=== PATIENT | male | born 1930 | race Caucasian/White ===

== ENCOUNTER 2016-07-03 12:04 | Emergency (ER) | payer MEDICARE, OTHER ==
[2016-07-03 12:15] VITALS: TEMP 97; BMI 24.1
[2016-07-03] MEDS ORDERED: SODIUM CHLORIDE 500 ML IV STA (12:56)
[2016-07-03 13:20] LABS: BASOPHIL 0.9 % (0-2.0); EOSINOPHIL 1.9 % (0-4.5); MCH 23.5 pg (25.7-33.7); MCHC 29.5 g/dl (32.0-35.9); MEAN CELL VOLUME 79.6 fl (80-96); MEAN PLT VOLUME 7.1 fl (7.5-11.1); NEUTROPHILS 76.2 % (42.8-82.8); PLATELET COUNT 505 K/MM3 (134-434); RDW 18.2 % (11.9-15.9); WHITE BLOOD COUNT 8.8 K/mm3 (4.0-10.0)
--- NOTE | 2016-07-03 13:26 | PDOC ---
History of Present Illness <Venu De La Rosa - Last Filed: 07/03/16 14:50> - General History Source: Patient Exam Limitations: No Limitations - History of Present Illness Initial Comments: 07/03/16 18:09 The patient is a 86 year old male, with a significant past medical history of GA , stomach cancer, congenital heart disease, renal failure, HTN, and small bowel obstruction who presents to the emergency department with a prescription refill. Patient reports being here for refills of his blood pressure medication. Upon ED arrival patient has no complaints of pain, but has a 120 HR in triage so was sent to the main ED for evaluation. He denies any SOB or chest pain. He denies fever, chills, palpitations, headache and dizziness. He denies nausea, vomit, diarrhea, melena, bpr and constipation. Allergies: NKA Social History:Nonsmoker. Denies EtOH use and drug use. PCP: <Tommy Lopez - Last Filed: 07/03/16 18:10> - General Chief Complaint: RX Refill Stated Complaint: RX REFILL Time Seen by Provider: 07/03/16 12:44 Past History - Past Medical History Anemia: No Asthma: No 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) CVA: No COPD: No CHF: No Dementia: No Diabetes: No GI Disorders: Yes (small bowel obstruction) Disorders: No HTN: Yes Hypercholesterolemia: Yes Kidney Stones: No (renal failure) Liver Disease: No Seizures: No Thyroid Disease: No - Surgical History Abdominal Surgery: Yes (sbo) Appendectomy: No Cardiac Surgery: No Cholecystectomy: No Lung Surgery: No Neurologic Surgery: No Orthopedic Surgery: No - Immunization History Immunization Up to Date: Yes - Psycho/Social/Smoking Cessation Hx Anxiety: No Suicidal Ideation: No Smoking History: Never smoked Have you smoked in the past 12 months: No Information on smoking cessation initiated: No 'Breaking Loose' booklet given: 07/01/15 Hx Alcohol Use: No Drug/Substance Use Hx: No Substance Use Type: None Hx Substance Use Treatment: No <Venu De La Rosa - Last Filed: 07/03/16 14:50> <Tommy Lopez - Last Filed: 07/03/16 18:10> - Past Medical History Allergies/Adverse Reactions: Allergies Allergy/AdvReac Type Severity Reaction Status Date / Time No Known Allergies Allergy Verified 07/03/16 12:10 Home Medications: Ambulatory Orders Aspirin [ASA -] 81 mg PO DAILY 07/03/16 Atorvastatin Ca [Lipitor] 40 mg PO HS #30 tablet 07/03/16 Metoprolol Succinate [Toprol XL -] 100 mg PO DAILY #30 tab.sr.24h 07/03/16 Review of Systems - Review of Systems Able to Perform ROS?: Yes Comments:: 07/03/16 18:10 CONSTITUTIONAL: No reported: Fever, Chills, Diaphoresis, Generalized Weakness, Malaise, Loss of Appetite HEENT: No reported: Rhinorrhea, Nasal Congestion, Throat Pain, Throat Swelling, Difficulty Swallowing, Mouth Swelling, Ear Pain, Eye Pain, Visual Changes CARDIOVASCULAR: No reported: Chest Pain, Syncope, Palpitations, Irregular Heart Rate, Lightheadedness, Peripheral Edema RESPIRATORY: No reported: Cough, Shortness of Breath, SOB with Exertion, Orthopnea, Wheezing , Stridor, Hemoptysis GASTROINTESTINAL: No reported: Abdominal pain, Abdominal Distension, Nausea, Vomiting, Diarrhea, Constipation, Melena, Hematochezia GENITOURINARY: No reported: Dysuria, Frequency, Urgency, Hesitancy, Flank Pain, Genital Pain MUSCULOSKELETAL: No reported: Myalgia, Arthralgia, Joint Swelling, Back pain, Neck Pain SKIN: No reported: Rash, Itching, Pallor HEMEATOLOGIC/IMMUNOLOGIC: No reported: Easy Bleeding, Easy Bruising, Lymphadenopathy, Frequent infections ENDOCRINE: No reported: Unexplained Weight Gain, Unexplained Weight Loss, Heat Intolerance , Cold Intolerance NEUROLOGIC: No reported: Headache, Focal Weakness, Paresthesias, Vertigo, Lightheadedness, Unsteady Gait, Seizure, Mental Status Changes, Incontinence PSYCHIATRIC: No reported: Anxiety, Depression <Tommy Lopez - Last Filed: 07/03/16 18:10> *Physical Exam - Vital Signs Last Vital Signs Temp Pulse Resp BP Pulse Ox 97.0 F L 120 H 20 195/105 100 07/03/16 12:10 07/03/16 12:10 07/03/16 12:10 07/03/16 12:10 07/03/16 12:10 <Venu De La Rosa - Last Filed: 07/03/16 14:50> - Vital Signs Last Vital Signs Temp Pulse Resp BP Pulse Ox 97.0 F L 87 18 144/61 98 07/03/16 12:10 07/03/16 14:35 07/03/16 14:35 07/03/16 14:35 07/03/16 14:35 - Physical Exam Comments: 07/03/16 18:10 GENERAL: The patient is awake, alert, and fully oriented, Nontoxic - in no acute distress. HEAD: Normocephalic, atraumatic. EYES: extraocular movements intact, sclera anicteric, conjunctiva clear. ENT: Normal voice, Moist mucous membranes. NECK: Normal range of motion, supple LUNGS: Breath sounds equal, clear to auscultation bilaterally. No wheezes, no rhonchi, no rales. HEART: Tachycardic. Regular rate and rhythm, without murmur, rub or gallop. ABDOMEN: Soft, nontender, normoactive bowel sounds. No guarding, no rebound.No CVA tenderness EXTREMITIES: Normal range of motion, no edema. No clubbing or cyanosis. No cords , erythema, or tenderness. NEUROLOGICAL: No facial asymmetry, Normal speech. PSYCH: Normal mood, normal affect. SKIN: Warm, Dry, normal turgor. <Tommy Lopez - Last Filed: 07/03/16 18:10> Heart Score/ECG Review - ECG Impressions Comment:: 07/03/16 13:24 Twelve-lead EKG was performed and reviewed by me. There is normal sinus rhythm Rate of 103 RBBB LAFB <Venu De La Rosa - Last Filed: 07/03/16 14:50> ED Treatment Course - LABORATORY CBC & Chemistry Diagram: 07/03/16 13:01 07/03/16 13:01 <Venu De La Rosa - Last Filed: 07/03/16 14:50> - LABORATORY CBC & Chemistry Diagram: 07/03/16 13:01 07/03/16 13:01 - ADDITIONAL ORDERS Additional order review: Laboratory Results 07/03/16 13:01 Sodium 141 Potassium 4.6 Chloride 103 Carbon Dioxide 27 Anion Gap 11 BUN 18 D Creatinine 1.2 Creat Clearance w eGFR 57.68 Random Glucose 161 H D Calcium 8.7 Total Bilirubin 0.7 D AST 15 D ALT 12 Alkaline Phosphatase 87 D Total Protein 7.1 D Albumin 3.3 L D TSH 1.23 D 07/03/16 13:01 RBC 3.91 L MCV 79.6 L MCHC 29.5 L RDW 18.2 H D MPV 7.1 L Neutrophils % 76.2 Lymphocytes % 17.3 Monocytes % 3.7 L Eosinophils % 1.9 Basophils % 0.9 - Medications Given in the ED: ED Medications Discontinued Medications Generic Name Dose Route Start Last Admin Trade Name Freq PRN Reason Stop Dose Admin Sodium Chloride 500 mls @ 500 mls/hr 07/03/16 12:56 07/03/16 13:09 Normal Saline - IV 07/03/16 13:55 500 mls/hr ASDIR STA Administration Metoprolol Succinate 100 mg 07/03/16 13:53 07/03/16 14:07 Toprol Xl - PO 07/03/16 13:54 100 mg ONCE ONE Administration <Tommy Lopez - Last Filed: 07/03/16 18:10> Medical Decision Making - Medical Decision Making 07/03/16 13:27 86y M hx of CAD, htn, hl presents for med refill without any other complaints, noted to be tachycardic to 120 at triage and hypertertensive exam unremarkable, HR when I was evaluating him was approx 103. will give gentle fluids will ck labs to r/o anemia, metabolic dernamgene ekg to screen for arrhtmia. 07/03/16 14:18 The patient's blood work is reviewed the patient's hemoglobin is 9.2, which is an improvement followed to do his previous hospital stay. The patient's heart rate on the cardiac cath tech is also significantly improved 94, and his blood pressure is also improved to 169 systolic. will give the pt an rx for his meds. 07/03/16 14:50 pts vitals improved substantially will d/c the patient to fu with pmd return precautions were discussed I discussed the physical exam findings, ancillary test results and final diagnoses with the patient. I answered all of the patient's questions. The patient was satisfied with the care received and felt comfortable with the discharge plan and treatment plan. The patient will call their primary care physician within 24 hours to arrange follow-up and will return to the Emergency Department with any new, persistent or worsening symptoms. <Venu De La Rosa - Last Filed: 07/03/16 14:50> *DC/Admit/Observation/Transfer - Discharge Dispostion Admit: No <Venu De La Rosa - Last Filed: 07/03/16 14:50> - Attestations Scribe Attestion: 07/03/16 18:10 Documentation prepared by Tommy Lopez, acting as certified medical biller for Venu De La Rosa MD. <Tommy Lopez - Last Filed: 07/03/16 18:10> Diagnosis at time of Disposition: Medication refill HTN (hypertension) Qualifiers: Hypertension type: essential hypertension Qualified Code(s): I10 - Essential ( primary) hypertension - Discharge Dispostion Disposition: HOME Condition at time of disposition: Improved - Prescriptions Prescriptions: Atorvastatin Ca [Lipitor] 40 mg PO HS #30 tablet Metoprolol Succinate [Toprol XL -] 100 mg PO DAILY #30 tab.sr.24h - Referrals Referrals: Stanislav Johnson MD [Primary Care Provider] - [facility] [Provider Group] - Patient Instructions Printed Discharge Instructions: DI for High Blood Pressure Additional Instructions: Return to the emergency department immediately with ANY new, persistent or worsening symptoms. Make sure that he stay well-hydrated You MUST call and follow up with your doctor tomorrow for further evaluation of your symptoms. Results were discussed with you. Please make sure your doctor reviews the results of your emergency evaluation. If you had any xrays during your visit, it was read preliminarily by myself, a Radiologist will review it and if there are any additional findings we will call you. Print Language: VIETNAMESE
[2016-07-03 13:34] LABS: ALBUMIN 3.3 g/dl (3.4-5.0); BILIRUBIN,TOTAL 0.7 mg/dL (0.2-1.0); CALCIUM 8.7 mg/dL (8.5-10.1); CREATININE 1.2 mg/dL (0.7-1.3); TOT PROT 7.1 g/dl (6.4-8.2)
[2016-07-03] MEDS ORDERED: METOPROLOL SUCCINATE 100 MG TAB.SR.24H (FP) PO ONE (13:53)
[2016-07-03] MEDS ORDERED: METOPROLOL SUCCINATE 50 MG TAB.SR.24H (FP) ONE (14:04)
[2016-07-03 14:35] VITALS: BP 144/61; PULSE 87
[2016-07-03 14:50] LABS: THYROID STIMULATING HORMONE 1.23 uIU/ml (0.358-3.74)
--- NOTE | 2016-07-03 15:21 | EKG ---
Test Reason : Blood Pressure : / mmHG Vent. Rate : 103 BPM Atrial Rate : 103 BPM P-R Int : 172 ms QRS Dur : 134 ms QT Int : 380 ms P-R-T Axes : 081 -62 088 degrees QTc Int : 497 ms SINUS TACHYCARDIA RIGHT BUNDLE BRANCH BLOCK LEFT ANTERIOR FASCICULAR BLOCK BIFASCICULAR BLOCK LEFT VENTRICULAR HYPERTROPHY WITH REPOLARIZATION ABNORMALITY ABNORMAL ECG WHEN COMPARED WITH ECG OF 27-FEB-2016 08:43, T WAVE AMPLITUDE HAS INCREASED IN INFERIOR LEADS VENT. RATE HAS INCREASED Confirmed by FILIPE SAMUEL, YAIMA ([id number]) on 07/03/2016 3:21:18 PM Referred By: Confirmed By:YAIMA DENT MD
== END 2016-07-03 14:56 | disposition home or self-care (01) ==
LOC: JER 12:04
DX: I10 Essential (primary) hypertension (principal); Z76.0 Encounter for issue of repeat prescription
CPT/HCPCS: 36415; 80053; 84443; 85025; 93005; 93010; 99285-25

== ENCOUNTER 2016-10-09 03:20 | Inpatient (IN) | payer MEDICARE, OTHER ==
[2016-10-09 03:41] VITALS: BMI 24.1
[2016-10-09] MEDS ORDERED: NITROGLYCERIN SUBLINGUAL 1/150 0.4 MG TAB SL ONE (03:53)
[2016-10-09 04:22] LABS: BASOPHIL 1.4 % (0-2.0); EOSINOPHIL 0.5 % (0-4.5); MCHC 27.1 g/dl (32.0-35.9); MEAN CELL VOLUME 68.5 fl (80-96); NEUTROPHILS 75.7 % (42.8-82.8); PLATELET COUNT 489 K/MM3 (134-434); WHITE BLOOD COUNT 6.6 K/mm3 (4.0-10.0)
[2016-10-09 04:25] LABS: MCH 18.6 pg (25.7-33.7)
--- NOTE | 2016-10-09 04:32 | PDOC ---
History of Present Illness - General Chief Complaint: Chest Pain Stated Complaint: CHEST PAIN Time Seen by Provider: 10/09/16 03:36 History Source: Patient Exam Limitations: No Limitations - History of Present Illness Initial Comments: 10/09/16 04:27 86yo Male patient presents to ED c/o chest pains that began 1 hour ago. Patient states he was trying to sleep it off, but pain is constant. Associated: Nausea. Presenting Symptoms: Chest Pain, Nausea Timing/Duration: reports: constant Severity/Quality: reports: moderate. denies: mild, severe, aching, burning, dull, ingestion, pressure, sharp, stabbing, tearing, tightness, other Location: reports: substernal. denies: central, epigastric, shoulder, back, abdomen, other Chest Pain Radiation: denies: no radiation, jaw, arms, neck, shoulders, back, sternal notch, epigastric, other Activities at Onset: reports: rest Past History - Travel Traveled outside of the country in the last 30 days: No Close contact w/someone who was outside of country & ill: No - Past Medical History Allergies/Adverse Reactions: Allergies Allergy/AdvReac Type Severity Reaction Status Date / Time No Known Allergies Allergy Verified 07/03/16 12:10 Home Medications: Ambulatory Orders Aspirin [ASA -] 81 mg PO DAILY 07/03/16 Atorvastatin Ca [Lipitor] 40 mg PO HS #30 tablet 07/03/16 Metoprolol Succinate [Toprol XL -] 100 mg PO DAILY #30 tab.sr.24h 07/03/16 Anemia: No Asthma: No 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) CVA: No COPD: No CHF: No Dementia: No Diabetes: No GI Disorders: Yes (small bowel obstruction) Disorders: No HTN: Yes Hypercholesterolemia: Yes Kidney Stones: No (renal failure) Liver Disease: No Seizures: No Thyroid Disease: No - Surgical History Abdominal Surgery: Yes (sbo) Appendectomy: No Cardiac Surgery: No Cholecystectomy: No Lung Surgery: No Neurologic Surgery: No Orthopedic Surgery: No - Immunization History Immunization Up to Date: Yes - Psycho/Social/Smoking Cessation Hx Anxiety: No Suicidal Ideation: No Smoking History: Former smoker Have you smoked in the past 12 months: No Information on smoking cessation initiated: No 'Breaking Loose' booklet given: 02/12/16 Hx Alcohol Use: No Drug/Substance Use Hx: No Substance Use Type: None Hx Substance Use Treatment: No Cardiac Specific PMH - Complaint Specific PMHX Pacemaker: No Review of Systems - Review of Systems Able to Perform ROS?: Yes Is the patient limited Mexican proficient: No Constitutional: No: Chills, Fever Respiratory: No: Cough, Shortness of Breath, Stridor, Wheezing Cardiac (ROS): Yes: Chest Pain, Chest Tightness. No: Edema, Irregular Heart Rate, Lightheadedness, Palpitations, Syncope ABD/GI: No: Constipated, Diarrhea, Nausea, Poor Appetite, Poor Fluid Intake, Vomiting, Abdominal cramping : No: Burning, Dysuria Musculoskeletal: No: Back Pain, Muscle Weakness Integumentary: No: Bruising, Erythema, Rash Neurological: No: Headache, Seizure, Tingling, Ataxia, Dizziness All Other Systems: Reviewed and Negative *Physical Exam - Vital Signs Last Vital Signs Temp Pulse Resp BP Pulse Ox 98.1 F 116 H 26 H 149/68 100 10/09/16 03:38 10/09/16 03:38 10/09/16 03:38 10/09/16 03:38 10/09/16 03:38 - Physical Exam General Appearance: Yes: Nourished, Appropriately Dressed. No: Apparent Distress, Mild Distress, Moderate Distress, Severe Distress HEENT: positive: EOMI, ANITA, Normal ENT Inspection, Normal Voice, Symmetrical, TMs Normal, Pharynx Normal. negative: Tonsillar Exudate, Tonsillar Erythema, Nasal Congestion, Rhinorrhea, TM Bulging, TM Dull, TM Erythema Neck: positive: Trachea midline, Supple. negative: Stridor, Lymphadenopathy (R) , Lymphadenopathy (L) Respiratory/Chest: positive: Lungs Clear, Normal Breath Sounds. negative: Chest Tender, Respiratory Distress, Accessory Muscle Use, Labored Respiration, Rapid RR Cardiovascular: positive: Tachycardia, Irregular Gastrointestinal/Abdominal: positive: Normal Bowel Sounds, Soft, Distended. negative: Guarding, Rebound, Tenderness, Spleenomegaly Musculoskeletal: positive: Normal Inspection. negative: CVA Tenderness, Vertebral Tenderness Extremity: positive: Normal Capillary Refill, Normal Inspection, Normal Range of Motion. negative: Pedal Edema, Swelling, Calf Tenderness, Erythema, Inflammation Integumentary: positive: Dry, Warm, Pale. negative: Erythema, Cold, Clammy, Diaphoresis, Moist, Hives, Swelling, Ecchymosis, Bruising Neurologic: positive: labor arbitrator II-XII NML intact, Fully Oriented, Alert, Normal Mood/ Affect, Normal Response, Motor Strength 09/21 ED Treatment Course - LABORATORY CBC & Chemistry Diagram: 10/09/16 04:00 10/09/16 04:00 - RADIOLOGY Radiology Studies Ordered: Category Date Time Status CHEST X-RAY PORTABLE* [RAD] Stat Radiology 10/09/16 03:53 Ordered - Medications Given in the ED: ED Medications Discontinued Medications Generic Name Dose Route Start Last Admin Trade Name Freq PRN Reason Stop Dose Admin Nitroglycerin 0.4 mg 10/09/16 03:53 10/09/16 04:00 Nitrostat - SL 10/09/16 03:54 0.4 mg ONCE ONE Administration
[2016-10-09] MEDS ORDERED: morphine CARPU-JECT 2 MG/1 ML DISP.SYRIN ONE ×2 (04:35→09:02)
--- NOTE | 2016-10-09 04:45 | PDOC ---
*Physical Exam - Vital Signs Last Vital Signs Temp Pulse Resp BP Pulse Ox 98.1 F 79 22 124/50 91 L 10/09/16 03:38 10/09/16 04:27 10/09/16 04:27 10/09/16 04:27 10/09/16 04:27 ED Treatment Course - LABORATORY CBC & Chemistry Diagram: 10/09/16 04:00 10/09/16 04:00 - ADDITIONAL ORDERS Additional order review: 10/09/16 04:00 RBC 3.63 L MCV 68.5 L MCHC 27.1 L RDW 20.0 H MPV 8.0 D Neutrophils % 75.7 Lymphocytes % 14.6 Monocytes % 7.8 D Eosinophils % 0.5 Basophils % 1.4 - Medications Given in the ED: ED Medications Discontinued Medications Generic Name Dose Route Start Last Admin Trade Name Freq PRN Reason Stop Dose Admin Nitroglycerin 0.4 mg 10/09/16 03:53 10/09/16 04:00 Nitrostat - SL 10/09/16 03:54 0.4 mg ONCE ONE Administration Medical Decision Making - Medical Decision Making 10/09/16 04:45 agree with care from NETO Luciano *DC/Admit/Observation/Transfer Diagnosis at time of Disposition: Anemia in chronic illness, Chest pain, Occult GI bleeding
[2016-10-09 04:46] LABS: ALBUMIN 2.9 g/dl (3.4-5.0); BILIRUBIN,TOTAL 1.1 mg/dL (0.2-1.0); CALCIUM 8.2 mg/dL (8.5-10.1); COCKROFT - GAULT 39.35; CREATININE 1.3 mg/dL (0.7-1.3); TOT PROT 6.8 g/dl (6.4-8.2)
[2016-10-09 04:49] LABS: TROPONIN I 0.12 ng/ml (0.00-0.05)
[2016-10-09] MEDS: SODIUM CHLORIDE 1,000 ML IV SCH (04:50)
[2016-10-09] MEDS: morphine CARPU-JECT 2 MG/1 ML DISP.SYRIN IVPUSH ONE ×2 (04:50→09:13)
[2016-10-09 04:51] LABS: INR 1.37 (0.82-1.09); PROTHROMBIN TIME (PATIENT) 15.2 SEC (9.98-11.88)
--- NOTE | 2016-10-09 05:50 | PDOC ---
*Physical Exam - Vital Signs Last Vital Signs Temp Pulse Resp BP Pulse Ox 98.1 F 100 H 21 144/58 100 10/09/16 03:38 10/09/16 05:24 10/09/16 05:24 10/09/16 05:24 10/09/16 05:24 ED Treatment Course - LABORATORY CBC & Chemistry Diagram: 10/09/16 04:00 10/09/16 04:00 - ADDITIONAL ORDERS Additional order review: Laboratory Results 10/09/16 10/09/16 10/09/16 04:00 04:00 04:00 INR 1.37 H PTT (Actin FS) 31.9 Sodium 138 Potassium 4.2 Chloride 101 Carbon Dioxide 20 L D Anion Gap 17 H BUN 20 H Creatinine 1.3 Creat Clearance w eGFR 52.59 Random Glucose 172 H Calcium 8.2 L Total Bilirubin 1.1 H D AST 10 L D ALT 11 L Alkaline Phosphatase 91 Creatine Kinase 32 L Troponin I 0.12 H D Total Protein 6.8 Albumin 2.9 L 10/09/16 04:00 RBC 3.63 L MCV 68.5 L MCHC 27.1 L RDW 20.0 H MPV 8.0 D Neutrophils % 75.7 Lymphocytes % 14.6 Monocytes % 7.8 D Eosinophils % 0.5 Basophils % 1.4 - Medications Given in the ED: ED Medications Discontinued Medications Generic Name Dose Route Start Last Admin Trade Name Freq PRN Reason Stop Dose Admin Morphine Sulfate 2 mg 10/09/16 04:28 10/09/16 04:50 Morphine Injection - IVPUSH 10/09/16 04:29 2 mg ONCE ONE Administration Nitroglycerin 0.4 mg 10/09/16 03:53 10/09/16 04:00 Nitrostat - SL 10/09/16 03:54 0.4 mg ONCE ONE Administration Medical Decision Making - Medical Decision Making 10/09/16 05:28 Patient received in sign out from pauline Luciano. Patient arrives complaining of chest pain since last night. Patient with history of CHF and is followed by Dr. Ko for cardiology and Dr. Vargas for primary care. Patient upon my arrival is satting at 98% with 2 L of oxygen. Patient's heart rate fluctuating from 96- 100. Patient currently asymptomatic. 10/09/16 05:48 Laboratory Tests 10/09/16 10/09/16 10/09/16 04:00 04:00 04:00 WBC 6.6 Hgb 6.8 L* D Hct 24.9 L D Plt Count 489 H Neutrophils % 75.7 INR 1.37 H Sodium 138 Potassium 4.2 Chloride 101 Carbon Dioxide 20 L D Anion Gap 17 H BUN 20 H Creatinine 1.3 Random Glucose 172 H Calcium 8.2 L Total Bilirubin 1.1 H D AST 10 L D ALT 11 L Creatine Kinase 32 L Troponin I 0.12 H D Albumin 2.9 L Patient was guaiac positive with tarry colored stool on exam. Patient will receive 1 unit of packed cells. Patient's history includes CAD, recurrent and STEMI, colon CA and GI bleed. Laboratory Tests 01/12/16 02/25/16 02/25/16 13:30 06:22 15:10 Troponin I 0.32 D 0.27 H 10.72 H* D 02/25/16 02/26/16 02/26/16 19:30 06:00 12:00 Troponin I 11.10 H* 7.85 H* D 5.58 H* Patient also with history of colon resection with recurrence at the anastomosis. Patient was seen by Dr. Kowalski and Dr. Salgado 10/09/16 07:23 Laboratory Tests 10/09/16 10/09/16 05:23 05:23 B-Natriuretic Peptide 1767.81 H Blood Type O POSITIVE Antibody Screen Negative Case discussed with Dr. Glover, who will admit to telemetry. Consultation placed with Dr. Ko and Dr. Kowalski. Patient was given 162 mg of aspirin. heparin is ontraindicated secondary to + occult blood and colon ca 10/09/16 08:[address] Ko and will consult shortly *DC/Admit/Observation/Transfer Diagnosis at time of Disposition: Anemia in chronic illness, Occult GI bleeding Chest pain Qualifiers: Chest pain type: unspecified Qualified Code(s): R07.9 - Chest pain, unspecified - Discharge Dispostion Admit: Yes
[2016-10-09 07:19] LABS: ANISOCYTOSIS 2+; HYPOCHROMIA 3+; PLATELET ESTIMATE SLT INCREASED (NORMAL); POIKILOCYTOSIS 2+; POLYCHROMASIA 1+
[2016-10-09] MEDS ORDERED: ASPIRIN 81 MG CHEWABLE TABLETS PO ONE (07:55)
[2016-10-09] MEDS ORDERED: morphine CARPU-JECT 2 MG/1 ML DISP.SYRIN IVPUSH ONE (09:30)
[2016-10-09] MEDS ORDERED: ACETAMINOPHEN 325 MG TABLET (FP) PO PRN (11:18)
--- NOTE | 2016-10-09 11:20 | EKG ---
Test Reason : Blood Pressure : / mmHG Vent. Rate : 091 BPM Atrial Rate : 091 BPM P-R Int : 000 ms QRS Dur : 134 ms QT Int : 432 ms P-R-T Axes : 000 -66 171 degrees QTc Int : 531 ms SINUS RHYTHM WITH MARKED SINUS ARRHYTHMIA RIGHT BUNDLE BRANCH BLOCK LEFT ANTERIOR FASCICULAR BLOCK BIFASCICULAR BLOCK LEFT VENTRICULAR HYPERTROPHY WITH REPOLARIZATION ABNORMALITY ST SEGMENT DEPRESSION IN LATERAL LEADS SUGGESTS INFERIOR AND ANTEROLATERAL ISCHEMIA ABNORMAL ECG WHEN COMPARED WITH ECG OF 09-OCT-2016 03:30, ST-T WAVE ABNORMALITY PERSISTS VENT. RATE HAS DECREASED Confirmed by YAIMA DENT MD ([id number]) on 10/09/2016 11:20:43 AM Referred By: Confirmed By:YAIMA DENT MD
--- NOTE | 2016-10-09 11:21 | EKG ---
Test Reason : Blood Pressure : / mmHG Vent. Rate : 112 BPM Atrial Rate : 112 BPM P-R Int : 174 ms QRS Dur : 130 ms QT Int : 346 ms P-R-T Axes : 000 -60 114 degrees QTc Int : 472 ms SINUS TACHYCARDIA RIGHT BUNDLE BRANCH BLOCK LEFT ANTERIOR FASCICULAR BLOCK BIFASCICULAR BLOCK LEFT VENTRICULAR HYPERTROPHY WITH REPOLARIZATION ABNORMALITY ST DEPRESSION SUGGESTS ANTEROLATERAL ISCHEMIA ABNORMAL ECG WHEN COMPARED WITH ECG OF 03-JUL-2016 12:57, ST MORE DEPRESSED ANTEROLATERAL LEADS CLINICAL CORRELATION IS RECOMMENDED Confirmed by YAIMA DENT MD ([id number]) on 10/09/2016 11:21:27 AM Referred By: Confirmed By:YAIMA DENT MD
--- NOTE | 2016-10-09 11:28 | HP ---
Admitting History and Physical - Primary Care Physician PCP: Omar Vargas - Admission Chief Complaint: I'm having chest pain History of Present Illness: Mr Parker is an 86 year old male who comes in with chest pain. He says it began about 2am. It was located on both sides of his chest. He describes it as a pulled muscle type of pain. It does not radiate. It was associated with nausea but not vomiting. He was not short of breath with it. He did not have lightheadedness or syncope with it. He does not know of anything that exacerbates or relieves it. He denies fevers, chills, passing out, coughing, diarrhea, constipation, dark black stool or blood in stools, difficulty or pain on urination, or swelling. He says he is still having some chest pain but it is improving. 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 type), Brother Review of Systems Findings/Remarks: full review of systems obtained, as per HPI and otherwise negative Physical Examination Vital Signs: Vital Signs Temperature 97.6 F 10/09/16 11:00 Pulse Rate 118 H 10/09/16 11:00 Respiratory Rate 21 10/09/16 11:00 Blood Pressure 133/72 10/09/16 11:00 O2 Sat by Pulse Oximetry (%) 100 10/09/16 11:00 Constitutional: Yes: Well Nourished, No Distress, Calm Eyes: Yes: Conjunctiva Clear, EOM Intact, PERRL HENT: Yes: Atraumatic, Normocephalic Cardiovascular: Yes: Tachycardia, Other. No: Gallop, Murmur, Rub Respiratory: Yes: Regular. No: Rales, Rhonchi, Wheezes Gastrointestinal: Yes: Normal Bowel Sounds, Soft. No: Distention, Tenderness Extremities: Yes: WNL Edema: No Labs: Laboratory Results - last 24 hr 10/09/16 10/09/16 10/09/16 04:00 04:00 04:00 WBC 6.6 RBC 3.63 L Hgb 6.8 L* D Hct 24.9 L D MCV 68.5 L MCHC 27.1 L RDW 20.0 H Plt Count 489 H MPV 8.0 D Neutrophils % 75.7 Lymphocytes % 14.6 Monocytes % 7.8 D Eosinophils % 0.5 Basophils % 1.4 Platelet Estimate Slt increased RBC Morphology Polychromasia 1+ Hypochromic-Microcytic 3+ Poikilocytosis 2+ Anisocytosis 2+ INR PTT (Actin FS) 31.9 Sodium 138 Potassium 4.2 Chloride 101 Carbon Dioxide 20 L D Anion Gap 17 H BUN 20 H Creatinine 1.3 Creat Clearance w eGFR 52.59 Random Glucose 172 H Calcium 8.2 L Total Bilirubin 1.1 H D AST 10 L D ALT 11 L Alkaline Phosphatase 91 Creatine Kinase 32 L Troponin I 0.12 H D B-Natriuretic Peptide Total Protein 6.8 Albumin 2.9 L Blood Type Antibody Screen Crossmatch 10/09/16 10/09/16 10/09/16 04:00 05:23 05:23 WBC RBC Hgb Hct MCV MCHC RDW Plt Count MPV Neutrophils % Lymphocytes % Monocytes % Eosinophils % Basophils % Platelet Estimate RBC Morphology Polychromasia Hypochromic-Microcytic Poikilocytosis Anisocytosis INR 1.37 H PTT (Actin FS) Sodium Potassium Chloride Carbon Dioxide Anion Gap BUN Creatinine Creat Clearance w eGFR Random Glucose Calcium Total Bilirubin AST ALT Alkaline Phosphatase Creatine Kinase Troponin I B-Natriuretic Peptide 1767.81 H Total Protein Albumin Blood Type O POSITIVE Antibody Screen Negative Crossmatch See Detail Imaging - Results Chest X-ray: Report Reviewed, Image Reviewed EKG: Image Reviewed Problem List - Problems (1) Anemia Assessment/Plan: -patient presents with anemia -admit to telemetry -transfuse 2 units pRBCs -monitor Code(s): D64.9 - ANEMIA, UNSPECIFIED Qualifiers: Other causes of anemia: acute posthemorrhagic (2) Occult GI bleeding Assessment/Plan: -cause of anemia -? secondary to colon cancer -will start protonix gtt currently -GI consult Code(s): R19.5 - OTHER FECAL ABNORMALITIES (3) Chest pain Assessment/Plan: -suspect secondary to anemia -cardiology consulted and following -improving with transfusion Code(s): R07.9 - CHEST PAIN, UNSPECIFIED Qualifiers: Chest pain type: unspecified Qualified Code(s): R07.9 - Chest pain, unspecified (4) Non-ST elevation (NSTEMI) myocardial infarction Assessment/Plan: -as above -cannot anticoagulate secondary to bleeding Code(s): I21.4 - NON-ST ELEVATION (NSTEMI) MYOCARDIAL INFARCTION (5) HTN (hypertension) Assessment/Plan: -continue toprol xl with hold parameters Code(s): I10 - ESSENTIAL (PRIMARY) HYPERTENSION (6) Hyperlipidemia Assessment/Plan: -continue statin Code(s): E78.5 - HYPERLIPIDEMIA, UNSPECIFIED Qualifiers:
--- NOTE | 2016-10-09 12:55 | CON.CARD ---
Consult Consult Specialty:: Cardiology Referred by:: Dr. Glover Reason for Consultation:: Cardiac evaluation - History of Present Illness Chief Complaint: Chest pain History of Present Illness: Patient is an 86 year old male well known to our service wih underlying history of CAD and history of NSTEMI in the context of profound anemia in the past, hypertension/HCVD, colon CA s/p subtotal colectomy with anastomotic recurrence and previous transfusions now presents with chest pain across the mid substernum and nausea. He denies shortness of breath of palpitations. He denies fever or chills. Denies paroxysmal nocturnal dyspnea or orthopnea. No headache or lightheadedness. He is being transfused with PRBC in view of H/H of 6.8/24.9. Troponin initially was 0.12 and now is 5.85 with BNP of 1767. He was given Furosemide after the blood transfusion and was also given Metoprolol ER dose today. 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 type), Brother Review of Systems - Review of Systems Constitutional: denies: Chills, Fever Cardiovascular: reports: Chest Pain. denies: Palpitations, Shortness of Breath Respiratory: denies: Cough, Hemoptysis, Orthopnea, PND, SOB, SOB on Exertion Gastrointestinal: denies: Abdominal Pain, Constipation, Diarrhea, Melena, Nausea , Rectal Bleeding, Vomiting Musculoskeletal: denies: Joint Pain Neurological: denies: Dizziness, Headache, Seizure, Syncope Vital Signs: Vital Signs Temperature 97.6 F 10/09/16 11:00 Pulse Rate 118 H 10/09/16 11:00 Respiratory Rate 21 10/09/16 11:48 Blood Pressure 133/72 10/09/16 11:00 O2 Sat by Pulse Oximetry (%) 100 10/09/16 11:48 Neck: Yes: Supple Respiratory: Yes: Diminished Gastrointestinal: Yes: Normal Bowel Sounds, Soft. No: Tenderness Cardiovascular: Yes: Regular Rate and Rhythm JVD: No Carotid Bruit: No PMI: Non-Displaced Heart Sounds: Yes: S1, S2. No: Gallop Murmur: Yes: Systolic Murmur, Grade 2 Edema: No - Other Data Labs, Other Data: INR, PTT INR 1.37 (0.82-1.09) H 10/09/16 04:00 Laboratory Results - last 24 hr 10/09/16 10/09/16 10/09/16 04:00 04:00 04:00 WBC 6.6 RBC 3.63 L Hgb 6.8 L* D Hct 24.9 L D MCV 68.5 L MCHC 27.1 L RDW 20.0 H Plt Count 489 H MPV 8.0 D Neutrophils % 75.7 Lymphocytes % 14.6 Monocytes % 7.8 D Eosinophils % 0.5 Basophils % 1.4 Platelet Estimate Slt increased RBC Morphology Polychromasia 1+ Hypochromic-Microcytic 3+ Poikilocytosis 2+ Anisocytosis 2+ INR PTT (Actin FS) 31.9 Sodium 138 Potassium 4.2 Chloride 101 Carbon Dioxide 20 L D Anion Gap 17 H BUN 20 H Creatinine 1.3 Creat Clearance w eGFR 52.59 Random Glucose 172 H Calcium 8.2 L Total Bilirubin 1.1 H D AST 10 L D ALT 11 L Alkaline Phosphatase 91 Creatine Kinase 32 L Creatine Kinase Index CK-MB (CK-2) Troponin I 0.12 H D B-Natriuretic Peptide Total Protein 6.8 Albumin 2.9 L Blood Type Antibody Screen Crossmatch 10/09/16 10/09/16 10/09/16 04:00 05:23 05:23 WBC RBC Hgb Hct MCV MCHC RDW Plt Count MPV Neutrophils % Lymphocytes % Monocytes % Eosinophils % Basophils % Platelet Estimate RBC Morphology Polychromasia Hypochromic-Microcytic Poikilocytosis Anisocytosis INR 1.37 H PTT (Actin FS) Sodium Potassium Chloride Carbon Dioxide Anion Gap BUN Creatinine Creat Clearance w eGFR Random Glucose Calcium Total Bilirubin AST ALT Alkaline Phosphatase Creatine Kinase Creatine Kinase Index CK-MB (CK-2) Troponin I B-Natriuretic Peptide 1767.81 H Total Protein Albumin Blood Type O POSITIVE Antibody Screen Negative Crossmatch See Detail 10/09/16 11:50 WBC RBC Hgb Hct MCV MCHC RDW Plt Count MPV Neutrophils % Lymphocytes % Monocytes % Eosinophils % Basophils % Platelet Estimate RBC Morphology Polychromasia Hypochromic-Microcytic Poikilocytosis Anisocytosis INR PTT (Actin FS) Sodium Potassium Chloride Carbon Dioxide Anion Gap BUN Creatinine Creat Clearance w eGFR Random Glucose Calcium Total Bilirubin AST ALT Alkaline Phosphatase Creatine Kinase 453 H D Creatine Kinase Index 15.4 H* CK-MB (CK-2) 69.955 H Troponin I 5.84 H* D B-Natriuretic Peptide Total Protein Albumin Blood Type Antibody Screen Crossmatch Sinus rhythm with RBBB and ST depression in anterior and lateral leads c/w ischemia Echo: Pending Imaging - Results Chest X-ray: Report Reviewed (Congestive changes) EKG: Report Reviewed Problem List - Problems (1) Anemia in chronic illness Code(s): D63.8 - ANEMIA IN OTHER CHRONIC DISEASES CLASSIFIED ELSEWHERE (2) Chest pain Code(s): R07.9 - CHEST PAIN, UNSPECIFIED Qualifiers: Chest pain type: unspecified Qualified Code(s): R07.9 - Chest pain, unspecified (3) Occult GI bleeding Code(s): R19.5 - OTHER FECAL ABNORMALITIES (4) Colon cancer Code(s): C18.9 - MALIGNANT NEOPLASM OF COLON, UNSPECIFIED (5) Coronary artery disease Code(s): I25.10 - ATHSCL HEART DISEASE OF [place] CORONARY ARTERY W/O ANG PCTRS Qualifiers: Coronary Disease-Associated Artery/Lesion type: [place] artery [place] vs. transplanted heart: [place] heart Associated angina: angina presence unspecified Qualified Code(s): I25.10 - Atherosclerotic heart disease of [place] coronary artery without angina pectoris (6) Non-ST elevation (NSTEMI) myocardial infarction Code(s): I21.4 - NON-ST ELEVATION (NSTEMI) MYOCARDIAL INFARCTION (7) HTN (hypertension) Code(s): I10 - ESSENTIAL (PRIMARY) HYPERTENSION Qualifiers: Hypertension type: essential hypertension Qualified Code(s): I10 - Essential (primary) hypertension (8) Hyperlipidemia Code(s): E78.5 - HYPERLIPIDEMIA, UNSPECIFIED Qualifiers: Hyperlipidemia type: pure hypercholesterolemia Assessment/Plan 1. CAD with elevated troponin - NSTEMI with ST depression in anterior and lateral leads, angina pectoris in the context of anemia 2. Anemia with underlying colon CA s/p subtotal colectomy with recurrence at the anastomotic site - post transfusion 3. HTN/HCVD 4. Hypercholesterolemia 5. History of occult GI bleeding PLAN: 1. Transfuse PRBC and follow CBC 2. Serial cardiac enzymes and monitor peak 3. If patient develops chest pain, consider IV NTG +/- Morphine as needed 4. Continue beta ying and monitor vitals 5. ASA is being held in view of severe anemia. Heparin not started in view of severe anemia in the context of colon CA 6. Transthoracic echocardiography is to be done to assess LV and valvular function 7. Further cardiac invasive studies not being planned at this time in view of underlying history. Further plans are to follow Juan Sevilla MD
[2016-10-09 13:16] LABS: TROPONIN I 5.84 ng/ml (0.00-0.05)
[2016-10-09] MEDS ORDERED: FUROSEMIDE 40 MG/4 ML INJECTABLE VIAL IVPB ONE (13:26)
[2016-10-09] MEDS ORDERED: METOPROLOL SUCCINATE 100 MG TAB.SR.24H (FP) PO ONE ×2 (14:04→14:30)
[2016-10-09] MEDS: PANTOPRAZOLE SODIUM 80 MG in SODIUM CHLORIDE 100 ML IVPB SCH ×2 (14:13→22:00)
[2016-10-09] MEDS ORDERED: MIDAZOLAM HCL 5 MG/1 ML Single Dose Vial IVPUSH ONE (15:23)
--- NOTE | 2016-10-09 15:30 | PROC ---
Intubation - Intubation Reason for Intubation: Respiratory Insufficiency, Respiratory Failure, Airway Protection, Ventilatory Failure, Other Intubation Method: orotracheal Blade used: Mac Tube Size (cm): 7.5 Tube position @ lip (cm): 24 Tube position confirmed by: Direct visualization, CO2 detector, Breath sounds Breath Sounds after Intubation: equal Remarks: Called to a code 99. Resuscitation in progress. Mac 4. Grade 1 with cricoid. 7.5 ETT. +EtCO2. BS=BL No complications
--- NOTE | 2016-10-09 15:33 | PROC ---
Central Line Insertion - Procedure Note Called to CODE 99. CPR in progress. Indication: Other (Cardiac arrest) Central Line: Triple Lumen Catheter Position: Supine Area prepped with Chlorhexidine solution then draped using sterile barrier protection. Technique used: Seldinger Site: Right Femoral Return of pulses after ACLS initiated. Dark venous non-pulsatile flow noted from hub of needle. The catheter was introduced. Guide wire removed intact. Each port aspirated then flushed with sterile normal saline and capped. Line secured to skin with silk suture. Sterile occlusive dressing applied.
--- NOTE | 2016-10-09 15:49 | EKG ---
Test Reason : Blood Pressure : / mmHG Vent. Rate : 129 BPM Atrial Rate : 129 BPM P-R Int : 000 ms QRS Dur : 120 ms QT Int : 284 ms P-R-T Axes : -26 -56 144 degrees QTc Int : 416 ms SINUS TACHYCARDIA WITH 1ST DEGREE A-V BLOCK LEFT AXIS DEVIATION LEFT VENTRICULAR HYPERTROPHY WITH QRS WIDENING AND REPOLARIZATION ABNORMALITY ABNORMAL ECG WHEN COMPARED WITH ECG OF 09-OCT-2016 04:27, VENT. RATE HAS INCREASED ST SEGMENT DEPRESSION APPEARS LESS IN LATERAL LEADS CLINICAL CORRELATION IS RECOMMENDED Confirmed by YAIMA DENT MD ([id number]) on 10/09/2016 3:48:49 PM Referred By: Confirmed By:YAIMA DENT MD
--- NOTE | 2016-10-09 15:51 | RAPID ---
Physical Examination Vital Signs: Vital Signs Temperature 97.8 F 10/09/16 14:15 Pulse Rate 123 H 10/09/16 14:15 Respiratory Rate 20 10/09/16 14:15 Blood Pressure 123/70 10/09/16 14:15 O2 Sat by Pulse Oximetry (%) 100 10/09/16 11:48 Rapid Response - Rapid Response Assessment: While in nurses station, a Rapid response called @ 3:11p immediately entered room patient noted to have agonal breathing on 2 liters and was unresponsive to voice and tactile stimuli CPR began by advertising copywriter makenzie Code 99 was then immediately called Code team arrived and CPR/PEA protocol initiated
[2016-10-09] MEDS: NOREPINEPHRINE BITARTRATE 8,000 MCG in DEXTROSE 5%-WATER - 492 ML IV SCH ×3 (16:00→23:00)
[2016-10-09] MEDS ORDERED: PROPOFOL 100 ML ONE (16:05)
[2016-10-09] MEDS ORDERED: NOREPINEPHRINE BITARTRATE 4 MG/4 ML ML IV ONE ×3 (16:08→21:10)
--- NOTE | 2016-10-09 16:09 | RAPID ---
Physical Examination Vital Signs: Vital Signs Temperature 97.8 F 10/09/16 14:15 Pulse Rate 119 H 10/09/16 15:35 Respiratory Rate 23 10/09/16 15:35 Blood Pressure 123/70 10/09/16 14:15 O2 Sat by Pulse Oximetry (%) 97 10/09/16 15:35 Rapid Response - Rapid Response Assessment: Code 99 was called. Arrived at scene, compression already started, pulse check showed PEA, CPR resumed, epi given twice, intubated, femoral line placed, ROSC with sinus tachycardia 130bpm. Patient subsequently transferred to the ICU. For details, please refer to the code sheet in ICU. Critical Care Total Critical Care Time (in minutes): 15
--- NOTE | 2016-10-09 16:12 | CONSULT ---
Consultation: REQUESTING PROVIDER: Belen CONSULT REQUEST: We have been asked to medically evaluate this patient for ROSC in setting of NSTEMI. HISTORY OF PRESENT ILLNESS: Patient is an 86 year old male with significant PMH of moderate Systolic CHF, CAD, HTN, HLD, Colon Cancer s/p subtotal colectomy (2014) with anastomotic recurrence (2016) who presented to the ED with chest pain. As per ED note, patient reported midsternal chest pain starting at 2am last night. Pain was associated with nausea & shortness of breath. Patient found to have Hg of 6.8. Initial troponin was 0.12 with follow-up troponin 5.85 & BNP 1767. Guaiac (+) rectal exam in ED. EKG: Sinus rhythm with RBBB and ST depression in anterior and lateral leads c/w ischemia. 2 units PRBC ordered & he was given Lasix after 1st unit given. Also given Metoprolol in ED. Admitted to telemetry for NSTEMI. No anticoagulation was given due to active bleeding. Code 99 called this afternoon, PEA successfully resuscitated by code team after 2 rounds of epinephrine. Intubated & transferred to ICU. REVIEW OF SYSTEMS: DEFERRED DUE TO CLINICAL CONDITION PHYSICAL EXAMINATION Vital Signs - 24 hr 10/09/16 10/09/16 10/09/16 10:00 11:00 11:48 Temperature 97.6 F Pulse Rate 118 H Respiratory 21 21 21 Rate Blood Pressure 133/72 O2 Sat by Pulse 100 100 100 Oximetry (%) 10/09/16 10/09/16 14:15 15:35 Temperature 97.8 F Pulse Rate 123 H 119 H Respiratory 20 23 Rate Blood Pressure 123/70 O2 Sat by Pulse 97 Oximetry (%) GENERAL: Intubated & sedated HEENT: Atraumatic, EOMI, PERRLA, No lymphadenopathy noted, moist membranes LUNGS: mild bibasilar crackles noted; no wheezing or accessory muscle use HEART: Tachycardic with regular rhythm; normal S1 and S2 without murmur, rub or gallop. ABDOMEN: Soft, nontender, not distended, normoactive bowel sounds MUSCULOSKELETAL: Normal range of motion at all joints. No bony deformities or tenderness. No CVA tenderness. UPPER EXTREMITIES: 2+ pulses, warm, well-perfused. No cyanosis. No clubbing. Cap refill <2 seconds. No peripheral edema. LOWER EXTREMITIES: 2+ pulses, warm, well-perfused. No calf tenderness. Trace bilateral edema bilateral LE. NEUROLOGICAL: Cranial nerves II-XII intact. Gait & speech deferred due to clinical condition. SKIN: Warm, dry, normal turgor, no rashes or lesions noted. GENITAL: Hypospadia noted RECTAL: Deferred due to low BP, but no signs of active bleeding noted Laboratory Results - last 24 hr 10/09/16 10/09/16 10/09/16 11:50 11:50 15:21 POC Glucometer 141 Creatine Kinase 453 H D Creatine Kinase Index 15.4 H* CK-MB (CK-2) 69.955 H CK-MB (CK-2) Rel Index Cancelled Troponin I 5.84 H* D Active Medications Generic Name Dose Route Start Last Admin Trade Name Freq PRN Reason Stop Dose Admin Acetaminophen 650 mg 10/09/16 11:18 Tylenol - PO Q4H PRN FEVER OR PAIN Atorvastatin Calcium 40 mg 10/09/16 22:00 Lipitor - PO HS PITA Chlorhexidine Gluconate 1 applic 10/09/16 22:00 Hibiclens For Decolonization - TP HS PITA Sodium Chloride 1,000 mls @ 100 mls/hr 10/09/16 04:30 10/09/16 04:50 Normal Saline - IV 100 mls/hr ASDIR PITA Administration Pantoprazole Sodium 80 mg/ 100 mls @ 10 mls/hr 10/09/16 11:45 10/09/16 14:13 Sodium Chloride IVPB 10 mls/hr Q10H PITA Administration 8 MG/HR Midazolam HCl 100 mg/ Sodium 100 mls @ 1 mls/hr 10/09/16 16:15 Chloride IVPB 10/10/16 16:14 TITR PITA Protocol 1 MG/HR Propofol 100 mls @ 1.973 mls/hr 10/09/16 16:15 Diprivan - IV TITR PITA Protocol 5 MCG/KG/MIN Norepinephrine Bitartrate 8, 500 mls @ 18.75 mls/hr 10/09/16 16:15 000 mcg/ Dextrose IV TITR PITA Protocol 5 MCG/MIN Metoprolol Succinate 100 mg 10/10/16 10:00 10/09/16 14:12 Toprol Xl - PO 100 mg DAILY PITA Administration Mupirocin 1 applic 10/09/16 22:00 Bactroban Ointment (For Decolonization) - NS 10/14/16 21:59 BID [facility] ASSESSMENT/PLAN: 86 year old male with significant PMH of moderate Systolic CHF, CAD, HTN, HLD, Colon Cancer s/p subtotal colectomy (2014) with anastomotic recurrence (2016) admitted for NSTEMI & GI bleed. Code 99 called later in afternoon with ROSC after 2 rounds epinephrine during PEA. #Cardiac Arrest, superimposed in setting of NSTEMI -intubated & sedated in ICU -Levophed for BP support -continuous cardiac monitoring -anticoagulation deferred d/t anemia and (+) FOBT -cooling protocol deferred due to active bleeding & patient responsive s/p ROSC -continue Toprol 100mg DAILY, Lipitor 20mg HS -cardiology consult appreciated #Anemia, likely etiology is GI bleed in setting of Colon Cancer Hx -2units PRBC ordered -IV PPI Drip -CBC ordered for later tonight to assess if further transfusions needed -transfuse to keep Hg >7 -GI Consult appreciated #Systolic CHF/CAD/HTN/HLD Hx -will hold off on diuresis for now -Strict I & O -Daily weights -f/u CXR in AM -continue Toprol, Lipitor as above Prophylaxis -No AC due to GIB -IV PPI Drip -IVF NS@100cc/hr -monitor electrolytes -NPO Dispo: We will continue to follow the patient. Thank you for this consultative opportunity. Visit type - Emergency Visit Emergency Visit: Yes ED Registration Date: 10/09/16 Care time: The patient presented to the Emergency Department on the above date and was hospitalized for further evaluation of their emergent condition. - New Patient This patient is new to me today: Yes Date on this admission: 10/09/16 - Critical Care Critical Care patient: Yes Total Critical Care Time (in minutes): 45 Critical Care Statement: The care of this patient involved high complexity decision making to prevent further life threatening deterioration of the patient 's condition and/or to evalute & treat vital organ system(s) failure or risk of failure.
[2016-10-09] MEDS ORDERED: MIDAZOLAM 100 MG in SODIUM CHLORIDE 100 ML IVPB SCH (16:15)
[2016-10-09] MEDS ORDERED: NOREPINEPHRINE BITARTRATE 8,000 MCG in SODIUM CHLORIDE 0.45% 992 ML IV SCH (16:15)
[2016-10-09] MEDS ORDERED: PROPOFOL 100 ML IV SCH (16:15)
--- NOTE | 2016-10-09 17:05 | CON.GI ---
Consult Consult Specialty:: GI Referred by:: Hospitalist Reason for Consultation:: GI bleed - History of Present Illness Chief Complaint: Chest pain History of Present Illness: 86 M known to our service, with h/o colon ca diagnosed 2014, s/p resection with recurrence at the anastomosis. He refused any further intervention at that time including surgery and chemo. He now comes to ER c/o CP and subsequently had PEA arrest. He was resuscitated and is in the ICU on vent. He has a troponin of 5.8. There has been no bleeding documented. He has a low MCV and essentially normal renal fxn suggesting he had a bleed at some point but at this time, there is no bleeding. Other relevant PMH: CAD with NSTEMI in the past, HTN, and HLD. Bleeding in the past was due to untreated recurrent colon ca. and that is likely the reason at this time. 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 type), Brother Physical Exam-GI Vital Signs: Vital Signs Temperature 97.8 F 10/09/16 14:15 Pulse Rate 119 H 10/09/16 15:35 Respiratory Rate 23 10/09/16 15:35 Blood Pressure 123/70 05/23/17 14:15 O2 Sat by Pulse Oximetry (%) 97 10/09/16 15:35 Constitutional: Yes: Obese HENT: Yes: Normocephalic Neck: Yes: Supple Cardiovascular: Yes: Regular Rate and Rhythm Respiratory: Yes: Intubated Gastrointestinal Inspection: Yes: WNL ...Auscultate: Yes: Hypoactive Bowel Sounds ...Palpate: Yes: Soft Neurological: Yes: Other ([id number]) Labs: INR, PTT INR 1.37 (0.82-1.09) H 10/09/16 04:00 CBC, BMP 10/09/16 04:00 10/09/16 04:00 Assessment/Plan Patient with anemia, post-code with elevated troponin, intubated and sedated. History of colon ca. Mention of GI bleed on chart but no actual evidence of same. Rec: Guaiac stool Protonix drip Prior bleed secondary to colon ca. In ER documentation patient noted to have tarry, guaiac (+) stool. Based on that, would wait for AC until threat of active bleed has passed. Rec: Bleeding likely diffuse, from tumor. Not treatable at this time and not candidate for procedures.
--- NOTE | 2016-10-09 17:18 | RAPID ---
Physical Examination Vital Signs: Vital Signs Temperature 97.8 F 10/09/16 14:15 Pulse Rate 119 H 10/09/16 15:35 Respiratory Rate 23 10/09/16 15:35 Blood Pressure 123/70 10/09/16 14:15 O2 Sat by Pulse Oximetry (%) 97 10/09/16 15:35 Findings/Remarks: Code 99 called. Arrived and found patient unresponsive in bed, CPR in progress. Patient was noted to become unresponsive and asystole was noted on telemetry. Code 99 was called and CPR started. Patient was pulseless and monitor continued to show asystole. Epinephrine was given with no response. CPR continued. Patient was intubated by anesthesiology. Right femoral TLC inserted by Tho MARX. Patient remained asystolic. Second dose of epinephrine was given with spontaneous ROSC. Versed 5 mg IV given. Patient transferred to ICU under the care of the ICU team. Dr. Glover was present at the time of transfer. For further details, please refer to code summary sheet. Constitutional: Yes: Ariana Critical Care Total Critical Care Time (in minutes): 15
--- NOTE | 2016-10-09 17:39 | PN ---
Teaching Attending Note Name of Resident: Brandon Hernandez ATTENDING PHYSICIAN STATEMENT I saw and evaluated the patient. I reviewed the resident's note and discussed the case with the resident. I agree with the resident's findings and plan as documented. SUBJECTIVE: In brief. 86 M, CAD, hypertension/HCVD, colon CA s/p subtotal colectomy with anastomotic recurrence of disease. Admitted via the ER due to NSTEMI and CHF. S/P CP arrest while on the medical floor. Time for ROSC between 8 to 10 minutes. Rhythm apparently PEA. Patient now seen in the ICU. He is on AC Mode of vent, 100% FiO2. He is spontaneously moving. No pressors. Intake & Output 10/06/16 10/07/16 10/08/16 10/09/16 23:59 23:59 23:59 23:59 Weight 145 lb Last Vital Signs Temp Pulse Resp BP Pulse Ox 97.8 F 119 H 23 123/70 97 10/09/16 14:15 10/09/16 15:35 10/09/16 15:35 10/09/16 14:15 10/09/16 15:35 Active Medications Acetaminophen (Tylenol -) 650 mg PO Q4H PRN PRN Reason: FEVER OR PAIN Atorvastatin Calcium (Lipitor -) 40 mg PO HS PITA Chlorhexidine Gluconate (Hibiclens For Decolonization -) 1 applic TP HS PITA Sodium Chloride (Normal Saline -) 1,000 mls @ 100 mls/hr IV ASDIR PITA Last Admin: 10/09/16 04:50 Dose: 100 mls/hr Pantoprazole Sodium 80 mg/ (Sodium Chloride) 100 mls @ 10 mls/hr IVPB Q10H PITA PRN Reason: 8 MG/HR Last Admin: 10/09/16 14:13 Dose: 10 mls/hr Midazolam HCl 100 mg/ Sodium (Chloride) 100 mls @ 1 mls/hr IVPB TITR PITA; 1 MG/ HR PRN Reason: Protocol Stop: 10/10/16 16:14 Propofol (Diprivan -) 100 mls @ 1.973 mls/hr IV TITR PITA; 5 MCG/KG/MIN PRN Reason: Protocol Norepinephrine Bitartrate 8, (000 mcg/ Dextrose) 500 mls @ 18.75 mls/hr IV TITR PITA; 5 MCG/MIN PRN Reason: Protocol Metoprolol Succinate (Toprol Xl -) 100 mg PO DAILY [facility] Last Admin: 10/09/16 14:12 Dose: 100 mg Mupirocin (Bactroban Ointment (For Decolonization) -) 1 applic NS BID [facility] Stop: 10/14/16 21:59 General: Intubated, moving all extremities Neck: Yes: Supple Respiratory: Yes: Diminished Gastrointestinal: Yes: Normal Bowel Sounds, Soft. No: Tenderness Cardiovascular: Yes: Regular Rate and Rhythm JVD: No Carotid Bruit: No PMI: Non-Displaced Heart Sounds: Yes: S1, S2. No: Gallop Murmur: Yes: Systolic Murmur, Grade 2 Edema: No - Other Data Labs, Other Data: INR, PTT INR 1.37 (0.82-1.09) H 10/09/16 04:00 Laboratory Results - last 24 hr 10/09/16 10/09/16 10/09/16 04:00 04:00 04:00 WBC 6.6 RBC 3.63 L Hgb 6.8 L* D Hct 24.9 L D MCV 68.5 L MCHC 27.1 L RDW 20.0 H Plt Count 489 H MPV 8.0 D Neutrophils % 75.7 Lymphocytes % 14.6 Monocytes % 7.8 D Eosinophils % 0.5 Basophils % 1.4 Platelet Estimate Slt increased RBC Morphology Polychromasia 1+ Hypochromic-Microcytic 3+ Poikilocytosis 2+ Anisocytosis 2+ INR PTT (Actin FS) 31.9 Sodium 138 Potassium 4.2 Chloride 101 Carbon Dioxide 20 L D Anion Gap 17 H BUN 20 H Creatinine 1.3 Creat Clearance w eGFR 52.59 Random Glucose 172 H Calcium 8.2 L Total Bilirubin 1.1 H D AST 10 L D ALT 11 L Alkaline Phosphatase 91 Creatine Kinase 32 L Creatine Kinase Index CK-MB (CK-2) Troponin I 0.12 H D B-Natriuretic Peptide Total Protein 6.8 Albumin 2.9 L Blood Type Antibody Screen Crossmatch 10/09/16 10/09/16 10/09/16 04:00 05:23 05:23 WBC RBC Hgb Hct MCV MCHC RDW Plt Count MPV Neutrophils % Lymphocytes % Monocytes % Eosinophils % Basophils % Platelet Estimate RBC Morphology Polychromasia Hypochromic-Microcytic Poikilocytosis Anisocytosis INR 1.37 H PTT (Actin FS) Sodium Potassium Chloride Carbon Dioxide Anion Gap BUN Creatinine Creat Clearance w eGFR Random Glucose Calcium Total Bilirubin AST ALT Alkaline Phosphatase Creatine Kinase Creatine Kinase Index CK-MB (CK-2) Troponin I B-Natriuretic Peptide 1767.81 H Total Protein Albumin Blood Type O POSITIVE Antibody Screen Negative Crossmatch See Detail 10/09/16 11:50 WBC RBC Hgb Hct MCV MCHC RDW Plt Count MPV Neutrophils % Lymphocytes % Monocytes % Eosinophils % Basophils % Platelet Estimate RBC Morphology Polychromasia Hypochromic-Microcytic Poikilocytosis Anisocytosis INR PTT (Actin FS) Sodium Potassium Chloride Carbon Dioxide Anion Gap BUN Creatinine Creat Clearance w eGFR Random Glucose Calcium Total Bilirubin AST ALT Alkaline Phosphatase Creatine Kinase 453 H D Creatine Kinase Index 15.4 H* CK-MB (CK-2) 69.955 H Troponin I 5.84 H* D B-Natriuretic Peptide Total Protein Albumin Blood Type Antibody Screen Crossmatch Problem List - Problems (1) Anemia in chronic illness Code(s): D63.8 - ANEMIA IN OTHER CHRONIC DISEASES CLASSIFIED ELSEWHERE (2) Chest pain Code(s): R07.9 - CHEST PAIN, UNSPECIFIED Qualifiers: Chest pain type: unspecified Qualified Code(s): R07.9 - Chest pain, unspecified (3) Occult GI bleeding Code(s): R19.5 - OTHER FECAL ABNORMALITIES (4) Colon cancer Code(s): C18.9 - MALIGNANT NEOPLASM OF COLON, UNSPECIFIED (5) Coronary artery disease Code(s): I25.10 - ATHSCL HEART DISEASE OF [place] CORONARY ARTERY W/O ANG PCTRS Qualifiers: Coronary Disease-Associated Artery/Lesion type: [place] artery [place] vs. transplanted heart: [place] heart Associated angina: angina presence unspecified Qualified Code(s): I25.10 - Atherosclerotic heart disease of [place] coronary artery without angina pectoris (6) Non-ST elevation (NSTEMI) myocardial infarction Code(s): I21.4 - NON-ST ELEVATION (NSTEMI) MYOCARDIAL INFARCTION (7) HTN (hypertension) Code(s): I10 - ESSENTIAL (PRIMARY) HYPERTENSION Qualifiers: Hypertension type: essential hypertension Qualified Code(s): I10 - Essential (primary) hypertension (8) Hyperlipidemia Code(s): E78.5 - HYPERLIPIDEMIA, UNSPECIFIED Qualifiers: Hyperlipidemia type: pure hypercholesterolemia IMP: PEA arrest -> 8 to 10 minutes for ROSC PLAN: Transfuse PRBC and follow CBC closely Sedate Not a candidate for TTM due to severe anemia/potential for bleeding and the patient is now spontaneously moving. ASA being held due to severe anemia. Cardiology follow up Dr Vargas critical care time spent in reviewing chart, evaluating patient and formulating plan 40 min
[2016-10-09 18:08] LABS: ALLENS TEST POSITIVE; ART PUNCT SITE RIGHT RADIAL; ARTERIAL BLD GAS O2 SATURATION 99.8 % (90-98.9); ARTERIAL BLOOD GAS HCO3 17.6 meq/L (22-26); LPM/O2% 100; MECH. VENT. YES; PT. ON O2? YES; TYPE OF O2 VENT; VENT RATE 12; VT/PRESS 500
[2016-10-09 18:09] LABS: ARTERIAL BLOOD GAS pH 7.34 (7.35-7.45)
[2016-10-09] MEDS ORDERED: MIDAZOLAM HCL 2 MG/2 ML SINGLE DOSE VIAL ONE (19:32)
[2016-10-09 20:54] LABS: TROPONIN I 15.5 ng/ml (0.00-0.05)
[2016-10-09] MEDS: CHLORHEXIDINE GLUCONATE 4% CLEANSER FOR DECOLONIZATION TP SCH (21:18)
[2016-10-09] MEDS: MUPIROCIN 2% TOPICAL OINTMENT FOR DECOLONIZATION NS SCH (21:18)
[2016-10-09] MEDS: ATORVASTATIN CA 40 MG TABLET (FP) PO SCH (21:18)
--- NOTE | 2016-10-09 23:37 | PROC ---
Central Line Insertion Indication: CVP Monitoring, Vasopressor Risks and Benefits Explained: Yes Consent on Chart: Yes (Family via phone) Central Line: Triple Lumen Catheter Anesthesia: 1% Lidocaine Sterile Technique: Yes Ultrasound Guided Assistance: Yes Position: Left Internal Jugular Post Insertion: Yes: Bilateral Breath Sounds, Chest X-Ray Ordered Sterile Dressing Applied: Yes
[2016-10-10] MEDS ORDERED: NOREPINEPHRINE BITARTRATE 4 MG/4 ML ML IV ONE ×4 (00:43→23:02)
[2016-10-10] MEDS ORDERED: ATROPINE SULFATE 1 MG/10 ML DISP.SYRIN ONE (03:09)
[2016-10-10] MEDS ORDERED: DOPAMINE 400 MG/D5W - 250 ML IVPB ONE (03:11)
[2016-10-10] MEDS: DOPAMINE 400 MG/D5W - 250 ML IVPB SCH ×2 (03:34→16:11)
[2016-10-10] MEDS: FENTANYL INJECTION 500 MCG in DEXTROSE 5%-WATER - 90 ML IJ SCH ×2 (03:45→09:03)
--- NOTE | 2016-10-10 03:50 | PN ---
Progress Note (short form) - Note Progress Note: Progress Note: Called to bedside for increasing vasopressor requirements and bradycardia On exam pt with weak carotid pulse, HR 30, BP 60/30. On Tele pt in 3rd degree HB. 0.5mg atropine give with minimal effect. Resp rate and Fio2 increased. Levophed increased to 30mcg and dopamine 5mcg/kg/min started. HR improved initially but pt with intermittent bradycardia and varying levels of AV blockade. 12 lead shows sinus with 1st AV, deep TWI c/w worsening ischemia. Dr Ko service paged at 3:30 to notify of worsening condition, awaiting call back Family notified and are enroute to hospital. Nephew arrived (primary surrogate)> We discussed situation and Nephew advised pt did not want heroic efforts. On chart review, in 2015 pt had made himself DNR > We agreed to continue current management, to focus on comfort, and to not escalate life sustaining measures while family gathers (pt brother enroute from [place]). Pt now DNR. CBC, BMP 10/09/16 04:00 10/09/16 04:00 Vital Signs Temp 98.4 F 10/09/16 20:00 Pulse 74 10/10/16 02:00 Resp 17 10/10/16 02:30 BP 118/51 10/10/16 02:00 Pulse Ox 95 10/09/16 21:00 Intake & Output 10/09/16 10/09/16 10/10/16 11:59 23:59 11:59 Intake Total 1544 Output Total 300 Balance 1244 Weight 65.771 kg Intake: IV 1520 Normal Saline - 1,000 ml 1000 @ 100 mls/hr IV ASDIR PITA Rx#:[id number] Diprivan - 100 ml @ 5 MCG 52 /KG/MIN 1.973 mls/hr IV TITR PITA Rx#:[id number] Levophed - 8,000 Mcg In 1 468 /2 Normal Saline 992 ml @ 5 MCG/MIN 37.5 mls/hr IV TITR PITA Rx#:[id number] IVPB 24 Output: Urine 300 [place] 300 Other: Voiding Method Diaper Indwelling Catheter Height 5 ft 5 in Body Mass Index (BMI) 24.1 Troponin, BNP 10/09/16 10/09/16 10/09/16 04:00 05:23 11:50 Troponin I 0.12 H D 5.84 H* D B-Natriuretic Peptide 1767.81 H 10/09/16 19:30 Troponin I 15.50 H* D B-Natriuretic Peptide PE: Gen: pale, sedate, intubaed Pulm: clear anterior CV: irregular, non-displaced PMI, DIANA II/ LSB ABD: soft, +BS EXT: cool, trace edema NEURO: sedated EKG: Sinus pelon, deep anterolateral TWI, varying AV blockade. A 86 y/o man post cardiac arrest with worsening cardiac dysfunction P/ -stat labs sent -DNR -fent gtt for comfort -no escalation of care Lexx Rachel ACNP 35min CCT
[2016-10-10] MEDS ORDERED: ONDANSETRON 4 MG/2 ML VIAL ONE (04:11)
[2016-10-10] MEDS ORDERED: MIDAZOLAM HCL 2 MG/2 ML SINGLE DOSE VIAL IVPUSH PRN (04:12)
[2016-10-10 04:36] LABS: MCH 20.8 pg (25.7-33.7); MCHC 29.2 g/dl (32.0-35.9); MEAN CELL VOLUME 71.4 fl (80-96); MEAN PLT VOLUME 7.5 fl (7.5-11.1); PLATELET COUNT 476 K/MM3 (134-434); RDW 20.8 % (11.9-15.9)
[2016-10-10 04:48] LABS: WHITE BLOOD COUNT 31.2 K/mm3 (4.0-10.0)
[2016-10-10 05:14] LABS: TROPONIN I 31.5 ng/ml (0.00-0.05)
[2016-10-10] MEDS: SODIUM CHLORIDE 1,000 ML IV SCH (05:36)
[2016-10-10 06:00] LABS: ALBUMIN 2.4 g/dl (3.4-5.0); BILIRUBIN,TOTAL 2.6 mg/dL (0.2-1.0); CALCIUM 7.6 mg/dL (8.5-10.1); COCKROFT - GAULT 34.1; CREATININE 1.5 mg/dL (0.7-1.3); MAGNESIUM 1.9 mg/dL (1.8-2.4); PHOSPHOROUS 3.5 mg/dL (2.5-4.9); TOT PROT 5.8 g/dl (6.4-8.2)
[2016-10-10 07:38] LABS: ANISOCYTOSIS 2+; HYPOCHROMIA 2+; MICROCYTOSIS 2+
--- NOTE | 2016-10-10 08:50 | PN ---
Physical Exam: SUBJECTIVE: Patient seen and examined at bedside in ICU this AM. Intubated with good O2 sats. Able to grimace & move his eyes during examination. Squeezes my hands when asked to. Looks agitated & in moderate pain. Mild fever overnight & periods of extreme bradycardia. Plan is to continue current management as family is traveling from [place] to come visit patient imminently. PATIENTLY EXPLICITLY STATES HE WANTS ALL POSSIBLE MEASURES IF IN CARDIOPULMONARY ARREST. PATIENT CONSENTS TO BOTH REINTUBATION & CPR RESUSCITATION IF NECESSARY. OBJECTIVE: Vital Signs Period Temp Pulse Resp BP Sys/Boo Pulse Ox Last 24 Hr 97 F-100.3 F 37-123 14-24 81-146/36-72 95-100 GENERAL: Intubated, alert & responsive to physical/verbal stimuli, comfortablt resting in bed HEENT: Atraumatic, EOMI, PERRLA, No lymphadenopathy noted, moist membranes LUNGS: mild bibasilar crackles noted; no wheezing or accessory muscle use HEART: Severe bradycardia with weak distal pulses; normal S1 and S2 without murmur, rub or gallop. ABDOMEN: Soft, nontender, not distended, normoactive bowel sounds UPPER EXTREMITIES: 1+ pulses, warm, well-perfused. No cyanosis. No clubbing. Cap refill <2 seconds. No peripheral edema. LOWER EXTREMITIES: 1+ pulses, warm, well-perfused. No calf tenderness. Trace bilateral edema bilateral LE. NEUROLOGICAL: Cranial nerves II-XII intact. Gait & speech deferred due to clinical condition. SKIN: Warm, dry, normal turgor, no rashes or lesions noted. GENITAL: Hypospadia noted RECTAL: no signs of active bleeding noted; invasive exam deferred due to BP/HR Laboratory Results - last 24 hr 10/09/16 10/09/16 10/09/16 11:50 11:50 15:21 WBC RBC Hgb Hct MCV MCHC RDW Plt Count MPV Neutrophils % Lymphocytes % Monocytes % Hypochromic-Microcytic Anisocytosis Microcytosis Puncture Site ABG pH ABG pCO2 at Pt Temp ABG pO2 at Pt Temp ABG HCO3 ABG O2 Sat (Measured) ABG O2 Content ABG Base Excess Grabiel Test O2 Delivery Device Oxygen Flow Rate Vent Mode Vent Rate Mechanical Rate PEEP Pressure Support Vent Sodium Potassium Chloride Carbon Dioxide Anion Gap BUN Creatinine Creat Clearance w eGFR POC Glucometer 141 Random Glucose Lactic Acid Calcium Phosphorus Magnesium Total Bilirubin AST ALT Alkaline Phosphatase Creatine Kinase 453 H D Creatine Kinase Index 15.4 H* CK-MB (CK-2) 69.955 H CK-MB (CK-2) Rel Index Cancelled Troponin I 5.84 H* D B-Natriuretic Peptide Total Protein Albumin 10/09/16 10/09/16 10/09/16 17:45 19:30 19:30 WBC RBC Hgb Hct MCV MCHC RDW Plt Count MPV Neutrophils % Lymphocytes % Monocytes % Hypochromic-Microcytic Anisocytosis Microcytosis Puncture Site Right radial ABG pH 7.34 L ABG pCO2 at Pt Temp 33.5 L ABG pO2 at Pt Temp 169.0 H* ABG HCO3 17.6 L ABG O2 Sat (Measured) 99.8 H* ABG O2 Content 10.9 L ABG Base Excess -7.0 L Grabiel Test Positive O2 Delivery Device Vent Oxygen Flow Rate 100 Vent Mode A/c Vent Rate 12 Mechanical Rate Yes PEEP 5.0 Pressure Support Vent 500 Sodium Potassium Chloride Carbon Dioxide Anion Gap BUN Creatinine Creat Clearance w eGFR POC Glucometer Random Glucose Lactic Acid Calcium Phosphorus Magnesium Total Bilirubin AST ALT Alkaline Phosphatase Creatine Kinase 807 H D Creatine Kinase Index CK-MB (CK-2) CK-MB (CK-2) Rel Index Cancelled Troponin I 15.50 H* D B-Natriuretic Peptide Total Protein Albumin 10/10/16 10/10/16 10/10/16 04:00 04:00 04:00 WBC RBC Hgb Hct MCV MCHC RDW Plt Count MPV Neutrophils % Lymphocytes % Monocytes % Hypochromic-Microcytic Anisocytosis Microcytosis Puncture Site ABG pH ABG pCO2 at Pt Temp ABG pO2 at Pt Temp ABG HCO3 ABG O2 Sat (Measured) ABG O2 Content ABG Base Excess Grabiel Test O2 Delivery Device Oxygen Flow Rate Vent Mode Vent Rate Mechanical Rate PEEP Pressure Support Vent Sodium 138 Potassium 4.4 Chloride 105 Carbon Dioxide 20 L Anion Gap 13 BUN 26 H D Creatinine 1.5 H Creat Clearance w eGFR 44.59 POC Glucometer Random Glucose 166 H Lactic Acid 4.218 H* Calcium 7.6 L Phosphorus 3.5 Magnesium 1.9 Total Bilirubin 2.6 H D AST 118 H D ALT 25 D Alkaline Phosphatase 80 Creatine Kinase 757 H Creatine Kinase Index CK-MB (CK-2) CK-MB (CK-2) Rel Index Troponin I 31.50 H* D B-Natriuretic Peptide 30658.67 H Total Protein 5.8 L Albumin 2.4 L 10/10/16 10/10/16 04:00 04:00 WBC 31.2 H* D RBC 4.46 D Hgb 9.3 L D Hct 31.8 L D MCV 71.4 L MCHC 29.2 L RDW 20.8 H Plt Count 476 H MPV 7.5 Neutrophils % 85.0 H Lymphocytes % 10.0 D Monocytes % 5.0 Hypochromic-Microcytic 2+ Anisocytosis 2+ Microcytosis 2+ Puncture Site ABG pH ABG pCO2 at Pt Temp ABG pO2 at Pt Temp ABG HCO3 ABG O2 Sat (Measured) ABG O2 Content ABG Base Excess Grabiel Test O2 Delivery Device Oxygen Flow Rate Vent Mode Vent Rate Mechanical Rate PEEP Pressure Support Vent Sodium Potassium Chloride Carbon Dioxide Anion Gap BUN Creatinine Creat Clearance w eGFR POC Glucometer Random Glucose Lactic Acid Calcium Phosphorus Magnesium Total Bilirubin AST ALT Alkaline Phosphatase Creatine Kinase Creatine Kinase Index CK-MB (CK-2) CK-MB (CK-2) Rel Index Cancelled Troponin I B-Natriuretic Peptide Total Protein Albumin Active Medications Generic Name Dose Route Start Last Admin Trade Name Freq PRN Reason Stop Dose Admin Acetaminophen 650 mg 10/09/16 11:18 Tylenol - PO Q4H PRN FEVER OR PAIN Atorvastatin Calcium 40 mg 10/09/16 22:00 10/09/16 21:18 Lipitor - PO Not Given HS PITA Chlorhexidine Gluconate 1 applic 10/09/16 22:00 10/09/16 21:18 Hibiclens For Decolonization - TP 1 applic HS PITA Administration Fentanyl 50 mcg 10/10/16 04:11 Sublimaze Injection - IVPUSH 10/11/16 04:14 Q1H PRN PAIN LEVEL 1-5 Sodium Chloride 1,000 mls @ 100 mls/hr 10/09/16 04:30 10/10/16 05:36 Normal Saline - IV 100 mls/hr ASDIR PITA Administration Pantoprazole Sodium 80 mg/ 100 mls @ 10 mls/hr 10/09/16 11:45 10/09/16 22:00 Sodium Chloride IVPB 10 mls/hr Q10H PITA Administration 8 MG/HR Norepinephrine Bitartrate 8, 500 mls @ 18.75 mls/hr 10/09/16 16:15 10/09/16 23: 00 000 mcg/ Dextrose IV 75 mls/hr TITR PITA Administration Protocol 5 MCG/MIN Fentanyl 500 mcg/ Dextrose 100 mls @ 10 mls/hr 10/10/16 03:45 10/10/16 03:45 IJ 10 mls/hr TITR PITA Administration 50 MCG/HR Dopamine HCl/Dextrose 250 mls @ 12.332 mls/hr 10/10/16 04:15 10/10/16 04:00 Dopamine 400 Mg/D5w - IVPB 7.5 mcg/kg/min TITR PITA Titration Protocol 5 MCG/KG/MIN Norepinephrine Bitartrate 8, 500 mls @ 18.75 mls/hr 10/10/16 05:30 10/10/16 04: 00 000 mcg/ Dextrose IV 30 mcg/min TITR PITA Titration Protocol 5 MCG/MIN Midazolam HCl 2 mg 10/10/16 04:12 10/10/16 05:30 Versed - IVPUSH 2 mg Q2H PRN Administration ANXIETY Mupirocin 1 applic 10/09/16 22:00 10/09/16 21:18 Bactroban Ointment (For Decolonization) - NS 10/14/16 21:59 1 applic BID PITA Administration ASSESSMENT/PLAN: 86 year old male with significant PMH of moderate Systolic CHF, CAD, HTN, HLD, Colon Cancer s/p subtotal colectomy (2014) with anastomotic recurrence (2016) admitted for NSTEMI & GI bleed. Code 99 called later in afternoon with ROSC after 2 rounds epinephrine during PEA. #Cardiac Arrest, superimposed in setting of NSTEMI -awaiting call back from patient's nephew for update regarding GOC; Night team informed patient wanted to be DNR, current plan is comfort care & continued cardiac support until family can come to visit from [place] -intubated in ICU on Fentanyl for pain control -Levophed & Dopamine for BP support (Max dose Levophed & moderate dose Dopamine) -Versed PRN for agitation/discomfort -anticoagulation deferred d/t anemia and (+) FOBT -cardiology consult appreciated #Anemia, likely etiology is GI bleed in setting of Colon Cancer Hx -2units PRBC given with improvement Hg 9.3 (from 6.8) -IV PPI Drip -GI Consult appreciated #Systolic CHF/CAD/HTN/HLD Hx -will hold off on diuresis for now -Strict I & O, Daily weights -CXR reviewed Prophylaxis -No AC due to GIB -IV PPI Drip -IVF NS@100cc/hr -monitor electrolytes -NPO PATIENTLY EXPLICITLY STATES HE WANTS ALL POSSIBLE MEASURES IF IN CARDIOPULMONARY ARREST. PATIENT CONSENTS TO BOTH REINTUBATION & CPR RESUSCITATION IF NECESSARY. Visit type - Emergency Visit Emergency Visit: Yes ED Registration Date: 10/09/16 Care time: The patient presented to the Emergency Department on the above date and was hospitalized for further evaluation of their emergent condition. - New Patient This patient is new to me today: No - Critical Care Critical Care patient: Yes Total Critical Care Time (in minutes): 45 Critical Care Statement: The care of this patient involved high complexity decision making to prevent further life threatening deterioration of the patient 's condition and/or to evalute & treat vital organ system(s) failure or risk of failure.
[2016-10-10] MEDS ORDERED: METOPROLOL SUCCINATE 100 MG TAB.SR.24H (FP) PO SCH (10:00)
[2016-10-10] MEDS: MUPIROCIN 2% TOPICAL OINTMENT FOR DECOLONIZATION NS SCH ×2 (10:00→22:23)
--- NOTE | 2016-10-10 10:53 | PN ---
Progress Note, Physician Chief Complaint: Patient awake but intubated. Nods head to having chest pain, is s/p resuscitation. Shakes head no to nausea. Planning for extubation today. - Current Medication List Current Medications: Active Medications Acetaminophen (Tylenol -) 650 mg PO Q4H PRN PRN Reason: FEVER OR PAIN Atorvastatin Calcium (Lipitor -) 40 mg PO HS [facility] Last Admin: 10/09/16 21:18 Dose: Not Given Chlorhexidine Gluconate (Hibiclens For Decolonization -) 1 applic TP HS PITA Last Admin: 10/09/16 21:18 Dose: 1 applic Fentanyl (Sublimaze Injection -) 50 mcg IVPUSH Q1H PRN PRN Reason: PAIN LEVEL 1-5 Stop: 10/11/16 04:14 Sodium Chloride (Normal Saline -) 1,000 mls @ 100 mls/hr IV ASDIR PITA Last Admin: 10/10/16 05:36 Dose: 100 mls/hr Pantoprazole Sodium 80 mg/ (Sodium Chloride) 100 mls @ 10 mls/hr IVPB Q10H PITA PRN Reason: 8 MG/HR Last Admin: 10/09/16 22:00 Dose: 10 mls/hr Norepinephrine Bitartrate 8, (000 mcg/ Dextrose) 500 mls @ 18.75 mls/hr IV TITR PITA; 5 MCG/MIN PRN Reason: Protocol Last Admin: 10/09/16 23:00 Dose: 75 mls/hr Fentanyl 500 mcg/ Dextrose 100 mls @ 10 mls/hr IJ TITR PITA PRN Reason: 50 MCG/HR Last Admin: 10/10/16 09:03 Dose: 10 mls/hr Dopamine HCl/Dextrose (Dopamine 400 Mg/D5w -) 250 mls @ 12.332 mls/hr IVPB TITR PITA; 5 MCG/KG/MIN PRN Reason: Protocol Last Titration: 10/10/16 04:00 Dose: 7.5 mcg/kg/min Norepinephrine Bitartrate 8, (000 mcg/ Dextrose) 500 mls @ 18.75 mls/hr IV TITR PITA; 5 MCG/MIN PRN Reason: Protocol Last Titration: 10/10/16 04:00 Dose: 30 mcg/min Midazolam HCl (Versed -) 2 mg IVPUSH Q2H PRN PRN Reason: ANXIETY Last Admin: 10/10/16 05:30 Dose: 2 mg Mupirocin (Bactroban Ointment (For Decolonization) -) 1 applic NS BID PITA Stop: 10/14/16 21:59 Last Admin: 10/09/16 21:18 Dose: 1 applic - Objective Vital Signs: Vital Signs Temperature 99.3 F 10/10/16 10:00 Pulse Rate 47 L 10/10/16 10:00 Respiratory Rate 25 H 10/10/16 10:00 Blood Pressure 117/50 10/10/16 10:00 O2 Sat by Pulse Oximetry (%) 95 10/09/16 21:00 Constitutional: Yes: Well Nourished, No Distress, Calm Cardiovascular: Yes: Regular Rate and Rhythm. No: Gallop, Murmur, Rub Respiratory: Yes: Regular, Mechanically Ventilated. No: Rales, Rhonchi, Wheezes Gastrointestinal: Yes: Normal Bowel Sounds, Soft. No: Distention, Tenderness Extremities: Yes: WNL Edema: No Labs: CBC, BMP 10/10/16 04:00 10/10/16 04:00 INR, PTT INR 1.37 (0.82-1.09) H 10/09/16 04:00 Problem List - Problems (1) Acute respiratory failure with hypoxia Code(s): J96.01 - ACUTE RESPIRATORY FAILURE WITH HYPOXIA (2) Acute on chronic systolic (congestive) heart failure Code(s): I50.23 - ACUTE ON CHRONIC SYSTOLIC (CONGESTIVE) HEART FAILURE (3) Cardiogenic shock Code(s): R57.0 - CARDIOGENIC SHOCK (4) Anemia Code(s): D64.9 - ANEMIA, UNSPECIFIED Qualifiers: Other causes of anemia: acute posthemorrhagic (5) Occult GI bleeding Code(s): R19.5 - OTHER FECAL ABNORMALITIES (6) Chest pain Code(s): R07.9 - CHEST PAIN, UNSPECIFIED Qualifiers: Chest pain type: chest pain due to myocardial ischemia Ischemic chest pain type: unstable angina pectoris Qualified Code(s): I20.0 - Unstable angina (7) Non-ST elevation (NSTEMI) myocardial infarction Code(s): I21.4 - NON-ST ELEVATION (NSTEMI) MYOCARDIAL INFARCTION (8) HTN (hypertension) Code(s): I10 - ESSENTIAL (PRIMARY) HYPERTENSION Qualifiers: Hypertension type: essential hypertension Qualified Code(s): I10 - Essential (primary) hypertension (9) Hyperlipidemia Code(s): E78.5 - HYPERLIPIDEMIA, UNSPECIFIED Qualifiers: Hyperlipidemia type: pure hypercholesterolemia Qualified Code(s): E78.00 - Pure hypercholesterolemia, unspecified; E78.0 - Pure hypercholesterolemia Assessment/Plan (1) Acute hypoxic respiratory failure -secondary to NSTEMI/CHF/cardiogenic shock -currently ventilated -case d/w pulmonary, planning for extubation (2) CHF -cardiology following -gave lasix for diuresis (3) Cardiogenic shock -secondary to NSTEMI -on dopamine and levophed -continue current care (4) Anemia Assessment/Plan: -with proper response to transfusion Code(s): D64.9 - ANEMIA, UNSPECIFIED Qualifiers: Other causes of anemia: acute posthemorrhagic (5) Occult GI bleeding Assessment/Plan: -appreciate GI assistance -continue protonix gtt currently Code(s): R19.5 - OTHER FECAL ABNORMALITIES (7) Non-ST elevation (NSTEMI) myocardial infarction Assessment/Plan: -cardiology following -unable to anticoagulate currently Code(s): I21.4 - NON-ST ELEVATION (NSTEMI) MYOCARDIAL INFARCTION (8) HTN (hypertension) Assessment/Plan: -hypotensive -continue blood pressure support Code(s): I10 - ESSENTIAL (PRIMARY) HYPERTENSION (9) Hyperlipidemia Assessment/Plan: -hold lipitor while intubated Code(s): E78.5 - HYPERLIPIDEMIA, UNSPECIFIED Qualifiers: 42 minutes spent in critical care time
--- NOTE | 2016-10-10 11:15 | PN ---
Teaching Attending Note Name of Resident: Brandon Hernandez ATTENDING PHYSICIAN STATEMENT I saw and evaluated the patient. I reviewed the resident's note and discussed the case with the resident. I agree with the resident's findings and plan as documented. SUBJECTIVE: Pt seen and examined in the ICU. Remains intubated, but mental status much improved off sedation. Tolerating CPAP/PS trials but requiring 50% FiO2. OBJECTIVE: Last Vital Signs Temp Pulse Resp BP Pulse Ox 99.3 F 47 L 25 H 117/50 95 10/10/16 10:00 10/10/16 10:00 10/10/16 10:00 10/10/16 10:00 10/09/16 21:00 Intake & Output 10/07/16 10/08/16 10/09/16 10/10/16 23:59 23:59 23:59 23:59 Intake Total 1544 721 Output Total 300 100 Balance 1244 621 Weight 145 lb 145 lb Gen: intubated, breathing nonlabored, awake Heart: RRR Lung: decreased breath sounds at the bases Abd: soft, nontender Ext: no edema CBC, BMP 10/10/16 04:00 10/10/16 04:00 CXR: pulmonary edema pattern Active Medications Acetaminophen (Tylenol -) 650 mg PO Q4H PRN PRN Reason: FEVER OR PAIN Atorvastatin Calcium (Lipitor -) 40 mg PO HS [facility] Last Admin: 10/09/16 21:18 Dose: Not Given Chlorhexidine Gluconate (Hibiclens For Decolonization -) 1 applic TP HS [facility] Last Admin: 10/09/16 21:18 Dose: 1 applic Fentanyl (Sublimaze Injection -) 50 mcg IVPUSH Q1H PRN PRN Reason: PAIN LEVEL 1-5 Stop: 10/11/16 04:14 Sodium Chloride (Normal Saline -) 1,000 mls @ 100 mls/hr IV ASDIR PITA Last Admin: 10/10/16 05:36 Dose: 100 mls/hr Pantoprazole Sodium 80 mg/ (Sodium Chloride) 100 mls @ 10 mls/hr IVPB Q10H PITA PRN Reason: 8 MG/HR Last Admin: 10/09/16 22:00 Dose: 10 mls/hr Norepinephrine Bitartrate 8, (000 mcg/ Dextrose) 500 mls @ 18.75 mls/hr IV TITR PITA; 5 MCG/MIN PRN Reason: Protocol Last Admin: 10/09/16 23:00 Dose: 75 mls/hr Fentanyl 500 mcg/ Dextrose 100 mls @ 10 mls/hr IJ TITR PITA PRN Reason: 50 MCG/HR Last Admin: 10/10/16 09:03 Dose: 10 mls/hr Dopamine HCl/Dextrose (Dopamine 400 Mg/D5w -) 250 mls @ 12.332 mls/hr IVPB TITR PITA; 5 MCG/KG/MIN PRN Reason: Protocol Last Titration: 10/10/16 04:00 Dose: 7.5 mcg/kg/min Norepinephrine Bitartrate 8, (000 mcg/ Dextrose) 500 mls @ 18.75 mls/hr IV TITR PITA; 5 MCG/MIN PRN Reason: Protocol Last Titration: 10/10/16 04:00 Dose: 30 mcg/min Midazolam HCl (Versed -) 2 mg IVPUSH Q2H PRN PRN Reason: ANXIETY Last Admin: 10/10/16 05:30 Dose: 2 mg Mupirocin (Bactroban Ointment (For Decolonization) -) 1 applic NS BID PITA Stop: 10/14/16 21:59 Last Admin: 10/09/16 21:18 Dose: 1 applic ASSESSMENT AND PLAN: Acute Hypoxic Respiratory Failure CAD/Acute NSTEMI/Asystolic Cardiac Arrest Acute on Chronic Systolic Heart Failure Cardiogenic Shock Lactic Acidosis Acute Kidney Injury HTN Hyperlipidemia h/o Colon Ca r/o GI Bleed - extubated to NRB - ASA, anticoagulation per cardiology - titrate levophed, dopamine gtt to maintain MAP >65 - discuss with cardiology addition of inotropic support and diuresis with lasix - minimize fluids - monitor H/H - transfuse as needed - continue protonix for now - culture for leukocytosis - defer empiric antibiotics - continue discussions regarding goals of care once pt extubated - continue ICU monitoring critical care time spent in reviewing chart, evaluating patient and formulating plan 38 min
--- NOTE | 2016-10-10 11:28 | PN ---
Progress Note, Physician History of Present Illness: Extubated on 100% NRB, post asystolic arrest yesterday on pressors. Mental status improved off sedation. - Current Medication List Current Medications: Active Medications Acetaminophen (Tylenol -) 650 mg PO Q4H PRN PRN Reason: FEVER OR PAIN Atorvastatin Calcium (Lipitor -) 40 mg PO HS [facility] Last Admin: 10/09/16 21:18 Dose: Not Given Chlorhexidine Gluconate (Hibiclens For Decolonization -) 1 applic TP [facility] Last Admin: 10/09/16 21:18 Dose: 1 applic Fentanyl (Sublimaze Injection -) 50 mcg IVPUSH Q1H PRN PRN Reason: PAIN LEVEL 1-5 Stop: 10/11/16 04:14 Sodium Chloride (Normal Saline -) 1,000 mls @ 100 mls/hr IV ASDIR PITA Last Admin: 10/10/16 05:36 Dose: 100 mls/hr Pantoprazole Sodium 80 mg/ (Sodium Chloride) 100 mls @ 10 mls/hr IVPB Q10H PITA PRN Reason: 8 MG/HR Last Admin: 10/09/16 22:00 Dose: 10 mls/hr Norepinephrine Bitartrate 8, (000 mcg/ Dextrose) 500 mls @ 18.75 mls/hr IV TITR PITA; 5 MCG/MIN PRN Reason: Protocol Last Admin: 10/09/16 23:00 Dose: 75 mls/hr Fentanyl 500 mcg/ Dextrose 100 mls @ 10 mls/hr IJ TITR PITA PRN Reason: 50 MCG/HR Last Admin: 10/10/16 09:03 Dose: 10 mls/hr Dopamine HCl/Dextrose (Dopamine 400 Mg/D5w -) 250 mls @ 12.332 mls/hr IVPB TITR PITA; 5 MCG/KG/MIN PRN Reason: Protocol Last Titration: 10/10/16 04:00 Dose: 7.5 mcg/kg/min Norepinephrine Bitartrate 8, (000 mcg/ Dextrose) 500 mls @ 18.75 mls/hr IV TITR PITA; 5 MCG/MIN PRN Reason: Protocol Last Titration: 10/10/16 04:00 Dose: 30 mcg/min Midazolam HCl (Versed -) 2 mg IVPUSH Q2H PRN PRN Reason: ANXIETY Last Admin: 10/10/16 05:30 Dose: 2 mg Mupirocin (Bactroban Ointment (For Decolonization) -) 1 applic NS BID PITA Stop: 10/14/16 21:59 Last Admin: 10/09/16 21:18 Dose: 1 applic - Objective Vital Signs: Vital Signs Temperature 99.3 F 10/10/16 10:00 Pulse Rate 47 L 10/10/16 10:00 Respiratory Rate 25 H 10/10/16 10:00 Blood Pressure 117/50 10/10/16 10:00 O2 Sat by Pulse Oximetry (%) 95 10/09/16 21:00 Constitutional: Yes: No Distress, Calm Cardiovascular: Yes: Bradycardia Respiratory: Yes: Diminished, On Venti-Mask, Rhonchi Gastrointestinal: Yes: Soft, Hypoactive Bowel Sounds Edema: No Labs: CBC, BMP 10/10/16 04:00 10/10/16 04:00 INR, PTT INR 1.37 (0.82-1.09) H 10/09/16 04:00 - ....Imaging Chest X-ray: Report Reviewed (Pulm edema) Problem List - Problems (1) Chest pain Code(s): R07.9 - CHEST PAIN, UNSPECIFIED Qualifiers: Chest pain type: chest pain due to myocardial ischemia Ischemic chest pain type: unstable angina pectoris Qualified Code(s): I20.0 - Unstable angina (2) Colon cancer Code(s): C18.9 - MALIGNANT NEOPLASM OF COLON, UNSPECIFIED Qualifiers: Colon location: unspecified part of colon Qualified Code(s): C18.9 - Malignant neoplasm of colon, unspecified (3) Coronary artery disease Code(s): I25.10 - ATHSCL HEART DISEASE OF [place] CORONARY ARTERY W/O ANG PCTRS Qualifiers: Coronary Disease-Associated Artery/Lesion type: [place] artery [place] vs. transplanted heart: [place] heart Associated angina: angina presence unspecified Qualified Code(s): I25.10 - Atherosclerotic heart disease of [place] coronary artery without angina pectoris (4) Non-ST elevation (NSTEMI) myocardial infarction Code(s): I21.4 - NON-ST ELEVATION (NSTEMI) MYOCARDIAL INFARCTION (5) Hyperlipidemia Code(s): E78.5 - HYPERLIPIDEMIA, UNSPECIFIED Qualifiers: Hyperlipidemia type: pure hypercholesterolemia Qualified Code(s): E78.00 - Pure hypercholesterolemia, unspecified; E78.0 - Pure hypercholesterolemia (6) Acute on chronic systolic (congestive) heart failure Code(s): I50.23 - ACUTE ON CHRONIC SYSTOLIC (CONGESTIVE) HEART FAILURE (7) Pulmonary edema Code(s): J81.1 - CHRONIC PULMONARY EDEMA Qualifiers: Chronicity: acute Qualified Code(s): J81.0 - Acute pulmonary edema (8) Acute respiratory failure with hypoxia Code(s): J96.01 - ACUTE RESPIRATORY FAILURE WITH HYPOXIA (9) Hematochezia Code(s): K92.1 - [place]LE[place] (10) Anemia Code(s): D64.9 - ANEMIA, UNSPECIFIED Qualifiers: Other causes of anemia: acute posthemorrhagic (11) Local recurrence of malignant neoplasm of colon Code(s): C18.9 - MALIGNANT NEOPLASM OF COLON, UNSPECIFIED (12) Nseim-za-neufhxx kidney injury Code(s): N17.9 - ACUTE KIDNEY FAILURE, UNSPECIFIED N18.9 - CHRONIC KIDNEY DISEASE, UNSPECIFIED Qualifiers: Acute renal failure type: with acute tubular necrosis Chronic kidney disease stage: stage 2 (mild) Qualified Code(s): N17.0 - Acute kidney failure with tubular necrosis; N18.1 - Chronic kidney disease, stage 1 (13) Leukemoid reaction Code(s): D72.823 - LEUKEMOID REACTION Assessment/Plan 10/09/2016 Normal LV size with mild-moderate decreased LV fxn, severe apical, moderate anterolateral and apicolateral, severe posterolateral, inferior wall HK , mod eccentric MR, mod TR, RVSP 50-60 mmHg 1. CAD post NSTEMI and Asystolic Cardiac Arrest in the context of anemia 2. Anemia with underlying colon CA s/p subtotal colectomy with recurrence at the anastomotic site - post transfusion 3. Acute on chronic systolic failure with cardiogenic shock and lactic acidosis 4. Acute hypoxic respiratory failure and pulm edema 5. HTN/HCVD 6. Hypercholesterolemia 7. Acute on CKD 8. Leukemoid reaction PLAN: 1. Transfuse PRBC and follow CBC 2. Serial cardiac enzymes and monitor peak, continue Lipitor 40 qhs and Protonix gtt 3. Extubated to NRB, wean FIO2 to maintain saO2, observe off abx, ball-culture 4. Wean levophed, dopamine gtt to maintain MAP >65 5. Initiate diuresis with monitor diuretic response, renal fxn and electrolytes 6. ASA is being held in view of severe anemia. Heparin not started in view of severe anemia in the context of colon CA, await hemostasis 7. Further cardiac invasive studies not being planned at this time in view of underlying history and wishes not to escalate care.
[2016-10-10] MEDS: FUROSEMIDE 40 MG/4 ML INJECTABLE VIAL IVPUSH SCH ×2 (12:10→16:12)
--- NOTE | 2016-10-10 21:38 | PN ---
GI Progress Note Subjective: Extubated. No complaints. No bleeding over past 24 hours - Objective Vital Signs: Vital Signs Temperature 98.9 F 10/10/16 14:00 Pulse Rate 51 L 10/10/16 20:00 Respiratory Rate 25 H 10/10/16 21:00 Blood Pressure 131/36 10/10/16 20:00 O2 Sat by Pulse Oximetry (%) 100 10/10/16 21:00 Constitutional: Well Nourished, Calm HENT: Yes: Normocephalic Cardiovascular: Yes: Regular Rate and Rhythm Respiratory: Yes: CTA Bilaterally Gastrointestinal Inspection: Yes: Distention ...Auscultate: Yes: Other (high pitched bowel sounds) ...Palpate: Yes: Soft ...Percussion: Yes: Tympanitic Labs: CBC, BMP 10/10/16 04:00 10/10/16 04:00 INR, PTT INR 1.37 (0.82-1.09) H 10/09/16 04:00 Hepatic Panel Total Bilirubin 2.6 mg/dL (0.2-1.0) H D 10/10/16 04:00 AST 118 U/L (15-37) H D 10/10/16 04:00 ALT 25 U/L (12-78) D 10/10/16 04:00 Alkaline Phosphatase 80 U/L (45-117) 10/10/16 04:00 Albumin 2.4 g/dl (3.4-5.0) L 10/10/16 04:00 Assessment/Plan Patient extubated-appears comfortable Still on pressors Troponin 31.5 BNP 19,614 WBC 31 LFT's coming up-likely shock liver No new bleeding Colon ca-NTD under these circumstances prognosis guarded
[2016-10-10] MEDS: PANTOPRAZOLE SODIUM 80 MG in SODIUM CHLORIDE 100 ML IVPB SCH (22:22)
[2016-10-10] MEDS: NOREPINEPHRINE BITARTRATE 8,000 MCG in DEXTROSE 5%-WATER - 492 ML IV SCH (22:22)
[2016-10-10] MEDS: ATORVASTATIN CA 40 MG TABLET (FP) PO SCH (22:23)
[2016-10-10] MEDS: CHLORHEXIDINE GLUCONATE 4% CLEANSER FOR DECOLONIZATION TP SCH (22:23)
[2016-10-11] MEDS: FENTANYL INJECTION 500 MCG in DEXTROSE 5%-WATER - 90 ML IJ SCH (05:08)
[2016-10-11] MEDS: PANTOPRAZOLE SODIUM 80 MG in SODIUM CHLORIDE 100 ML IVPB SCH ×2 (05:08→15:00)
[2016-10-11] MEDS ORDERED: NOREPINEPHRINE BITARTRATE 4 MG/4 ML ML IV ONE ×2 (05:10→19:44)
[2016-10-11 06:12] LABS: BASOPHIL 0.3 % (0-2.0); EOSINOPHIL 0.3 % (0-4.5); MCH 21.2 pg (25.7-33.7); MEAN CELL VOLUME 70.6 fl (80-96); MEAN PLT VOLUME 7.4 fl (7.5-11.1); NEUTROPHILS 85.9 % (42.8-82.8); PLATELET COUNT 344 K/MM3 (134-434); RDW 22.1 % (11.9-15.9); WHITE BLOOD COUNT 10.8 K/mm3 (4.0-10.0)
[2016-10-11 06:29] LABS: CALCIUM 7.3 mg/dL (8.5-10.1); COCKROFT - GAULT 39.35; CREATININE 1.3 mg/dL (0.7-1.3)
[2016-10-11] MEDS: FUROSEMIDE 40 MG/4 ML INJECTABLE VIAL IVPUSH SCH ×2 (06:41→13:00)
[2016-10-11] MEDS: SODIUM CHLORIDE 1,000 ML IV SCH (06:43)
[2016-10-11] MEDS: NOREPINEPHRINE BITARTRATE 8,000 MCG in DEXTROSE 5%-WATER - 492 ML IV SCH ×2 (06:43→17:54)
[2016-10-11] MEDS: DOPAMINE 400 MG/D5W - 250 ML IVPB SCH ×2 (06:43→12:15)
--- NOTE | 2016-10-11 08:24 | PN ---
Physical Exam: SUBJECTIVE: Patient seen and examined at bedside this AM in ICU. AAO and states he felt well. Reports some pleuritic chest pain with deep breaths, likely attributed to bruising s/p chest compressions during code. Vitals stable overnight, afebrile. Again explained hospital course & proposed treatment plan with patient, who agrees with care. OBJECTIVE: Vital Signs Period Temp Pulse Resp BP Sys/Boo Pulse Ox Last 24 Hr 98.9 F-99.3 F 47-118 11- 112-134/34-56 93-100 GENERAL: AAOx3 & responsive to physical/verbal stimuli, resting comfortably in bed on NRB mask HEENT: Atraumatic, EOMI, PERRLA, No lymphadenopathy noted, moist membranes LUNGS: mild bibasilar crackles noted; no wheezing or accessory muscle use HEART: Regular rate & rhythm, normal S1 and S2 without murmur, rub or gallop. ABDOMEN: Soft, nontender, not distended, normoactive bowel sounds UPPER EXTREMITIES: 1+ pulses, warm, well-perfused. No cyanosis. No clubbing. Cap refill <2 seconds. No peripheral edema. LOWER EXTREMITIES: 1+ pulses, warm, well-perfused. No calf tenderness. Trace bilateral edema bilateral LE. NEUROLOGICAL: Cranial nerves II-XII intact. Gait & speech deferred due to clinical condition. SKIN: Warm, dry, normal turgor, no rashes or lesions noted. GENITAL: Hypospadia noted RECTAL: no signs of active bleeding noted; invasive exam deferred due to BP/HR Laboratory Results - last 24 hr 10/11/16 10/11/16 05:40 05:40 WBC 10.8 H D RBC 3.81 L Hgb 8.1 L D Hct 26.9 L D MCV 70.6 L MCHC 30.0 L RDW 22.1 H Plt Count 344 D MPV 7.4 L Neutrophils % 85.9 H Lymphocytes % 5.7 L D Monocytes % 7.8 Eosinophils % 0.3 Basophils % 0.3 Sodium 134 L Potassium 4.3 Chloride 102 Carbon Dioxide 23 Anion Gap 9 BUN 29 H Creatinine 1.3 Random Glucose 129 H D Calcium 7.3 L Active Medications Generic Name Dose Route Start Last Admin Trade Name Freq PRN Reason Stop Dose Admin Acetaminophen 650 mg 10/09/16 11:18 Tylenol - PO Q4H PRN FEVER OR PAIN Atorvastatin Calcium 40 mg 10/09/16 22:00 10/10/16 22:23 Lipitor - PO 40 mg HS PITA Administration Chlorhexidine Gluconate 1 applic 10/09/16 22:00 10/10/16 22:23 Hibiclens For Decolonization - TP 1 applic HS PITA Administration Furosemide 40 mg 10/10/16 11:45 10/11/16 06:41 Lasix Injection - IVPUSH 40 mg BID@0600,1400 PITA Administration Pantoprazole Sodium 80 mg/ 100 mls @ 10 mls/hr 10/09/16 11:45 10/11/16 05:08 Sodium Chloride IVPB Not Given Q10H PITA 8 MG/HR Norepinephrine Bitartrate 8, 500 mls @ 18.75 mls/hr 10/09/16 16:15 10/10/16 22: 22 000 mcg/ Dextrose IV 93 mls/hr TITR PITA Administration Protocol 5 MCG/MIN Fentanyl 500 mcg/ Dextrose 100 mls @ 10 mls/hr 10/10/16 03:45 10/11/16 05:08 IJ Not Given TITR PITA 50 MCG/HR Dopamine HCl/Dextrose 250 mls @ 12.332 mls/hr 10/10/16 04:15 10/11/16 06:43 Dopamine 400 Mg/D5w - IVPB 24.664 mls/hr TITR PITA Administration Protocol 5 MCG/KG/MIN Norepinephrine Bitartrate 8, 500 mls @ 18.75 mls/hr 10/10/16 05:30 10/11/16 06: 43 000 mcg/ Dextrose IV 37.5 mls/hr TITR PITA Administration Protocol 5 MCG/MIN Midazolam HCl 2 mg 10/10/16 04:12 10/10/16 05:30 Versed - IVPUSH 2 mg Q2H PRN Administration ANXIETY Mupirocin 1 applic 10/09/16 22:00 10/10/16 22:23 Bactroban Ointment (For Decolonization) - NS 10/14/16 21:59 1 applic BID PITA Administration ASSESSMENT/PLAN: 86 year old male with significant PMH of moderate Systolic CHF, CAD, HTN, HLD, Colon Cancer s/p subtotal colectomy (2014) with anastomotic recurrence (2015) admitted for NSTEMI & GI bleed. Code 99 called later in afternoon with ROSC after 2 rounds epinephrine during PEA. #Cardiac Arrest, superimposed in setting of NSTEMI -extubated yesterday & saturating well on NRB mask -responsive & aware of situation, requests to be FULL CODE -Levophed & Dopamine for BP support (significantly lower doses required at present when compared to day of ICU transfer) -Versed PRN for agitation/discomfort -anticoagulation deferred d/t anemia and (+) FOBT -cardiology consult appreciated #Anemia, likely etiology is GI bleed in setting of Colon Cancer Hx -2 units PRBC given with improvement Hg 9.3 (from 6.8) -will reorder CBC later today to trend -IV PPI Drip -GI Consult appreciated #Systolic CHF/CAD/HTN/HLD Hx -Lasix 40mg IV PUSH BID for diuresis with good urine output thus far -Lipitor -Strict I & O, Daily weights -CXR reviewed Prophylaxis -No AC due to GIB -IV PPI Drip -monitor electrolytes -NPO PATIENTLY EXPLICITLY STATES HE WANTS ALL POSSIBLE MEASURES IF IN CARDIOPULMONARY ARREST. PATIENT CONSENTS TO BOTH REINTUBATION & CPR RESUSCITATION IF NECESSARY. Visit type - Emergency Visit Emergency Visit: Yes ED Registration Date: 10/09/16 Care time: The patient presented to the Emergency Department on the above date and was hospitalized for further evaluation of their emergent condition. - New Patient This patient is new to me today: No - Critical Care Critical Care patient: Yes Total Critical Care Time (in minutes): 45 Critical Care Statement: The care of this patient involved high complexity decision making to prevent further life threatening deterioration of the patient 's condition and/or to evalute & treat vital organ system(s) failure or risk of failure.
[2016-10-11 09:27] LABS: TROPONIN I 9.09 ng/ml (0.00-0.05)
[2016-10-11] MEDS: MUPIROCIN 2% TOPICAL OINTMENT FOR DECOLONIZATION NS SCH ×2 (10:00→21:44)
--- NOTE | 2016-10-11 10:37 | PN ---
Progress Note, Physician Chief Complaint: Mr Parker says he is doing better. Having chest pain when he coughs but not at rest. No shortness of breath or nausea/vomiting - Current Medication List Current Medications: Active Medications Acetaminophen (Tylenol -) 650 mg PO Q4H PRN PRN Reason: FEVER OR PAIN Atorvastatin Calcium (Lipitor -) 40 mg PO HS PITA Last Admin: 10/10/16 22:23 Dose: 40 mg Chlorhexidine Gluconate (Hibiclens For Decolonization -) 1 applic TP HS PITA Last Admin: 10/10/16 22:23 Dose: 1 applic Furosemide (Lasix Injection -) 40 mg IVPUSH BID@0600,1400 PITA Last Admin: 10/11/16 06:41 Dose: 40 mg Pantoprazole Sodium 80 mg/ (Sodium Chloride) 100 mls @ 10 mls/hr IVPB Q10H PITA PRN Reason: 8 MG/HR Last Admin: 10/11/16 05:08 Dose: Not Given Norepinephrine Bitartrate 8, (000 mcg/ Dextrose) 500 mls @ 18.75 mls/hr IV TITR PITA; 5 MCG/MIN PRN Reason: Protocol Last Admin: 10/10/16 22:22 Dose: 93 mls/hr Fentanyl 500 mcg/ Dextrose 100 mls @ 10 mls/hr IJ TITR PITA PRN Reason: 50 MCG/HR Last Admin: 10/11/16 05:08 Dose: Not Given Dopamine HCl/Dextrose (Dopamine 400 Mg/D5w -) 250 mls @ 12.332 mls/hr IVPB TITR PITA; 5 MCG/KG/MIN PRN Reason: Protocol Last Admin: 10/11/16 06:43 Dose: 24.664 mls/hr Norepinephrine Bitartrate 8, (000 mcg/ Dextrose) 500 mls @ 18.75 mls/hr IV TITR PITA; 5 MCG/MIN PRN Reason: Protocol Last Admin: 10/11/16 06:43 Dose: 37.5 mls/hr Midazolam HCl (Versed -) 2 mg IVPUSH Q2H PRN PRN Reason: ANXIETY Last Admin: 10/10/16 05:30 Dose: 2 mg Mupirocin (Bactroban Ointment (For Decolonization) -) 1 applic NS BID PITA Stop: 10/14/16 21:59 Last Admin: 10/10/16 22:23 Dose: 1 applic - Objective Vital Signs: Vital Signs Temperature 97.6 F 10/11/16 10:00 Pulse Rate 91 H 10/11/16 10:00 Respiratory Rate 18 10/11/16 10:00 Blood Pressure 104/47 10/11/16 10:00 O2 Sat by Pulse Oximetry (%) 100 10/11/16 09:45 Constitutional: Yes: Well Nourished, No Distress, Calm Cardiovascular: Yes: Regular Rate and Rhythm. No: Gallop, Murmur, Rub Respiratory: Yes: Regular, On Venti-Mask, Rhonchi. No: Rales, Wheezes Gastrointestinal: Yes: Normal Bowel Sounds, Soft. No: Distention, Tenderness Extremities: Yes: WNL Edema: Yes Edema: LUE: 1+, RUE: 1+, LLE: 1+, RLE: 1+ Labs: CBC, BMP 10/11/16 05:40 10/11/16 05:40 INR, PTT INR 1.37 (0.82-1.09) H 10/09/16 04:00 Problem List - Problems (1) Acute respiratory failure with hypoxia Code(s): J96.01 - ACUTE RESPIRATORY FAILURE WITH HYPOXIA (2) Acute on chronic systolic (congestive) heart failure Code(s): I50.23 - ACUTE ON CHRONIC SYSTOLIC (CONGESTIVE) HEART FAILURE (3) Cardiogenic shock Code(s): R57.0 - CARDIOGENIC SHOCK (4) Anemia Code(s): D64.9 - ANEMIA, UNSPECIFIED Qualifiers: Other causes of anemia: acute posthemorrhagic (5) Occult GI bleeding Code(s): R19.5 - OTHER FECAL ABNORMALITIES (6) Chest pain Code(s): R07.9 - CHEST PAIN, UNSPECIFIED Qualifiers: Chest pain type: chest pain due to myocardial ischemia Ischemic chest pain type: unstable angina pectoris Qualified Code(s): I20.0 - Unstable angina (7) Non-ST elevation (NSTEMI) myocardial infarction Code(s): I21.4 - NON-ST ELEVATION (NSTEMI) MYOCARDIAL INFARCTION (8) HTN (hypertension) Code(s): I10 - ESSENTIAL (PRIMARY) HYPERTENSION Qualifiers: Hypertension type: essential hypertension Qualified Code(s): I10 - Essential (primary) hypertension (9) Hyperlipidemia Code(s): E78.5 - HYPERLIPIDEMIA, UNSPECIFIED Qualifiers: Hyperlipidemia type: pure hypercholesterolemia Qualified Code(s): E78.00 - Pure hypercholesterolemia, unspecified; E78.0 - Pure hypercholesterolemia Assessment/Plan (1) Acute hypoxic respiratory failure -secondary to NSTEMI/CHF/cardiogenic shock -much improved -still requiring oxygen but stable -case d/w pulmonary (2) CHF -cardiology following -continue diuresis with lasix -edema present but improving (3) Cardiogenic shock -secondary to NSTEMI -on dopamine and levophed -improving, weaning off of pressors (4) Anemia Assessment/Plan: -with proper response to transfusion -decreased today -continue to monitor, may need to be transfused again Code(s): D64.9 - ANEMIA, UNSPECIFIED Qualifiers: Other causes of anemia: acute posthemorrhagic (5) Occult GI bleeding Assessment/Plan: -appreciate GI assistance -continue protonix gtt currently -unstable for intervention currently Code(s): R19.5 - OTHER FECAL ABNORMALITIES (7) Non-ST elevation (NSTEMI) myocardial infarction Assessment/Plan: -cardiology following -unable to anticoagulate secondary to ABLA Code(s): I21.4 - NON-ST ELEVATION (NSTEMI) MYOCARDIAL INFARCTION (8) HTN (hypertension) Assessment/Plan: -hypotensive -continue blood pressure support Code(s): I10 - ESSENTIAL (PRIMARY) HYPERTENSION (9) Hyperlipidemia Assessment/Plan: -hold lipitor while intubated Code(s): E78.5 - HYPERLIPIDEMIA, UNSPECIFIED Qualifiers: 38 minutes spent in critical care time
--- NOTE | 2016-10-11 12:00 | PN ---
Progress Note, Physician History of Present Illness: Remains on 40% VM, remains on pressors. Denies chest pain or dyspnea. - Current Medication List Current Medications: Active Medications Acetaminophen (Tylenol -) 650 mg PO Q4H PRN PRN Reason: FEVER OR PAIN Atorvastatin Calcium (Lipitor -) 40 mg PO HS PITA Last Admin: 10/10/16 22:23 Dose: 40 mg Chlorhexidine Gluconate (Hibiclens For Decolonization -) 1 applic TP HS PITA Last Admin: 10/10/16 22:23 Dose: 1 applic Furosemide (Lasix Injection -) 40 mg IVPUSH BID@0600,1400 PITA Last Admin: 10/11/16 06:41 Dose: 40 mg Pantoprazole Sodium 80 mg/ (Sodium Chloride) 100 mls @ 10 mls/hr IVPB Q10H PITA PRN Reason: 8 MG/HR Last Admin: 10/11/16 05:08 Dose: Not Given Norepinephrine Bitartrate 8, (000 mcg/ Dextrose) 500 mls @ 18.75 mls/hr IV TITR PITA; 5 MCG/MIN PRN Reason: Protocol Last Admin: 10/10/16 22:22 Dose: 93 mls/hr Fentanyl 500 mcg/ Dextrose 100 mls @ 10 mls/hr IJ TITR PITA PRN Reason: 50 MCG/HR Last Admin: 10/11/16 05:08 Dose: Not Given Dopamine HCl/Dextrose (Dopamine 400 Mg/D5w -) 250 mls @ 12.332 mls/hr IVPB TITR PITA; 5 MCG/KG/MIN PRN Reason: Protocol Last Admin: 10/11/16 06:43 Dose: 24.664 mls/hr Norepinephrine Bitartrate 8, (000 mcg/ Dextrose) 500 mls @ 18.75 mls/hr IV TITR PITA; 5 MCG/MIN PRN Reason: Protocol Last Admin: 10/11/16 06:43 Dose: 37.5 mls/hr Midazolam HCl (Versed -) 2 mg IVPUSH Q2H PRN PRN Reason: ANXIETY Last Admin: 10/10/16 05:30 Dose: 2 mg Mupirocin (Bactroban Ointment (For Decolonization) -) 1 applic NS BID PITA Stop: 10/14/16 21:59 Last Admin: 10/10/16 22:23 Dose: 1 applic - Objective Vital Signs: Vital Signs Temperature 97.6 F 10/11/16 10:00 Pulse Rate 91 H 10/11/16 10:00 Respiratory Rate 18 10/11/16 10:00 Blood Pressure 104/47 10/11/16 10:00 O2 Sat by Pulse Oximetry (%) 100 10/11/16 09:45 Constitutional: Yes: No Distress, Calm Neck: Yes: Supple Cardiovascular: Yes: Regular Rate and Rhythm, Murmur (2/6 SM) Respiratory: Yes: Regular, Diminished Gastrointestinal: Yes: Normal Bowel Sounds, Soft Edema: Yes Edema: LLE: Trace, RLE: Trace Labs: CBC, BMP 10/11/16 05:40 10/11/16 05:40 INR, PTT INR 1.37 (0.82-1.09) H 10/09/16 04:00 Problem List - Problems (1) Chest pain Code(s): R07.9 - CHEST PAIN, UNSPECIFIED Qualifiers: Chest pain type: chest pain due to myocardial ischemia Ischemic chest pain type: unstable angina pectoris Qualified Code(s): I20.0 - Unstable angina (2) Colon cancer Code(s): C18.9 - MALIGNANT NEOPLASM OF COLON, UNSPECIFIED Qualifiers: Colon location: unspecified part of colon Qualified Code(s): C18.9 - Malignant neoplasm of colon, unspecified (3) Coronary artery disease Code(s): I25.10 - ATHSCL HEART DISEASE OF [place] CORONARY ARTERY W/O ANG PCTRS Qualifiers: Coronary Disease-Associated Artery/Lesion type: [place] artery [place] vs. transplanted heart: [place] heart Associated angina: angina presence unspecified Qualified Code(s): I25.10 - Atherosclerotic heart disease of [place] coronary artery without angina pectoris (4) Non-ST elevation (NSTEMI) myocardial infarction Code(s): I21.4 - NON-ST ELEVATION (NSTEMI) MYOCARDIAL INFARCTION (5) Hyperlipidemia Code(s): E78.5 - HYPERLIPIDEMIA, UNSPECIFIED Qualifiers: Hyperlipidemia type: pure hypercholesterolemia Qualified Code(s): E78.00 - Pure hypercholesterolemia, unspecified; E78.0 - Pure hypercholesterolemia (6) Acute on chronic systolic (congestive) heart failure Code(s): I50.23 - ACUTE ON CHRONIC SYSTOLIC (CONGESTIVE) HEART FAILURE (7) Pulmonary edema Code(s): J81.1 - CHRONIC PULMONARY EDEMA Qualifiers: Chronicity: acute Qualified Code(s): J81.0 - Acute pulmonary edema (8) Acute respiratory failure with hypoxia Code(s): J96.01 - ACUTE RESPIRATORY FAILURE WITH HYPOXIA (9) Hematochezia Code(s): K92.1 - MELENA (10) Anemia Code(s): D64.9 - ANEMIA, UNSPECIFIED Qualifiers: Other causes of anemia: acute posthemorrhagic (11) Local recurrence of malignant neoplasm of colon Code(s): C18.9 - MALIGNANT NEOPLASM OF COLON, UNSPECIFIED (12) [id number] kidney injury Code(s): N17.9 - ACUTE KIDNEY FAILURE, UNSPECIFIED N18.9 - CHRONIC KIDNEY DISEASE, UNSPECIFIED Qualifiers: Acute renal failure type: with acute tubular necrosis Chronic kidney disease stage: stage 2 (mild) Qualified Code(s): N17.0 - Acute kidney failure with tubular necrosis; N18.1 - Chronic kidney disease, stage 1 (13) Leukemoid reaction Code(s): D72.823 - LEUKEMOID REACTION Assessment/Plan 10/09/2016 Normal LV size with mild-moderate decreased LV fxn, severe apical, moderate anterolateral and apicolateral, severe posterolateral, inferior wall HK , mod eccentric MR, mod TR, RVSP 50-60 mmHg 1. CAD post NSTEMI and Asystolic Cardiac Arrest in the context of significant anemia 2. Anemia with underlying colon CA s/p subtotal colectomy with recurrence at the anastomotic site - post transfusion 3. Acute on chronic systolic failure with cardiogenic shock and lactic acidosis improving 4. Acute hypoxic respiratory failure and pulm edema improving 5. HTN/HCVD 6. Hypercholesterolemia 7. Acute on CKD improving 8. Leukemoid reaction PLAN: 1. Transfuse PRBC and follow CBC 2. Troponins have peaked, continue Lipitor 40 qhs and Protonix gtt 3. Wean FIO2 to maintain saO2, observe off abx, ball-culture 4. Wean levophed, dopamine gtt to maintain MAP >65 5. Lasix 40 IV bid with monitor diuretic response, renal fxn and electrolytes 6. ASA is being held in view of severe anemia. Heparin not started in view of severe anemia in the context of colon CA, await hemostasis 7. Further cardiac invasive studies not being planned at this time in view of underlying history and wishes not to escalate care.
--- NOTE | 2016-10-11 13:08 | EKG ---
Test Reason : Blood Pressure : / mmHG Vent. Rate : 081 BPM Atrial Rate : 094 BPM P-R Int : 170 ms QRS Dur : 116 ms QT Int : 368 ms P-R-T Axes : -21 -50 183 degrees QTc Int : 427 ms POOR DATA QUALITY, INTERPRETATION MAY BE ADVERSELY AFFECTED SINUS RHYTHM WITH PREMATURE ATRIAL COMPLEXES RSR' OR QR PATTERN IN V1 SUGGESTS RIGHT VENTRICULAR CONDUCTION DELAY LEFT ANTERIOR FASCICULAR BLOCK LEFT VENTRICULAR HYPERTROPHY WITH QRS WIDENING AND REPOLARIZATION ABNORMALITY ABNORMAL ECG WHEN COMPARED WITH ECG OF 10-OCT-2016 03:36, SIGNIFICANT CHANGES HAVE OCCURRED Confirmed by SRUTHI ABEBE MD ([id number]) on 10/11/2016 1:08:37 PM Referred By: Confirmed By:SRUTHI ABEBE MD
--- NOTE | 2016-10-11 13:09 | EKG ---
Test Reason : Blood Pressure : / mmHG Vent. Rate : 087 BPM Atrial Rate : 087 BPM P-R Int : 240 ms QRS Dur : 096 ms QT Int : 478 ms P-R-T Axes : -08 -50 231 degrees QTc Int : 575 ms POOR DATA QUALITY, INTERPRETATION MAY BE ADVERSELY AFFECTED SINUS RHYTHM WITH 1ST DEGREE A-V BLOCK LEFT AXIS DEVIATION RSR' OR QR PATTERN IN V1 SUGGESTS RIGHT VENTRICULAR CONDUCTION DELAY LEFT VENTRICULAR HYPERTROPHY WITH REPOLARIZATION ABNORMALITY PROLONGED QT ABNORMAL ECG WHEN COMPARED WITH ECG OF 09-OCT-2016 15:32, QRS DURATION HAS DECREASED ST NO LONGER DEPRESSED IN INFERIOR LEADS T WAVE INVERSION NOW EVIDENT IN INFERIOR LEADS Confirmed by SRUTHI ABEBE MD ([id number]) on 10/11/2016 1:08:57 PM Referred By: Confirmed By:SRUTHI ABEBE MD
--- NOTE | 2016-10-11 13:10 | EKG ---
Test Reason : Blood Pressure : / mmHG Vent. Rate : 044 BPM Atrial Rate : 084 BPM P-R Int : 230 ms QRS Dur : 126 ms QT Int : 524 ms P-R-T Axes : 041 -41 -89 degrees QTc Int : 448 ms SINUS RHYTHM WITH HIGH DEGREE AV BLOCK LEFT AXIS DEVIATION NON-SPECIFIC INTRA-VENTRICULAR CONDUCTION BLOCK MARKED T WAVE ABNORMALITY, CONSIDER ANTEROLATERAL ISCHEMIA ABNORMAL ECG WHEN COMPARED WITH ECG OF 10-OCT-2016 03:36, SIGNIFICANT CHANGES HAVE OCCURRED Confirmed by SRUTHI ABEBE MD ([id number]) on 10/11/2016 1:10:03 PM Referred By: Confirmed By:SRUTHI ABEBE MD
[2016-10-11] MEDS ORDERED: MULTIVIT INJECTION ADULT 10 ML in AMINO ACIDS 4.25%/D5W 1,000 ML IV SCH (13:15)
[2016-10-11 13:32] LABS: MCH 21.4 pg (25.7-33.7); MCHC 30.1 g/dl (32.0-35.9); MEAN PLT VOLUME 7.4 fl (7.5-11.1); PLATELET COUNT 321 K/MM3 (134-434); RDW 22.7 % (11.9-15.9); WHITE BLOOD COUNT 9.8 K/mm3 (4.0-10.0)
--- NOTE | 2016-10-11 14:20 | PN ---
Teaching Attending Note Name of Resident: Brandon Hernandez ATTENDING PHYSICIAN STATEMENT I saw and evaluated the patient. I reviewed the resident's note and discussed the case with the resident. I agree with the resident's findings and plan as documented. SUBJECTIVE: Patient seen and examined in the ICU. Remains extubated on partial non- rebreather mask. Awake and interactive. OBJECTIVE: Intake & Output 10/08/16 10/09/16 10/10/16 10/11/16 23:59 23:59 23:59 23:59 Intake Total 1544 2298.2 608 Output Total 130 939 3956 Balance 1244 2198.2 -2292 Weight 145 lb 145 lb 145 lb 8 oz Last Vital Signs Temp Pulse Resp BP Pulse Ox 97.6 F 92 H 18 87/47 100 10/11/16 10:00 10/11/16 12:00 10/11/16 12:00 10/11/16 12:00 10/11/16 09:45 Active Medications Acetaminophen (Tylenol -) 650 mg PO Q4H PRN PRN Reason: FEVER OR PAIN Atorvastatin Calcium (Lipitor -) 40 mg PO HS PITA Last Admin: 10/10/16 22:23 Dose: 40 mg Chlorhexidine Gluconate (Hibiclens For Decolonization -) 1 applic TP HS PITA Last Admin: 10/10/16 22:23 Dose: 1 applic Furosemide (Lasix Injection -) 40 mg IVPUSH BID@0600,1400 PITA Last Admin: 10/11/16 06:41 Dose: 40 mg Pantoprazole Sodium 80 mg/ (Sodium Chloride) 100 mls @ 10 mls/hr IVPB Q10H PITA PRN Reason: 8 MG/HR Last Admin: 10/11/16 05:08 Dose: Not Given Norepinephrine Bitartrate 8, (000 mcg/ Dextrose) 500 mls @ 18.75 mls/hr IV TITR PITA; 5 MCG/MIN PRN Reason: Protocol Last Admin: 10/10/16 22:22 Dose: 93 mls/hr Fentanyl 500 mcg/ Dextrose 100 mls @ 10 mls/hr IJ TITR PITA PRN Reason: 50 MCG/HR Last Admin: 10/11/16 05:08 Dose: Not Given Dopamine HCl/Dextrose (Dopamine 400 Mg/D5w -) 250 mls @ 12.332 mls/hr IVPB TITR PITA; 5 MCG/KG/MIN PRN Reason: Protocol Last Admin: 10/11/16 06:43 Dose: 24.664 mls/hr Norepinephrine Bitartrate 8, (000 mcg/ Dextrose) 500 mls @ 18.75 mls/hr IV TITR PITA; 5 MCG/MIN PRN Reason: Protocol Last Admin: 10/11/16 06:43 Dose: 37.5 mls/hr Multivitamins/Minerals 10 ml/ (Amino Acids) 1,010 mls @ 42 mls/hr IV Q24H PITA Stop: 10/12/16 13:14 Midazolam HCl (Versed -) 2 mg IVPUSH Q2H PRN PRN Reason: ANXIETY Last Admin: 10/10/16 05:30 Dose: 2 mg Mupirocin (Bactroban Ointment (For Decolonization) -) 1 applic NS BID [facility] Stop: 10/14/16 21:59 Last Admin: 10/10/16 22:23 Dose: 1 applic Gen: Extubated, breathing nonlabored, awake Heart: RRR Lung: Bilateral scattered rhonhci Abd: soft, nontender Ext: no edema Laboratory Results - last 24 hr 10/11/16 10/11/16 10/11/16 05:40 05:40 13:00 WBC 10.8 H D 9.8 RBC 3.81 L 3.87 L Hgb 8.1 L D 8.3 L Hct 26.9 L D 27.5 L MCV 70.6 L 71.0 L MCHC 30.0 L 30.1 L RDW 22.1 H 22.7 H Plt Count 344 D 321 MPV 7.4 L 7.4 L Neutrophils % 85.9 H Lymphocytes % 5.7 L D Monocytes % 7.8 Eosinophils % 0.3 Basophils % 0.3 Sodium 134 L Potassium 4.3 Chloride 102 Carbon Dioxide 23 Anion Gap 9 BUN 29 H Creatinine 1.3 Random Glucose 129 H D Calcium 7.3 L Troponin I 9.09 H* D ASSESSMENT AND PLAN: Acute Hypoxic Respiratory Failure CAD/Acute NSTEMI/Asystolic Cardiac Arrest Acute on Chronic Systolic Heart Failure Cardiogenic Shock Lactic Acidosis Acute Kidney Injury HTN Hyperlipidemia h/o Colon Ca Suspected GI Bleed - O2 to maintain saturation - ASA, AC - Taper pressors, maintain MAP >65 - Start inotrope - Diuresis as tolerated - monitor H/H - transfuse as needed - continue protonix for now - defer empiric antibiotics - continue ICU monitoring Critical care time spent in reviewing chart, evaluating patient and formulating plan [address] Vargas
[2016-10-11] MEDS: ATORVASTATIN CA 40 MG TABLET (FP) PO SCH (21:43)
[2016-10-11] MEDS: CHLORHEXIDINE GLUCONATE 4% CLEANSER FOR DECOLONIZATION TP SCH (21:43)
[2016-10-12] MEDS: FUROSEMIDE 40 MG/4 ML INJECTABLE VIAL IVPUSH SCH ×2 (06:19→13:17)
[2016-10-12] MEDS: FENTANYL INJECTION 500 MCG in DEXTROSE 5%-WATER - 90 ML IJ SCH (06:19)
[2016-10-12] MEDS: DOPAMINE 400 MG/D5W - 250 ML IVPB SCH (06:20)
[2016-10-12] MEDS: NOREPINEPHRINE BITARTRATE 8,000 MCG in DEXTROSE 5%-WATER - 492 ML IV SCH (06:20)
[2016-10-12] MEDS: PANTOPRAZOLE SODIUM 80 MG in SODIUM CHLORIDE 100 ML IVPB SCH ×3 (06:37→19:45)
[2016-10-12 06:44] LABS: MCH 21.8 pg (25.7-33.7); MCHC 30.6 g/dl (32.0-35.9); MEAN CELL VOLUME 71.1 fl (80-96); MEAN PLT VOLUME 7.5 fl (7.5-11.1); PLATELET COUNT 270 K/MM3 (134-434); RDW 22.1 % (11.9-15.9); WHITE BLOOD COUNT 4.8 K/mm3 (4.0-10.0)
[2016-10-12 07:05] LABS: ALBUMIN 1.9 g/dl (3.4-5.0); ANION GAP 9 (8-16); BILIRUBIN,TOTAL 2.8 mg/dL (0.2-1.0); CALCIUM 7.5 mg/dL (8.5-10.1); CO2 26 mmol/L (21-32); COCKROFT - GAULT 63.58; CREATININE 0.8 mg/dL (0.7-1.3); GLUCOSE,RANDOM 146 mg/dL (74-106); MAGNESIUM 2.3 mg/dL (1.8-2.4); PHOSPHOROUS 1.9 mg/dL (2.5-4.9); SGOT/AST 25 U/L (15-37); SGPT/ALT 18 U/L (12-78); TOT PROT 5.1 g/dl (6.4-8.2)
[2016-10-12 07:20] LABS: ALK PHOS 69 U/L (45-117)
[2016-10-12 07:28] LABS: TROPONIN I 3.41 ng/ml (0.00-0.05)
[2016-10-12] MEDS: MUPIROCIN 2% TOPICAL OINTMENT FOR DECOLONIZATION NS SCH ×2 (09:33→22:00)
--- NOTE | 2016-10-12 10:01 | PN ---
Physical Exam: SUBJECTIVE: Patient seen and examined at bedside this AM in ICU. AAO and at baseline mental status. Jovial this morning and requests to eat. Afebrile overnight with improved BP. Weaned off levophed overnight. Only on minimal dose of dopamine at present. OBJECTIVE: Vital Signs Period Temp Pulse Resp BP Sys/Boo Pulse Ox Last 24 Hr 97.5 F-98 F 61-92 12-26 87-138/41-54 100-100 GENERAL: AAOx3 & responsive to physical/verbal stimuli, resting comfortably in bed. Breathing room air. HEENT: Atraumatic, EOMI, PERRLA, No lymphadenopathy noted, moist membranes LUNGS: mild bibasilar crackles noted; no wheezing or accessory muscle use HEART: Regular rate & rhythm, normal S1 and S2 without murmur, rub or gallop. ABDOMEN: Soft, nontender, not distended, normoactive bowel sounds UPPER EXTREMITIES: 1+ pulses, warm, well-perfused. No cyanosis. No clubbing. Cap refill <2 seconds. No peripheral edema. LOWER EXTREMITIES: 1+ pulses, warm, well-perfused. No calf tenderness. Trace bilateral edema bilateral LE. NEUROLOGICAL: Cranial nerves II-XII intact. Gait & speech deferred due to clinical condition. SKIN: Warm, dry, normal turgor, no rashes or lesions noted. GENITAL: Hypospadia noted RECTAL: no signs of active bleeding noted; invasive exam deferred due to BP/HR Laboratory Results - last 24 hr 10/11/16 10/12/16 10/12/16 13:00 05:30 05:30 WBC 9.8 4.8 D RBC 3.87 L 3.52 L Hgb 8.3 L 7.7 L Hct 27.5 L 25.0 L MCV 71.0 L 71.1 L MCHC 30.1 L 30.6 L RDW 22.7 H 22.1 H Plt Count 321 270 MPV 7.4 L 7.5 Sodium 139 Potassium 4.2 Chloride 104 Carbon Dioxide 26 Anion Gap 9 BUN 29 H Creatinine 0.8 D Creat Clearance w eGFR > 60 Random Glucose 146 H Calcium 7.5 L Phosphorus 1.9 L D Magnesium 2.3 D Total Bilirubin 2.8 H AST 25 D ALT 18 D Alkaline Phosphatase 69 Creatine Kinase 47 Troponin I 3.41 H* D Total Protein 5.1 L Albumin 1.9 L D Active Medications Generic Name Dose Route Start Last Admin Trade Name Freq PRN Reason Stop Dose Admin Acetaminophen 650 mg 10/12/16 07:10 Tylenol - PO Q4H PRN FEVER OR PAIN Atorvastatin Calcium 40 mg 10/12/16 22:00 Lipitor - PO HS PITA Chlorhexidine Gluconate 1 applic 10/09/16 22:00 10/11/16 21:43 Hibiclens For Decolonization - TP 1 applic HS PITA Administration Furosemide 40 mg 10/10/16 11:45 10/12/16 06:19 Lasix Injection - IVPUSH 40 mg BID@0600,1400 PITA Administration Fentanyl 500 mcg/ Dextrose 100 mls @ 10 mls/hr 10/10/16 03:45 10/12/16 06:19 IJ Not Given TITR PITA 50 MCG/HR Dopamine HCl/Dextrose 250 mls @ 12.332 mls/hr 10/10/16 04:15 10/12/16 06:20 Dopamine 400 Mg/D5w - IVPB 4.933 mls/hr TITR PITA Administration Protocol 5 MCG/KG/MIN Norepinephrine Bitartrate 8, 500 mls @ 18.75 mls/hr 10/10/16 05:30 10/12/16 06: 20 000 mcg/ Dextrose IV 0 mcg/min TITR PITA Titration Protocol 5 MCG/MIN Pantoprazole Sodium 80 mg/ 100 mls @ 10 mls/hr 10/12/16 09:45 Sodium Chloride IVPB Q10H PITA 8 MG/HR Potassium Phosphate 16 mm/ 255.3333 mls @ 62.5 mls/hr 10/12/16 11:00 10/12/16 11:53 Dextrose IVPB 10/12/16 15:05 62.5 mls/hr ONCE ONE Administration Midazolam HCl 2 mg 10/10/16 04:12 10/10/16 05:30 Versed - IVPUSH 2 mg Q2H PRN Administration ANXIETY Mupirocin 1 applic 10/09/16 22:00 10/12/16 09:33 Bactroban Ointment (For Decolonization) - NS 10/14/16 21:59 1 applic BID PITA Administration ASSESSMENT/PLAN: 86 year old male with significant PMH of moderate Systolic CHF, CAD, HTN, HLD, Colon Cancer s/p subtotal colectomy (2015) with anastomotic recurrence (2016) admitted for NSTEMI & GI bleed. Code 99 called later in afternoon with ROSC after 2 rounds epinephrine during PEA. #Cardiac Arrest, superimposed in setting of NSTEMI -saturating well on room air -responsive & aware of situation, requests to be FULL CODE -weaned off Levophed, on minimal Dopamine at present for BP support -anticoagulation deferred d/t anemia and (+) FOBT -cardiology consult appreciated #Anemia, likely etiology is GI bleed in setting of Colon Cancer Hx -2 units PRBC given on day of admission with improvement -ordered 1 more unit PRBC for today (Hg 7.8 this morning, but do not suspect active bleeding) -IV PPI Drip -GI Consult appreciated -needs workup when stable -clear liquid diet started, advance as tolerated #Systolic CHF/CAD/HTN/HLD Hx -Lasix 40mg IV PUSH BID for diuresis -Lipitor -Strict I & O, Daily weights -CXR reviewed Prophylaxis -No AC due to GIB -IV PPI Drip -monitor electrolytes -upgraded to Clear liquid diet PATIENTLY EXPLICITLY STATES HE WANTS ALL POSSIBLE MEASURES IF IN CARDIOPULMONARY ARREST. PATIENT CONSENTS TO BOTH REINTUBATION & CPR RESUSCITATION IF NECESSARY. Visit type - Emergency Visit Emergency Visit: Yes ED Registration Date: 10/09/16 Care time: The patient presented to the Emergency Department on the above date and was hospitalized for further evaluation of their emergent condition. - New Patient This patient is new to me today: No - Critical Care Critical Care patient: Yes Total Critical Care Time (in minutes): 45 Critical Care Statement: The care of this patient involved high complexity decision making to prevent further life threatening deterioration of the patient 's condition and/or to evalute & treat vital organ system(s) failure or risk of failure.
--- NOTE | 2016-10-12 10:29 | PN ---
Progress Note, Physician Chief Complaint: Mr Parker says he is doing better. States his chest pain is improving. No sob or n/v. - Current Medication List Current Medications: Active Medications Acetaminophen (Tylenol -) 650 mg PO Q4H PRN PRN Reason: FEVER OR PAIN Atorvastatin Calcium (Lipitor -) 40 mg PO HS PITA Chlorhexidine Gluconate (Hibiclens For Decolonization -) 1 applic TP HS PITA Last Admin: 10/11/16 21:43 Dose: 1 applic Furosemide (Lasix Injection -) 40 mg IVPUSH BID@0600,1400 PITA Last Admin: 10/12/16 06:19 Dose: 40 mg Fentanyl 500 mcg/ Dextrose 100 mls @ 10 mls/hr IJ TITR PITA PRN Reason: 50 MCG/HR Last Admin: 10/12/16 06:19 Dose: Not Given Dopamine HCl/Dextrose (Dopamine 400 Mg/D5w -) 250 mls @ 12.332 mls/hr IVPB TITR PITA; 5 MCG/KG/MIN PRN Reason: Protocol Last Admin: 10/12/16 06:20 Dose: 4.933 mls/hr Norepinephrine Bitartrate 8, (000 mcg/ Dextrose) 500 mls @ 18.75 mls/hr IV TITR PITA; 5 MCG/MIN PRN Reason: Protocol Last Titration: 10/12/16 06:20 Dose: 0 mcg/min Multivitamins/Minerals 10 ml/ (Amino Acids) 1,010 mls @ 42 mls/hr IV Q24H PITA Stop: 10/12/16 13:14 Last Admin: 10/11/16 14:00 Dose: 42 mls/hr Pantoprazole Sodium 80 mg/ (Sodium Chloride) 100 mls @ 10 mls/hr IVPB Q10H PITA PRN Reason: 8 MG/HR Potassium Phosphate 16 mm/ (Dextrose) 255.3333 mls @ 62.5 mls/hr IVPB ONCE ONE Stop: 10/12/16 14:29 Midazolam HCl (Versed -) 2 mg IVPUSH Q2H PRN PRN Reason: ANXIETY Last Admin: 10/10/16 05:30 Dose: 2 mg Mupirocin (Bactroban Ointment (For Decolonization) -) 1 applic NS BID [facility] Stop: 10/14/16 21:59 Last Admin: 10/12/16 09:33 Dose: 1 applic - Objective Vital Signs: Vital Signs Temperature 97.5 F L 10/12/16 02:00 Pulse Rate 68 10/12/16 10:00 Respiratory Rate 19 10/12/16 10:00 Blood Pressure 89/37 10/12/16 10:00 O2 Sat by Pulse Oximetry (%) 100 10/12/16 09:00 Constitutional: Yes: Well Nourished, No Distress, Calm Cardiovascular: Yes: Regular Rate and Rhythm. No: Gallop, Murmur, Rub Respiratory: Yes: Regular, CTA Bilaterally. No: Rales, Rhonchi, Wheezes Gastrointestinal: Yes: Normal Bowel Sounds, Soft. No: Distention, Tenderness Extremities: Yes: WNL Edema: Yes Edema: LUE: Trace, RUE: Trace, LLE: 1+, RLE: 1+ Labs: CBC, BMP 10/12/16 05:30 10/12/16 05:30 INR, PTT INR 1.37 (0.82-1.09) H 10/09/16 04:00 Problem List - Problems (1) Acute respiratory failure with hypoxia Code(s): J96.01 - ACUTE RESPIRATORY FAILURE WITH HYPOXIA (2) Acute on chronic systolic (congestive) heart failure Code(s): I50.23 - ACUTE ON CHRONIC SYSTOLIC (CONGESTIVE) HEART FAILURE (3) Cardiogenic shock Code(s): R57.0 - CARDIOGENIC SHOCK (4) Anemia Code(s): D64.9 - ANEMIA, UNSPECIFIED Qualifiers: Other causes of anemia: acute posthemorrhagic (5) Occult GI bleeding Code(s): R19.5 - OTHER FECAL ABNORMALITIES (6) Chest pain Code(s): R07.9 - CHEST PAIN, UNSPECIFIED Qualifiers: Chest pain type: chest pain due to myocardial ischemia Ischemic chest pain type: unstable angina pectoris Qualified Code(s): I20.0 - Unstable angina (7) Non-ST elevation (NSTEMI) myocardial infarction Code(s): I21.4 - NON-ST ELEVATION (NSTEMI) MYOCARDIAL INFARCTION (8) HTN (hypertension) Code(s): I10 - ESSENTIAL (PRIMARY) HYPERTENSION Qualifiers: Hypertension type: essential hypertension Qualified Code(s): I10 - Essential (primary) hypertension (9) Hyperlipidemia Code(s): E78.5 - HYPERLIPIDEMIA, UNSPECIFIED Qualifiers: Hyperlipidemia type: pure hypercholesterolemia Qualified Code(s): E78.00 - Pure hypercholesterolemia, unspecified; E78.0 - Pure hypercholesterolemia Assessment/Plan (1) Acute hypoxic respiratory failure -secondary to NSTEMI/CHF/cardiogenic shock -resolved (2) CHF -cardiology following -continue IV lasix (3) Cardiogenic shock -secondary to NSTEMI -weaned off of levophed -weaning dopamine as tolerated (4) Anemia Assessment/Plan: -continues to decrease -cardiology to evaluate for transfusion since active ACS Code(s): D64.9 - ANEMIA, UNSPECIFIED Qualifiers: Other causes of anemia: acute posthemorrhagic (5) Occult GI bleeding Assessment/Plan: -appreciate GI assistance -continue protonix gtt currently -unstable for intervention currently Code(s): R19.5 - OTHER FECAL ABNORMALITIES (7) Non-ST elevation (NSTEMI) myocardial infarction Assessment/Plan: -cardiology following -unable to anticoagulate secondary to ABLA Code(s): I21.4 - NON-ST ELEVATION (NSTEMI) MYOCARDIAL INFARCTION (8) HTN (hypertension) Assessment/Plan: -hypotensive but improving -continue blood pressure support Code(s): I10 - ESSENTIAL (PRIMARY) HYPERTENSION (9) Hyperlipidemia Assessment/Plan: -can hold lipitor currently Code(s): E78.5 - HYPERLIPIDEMIA, UNSPECIFIED Qualifiers: 32 minutes spent in critical care time
[2016-10-12] MEDS ORDERED: POTASSIUM PHOSPHATE 16 MM in DEXTROSE 5%-WATER - 250 ML IVPB ONE (11:00)
--- NOTE | 2016-10-12 11:30 | PN ---
Progress Note (short form) - Note Progress Note: S: 86 year old male, with history of colon carcinoma, admitted with painless GI bleeding, severe anemia, acute coronary syndrome, hospital coarse complicated with cardiac arrest and cardiogenic shock. Patient also was found to have advanced AV block on ECG of 10/10/2016. On the monitor appears to be in atrial tachycardia versus slow atrial flutter. He remains on vasopressors. He is alert , awake. Denies chest pain or discomfort. No dyspnea was reported. Active Medications Generic Name Dose Route Start Last Admin Trade Name Freq PRN Reason Stop Dose Admin Acetaminophen 650 mg 10/12/16 07:10 Tylenol - PO Q4H PRN FEVER OR PAIN Atorvastatin Calcium 40 mg 10/12/16 22:00 Lipitor - PO HS PITA Chlorhexidine Gluconate 1 applic 10/09/16 22:00 10/11/16 21:43 Hibiclens For Decolonization - TP 1 applic HS PITA Administration Furosemide 40 mg 10/10/16 11:45 10/12/16 06:19 Lasix Injection - IVPUSH 40 mg BID@0600,1400 PITA Administration Fentanyl 500 mcg/ Dextrose 100 mls @ 10 mls/hr 10/10/16 03:45 10/12/16 06:19 IJ Not Given TITR PITA 50 MCG/HR Dopamine HCl/Dextrose 250 mls @ 12.332 mls/hr 10/10/16 04:15 10/12/16 06:20 Dopamine 400 Mg/D5w - IVPB 4.933 mls/hr TITR PITA Administration Protocol 5 MCG/KG/MIN Norepinephrine Bitartrate 8, 500 mls @ 18.75 mls/hr 10/10/16 05:30 10/12/16 06: 20 000 mcg/ Dextrose IV 0 mcg/min TITR PITA Titration Protocol 5 MCG/MIN Multivitamins/Minerals 10 ml/ 1,010 mls @ 42 mls/hr 10/11/16 13:15 10/11/16 14: 00 Amino Acids IV 10/12/16 13:14 42 mls/hr Q24H PITA Administration Pantoprazole Sodium 80 mg/ 100 mls @ 10 mls/hr 10/12/16 09:45 Sodium Chloride IVPB Q10H PITA 8 MG/HR Potassium Phosphate 16 mm/ 255.3333 mls @ 62.5 mls/hr 10/12/16 11:00 Dextrose IVPB 10/12/16 15:05 ONCE ONE Midazolam HCl 2 mg 10/10/16 04:12 10/10/16 05:30 Versed - IVPUSH 2 mg Q2H PRN Administration ANXIETY Mupirocin 1 applic 10/09/16 22:00 10/12/16 09:33 Bactroban Ointment (For Decolonization) - NS 10/14/16 21:59 1 applic BID PITA Administration O: 86 year old male was in no acute distress, no pallor, cyanosis, clubbing, or jaundice. Last Vital Signs Temp Pulse Resp BP Pulse Ox 97.5 F L 68 19 89/37 100 10/12/16 02:00 10/12/16 10:00 10/12/16 10:00 10/12/16 10:00 10/12/16 09:00 Neck: Supple, no JVD, negative HJR, carotids were equal and upstrokes were normal, no thyromegaly appreciated. Heart: PMI was in the 5th intercostal space, no heaves or thrills, S1 and S2 were normal. No murmurs or gallops were appreciated. Lungs: Clear on auscultation bilaterally. Abdomen: Soft, nontender, no hepatosplenomegaly appreciated, and no palpable masses were felt. Well healed midline surgical scar with incisional hernia. Extremities: No calf tenderness or dependent edema. Pulses are normal. CBC, BMP 10/12/16 05:30 10/12/16 05:30 Laboratory Results - last 24 hr 10/09/16 10/11/16 10/12/16 05:23 13:00 05:30 WBC 9.8 4.8 D RBC 3.87 L 3.52 L Hgb 8.3 L 7.7 L Hct 27.5 L 25.0 L MCV 71.0 L 71.1 L MCHC 30.1 L 30.6 L RDW 22.7 H 22.1 H Plt Count 321 270 MPV 7.4 L 7.5 Sodium Potassium Chloride Carbon Dioxide Anion Gap BUN Creatinine Creat Clearance w eGFR Random Glucose Calcium Phosphorus Magnesium Total Bilirubin AST ALT Alkaline Phosphatase Creatine Kinase Troponin I Total Protein Albumin Blood Type O POSITIVE Antibody Screen Negative Crossmatch See Detail 10/12/16 05:30 WBC RBC Hgb Hct MCV MCHC RDW Plt Count MPV Sodium 139 Potassium 4.2 Chloride 104 Carbon Dioxide 26 Anion Gap 9 BUN 29 H Creatinine 0.8 D Creat Clearance w eGFR > 60 Random Glucose 146 H Calcium 7.5 L Phosphorus 1.9 L D Magnesium 2.3 D Total Bilirubin 2.8 H AST 25 D ALT 18 D Alkaline Phosphatase 69 Creatine Kinase 47 Troponin I 3.41 H* D Total Protein 5.1 L Albumin 1.9 L D Blood Type Antibody Screen Crossmatch ECG 10/12/2016 11:58am Impression: Rhythm is atrial flutter with 4:1 AV conduction, left anterior hemiblock, right bundle branch block, LVH by voltage criteria, diffused ST and T wave abnormalities involving the lateral precardial leads. Impression: (1) Non-ST elevation (NSTEMI) myocardial infarction Code(s): I21.4 - NON-ST ELEVATION (NSTEMI) MYOCARDIAL INFARCTION (2) Cardiogenic shock secondary to #1 (3) Transient advanced AV block Code(s): I44.30 - UNSPECIFIED ATRIOVENTRICULAR BLOCK (4) Atrial Flutter with 4:1 AV Conduction Code(s): I48.92 - UNSPECIFIED ATRIAL FLUTTER (5) Carcinoma of the colon, with recurrence Code(s): C18.9 - MALIGNANT NEOPLASM OF COLON, UNSPECIFIED Qualifiers: Colon location: unspecified part of colon Qualified Code(s): C18.9 - Malignant neoplasm of colon, unspecified (6) Coronary artery disease Code(s): I25.10 - ATHSCL HEART DISEASE OF [place] CORONARY ARTERY W/O ANG PCTRS Qualifiers: Coronary Disease-Associated Artery/Lesion type: [place] artery [place] vs. transplanted heart: [place] heart Associated angina: angina presence unspecified Qualified Code(s): I25.10 - Atherosclerotic heart disease of [place] coronary artery without angina pectoris (7) Hyperlipidemia Code(s): E78.5 - HYPERLIPIDEMIA, UNSPECIFIED Qualifiers: Hyperlipidemia type: pure hypercholesterolemia Qualified Code(s): E78.00 - Pure hypercholesterolemia, unspecified; E78.0 - Pure hypercholesterolemia (8) Acute on chronic systolic (congestive) heart failure Code(s): I50.23 - ACUTE ON CHRONIC SYSTOLIC (CONGESTIVE) HEART FAILURE (9) Hematochezia Code(s): K92.1 - MELENA (10) Anemia Code(s): D64.9 - ANEMIA, UNSPECIFIED Qualifiers: Other causes of anemia: acute posthemorrhagic (11) [id number] kidney injury Code(s): N17.9 - ACUTE KIDNEY FAILURE, UNSPECIFIED N18.9 - CHRONIC KIDNEY DISEASE, UNSPECIFIED Qualifiers: Acute renal failure type: with acute tubular necrosis Chronic kidney disease stage: stage 2 (mild) Qualified Code(s): N17.0 - Acute kidney failure with tubular necrosis; N18.1 - Chronic kidney disease, stage 1 Recommendations: 1. Consider transfusion to maintain hematocrit around 30%. 2. Vasopressors to be tapered. 3. Patient is not a candidate for anticoagulation in the presence of active GI bleeding. Prognosis: Critical Attestation: Documentation prepared by Juan Fajardo, acting as medical social worker for David Baker MD.
--- NOTE | 2016-10-12 12:05 | PN ---
Teaching Attending Note Name of Resident: Brandon Hernandez ATTENDING PHYSICIAN STATEMENT I saw and evaluated the patient. I reviewed the resident's note and discussed the case with the resident. I agree with the resident's findings and plan as documented. SUBJECTIVE: Patient seen and examined in the ICU. Remains extubated. On NC O2. Some dry cough. CP is better. Remains on Dopamine for hemodynamic support. Remains NPO. CXR: Bilateral pleural effusions / congestion Intake & Output 10/09/16 10/10/16 10/11/16 10/12/16 23:59 23:59 23:59 23:59 Intake Total 1544 2298.2 1318 190 Output Total 511 654 8970 300 Balance 1244 2198.2 -2882 -110 Weight 145 lb 145 lb 145 lb 8 oz 144 lb 3 oz Last Vital Signs Temp Pulse Resp BP Pulse Ox 97.5 F L 71 25 H 92/44 100 10/12/16 02:00 10/12/16 11:40 10/12/16 11:40 10/12/16 11:40 10/12/16 09:00 Active Medications Acetaminophen (Tylenol -) 650 mg PO Q4H PRN PRN Reason: FEVER OR PAIN Atorvastatin Calcium (Lipitor -) 40 mg PO HS PITA Chlorhexidine Gluconate (Hibiclens For Decolonization -) 1 applic TP HS PITA Last Admin: 10/11/16 21:43 Dose: 1 applic Furosemide (Lasix Injection -) 40 mg IVPUSH BID@0600,1400 PITA Last Admin: 10/12/16 06:19 Dose: 40 mg Fentanyl 500 mcg/ Dextrose 100 mls @ 10 mls/hr IJ TITR PITA PRN Reason: 50 MCG/HR Last Admin: 10/12/16 06:19 Dose: Not Given Dopamine HCl/Dextrose (Dopamine 400 Mg/D5w -) 250 mls @ 12.332 mls/hr IVPB TITR PITA; 5 MCG/KG/MIN PRN Reason: Protocol Last Admin: 10/12/16 06:20 Dose: 4.933 mls/hr Norepinephrine Bitartrate 8, (000 mcg/ Dextrose) 500 mls @ 18.75 mls/hr IV TITR PITA; 5 MCG/MIN PRN Reason: Protocol Last Titration: 10/12/16 06:20 Dose: 0 mcg/min Multivitamins/Minerals 10 ml/ (Amino Acids) 1,010 mls @ 42 mls/hr IV Q24H PITA Stop: 10/12/16 13:14 Last Admin: 10/11/16 14:00 Dose: 42 mls/hr Pantoprazole Sodium 80 mg/ (Sodium Chloride) 100 mls @ 10 mls/hr IVPB Q10H PITA PRN Reason: 8 MG/HR Potassium Phosphate 16 mm/ (Dextrose) 255.3333 mls @ 62.5 mls/hr IVPB ONCE ONE Stop: 10/12/16 15:05 Last Admin: 10/12/16 11:53 Dose: 62.5 mls/hr Midazolam HCl (Versed -) 2 mg IVPUSH Q2H PRN PRN Reason: ANXIETY Last Admin: 10/10/16 05:30 Dose: 2 mg Mupirocin (Bactroban Ointment (For Decolonization) -) 1 applic NS BID PITA Stop: 10/14/16 21:59 Last Admin: 10/12/16 09:33 Dose: 1 applic Gen: Extubated, breathing nonlabored, awake Heart: RRR Lung: Bilateral scattered rhonhci Abd: soft, nontender Ext: no edema Laboratory Results - last 24 hr 10/09/16 10/11/16 10/12/16 05:23 13:00 05:30 WBC 9.8 4.8 D RBC 3.87 L 3.52 L Hgb 8.3 L 7.7 L Hct 27.5 L 25.0 L MCV 71.0 L 71.1 L MCHC 30.1 L 30.6 L RDW 22.7 H 22.1 H Plt Count 321 270 MPV 7.4 L 7.5 Sodium Potassium Chloride Carbon Dioxide Anion Gap BUN Creatinine Creat Clearance w eGFR Random Glucose Calcium Phosphorus Magnesium Total Bilirubin AST ALT Alkaline Phosphatase Creatine Kinase Troponin I Total Protein Albumin Blood Type O POSITIVE Antibody Screen Negative Crossmatch See Detail 10/12/16 05:30 WBC RBC Hgb Hct MCV MCHC RDW Plt Count MPV Sodium 139 Potassium 4.2 Chloride 104 Carbon Dioxide 26 Anion Gap 9 BUN 29 H Creatinine 0.8 D Creat Clearance w eGFR > 60 Random Glucose 146 H Calcium 7.5 L Phosphorus 1.9 L D Magnesium 2.3 D Total Bilirubin 2.8 H AST 25 D ALT 18 D Alkaline Phosphatase 69 Creatine Kinase 47 Troponin I 3.41 H* D Total Protein 5.1 L Albumin 1.9 L D Blood Type Antibody Screen Crossmatch ASSESSMENT AND PLAN: Acute Hypoxic Respiratory Failure CAD/Acute NSTEMI/Asystolic Cardiac Arrest Acute on Chronic Systolic Heart Failure Cardiogenic Shock Lactic Acidosis Acute Kidney Injury HTN Hyperlipidemia h/o Colon Ca Suspected GI Bleed - O2 to maintain saturation - pRBCs - Taper pressors, maintain MAP >65 - May need inotrope - Diuresis as tolerated - monitor H/H - continue protonix for now - defer empiric antibiotics - PO if OK with GI - continue ICU monitoring Critical care time spent in reviewing chart, evaluating patient and formulating plan [address] Vargas
[2016-10-12] MEDS: ATORVASTATIN CA 40 MG TABLET (FP) PO SCH (22:00)
[2016-10-12] MEDS: CHLORHEXIDINE GLUCONATE 4% CLEANSER FOR DECOLONIZATION TP SCH (22:00)
[2016-10-13] MEDS: FUROSEMIDE 40 MG/4 ML INJECTABLE VIAL IVPUSH SCH ×3 (06:18→14:55)
[2016-10-13] MEDS: PANTOPRAZOLE SODIUM 80 MG in SODIUM CHLORIDE 100 ML IVPB SCH (06:19)
[2016-10-13 06:36] LABS: BASOPHIL 0.1 % (0-2.0); EOSINOPHIL 2.2 % (0-4.5); MCH 22.3 pg (25.7-33.7); MEAN PLT VOLUME 7.4 fl (7.5-11.1); NEUTROPHILS 74.9 % (42.8-82.8); PLATELET COUNT 306 K/MM3 (134-434); RDW 22.8 % (11.9-15.9); WHITE BLOOD COUNT 5.8 K/mm3 (4.0-10.0)
[2016-10-13 07:02] LABS: CALCIUM 7.7 mg/dL (8.5-10.1); MAGNESIUM 2.3 mg/dL (1.8-2.4)
[2016-10-13 07:03] LABS: COCKROFT - GAULT 56.52; CREATININE 0.9 mg/dL (0.7-1.3); PHOSPHOROUS 2.2 mg/dL (2.5-4.9)
--- NOTE | 2016-10-13 09:17 | PN ---
Progress Note (short form) - Note Progress Note: Patient seen and examined in the ICU. Remains extubated. On NC O2. Some dry cough. CP is better. Currently off Dopamine. Tolerating clear liquids. Intake & Output 10/10/16 10/11/16 10/12/16 10/13/16 23:59 23:59 23:59 23:59 Intake Total 2298.2 1318 1000 120 Output Total 100 4200 1900 1700 Balance 2198.2 -1635 -900 -1580 Weight 145 lb 145 lb 8 oz 144 lb 3 oz 146 lb 6.4 oz Last Vital Signs Temp Pulse Resp BP Pulse Ox 98.6 F 75 18 107/42 100 10/13/16 06:00 10/13/16 08:00 10/13/16 08:00 10/13/16 08:00 10/12/16 21:00 Active Medications Acetaminophen (Tylenol -) 650 mg PO Q4H PRN PRN Reason: FEVER OR PAIN Atorvastatin Calcium (Lipitor -) 40 mg PO HS [facility] Last Admin: 10/12/16 22:00 Dose: 40 mg Chlorhexidine Gluconate (Hibiclens For Decolonization -) 1 applic TP HS [facility] Last Admin: 10/12/16 22:00 Dose: 1 applic Furosemide (Lasix Injection -) 40 mg IVPUSH BID@0600,1400 PITA Last Admin: 10/13/16 06:18 Dose: 40 mg Pantoprazole Sodium 80 mg/ (Sodium Chloride) 100 mls @ 10 mls/hr IVPB Q10H PITA PRN Reason: 8 MG/HR Last Admin: 10/13/16 06:19 Dose: Not Given Midazolam HCl (Versed -) 2 mg IVPUSH Q2H PRN PRN Reason: ANXIETY Last Admin: 10/10/16 05:30 Dose: 2 mg Mupirocin (Bactroban Ointment (For Decolonization) -) 1 applic NS BID [facility] Stop: 10/14/16 21:59 Last Admin: 10/12/16 22:00 Dose: 1 applic Gen: breathing nonlabored, awake Heart: RRR Lung: Bilateral scattered rhonhci Abd: soft, nontender Ext: no edema Laboratory Results - last 24 hr 10/09/16 10/12/16 10/12/16 05:23 12:50 19:00 WBC RBC Hgb Hct MCV MCHC RDW Plt Count MPV Neutrophils % Lymphocytes % Monocytes % Eosinophils % Basophils % Sodium Potassium Chloride Carbon Dioxide Anion Gap BUN Creatinine Random Glucose Calcium Phosphorus Magnesium Stool Occult Blood Positive Blood Type O POSITIVE O POSITIVE Antibody Screen Negative Negative Crossmatch See Detail See Detail 10/13/16 10/13/16 05:40 05:40 WBC 5.8 RBC 3.95 L Hgb 8.8 L D Hct 28.4 L MCV 72.0 L MCHC 31.0 L RDW 22.8 H Plt Count 306 MPV 7.4 L Neutrophils % 74.9 Lymphocytes % 10.7 D Monocytes % 12.1 H Eosinophils % 2.2 D Basophils % 0.1 Sodium 142 Potassium 3.6 Chloride 102 Carbon Dioxide 30 Anion Gap 10 BUN 33 H Creatinine 0.9 Random Glucose 105 D Calcium 7.7 L Phosphorus 2.2 L Magnesium 2.3 Stool Occult Blood Blood Type Antibody Screen Crossmatch ASSESSMENT AND PLAN: Acute Hypoxic Respiratory Failure CAD/Acute NSTEMI/Asystolic Cardiac Arrest Acute on Chronic Systolic Heart Failure Cardiogenic Shock Lactic Acidosis Acute Kidney Injury HTN Hyperlipidemia h/o Colon Ca Suspected GI Bleed - O2 to maintain saturation - pRBCs - Monitor off pressors - Diuresis as tolerated - monitor H/H - continue protonix for now - defer empiric antibiotics - PO per GI - Cardiac Telemetry monitoring Critical care time spent in reviewing chart, evaluating patient and formulating plan [address] Vargas
[2016-10-13] MEDS: RANITIDINE HCL 150 MG TABLET (FP) PO SCH ×2 (09:27→21:13)
[2016-10-13] MEDS: MUPIROCIN 2% TOPICAL OINTMENT FOR DECOLONIZATION NS SCH ×2 (09:28→21:14)
[2016-10-13 10:31] LABS: ANISOCYTOSIS 2+; HYPOCHROMIA 1+; MICROCYTOSIS 1+; PLATELET COMMENT2 NO CLOTTING DETECTED; PLATELET ESTIMATE ADEQUATE (NORMAL); POIKILOCYTOSIS 1+; POLYCHROMASIA 2+
--- NOTE | 2016-10-13 11:16 | PN ---
GI Progress Note Subjective: Awake, alert. When asked, stated he is not hungry. - Objective Vital Signs: Vital Signs Temperature 98.6 F 10/13/16 06:00 Pulse Rate 75 10/13/16 08:00 Respiratory Rate 18 10/13/16 08:00 Blood Pressure 107/42 10/13/16 08:00 O2 Sat by Pulse Oximetry (%) 100 10/13/16 09:00 Constitutional: Well Nourished, No Distress, Calm HENT: Yes: Normocephalic Cardiovascular: Yes: Regular Rate and Rhythm Respiratory: Yes: CTA Bilaterally Gastrointestinal Inspection: Yes: WNL ...Auscultate: Yes: Normoactive Bowel Sounds ...Palpate: Yes: Soft. No: Tenderness Labs: CBC, BMP 10/13/16 05:40 10/13/16 05:40 INR, PTT INR 1.37 (0.82-1.09) H 10/09/16 04:00 Hepatic Panel Total Bilirubin 2.8 mg/dL (0.2-1.0) H 10/12/16 05:30 AST 25 U/L (15-37) D 10/12/16 05:30 ALT 18 U/L (12-78) D 10/12/16 05:30 Alkaline Phosphatase 69 U/L (45-117) 10/12/16 05:30 Albumin 1.9 g/dl (3.4-5.0) L D 10/12/16 05:30 Assessment/Plan 84 with colon CA recurrence at the anastomosis, refused further management. No further bleeding. S/P code 99 arrest with recovery to baseline. On clears and tolerating. Off of pressors Still on PPI which can be d/c'd Advance diet slowly as tolerated, to full liquid low Na
--- NOTE | 2016-10-13 13:22 | PN ---
Progress Note, Physician History of Present Illness: Remains on 2 L NC saO2 100%, now off pressors. Reports post-tussive chest pain, denies dyspnea or recurrent hematochezia. - Current Medication List Current Medications: Active Medications Acetaminophen (Tylenol -) 650 mg PO Q4H PRN PRN Reason: FEVER OR PAIN Atorvastatin Calcium (Lipitor -) 40 mg PO [facility] Last Admin: 10/12/16 22:00 Dose: 40 mg Chlorhexidine Gluconate (Hibiclens For Decolonization -) 1 applic TP [facility] Last Admin: 10/12/16 22:00 Dose: 1 applic Furosemide (Lasix Injection -) 40 mg IVPUSH BID@0600,1400 [facility] Last Admin: 10/13/16 06:18 Dose: 40 mg Midazolam HCl (Versed -) 2 mg IVPUSH Q2H PRN PRN Reason: ANXIETY Last Admin: 10/10/16 05:30 Dose: 2 mg Mupirocin (Bactroban Ointment (For Decolonization) -) 1 applic NS BID [facility] Stop: 10/14/16 21:59 Last Admin: 10/13/16 09:28 Dose: 1 applic Ranitidine HCl (Zantac -) 150 mg PO BID [facility] Last Admin: 10/13/16 09:27 Dose: 150 mg - Objective Vital Signs: Vital Signs Temperature 98.7 F 10/13/16 10:00 Pulse Rate 88 10/13/16 12:00 Respiratory Rate 20 10/13/16 12:00 Blood Pressure 122/45 10/13/16 12:00 O2 Sat by Pulse Oximetry (%) 100 10/13/16 12:00 Constitutional: Yes: No Distress, Calm Neck: Yes: Supple Cardiovascular: Yes: Regular Rate and Rhythm Respiratory: Yes: Regular, Diminished, On Nasal O2 Gastrointestinal: Yes: Normal Bowel Sounds, Soft ...Rectal Exam: Yes: Sphincter Tone Poor Edema: No Labs: CBC, BMP 10/13/16 05:40 10/13/16 05:40 INR, PTT INR 1.37 (0.82-1.09) H 10/09/16 04:00 Problem List - Problems (1) Chest pain Code(s): R07.9 - CHEST PAIN, UNSPECIFIED Qualifiers: Chest pain type: chest pain due to myocardial ischemia Ischemic chest pain type: unstable angina pectoris Qualified Code(s): I20.0 - Unstable angina (2) Colon cancer Code(s): C18.9 - MALIGNANT NEOPLASM OF COLON, UNSPECIFIED Qualifiers: Colon location: unspecified part of colon Qualified Code(s): C18.9 - Malignant neoplasm of colon, unspecified (3) Coronary artery disease Code(s): I25.10 - ATHSCL HEART DISEASE OF [place] CORONARY ARTERY W/O ANG PCTRS Qualifiers: Coronary Disease-Associated Artery/Lesion type: [place] artery [place] vs. transplanted heart: [place] heart Associated angina: angina presence unspecified Qualified Code(s): I25.10 - Atherosclerotic heart disease of [place] coronary artery without angina pectoris (4) Non-ST elevation (NSTEMI) myocardial infarction Code(s): I21.4 - NON-ST ELEVATION (NSTEMI) MYOCARDIAL INFARCTION (5) Hyperlipidemia Code(s): E78.5 - HYPERLIPIDEMIA, UNSPECIFIED Qualifiers: Hyperlipidemia type: pure hypercholesterolemia Qualified Code(s): E78.00 - Pure hypercholesterolemia, unspecified; E78.0 - Pure hypercholesterolemia (6) Acute on chronic systolic (congestive) heart failure Code(s): I50.23 - ACUTE ON CHRONIC SYSTOLIC (CONGESTIVE) HEART FAILURE (7) Pulmonary edema Code(s): J81.1 - CHRONIC PULMONARY EDEMA Qualifiers: Chronicity: acute Qualified Code(s): J81.0 - Acute pulmonary edema (8) Acute respiratory failure with hypoxia Code(s): J96.01 - ACUTE RESPIRATORY FAILURE WITH HYPOXIA (9) Hematochezia Code(s): K92.1 - MELENA (10) Anemia Code(s): D64.9 - ANEMIA, UNSPECIFIED Qualifiers: Other causes of anemia: acute posthemorrhagic (11) Local recurrence of malignant neoplasm of colon Code(s): C18.9 - MALIGNANT NEOPLASM OF COLON, UNSPECIFIED (12) [id number] kidney injury Code(s): N17.9 - ACUTE KIDNEY FAILURE, UNSPECIFIED N18.9 - CHRONIC KIDNEY DISEASE, UNSPECIFIED Qualifiers: Acute renal failure type: with acute tubular necrosis Chronic kidney disease stage: stage 2 (mild) Qualified Code(s): N17.0 - Acute kidney failure with tubular necrosis; N18.1 - Chronic kidney disease, stage 1 (13) Leukemoid reaction Code(s): D72.823 - LEUKEMOID REACTION Assessment/Plan 10/09/2016 Normal LV size with mild-moderate decreased LV fxn, severe apical, moderate anterolateral and apicolateral, severe posterolateral, inferior wall HK , mod eccentric MR, mod TR, RVSP 50-60 mmHg 1. CAD post NSTEMI and Asystolic Cardiac Arrest in the context of significant anemia 2. Anemia with underlying colon CA s/p subtotal colectomy with recurrence at the anastomotic site - post transfusion 3. Acute on chronic systolic failure with cardiogenic shock and lactic acidosis improving 4. Acute hypoxic respiratory failure and pulm edema improving 5. HTN/HCVD 6. Hypercholesterolemia 7. Acute on CKD improving 8. Leukemoid reaction PLAN: 1. Transfused PRBC and follow CBC 2. Troponins have peaked, continue Lipitor 40 qhs and resume Toprol XL 25 qd with uptitration as hemodynamics tolerate 3. Wean FIO2 to maintain saO2, observe off abx, ball-culture 4. Weaned off dopamine gtt 5. Decrease Lasix 40 IV qd with monitor diuretic response, renal fxn and electrolytes 6. Start Plavix 75 qd and sq Heparin given achievement of hemostasis 7. Further cardiac invasive studies not being planned at this time in view of underlying history and wishes not to escalate care. 8. OOB to chair
[2016-10-13] MEDS ORDERED: PT OWN MED DRAWER 7, Y5N ONE (13:33)
[2016-10-13] MEDS: METOPROLOL SUCCINATE 25 MG TAB.SR.24H (FP) PO SCH (13:35)
--- NOTE | 2016-10-13 14:31 | PN ---
Progress Note (short form) - Note Progress Note: Has chest pain when breathing No fever O/E Vital Signs Period Temp Pulse Resp BP Sys/Boo Pulse Ox Last 24 Hr 98 F-98.9 F 72-98 16-24 91-125/40-76 100-100 Heart irregular Lungs VB b/l scattered rales+ Abd soft Ext no edema Laboratory Results - last 24 hr 10/09/16 10/12/16 10/12/16 05:23 12:50 19:00 WBC RBC Hgb Hct MCV MCHC RDW Plt Count MPV Neutrophils % Lymphocytes % Monocytes % Eosinophils % Basophils % Differential Comment Platelet Estimate Platelet Comment Polychromasia Hypochromic-Microcytic Poikilocytosis Anisocytosis Microcytosis Macrocytosis Morphology Comment Sodium Potassium Chloride Carbon Dioxide Anion Gap BUN Creatinine Random Glucose Calcium Phosphorus Magnesium Stool Occult Blood Positive Blood Type O POSITIVE O POSITIVE Antibody Screen Negative Negative Crossmatch See Detail See Detail 10/13/16 10/13/16 05:40 05:40 WBC 5.8 RBC 3.95 L Hgb 8.8 L D Hct 28.4 L MCV 72.0 L MCHC 31.0 L RDW 22.8 H Plt Count 306 MPV 7.4 L Neutrophils % 74.9 Lymphocytes % 10.7 D Monocytes % 12.1 H Eosinophils % 2.2 D Basophils % 0.1 Differential Comment Slide scanned Platelet Estimate Adequate Platelet Comment No clotting detected Polychromasia 2+ Hypochromic-Microcytic 1+ Poikilocytosis 1+ Anisocytosis 2+ Microcytosis 1+ Macrocytosis 2+ Morphology Comment Sodium 142 Potassium 3.6 Chloride 102 Carbon Dioxide 30 Anion Gap 10 BUN 33 H Creatinine 0.9 Random Glucose 105 D Calcium 7.7 L Phosphorus 2.2 L Magnesium 2.3 Stool Occult Blood Blood Type Antibody Screen Crossmatch Current Medications Acetaminophen (Tylenol -) 650 mg PO Q4H PRN PRN Reason: FEVER OR PAIN Atorvastatin Calcium (Lipitor -) 40 mg PO HS [facility] Last Admin: 10/12/16 22:00 Dose: 40 mg Chlorhexidine Gluconate (Hibiclens For Decolonization -) 1 applic TP HS [facility] Last Admin: 10/12/16 22:00 Dose: 1 applic Clopidogrel Bisulfate (Plavix -) 75 mg PO DAILY [facility] Furosemide (Lasix Injection -) 40 mg IVPUSH BID@0600,1400 [facility] Stop: 10/14/16 04:00 Last Admin: 10/13/16 06:18 Dose: 40 mg Furosemide (Lasix Injection -) 40 mg IVPUSH DAILY [facility] Heparin Sodium (Porcine) (Heparin -) 5,000 unit SQ BID [facility] Metoprolol Succinate (Toprol Xl -) 25 mg PO DAILY [facility] Last Admin: 10/13/16 13:35 Dose: 25 mg Midazolam HCl (Versed -) 2 mg IVPUSH Q2H PRN PRN Reason: ANXIETY Last Admin: 10/10/16 05:30 Dose: 2 mg Mupirocin (Bactroban Ointment (For Decolonization) -) 1 applic NS BID [facility] Stop: 10/14/16 21:59 Last Admin: 10/13/16 09:28 Dose: 1 applic Ranitidine HCl (Zantac -) 150 mg PO BID [facility] Last Admin: 10/13/16 09:27 Dose: 150 mg A&P Assessment/Plan (1) Acute hypoxic respiratory failure -secondary to NSTEMI/CHF/cardiogenic shock -resolved (2) CHF -resolving -continue IV lasix (3) Cardiogenic shock -secondary to NSTEMI doing well (4) Anemia Assessment/Plan: -f/u CBC stable at present Code(s): D64.9 - ANEMIA, UNSPECIFIED Qualifiers: Other causes of anemia: acute posthemorrhagic (5) Occult GI bleeding Assessment/Plan: -Cont present meds Code(s): R19.5 - OTHER FECAL ABNORMALITIES (7) Non-ST elevation (NSTEMI) myocardial infarction Assessment/Plan: -unable to anticoagulate secondary to ABLA Code(s): I21.4 - NON-ST ELEVATION (NSTEMI) MYOCARDIAL INFARCTION
[2016-10-13] MEDS: CLOPIDOGREL BISULFATE 75 MG TABLET (FP) PO SCH (14:55)
[2016-10-13] MEDS: ACETAMINOPHEN 325 MG TABLET (FP) PO PRN ×2 (18:51→21:16)
[2016-10-13] MEDS: ATORVASTATIN CA 40 MG TABLET (FP) PO SCH (21:13)
[2016-10-13] MEDS: HEPARIN NA (PORCINE) 5,000 UNITS/ML 1ML VIAL SQ SCH (21:13)
[2016-10-13] MEDS: CHLORHEXIDINE GLUCONATE 4% CLEANSER FOR DECOLONIZATION TP SCH (21:14)
[2016-10-14 06:17] LABS: MCH 22.3 pg (25.7-33.7); MCHC 30.8 g/dl (32.0-35.9); MEAN CELL VOLUME 72.2 fl (80-96); MEAN PLT VOLUME 7.5 fl (7.5-11.1); PLATELET COUNT 319 K/MM3 (134-434); RDW 23.5 % (11.9-15.9); WHITE BLOOD COUNT 8.7 K/mm3 (4.0-10.0)
[2016-10-14 06:54] LABS: ALBUMIN 2.1 g/dl (3.4-5.0); ALK PHOS 127 U/L (45-117); ANION GAP 12 (8-16); BILIRUBIN,TOTAL 2.2 mg/dL (0.2-1.0); CALCIUM 7.6 mg/dL (8.5-10.1); CO2 28 mmol/L (21-32); COCKROFT - GAULT 56; CREATININE 0.9 mg/dL (0.7-1.3); GLUCOSE,RANDOM 96 mg/dL (74-106); SGOT/AST 24 U/L (15-37); SGPT/ALT 30 U/L (12-78); TOT PROT 5.3 g/dl (6.4-8.2)
--- NOTE | 2016-10-14 09:16 | PN ---
Progress Note (short form) - Note Progress Note: Patient seen and examined in the ICU. Remains extubated on NC O2. Some dry cough persists. CP is better. Remains off Dopamine. Tolerating clear liquids. Intake & Output 10/11/16 10/12/16 10/13/16 10/14/16 23:59 23:59 23:59 23:59 Intake Total 1318 1000 300 Output Total 4200 1900 3500 100 Balance -2882 -900 -3200 -100 Weight 145 lb 8 oz 144 lb 3 oz 146 lb 6.4 oz 143 lb 1.28 oz Last Vital Signs Temp Pulse Resp BP Pulse Ox 98.1 F 71 22 116/71 97 10/14/16 06:00 10/14/16 06:00 10/14/16 09:00 10/14/16 06:00 10/13/16 21:00 Active Medications Acetaminophen (Tylenol -) 650 mg PO Q4H PRN PRN Reason: FEVER OR PAIN Last Admin: 10/13/16 21:16 Dose: 650 mg Atorvastatin Calcium (Lipitor -) 40 mg PO HS [facility] Last Admin: 10/13/16 21:13 Dose: 40 mg Chlorhexidine Gluconate (Hibiclens For Decolonization -) 1 applic TP HS [facility] Last Admin: 10/13/16 21:14 Dose: 1 applic Clopidogrel Bisulfate (Plavix -) 75 mg PO DAILY [facility] Last Admin: 10/13/16 14:55 Dose: 75 mg Furosemide (Lasix Injection -) 40 mg IVPUSH DAILY [facility] Heparin Sodium (Porcine) (Heparin -) 5,000 unit SQ BID [facility] Last Admin: 10/13/16 21:13 Dose: 5,000 unit Metoprolol Succinate (Toprol Xl -) 25 mg PO DAILY [facility] Last Admin: 10/13/16 13:35 Dose: 25 mg Mupirocin (Bactroban Ointment (For Decolonization) -) 1 applic NS BID [facility] Stop: 10/14/16 21:59 Last Admin: 10/13/16 21:14 Dose: 1 applic Ranitidine HCl (Zantac -) 150 mg PO BID [facility] Last Admin: 10/13/16 21:13 Dose: 150 mg Gen: breathing nonlabored, awake and alert Heart: RRR Lung: Bilateral scattered rhonhci Abd: soft, nontender Ext: no edema Laboratory Results - last 24 hr 10/13/16 10/14/16 10/14/16 05:40 05:40 05:40 WBC 8.7 D RBC 4.09 Hgb 9.1 L Hct 29.5 L MCV 72.2 L MCHC 30.8 L RDW 23.5 H Plt Count 319 MPV 7.5 Differential Comment Slide scanned Platelet Estimate Adequate Platelet Comment No clotting detected Polychromasia 2+ Hypochromic-Microcytic 1+ Poikilocytosis 1+ Anisocytosis 2+ Microcytosis 1+ Macrocytosis 2+ Morphology Comment Sodium 140 Potassium 3.7 Chloride 100 Carbon Dioxide 28 Anion Gap 12 BUN 28 H Creatinine 0.9 Creat Clearance w eGFR > 60 Random Glucose 96 Calcium 7.6 L Total Bilirubin 2.2 H D AST 24 ALT 30 D Alkaline Phosphatase 127 H D Total Protein 5.3 L Albumin 2.1 L ASSESSMENT AND PLAN: Acute Hypoxic Respiratory Failure CAD/Acute NSTEMI/Asystolic Cardiac Arrest Acute on Chronic Systolic Heart Failure Cardiogenic Shock Lactic Acidosis Acute Kidney Injury HTN Hyperlipidemia h/o Colon Ca Suspected GI Bleed - O2 to maintain saturation - Normal transfusion threshold - Lasix - Monitor off protonix - Monitor off antibiotics - PO as tolerated - Cardiac Telemetry monitoring Critical care time spent in reviewing chart, evaluating patient and formulating plan [address] Vargas
[2016-10-14] MEDS: HEPARIN NA (PORCINE) 5,000 UNITS/ML 1ML VIAL SQ SCH ×2 (10:10→22:57)
[2016-10-14] MEDS: CLOPIDOGREL BISULFATE 75 MG TABLET (FP) PO SCH (10:11)
[2016-10-14] MEDS: METOPROLOL SUCCINATE 25 MG TAB.SR.24H (FP) PO SCH (10:11)
[2016-10-14] MEDS: FUROSEMIDE 40 MG/4 ML INJECTABLE VIAL IVPUSH SCH (10:11)
[2016-10-14] MEDS: RANITIDINE HCL 150 MG TABLET (FP) PO SCH ×2 (10:11→22:58)
[2016-10-14] MEDS: MUPIROCIN 2% TOPICAL OINTMENT FOR DECOLONIZATION NS SCH (10:12)
--- NOTE | 2016-10-14 13:20 | PN ---
Progress Note (short form) - Note Progress Note: No complaints O/E Vital Signs Period Temp Pulse Resp BP Sys/Boo Pulse Ox Last 24 Hr 98.1 F-98.4 F 64-98 17-22 105-123/42-71 97 Heart regular Lungs few scattered rales Abd soft' Ext no edema Current Medications Acetaminophen (Tylenol -) 650 mg PO Q4H PRN PRN Reason: FEVER OR PAIN Last Admin: 10/13/16 21:16 Dose: 650 mg Atorvastatin Calcium (Lipitor -) 40 mg PO HS [facility] Last Admin: 10/13/16 21:13 Dose: 40 mg Chlorhexidine Gluconate (Hibiclens For Decolonization -) 1 applic TP HS [facility] Last Admin: 10/13/16 21:14 Dose: 1 applic Clopidogrel Bisulfate (Plavix -) 75 mg PO DAILY [facility] Last Admin: 10/14/16 10:11 Dose: 75 mg Furosemide (Lasix Injection -) 40 mg IVPUSH DAILY [facility] Last Admin: 10/14/16 10:11 Dose: 40 mg Heparin Sodium (Porcine) (Heparin -) 5,000 unit SQ BID [facility] Last Admin: 10/14/16 10:10 Dose: 5,000 unit Metoprolol Succinate (Toprol Xl -) 25 mg PO DAILY [facility] Last Admin: 10/14/16 10:11 Dose: 25 mg Mupirocin (Bactroban Ointment (For Decolonization) -) 1 applic NS BID [facility] Stop: 10/14/16 21:59 Last Admin: 10/14/16 10:12 Dose: 1 applic Ranitidine HCl (Zantac -) 150 mg PO BID [facility] Last Admin: 10/14/16 10:11 Dose: 150 mg Laboratory Results - last 24 hr 10/14/16 10/14/16 05:40 05:40 WBC 8.7 D RBC 4.09 Hgb 9.1 L Hct 29.5 L MCV 72.2 L MCHC 30.8 L RDW 23.5 H Plt Count 319 MPV 7.5 Sodium 140 Potassium 3.7 Chloride 100 Carbon Dioxide 28 Anion Gap 12 BUN 28 H Creatinine 0.9 Creat Clearance w eGFR > 60 Random Glucose 96 Calcium 7.6 L Total Bilirubin 2.2 H D AST 24 ALT 30 D Alkaline Phosphatase 127 H D Total Protein 5.3 L Albumin 2.1 L A&P Assessment/Plan (1) Acute hypoxic respiratory failure -secondary to NSTEMI/CHF/cardiogenic shock -resolved, OK for transfer (2) CHF -resolving -continue IV lasix (3) Cardiogenic shock -secondary to NSTEMI doing well (4) Anemia Assessment/Plan: -f/u CBC stable at present Code(s): D64.9 - ANEMIA, UNSPECIFIED Qualifiers: Other causes of anemia: acute posthemorrhagic (5) Occult GI bleeding Assessment/Plan: -Cont present meds Code(s): R19.5 - OTHER FECAL ABNORMALITIES (7) Non-ST elevation (NSTEMI) myocardial infarction Assessment/Plan:
--- NOTE | 2016-10-14 14:10 | PN ---
Progress Note, Physician History of Present Illness: Remains on 2 L NC saO2 100%, off pressors. Denies chest pain, dyspnea or recurrent hematochezia. - Current Medication List Current Medications: Active Medications Acetaminophen (Tylenol -) 650 mg PO Q4H PRN PRN Reason: FEVER OR PAIN Last Admin: 10/13/16 21:16 Dose: 650 mg Atorvastatin Calcium (Lipitor -) 40 mg PO HS [facility] Last Admin: 10/13/16 21:13 Dose: 40 mg Chlorhexidine Gluconate (Hibiclens For Decolonization -) 1 applic TP HS [facility] Last Admin: 10/13/16 21:14 Dose: 1 applic Clopidogrel Bisulfate (Plavix -) 75 mg PO DAILY [facility] Last Admin: 10/14/16 10:11 Dose: 75 mg Furosemide (Lasix Injection -) 40 mg IVPUSH DAILY [facility] Last Admin: 10/14/16 10:11 Dose: 40 mg Heparin Sodium (Porcine) (Heparin -) 5,000 unit SQ BID [facility] Last Admin: 10/14/16 10:10 Dose: 5,000 unit Metoprolol Succinate (Toprol Xl -) 25 mg PO DAILY [facility] Last Admin: 10/14/16 10:11 Dose: 25 mg Mupirocin (Bactroban Ointment (For Decolonization) -) 1 applic NS BID [facility] Stop: 10/14/16 21:59 Last Admin: 10/14/16 10:12 Dose: 1 applic Ranitidine HCl (Zantac -) 150 mg PO BID [facility] Last Admin: 10/14/16 10:11 Dose: 150 mg - Objective Vital Signs: Vital Signs Temperature 98.1 F 10/14/16 06:00 Pulse Rate 71 10/14/16 06:00 Respiratory Rate 22 10/14/16 09:00 Blood Pressure 116/71 10/14/16 06:00 O2 Sat by Pulse Oximetry (%) 97 10/13/16 21:00 Constitutional: Yes: No Distress, Calm Neck: Yes: Supple Cardiovascular: Yes: Regular Rate and Rhythm Respiratory: Yes: Regular, Diminished, On Nasal O2 Gastrointestinal: Yes: Normal Bowel Sounds, Soft Edema: No Labs: CBC, BMP 10/14/16 05:40 10/14/16 05:40 INR, PTT INR 1.37 (0.82-1.09) H 10/09/16 04:00 Problem List - Problems (1) Chest pain Code(s): R07.9 - CHEST PAIN, UNSPECIFIED Qualifiers: Chest pain type: chest pain due to myocardial ischemia Ischemic chest pain type: unstable angina pectoris Qualified Code(s): I20.0 - Unstable angina (2) Colon cancer Code(s): C18.9 - MALIGNANT NEOPLASM OF COLON, UNSPECIFIED Qualifiers: Colon location: unspecified part of colon Qualified Code(s): C18.9 - Malignant neoplasm of colon, unspecified (3) Coronary artery disease Code(s): I25.10 - ATHSCL HEART DISEASE OF [place] CORONARY ARTERY W/O ANG PCTRS Qualifiers: Coronary Disease-Associated Artery/Lesion type: [place] artery [place] vs. transplanted heart: [place] heart Associated angina: angina presence unspecified Qualified Code(s): I25.10 - Atherosclerotic heart disease of [place] coronary artery without angina pectoris (4) Non-ST elevation (NSTEMI) myocardial infarction Code(s): I21.4 - NON-ST ELEVATION (NSTEMI) MYOCARDIAL INFARCTION (5) Hyperlipidemia Code(s): E78.5 - HYPERLIPIDEMIA, UNSPECIFIED Qualifiers: Hyperlipidemia type: pure hypercholesterolemia Qualified Code(s): E78.00 - Pure hypercholesterolemia, unspecified; E78.0 - Pure hypercholesterolemia (6) Acute on chronic systolic (congestive) heart failure Code(s): I50.23 - ACUTE ON CHRONIC SYSTOLIC (CONGESTIVE) HEART FAILURE (7) Pulmonary edema Code(s): J81.1 - CHRONIC PULMONARY EDEMA Qualifiers: Chronicity: acute Qualified Code(s): J81.0 - Acute pulmonary edema (8) Acute respiratory failure with hypoxia Code(s): J96.01 - ACUTE RESPIRATORY FAILURE WITH HYPOXIA (9) Hematochezia Code(s): K92.1 - MELENA (10) Anemia Code(s): D64.9 - ANEMIA, UNSPECIFIED Qualifiers: Other causes of anemia: acute posthemorrhagic (11) Local recurrence of malignant neoplasm of colon Code(s): C18.9 - MALIGNANT NEOPLASM OF COLON, UNSPECIFIED Assessment/Plan 10/09/2016 Normal LV size with mild-moderate decreased LV fxn, severe apical, moderate anterolateral and apicolateral, severe posterolateral, inferior wall HK , mod eccentric MR, mod TR, RVSP 50-60 mmHg 1. CAD post NSTEMI and Asystolic Cardiac Arrest in the context of significant anemia 2. Anemia with underlying colon CA s/p subtotal colectomy with recurrence at the anastomotic site - post transfusion 3. Acute on chronic systolic failure with cardiogenic shock and lactic acidosis improving 4. Acute hypoxic respiratory failure and pulm edema improving 5. HTN/HCVD 6. Hypercholesterolemia 7. Acute on CKD resolved 8. Leukemoid reaction PLAN: 1. Monitor CBC post-transfusion 2. Continue Lipitor 40 qhs and Toprol XL 25 qd, add losartan 25 qd with uptitration as hemodynamics tolerate 3. Wean FIO2 to maintain saO2, observe off abx, ball-culture 4. Continue Lasix 40 IV qd with monitor diuretic response, renal fxn and electrolytes 5. Continue Plavix 75 qd and sq Heparin given achievement of hemostasis 6. Further cardiac invasive studies not being planned at this time in view of underlying history and wishes not to escalate care. 7. OOB to chair, transfer to telemetry
[2016-10-14] MEDS: LOSARTAN POTASSIUM 25 MG TABLET PO SCH (16:57)
--- NOTE | 2016-10-14 22:06 | EKG ---
Test Reason : Blood Pressure : / mmHG Vent. Rate : 071 BPM Atrial Rate : 284 BPM P-R Int : 000 ms QRS Dur : 138 ms QT Int : 396 ms P-R-T Axes : -02 -61 227 degrees QTc Int : 430 ms ATRIAL FLUTTER WITH 4:1 A-V CONDUCTION LEFT AXIS DEVIATION RIGHT BUNDLE BRANCH BLOCK MODERATE VOLTAGE CRITERIA FOR LVH, MAY BE NORMAL VARIANT T WAVE ABNORMALITY, CONSIDER LATERAL ISCHEMIA ABNORMAL ECG WHEN COMPARED WITH ECG OF 10-OCT-2016 03:55, ATRIAL FLUTTER HAS REPLACED SINUS RHYTHM Confirmed by PEDRO SAMUEL, CLEO ([id number]) on 10/14/2016 10:05:46 PM Referred By: KEN MENA Confirmed By:CLEO VASQUEZ MD
[2016-10-14] MEDS: CHLORHEXIDINE GLUCONATE 4% CLEANSER FOR DECOLONIZATION TP SCH (22:57)
[2016-10-14] MEDS: ATORVASTATIN CA 40 MG TABLET (FP) PO SCH (22:58)
[2016-10-15 06:15] LABS: MCH 22.1 pg (25.7-33.7); MCHC 30.1 g/dl (32.0-35.9); MEAN CELL VOLUME 73.3 fl (80-96); MEAN PLT VOLUME 7.8 fl (7.5-11.1); PLATELET COUNT 290 K/MM3 (134-434); RDW 23.9 % (11.9-15.9); WHITE BLOOD COUNT 7.3 K/mm3 (4.0-10.0)
[2016-10-15] MEDS: RANITIDINE HCL 150 MG TABLET (FP) PO SCH ×2 (09:01→21:42)
[2016-10-15] MEDS: METOPROLOL SUCCINATE 25 MG TAB.SR.24H (FP) PO SCH (09:01)
[2016-10-15] MEDS: LOSARTAN POTASSIUM 25 MG TABLET PO SCH (09:01)
[2016-10-15] MEDS: CLOPIDOGREL BISULFATE 75 MG TABLET (FP) PO SCH (09:01)
[2016-10-15] MEDS: FUROSEMIDE 40 MG/4 ML INJECTABLE VIAL IVPUSH SCH (09:02)
[2016-10-15] MEDS: HEPARIN NA (PORCINE) 5,000 UNITS/ML 1ML VIAL SQ SCH ×2 (09:02→21:41)
--- NOTE | 2016-10-15 10:37 | PN ---
Progress Note (short form) - Note Progress Note: Patient seen and examined in the ICU. Remains extubated on NC O2. Some dry cough persists. CP is better. Remains off Dopamine. Tolerating PO intake. Intake & Output 10/12/16 10/13/16 10/14/16 10/15/16 23:59 23:59 23:59 23:59 Intake Total 1000 300 700 50 Output Total 1900 3500 400 100 Balance -900 -3200 300 -50 Weight 144 lb 3 oz 146 lb 6.4 oz 143 lb 1.28 oz 142 lb 5 oz Last Vital Signs Temp Pulse Resp BP Pulse Ox 98.2 F 64 21 114/49 100 10/15/16 06:00 10/15/16 10:00 10/15/16 10:00 10/15/16 10:00 10/15/16 08:02 Active Medications Acetaminophen (Tylenol -) 650 mg PO Q4H PRN PRN Reason: FEVER OR PAIN Last Admin: 10/13/16 21:16 Dose: 650 mg Atorvastatin Calcium (Lipitor -) 40 mg PO HS [facility] Last Admin: 10/14/16 22:58 Dose: 40 mg Chlorhexidine Gluconate (Hibiclens For Decolonization -) 1 applic TP HS [facility] Last Admin: 10/14/16 22:57 Dose: 1 applic Clopidogrel Bisulfate (Plavix -) 75 mg PO DAILY [facility] Last Admin: 10/15/16 09:01 Dose: 75 mg Furosemide (Lasix Injection -) 40 mg IVPUSH DAILY [facility] Last Admin: 10/15/16 09:02 Dose: 40 mg Heparin Sodium (Porcine) (Heparin -) 5,000 unit SQ BID [facility] Last Admin: 10/15/16 09:02 Dose: 5,000 unit Losartan Potassium (Cozaar -) 25 mg PO DAILY [facility] Last Admin: 10/15/16 09:01 Dose: 25 mg Metoprolol Succinate (Toprol Xl -) 25 mg PO DAILY [facility] Last Admin: 10/15/16 09:01 Dose: 25 mg Ranitidine HCl (Zantac -) 150 mg PO BID [facility] Last Admin: 10/15/16 09:01 Dose: 150 mg Gen: breathing nonlabored, awake and alert Heart: RRR Lung: Bilateral scattered rhonhci Abd: soft, nontender Ext: no edema Laboratory Results - last 24 hr 10/15/16 05:30 WBC 7.3 RBC 4.04 Hgb 8.9 L Hct 29.6 L MCV 73.3 L MCHC 30.1 L RDW 23.9 H Plt Count 290 MPV 7.8 ASSESSMENT AND PLAN: Acute Hypoxic Respiratory Failure CAD/Acute NSTEMI/Asystolic Cardiac Arrest Acute on Chronic Systolic Heart Failure Cardiogenic Shock Lactic Acidosis Acute Kidney Injury HTN Hyperlipidemia h/o Colon Ca Suspected GI Bleed - O2 to maintain saturation - Normal transfusion thresholds - Lasix - Monitor off protonix - Monitor off antibiotics - PO as tolerated - Cardiac Telemetry monitoring Dr Vargas
--- NOTE | 2016-10-15 13:51 | PN ---
Progress Note (short form) - Note Progress Note: No new complaints No CARLOS No fever O/E Vital Signs Period Temp Pulse Resp BP Sys/Boo Pulse Ox Last 24 Hr 98.2 F-98.4 F 46-100 14-24 109-126/35-70 100-100 Hert iregular Lungs few scattered rales+ Abd soft Ext no edema Current Medications Acetaminophen (Tylenol -) 650 mg PO Q4H PRN PRN Reason: FEVER OR PAIN Last Admin: 10/13/16 21:16 Dose: 650 mg Atorvastatin Calcium (Lipitor -) 40 mg PO HS [facility] Last Admin: 10/14/16 22:58 Dose: 40 mg Chlorhexidine Gluconate (Hibiclens For Decolonization -) 1 applic TP HS [facility] Last Admin: 10/14/16 22:57 Dose: 1 applic Clopidogrel Bisulfate (Plavix -) 75 mg PO DAILY [facility] Last Admin: 10/15/16 09:01 Dose: 75 mg Furosemide (Lasix Injection -) 40 mg IVPUSH DAILY [facility] Last Admin: 10/15/16 09:02 Dose: 40 mg Heparin Sodium (Porcine) (Heparin -) 5,000 unit SQ BID [facility] Last Admin: 10/15/16 09:02 Dose: 5,000 unit Losartan Potassium (Cozaar -) 25 mg PO DAILY [facility] Last Admin: 10/15/16 09:01 Dose: 25 mg Metoprolol Succinate (Toprol Xl -) 25 mg PO DAILY [facility] Last Admin: 10/15/16 09:01 Dose: 25 mg Ranitidine HCl (Zantac -) 150 mg PO BID [facility] Last Admin: 10/15/16 09:01 Dose: 150 mg Laboratory Results - last 24 hr 10/15/16 05:30 WBC 7.3 RBC 4.04 Hgb 8.9 L Hct 29.6 L MCV 73.3 L MCHC 30.1 L RDW 23.9 H Plt Count 290 MPV 7.8 Assessment/Plan (1) Acute hypoxic respiratory failure -secondary to NSTEMI/CHF/cardiogenic shock -resolved, OK for transfer (2) CHF -resolving -continue IV lasix (3) Cardiogenic shock -secondary to NSTEMI doing well (4) Anemia Assessment/Plan: -f/u CBC and transfuse prn. For now given iron defy a dose of Venofur and also oral iron. Code(s): D64.9 - ANEMIA, UNSPECIFIED Qualifiers: Other causes of anemia: acute posthemorrhagic (5) Occult GI bleeding Assessment/Plan: -Cont present meds Code(s): R19.5 - OTHER FECAL ABNORMALITIES (7) Non-ST elevation (NSTEMI) myocardial infarction Assessment/Plan:
[2016-10-15] MEDS ORDERED: IRON SUCROSE INJECTION 100 MG in SODIUM CHLORIDE 95 ML IVPB ONE (14:00)
[2016-10-15] MEDS ORDERED: ASCORBIC ACID 500 MG TABLET (FP) PO SCH (14:00)
[2016-10-15] MEDS: FERROUS SO4 325 MG TABLET (FP) PO SCH ×2 (15:00→15:19)
--- NOTE | 2016-10-15 15:00 | PN ---
Progress Note, Physician History of Present Illness: Remains on 2 L NC saO2 100%. Reports post-tussive chest discomfort, but denies dyspnea or recurrent hematochezia. - Current Medication List Current Medications: Active Medications Acetaminophen (Tylenol -) 650 mg PO Q4H PRN PRN Reason: FEVER OR PAIN Last Admin: 10/13/16 21:16 Dose: 650 mg Ascorbic Acid (Vitamin C -) 500 mg PO DAILY [facility] Atorvastatin Calcium (Lipitor -) 40 mg PO HS [facility] Last Admin: 10/14/16 22:58 Dose: 40 mg Chlorhexidine Gluconate (Hibiclens For Decolonization -) 1 applic TP HS [facility] Last Admin: 10/14/16 22:57 Dose: 1 applic Clopidogrel Bisulfate (Plavix -) 75 mg PO DAILY [facility] Last Admin: 10/15/16 09:01 Dose: 75 mg Ferrous Sulfate (Feosol -) 325 mg PO DAILY [facility] Furosemide (Lasix Injection -) 40 mg IVPUSH DAILY [facility] Last Admin: 10/15/16 09:02 Dose: 40 mg Heparin Sodium (Porcine) (Heparin -) 5,000 unit SQ BID [facility] Last Admin: 10/15/16 09:02 Dose: 5,000 unit Losartan Potassium (Cozaar -) 25 mg PO DAILY [facility] Last Admin: 10/15/16 09:01 Dose: 25 mg Metoprolol Succinate (Toprol Xl -) 25 mg PO DAILY [facility] Last Admin: 10/15/16 09:01 Dose: 25 mg Ranitidine HCl (Zantac -) 150 mg PO BID [facility] Last Admin: 10/15/16 09:01 Dose: 150 mg - Objective Vital Signs: Vital Signs Temperature 98.2 F 10/15/16 06:00 Pulse Rate 46 L 10/15/16 11:36 Respiratory Rate 21 10/15/16 10:00 Blood Pressure 114/49 10/15/16 10:00 O2 Sat by Pulse Oximetry (%) 100 10/15/16 11:36 Constitutional: Yes: No Distress, Calm, Thin Neck: Yes: Supple Cardiovascular: Yes: Regular Rate and Rhythm, Murmur (2/6 SM) Respiratory: Yes: Regular, Diminished, On Nasal O2, Rales Gastrointestinal: Yes: Normal Bowel Sounds, Soft Edema: No Labs: CBC, BMP 10/15/16 05:30 10/14/16 05:40 INR, PTT INR 1.37 (0.82-1.09) H 10/09/16 04:00 Problem List - Problems (1) Chest pain Code(s): R07.9 - CHEST PAIN, UNSPECIFIED Qualifiers: Chest pain type: chest pain due to myocardial ischemia Ischemic chest pain type: unstable angina pectoris Qualified Code(s): I20.0 - Unstable angina (2) Colon cancer Code(s): C18.9 - MALIGNANT NEOPLASM OF COLON, UNSPECIFIED Qualifiers: Colon location: unspecified part of colon Qualified Code(s): C18.9 - Malignant neoplasm of colon, unspecified (3) Coronary artery disease Code(s): I25.10 - ATHSCL HEART DISEASE OF [place] CORONARY ARTERY W/O ANG PCTRS Qualifiers: Coronary Disease-Associated Artery/Lesion type: [place] artery [place] vs. transplanted heart: [place] heart Associated angina: angina presence unspecified Qualified Code(s): I25.10 - Atherosclerotic heart disease of [place] coronary artery without angina pectoris (4) Non-ST elevation (NSTEMI) myocardial infarction Code(s): I21.4 - NON-ST ELEVATION (NSTEMI) MYOCARDIAL INFARCTION (5) Hyperlipidemia Code(s): E78.5 - HYPERLIPIDEMIA, UNSPECIFIED Qualifiers: Hyperlipidemia type: pure hypercholesterolemia Qualified Code(s): E78.00 - Pure hypercholesterolemia, unspecified; E78.0 - Pure hypercholesterolemia (6) Acute on chronic systolic (congestive) heart failure Code(s): I50.23 - ACUTE ON CHRONIC SYSTOLIC (CONGESTIVE) HEART FAILURE (7) Acute respiratory failure with hypoxia Code(s): J96.01 - ACUTE RESPIRATORY FAILURE WITH HYPOXIA (8) Hematochezia Code(s): K92.1 - MELENA (9) Anemia Code(s): D64.9 - ANEMIA, UNSPECIFIED Qualifiers: Other causes of anemia: acute posthemorrhagic (10) Local recurrence of malignant neoplasm of colon Code(s): C18.9 - MALIGNANT NEOPLASM OF COLON, UNSPECIFIED Assessment/Plan 10/09/2016 Normal LV size with mild-moderate decreased LV fxn, severe apical, moderate anterolateral and apicolateral, severe posterolateral, inferior wall HK , mod eccentric MR, mod TR, RVSP 50-60 mmHg 1. CAD post NSTEMI and Asystolic Cardiac Arrest in the context of significant anemia 2. Anemia with underlying colon CA s/p subtotal colectomy with recurrence at the anastomotic site - post transfusion 3. Acute on chronic systolic failure with cardiogenic shock and lactic acidosis resolved 4. Acute hypoxic respiratory failure and pulm edema improving 5. HTN/HCVD 6. Hypercholesterolemia 7. Acute on CKD resolved 8. Leukemoid reaction PLAN: 1. Monitor CBC post-transfusion 2. Continue Lipitor 40 qhs, Toprol XL 25 qd, and losartan 25 qd with uptitration as hemodynamics tolerate 3. Wean FIO2 to maintain saO2, observe off abx, surveillance cx NGTD 4. Change Lasix to Aldactone 25 qd with monitor diuretic response, renal fxn and electrolytes 5. Continue Plavix 75 qd and sq Heparin given achievement of hemostasis, GI prophylaxis 6. OOB to chair, transfer to telemetry
[2016-10-15] MEDS ORDERED: SPIRONOLACTONE 25 MG TABLET (FP) PO SCH (15:15)
[2016-10-15] MEDS ORDERED: ACETAMINOPHEN 325 MG TABLET (FP) PO PRN (21:14)
[2016-10-15] MEDS: ATORVASTATIN CA 40 MG TABLET (FP) PO SCH (21:42)
[2016-10-16] MEDS: LOSARTAN POTASSIUM 25 MG TABLET PO SCH (09:37)
[2016-10-16] MEDS: RANITIDINE HCL 150 MG TABLET (FP) PO SCH ×2 (09:37→21:08)
[2016-10-16] MEDS: HEPARIN NA (PORCINE) 5,000 UNITS/ML 1ML VIAL SQ SCH ×2 (09:38→21:08)
[2016-10-16] MEDS: FERROUS SO4 325 MG TABLET (FP) PO SCH (09:38)
[2016-10-16] MEDS: CLOPIDOGREL BISULFATE 75 MG TABLET (FP) PO SCH (09:38)
[2016-10-16] MEDS: METOPROLOL SUCCINATE 25 MG TAB.SR.24H (FP) PO SCH (09:38)
[2016-10-16] MEDS: SPIRONOLACTONE 25 MG TABLET (FP) PO SCH (09:38)
[2016-10-16] MEDS: ASCORBIC ACID 500 MG TABLET (FP) PO SCH (09:38)
[2016-10-16] MEDS ORDERED: guaiFENesin/D-METHORPHAN HB 10 ML UNIT-DOSE CUPS PO PRN (10:49)
--- NOTE | 2016-10-16 10:49 | PN ---
Progress Note, Physician History of Present Illness: PULMONARY ALERT,FEELING BETTER,+ R SIDED CHEST DISCOMFORT,+ COUGH NON-PRODUCTIVE,- RESP DISTRESS - Current Medication List Current Medications: Active Medications Acetaminophen (Tylenol -) 650 mg PO Q4H PRN PRN Reason: FEVER OR PAIN Ascorbic Acid (Vitamin C -) 500 mg PO DAILY [facility] Last Admin: 10/16/16 09:38 Dose: 500 mg Atorvastatin Calcium (Lipitor -) 40 mg PO HS [facility] Last Admin: 10/15/16 21:42 Dose: 40 mg Clopidogrel Bisulfate (Plavix -) 75 mg PO DAILY [facility] Last Admin: 10/16/16 09:38 Dose: 75 mg Ferrous Sulfate (Feosol -) 325 mg PO DAILY [facility] Last Admin: 10/16/16 09:38 Dose: 325 mg Heparin Sodium (Porcine) (Heparin -) 5,000 unit SQ BID [facility] Last Admin: 10/16/16 09:38 Dose: 5,000 unit Losartan Potassium (Cozaar -) 25 mg PO DAILY [facility] Last Admin: 10/16/16 09:37 Dose: 25 mg Metoprolol Succinate (Toprol Xl -) 25 mg PO DAILY [facility] Last Admin: 10/16/16 09:38 Dose: 25 mg Ranitidine HCl (Zantac -) 150 mg PO BID [facility] Last Admin: 10/16/16 09:37 Dose: 150 mg Spironolactone (Aldactone -) 25 mg PO DAILY [facility] Last Admin: 10/16/16 09:38 Dose: 25 mg - Objective Vital Signs: Vital Signs Temperature 97.6 F 10/16/16 05:41 Pulse Rate 71 10/16/16 05:41 Respiratory Rate 20 10/16/16 05:41 Blood Pressure 112/50 10/16/16 05:41 O2 Sat by Pulse Oximetry (%) 100 10/15/16 20:00 Constitutional: Yes: Well Nourished, Calm Eyes: Yes: WNL HENT: Yes: WNL Neck: Yes: WNL Cardiovascular: Yes: Regular Rate and Rhythm, S1, S2 Respiratory: Yes: Rales (BILATERAL CRACKLES R>L) Gastrointestinal: Yes: Normal Bowel Sounds, Soft Extremities: Yes: WNL Edema: No Labs: CBC, BMP INR, PTT INR 1.37 (0.82-1.09) H 10/09/16 04:00 Problem List - Problems (1) Acute on chronic systolic (congestive) heart failure Code(s): I50.23 - ACUTE ON CHRONIC SYSTOLIC (CONGESTIVE) HEART FAILURE (2) Acute respiratory failure with hypoxia Code(s): J96.01 - ACUTE RESPIRATORY FAILURE WITH HYPOXIA (3) [id number] kidney injury Code(s): N17.9 - ACUTE KIDNEY FAILURE, UNSPECIFIED N18.9 - CHRONIC KIDNEY DISEASE, UNSPECIFIED Qualifiers: Acute renal failure type: with acute tubular necrosis Chronic kidney disease stage: stage 2 (mild) Qualified Code(s): N17.0 - Acute kidney failure with tubular necrosis; N18.1 - Chronic kidney disease, stage 1 (4) Anemia in chronic illness Code(s): D63.8 - ANEMIA IN OTHER CHRONIC DISEASES CLASSIFIED ELSEWHERE (5) Cardiogenic shock Code(s): R57.0 - CARDIOGENIC SHOCK (6) Chest pain Code(s): R07.9 - CHEST PAIN, UNSPECIFIED Qualifiers: Chest pain type: chest pain due to myocardial ischemia Ischemic chest pain type: unstable angina pectoris Qualified Code(s): I20.0 - Unstable angina (7) Pulmonary edema Code(s): J81.1 - CHRONIC PULMONARY EDEMA Qualifiers: Chronicity: acute Qualified Code(s): J81.0 - Acute pulmonary edema (8) Anemia Code(s): D64.9 - ANEMIA, UNSPECIFIED Qualifiers: Other causes of anemia: acute posthemorrhagic (9) Colon cancer Code(s): C18.9 - MALIGNANT NEOPLASM OF COLON, UNSPECIFIED Qualifiers: Colon location: unspecified part of colon Qualified Code(s): C18.9 - Malignant neoplasm of colon, unspecified (10) Coronary artery disease Code(s): I25.10 - ATHSCL HEART DISEASE OF [place] CORONARY ARTERY W/O ANG PCTRS Qualifiers: Coronary Disease-Associated Artery/Lesion type: [place] artery [place] vs. transplanted heart: [place] heart Associated angina: angina presence unspecified Qualified Code(s): I25.10 - Atherosclerotic heart disease of [place] coronary artery without angina pectoris (11) Non-ST elevation (NSTEMI) myocardial infarction Code(s): I21.4 - NON-ST ELEVATION (NSTEMI) MYOCARDIAL INFARCTION (12) HTN (hypertension) Code(s): I10 - ESSENTIAL (PRIMARY) HYPERTENSION Qualifiers: Hypertension type: essential hypertension Qualified Code(s): I10 - Essential (primary) hypertension (13) Hyperlipidemia Code(s): E78.5 - HYPERLIPIDEMIA, UNSPECIFIED Qualifiers: Hyperlipidemia type: pure hypercholesterolemia Qualified Code(s): E78.00 - Pure hypercholesterolemia, unspecified; E78.0 - Pure hypercholesterolemia Assessment/Plan ASSESSMENT AND PLAN: Acute Hypoxic Respiratory Failure improved CAD/Acute NSTEMI/Asystolic Cardiac Arrest Acute on Chronic Systolic Heart Failure Cardiogenic Shock resolved Lactic Acidosis resolved Acute Kidney Injury HTN Hyperlipidemia h/o Colon Ca Suspected GI Bleed - O2 to maintain saturation - Normal transfusion thresholds - Lasix - PO as tolerated - chest x-ray - anti-tussives DR HARP
--- NOTE | 2016-10-16 11:36 | PN ---
Progress Note (short form) - Note Progress Note: Chief Complaint: Events noted notes reviewed, resting in bed, denies any chest discomfort History of Present Illness: Seen and examined on telemetry. Events noted notes reviewed, resting in bed, denies any chest discomfort Echocardiography 10/09/2016 revealed normal LV size with mild-moderate decrease in LV function, severe apical, moderate davin-lateral and apico-lateral, severe postero-lateral and inferior wall hypokinesia, moderate eccentric MR, moderate TR with RVSP 50-60 mmHg Medications: Current Medications Acetaminophen (Tylenol -) 650 mg PO Q4H PRN PRN Reason: FEVER OR PAIN Ascorbic Acid (Vitamin C -) 500 mg PO DAILY [facility] Last Admin: 10/16/16 09:38 Dose: 500 mg Atorvastatin Calcium (Lipitor -) 40 mg PO HS [facility] Last Admin: 10/15/16 21:42 Dose: 40 mg Clopidogrel Bisulfate (Plavix -) 75 mg PO DAILY [facility] Last Admin: 10/16/16 09:38 Dose: 75 mg Ferrous Sulfate (Feosol -) 325 mg PO DAILY [facility] Last Admin: 10/16/16 09:38 Dose: 325 mg Guaifenesin (Robitussin Dm -) 10 ml PO Q6H PRN PRN Reason: COUGH Heparin Sodium (Porcine) (Heparin -) 5,000 unit SQ BID [facility] Last Admin: 10/16/16 09:38 Dose: 5,000 unit Losartan Potassium (Cozaar -) 25 mg PO DAILY [facility] Last Admin: 10/16/16 09:37 Dose: 25 mg Metoprolol Succinate (Toprol Xl -) 25 mg PO DAILY [facility] Last Admin: 10/16/16 09:38 Dose: 25 mg Ranitidine HCl (Zantac -) 150 mg PO BID [facility] Last Admin: 10/16/16 09:37 Dose: 150 mg Spironolactone (Aldactone -) 25 mg PO DAILY [facility] Last Admin: 10/16/16 09:38 Dose: 25 mg Review of Systems - Review of Systems Constitutional: no symptoms reported Respiratory: denies: Cough or Sputum Production Cardiovascular: as noted above Gastrointestinal: denies Nausea, Vomiting, Diarrhea, Constipation or Abdominal Pain Genitourinary: No symptoms reported Musculoskeletal: No symptoms reported Endocrine: No symptoms reported Vital Signs: Last Vital Signs Temp Pulse Resp BP Pulse Ox 97.6 F 71 20 112/50 100 10/16/16 05:41 10/16/16 05:41 10/16/16 05:41 10/16/16 05:41 10/15/16 20:00 Constitutional: No Distress Neck: Supple Negative JVD Respiratory: Clear to A&P Bilaterally Cardiovascular: S1 S2 Regular Rate and Rhythm [place] 1-2/6 DIANA Gastrointestinal: Soft Benign Normal Bowel Sounds Ext: Negative Edema Labs: CBC, BMP 10/15/16 05:30 10/14/16 05:40 Hepatic Panel Total Bilirubin 2.2 mg/dL (0.2-1.0) H D 10/14/16 05:40 AST 24 U/L (15-37) 10/14/16 05:40 ALT 30 U/L (12-78) D 10/14/16 05:40 Alkaline Phosphatase 127 U/L (45-117) H D 10/14/16 05:40 Albumin 2.1 g/dl (3.4-5.0) L 10/14/16 05:40 Assessment/Plan ASSESSMENT: 1. CAD post recent NSTEMI and Asystolic Cardiac Arrest in the context of significant anemia 2. Anemia with underlying colon carcinoma post subtotal colectomy with recurrence at the anastomotic site, post transfusion 3. Acute on chronic systolic failure with cardiogenic shock and lactic acidosis , resolved 4. Acute hypoxic respiratory failure and pulmonary edema, resolving 5. HTN 6. Hypercholesterolemia 7. Acute on CKD, resolved PLAN: 1. Continue Toprol XL with caution, hemodynamics permitting 2. Continue Cozaar with caution, with close monitoring of renal function 3. Continue Aldactone with caution, with close monitoring of renal function 4. Continue Lipitor 5. Continue Plavix with caution and close monitoring of CBC 6. Further evaluation as per oncology for the above noted recurrent anastomotic site colon carcinoma Rosa Sutherland M.D.
--- NOTE | 2016-10-16 12:31 | PN ---
Progress Note, Physician Chief Complaint: Mr Parker says he is doing well. Says he has minimal chest pain with coughing. No sob or n/v. - Current Medication List Current Medications: Active Medications Acetaminophen (Tylenol -) 650 mg PO Q4H PRN PRN Reason: FEVER OR PAIN Ascorbic Acid (Vitamin C -) 500 mg PO DAILY [facility] Last Admin: 10/16/16 09:38 Dose: 500 mg Atorvastatin Calcium (Lipitor -) 40 mg PO HS [facility] Last Admin: 10/15/16 21:42 Dose: 40 mg Clopidogrel Bisulfate (Plavix -) 75 mg PO DAILY [facility] Last Admin: 10/16/16 09:38 Dose: 75 mg Ferrous Sulfate (Feosol -) 325 mg PO DAILY [facility] Last Admin: 10/16/16 09:38 Dose: 325 mg Guaifenesin (Robitussin Dm -) 10 ml PO Q6H PRN PRN Reason: COUGH Heparin Sodium (Porcine) (Heparin -) 5,000 unit SQ BID [facility] Last Admin: 10/16/16 09:38 Dose: 5,000 unit Losartan Potassium (Cozaar -) 25 mg PO DAILY [facility] Last Admin: 10/16/16 09:37 Dose: 25 mg Metoprolol Succinate (Toprol Xl -) 25 mg PO DAILY [facility] Last Admin: 10/16/16 09:38 Dose: 25 mg Ranitidine HCl (Zantac -) 150 mg PO BID [facility] Last Admin: 10/16/16 09:37 Dose: 150 mg Spironolactone (Aldactone -) 25 mg PO DAILY [facility] Last Admin: 10/16/16 09:38 Dose: 25 mg - Objective Vital Signs: Vital Signs Temperature 97.6 F 10/16/16 05:41 Pulse Rate 71 10/16/16 05:41 Respiratory Rate 20 10/16/16 05:41 Blood Pressure 112/50 10/16/16 05:41 O2 Sat by Pulse Oximetry (%) 100 10/15/16 20:00 Constitutional: Yes: Well Nourished, No Distress, Calm Cardiovascular: Yes: Regular Rate and Rhythm. No: Gallop, Murmur, Rub Respiratory: Yes: Regular, CTA Bilaterally. No: Rales, Rhonchi, Wheezes Gastrointestinal: Yes: Normal Bowel Sounds, Soft. No: Distention, Tenderness Extremities: Yes: WNL Edema: No Labs: CBC, BMP 05/29/17 05:30 10/14/16 05:40 INR, PTT INR 1.37 (0.82-1.09) H 10/09/16 04:00 Problem List - Problems (1) Acute respiratory failure with hypoxia Code(s): J96.01 - ACUTE RESPIRATORY FAILURE WITH HYPOXIA (2) Acute on chronic systolic (congestive) heart failure Code(s): I50.23 - ACUTE ON CHRONIC SYSTOLIC (CONGESTIVE) HEART FAILURE (3) Cardiogenic shock Code(s): R57.0 - CARDIOGENIC SHOCK (4) Anemia Code(s): D64.9 - ANEMIA, UNSPECIFIED Qualifiers: Other causes of anemia: acute posthemorrhagic (5) Occult GI bleeding Code(s): R19.5 - OTHER FECAL ABNORMALITIES (6) Chest pain Code(s): R07.9 - CHEST PAIN, UNSPECIFIED Qualifiers: Chest pain type: chest pain due to myocardial ischemia Ischemic chest pain type: unstable angina pectoris Qualified Code(s): I20.0 - Unstable angina (7) Non-ST elevation (NSTEMI) myocardial infarction Code(s): I21.4 - NON-ST ELEVATION (NSTEMI) MYOCARDIAL INFARCTION (8) HTN (hypertension) Code(s): I10 - ESSENTIAL (PRIMARY) HYPERTENSION Qualifiers: Hypertension type: essential hypertension Qualified Code(s): I10 - Essential (primary) hypertension (9) Hyperlipidemia Code(s): E78.5 - HYPERLIPIDEMIA, UNSPECIFIED Qualifiers: Hyperlipidemia type: pure hypercholesterolemia Qualified Code(s): E78.00 - Pure hypercholesterolemia, unspecified; E78.0 - Pure hypercholesterolemia Assessment/Plan (1) Acute hypoxic respiratory failure -secondary to NSTEMI/CHF/cardiogenic shock -resolved (2) CHF -cardiology following -continue aldactone (3) Cardiogenic shock -secondary to NSTEMI -resolved (4) Anemia Assessment/Plan: -s/p transfusion -monitor Code(s): D64.9 - ANEMIA, UNSPECIFIED Qualifiers: Other causes of anemia: acute posthemorrhagic (5) Occult GI bleeding Assessment/Plan: -appreciate GI assistance -off PPI -consult oncology about recurrent colon cancer Code(s): R19.5 - OTHER FECAL ABNORMALITIES (7) Non-ST elevation (NSTEMI) myocardial infarction Assessment/Plan: -cardiology following -medical management Code(s): I21.4 - NON-ST ELEVATION (NSTEMI) MYOCARDIAL INFARCTION (8) HTN (hypertension) Assessment/Plan: -well controlled -continue current medications Code(s): I10 - ESSENTIAL (PRIMARY) HYPERTENSION (9) Hyperlipidemia Assessment/Plan: -continue lipitor Code(s): E78.5 - HYPERLIPIDEMIA, UNSPECIFIED Qualifiers:
[2016-10-16] MEDS: ATORVASTATIN CA 40 MG TABLET (FP) PO SCH (21:08)
[2016-10-17 07:26] LABS: BASOPHIL 0.8 % (0-2.0); EOSINOPHIL 2.9 % (0-4.5); MCH 22.3 pg (25.7-33.7); MCHC 30.3 g/dl (32.0-35.9); MEAN CELL VOLUME 73.5 fl (80-96); MEAN PLT VOLUME 8.1 fl (7.5-11.1); NEUTROPHILS 68.2 % (42.8-82.8); PLATELET COUNT 298 K/MM3 (134-434); RDW 24.3 % (11.9-15.9); WHITE BLOOD COUNT 7.8 K/mm3 (4.0-10.0)
[2016-10-17 07:54] LABS: CALCIUM 8.1 mg/dL (8.5-10.1); COCKROFT - GAULT 40.73; CREATININE 1.1 mg/dL (0.7-1.3); MAGNESIUM 2.3 mg/dL (1.8-2.4); PHOSPHOROUS 3.4 mg/dL (2.5-4.9)
[2016-10-17] MEDS: SPIRONOLACTONE 25 MG TABLET (FP) PO SCH (09:30)
[2016-10-17] MEDS: LOSARTAN POTASSIUM 25 MG TABLET PO SCH (09:30)
[2016-10-17] MEDS: HEPARIN NA (PORCINE) 5,000 UNITS/ML 1ML VIAL SQ SCH ×2 (10:01→21:57)
[2016-10-17] MEDS: ASCORBIC ACID 500 MG TABLET (FP) PO SCH (10:01)
[2016-10-17] MEDS: CLOPIDOGREL BISULFATE 75 MG TABLET (FP) PO SCH (10:01)
[2016-10-17] MEDS: FERROUS SO4 325 MG TABLET (FP) PO SCH (10:01)
[2016-10-17] MEDS: RANITIDINE HCL 150 MG TABLET (FP) PO SCH ×2 (10:02→21:56)
--- NOTE | 2016-10-17 11:45 | PN ---
Progress Note, Physician History of Present Illness: pulmonary alert,no complaints,-cp,-sob - Current Medication List Current Medications: Active Medications Acetaminophen (Tylenol -) 650 mg PO Q4H PRN PRN Reason: FEVER OR PAIN Ascorbic Acid (Vitamin C -) 500 mg PO DAILY [facility] Last Admin: 10/17/16 10:01 Dose: 500 mg Atorvastatin Calcium (Lipitor -) 40 mg PO HS [facility] Last Admin: 10/16/16 21:08 Dose: 40 mg Clopidogrel Bisulfate (Plavix -) 75 mg PO DAILY [facility] Last Admin: 10/17/16 10:01 Dose: 75 mg Ferrous Sulfate (Feosol -) 325 mg PO DAILY [facility] Last Admin: 10/17/16 10:01 Dose: 325 mg Guaifenesin (Robitussin Dm -) 10 ml PO Q6H PRN PRN Reason: COUGH Last Admin: 10/16/16 21:10 Dose: 10 ml Heparin Sodium (Porcine) (Heparin -) 5,000 unit SQ BID [facility] Last Admin: 10/17/16 10:01 Dose: 5,000 unit Losartan Potassium (Cozaar -) 25 mg PO DAILY [facility] Last Admin: 10/16/16 09:37 Dose: 25 mg Metoprolol Succinate (Toprol Xl -) 25 mg PO DAILY [facility] Last Admin: 10/16/16 09:38 Dose: 25 mg Ranitidine HCl (Zantac -) 150 mg PO BID [facility] Last Admin: 10/17/16 10:02 Dose: 150 mg Spironolactone (Aldactone -) 25 mg PO DAILY [facility] Last Admin: 10/16/16 09:38 Dose: 25 mg - Objective Vital Signs: Vital Signs Temperature 97.8 F 10/17/16 09:00 Pulse Rate 48 L 10/17/16 09:00 Respiratory Rate 22 10/17/16 09:00 Blood Pressure 100/39 10/17/16 09:00 O2 Sat by Pulse Oximetry (%) 98 10/16/16 22:00 Constitutional: Yes: Well Nourished, Calm Eyes: Yes: Occular Prosthesis HENT: Yes: WNL Cardiovascular: Yes: Regular Rate and Rhythm Respiratory: Yes: Rales (robin rales l>r) Gastrointestinal: Yes: Normal Bowel Sounds, Soft Extremities: Yes: WNL Edema: No Labs: CBC, BMP 10/17/16 05:35 10/17/16 05:35 INR, PTT INR 1.37 (0.82-1.09) H 10/09/16 04:00 Problem List - Problems (1) Acute on chronic systolic (congestive) heart failure Code(s): I50.23 - ACUTE ON CHRONIC SYSTOLIC (CONGESTIVE) HEART FAILURE (2) Acute respiratory failure with hypoxia Code(s): J96.01 - ACUTE RESPIRATORY FAILURE WITH HYPOXIA (3) [id number] kidney injury Code(s): N17.9 - ACUTE KIDNEY FAILURE, UNSPECIFIED N18.9 - CHRONIC KIDNEY DISEASE, UNSPECIFIED Qualifiers: Acute renal failure type: with acute tubular necrosis Chronic kidney disease stage: stage 2 (mild) Qualified Code(s): N17.0 - Acute kidney failure with tubular necrosis; N18.1 - Chronic kidney disease, stage 1 (4) Anemia in chronic illness Code(s): D63.8 - ANEMIA IN OTHER CHRONIC DISEASES CLASSIFIED ELSEWHERE (5) Cardiogenic shock Code(s): R57.0 - CARDIOGENIC SHOCK (6) Chest pain Code(s): R07.9 - CHEST PAIN, UNSPECIFIED Qualifiers: Chest pain type: chest pain due to myocardial ischemia Ischemic chest pain type: unstable angina pectoris Qualified Code(s): I20.0 - Unstable angina (7) Pulmonary edema Code(s): J81.1 - CHRONIC PULMONARY EDEMA Qualifiers: Chronicity: acute Qualified Code(s): J81.0 - Acute pulmonary edema (8) Anemia Code(s): D64.9 - ANEMIA, UNSPECIFIED Qualifiers: Other causes of anemia: acute posthemorrhagic (9) Colon cancer Code(s): C18.9 - MALIGNANT NEOPLASM OF COLON, UNSPECIFIED Qualifiers: Colon location: unspecified part of colon Qualified Code(s): C18.9 - Malignant neoplasm of colon, unspecified (10) Coronary artery disease Code(s): I25.10 - ATHSCL HEART DISEASE OF [place] CORONARY ARTERY W/O ANG PCTRS Qualifiers: Coronary Disease-Associated Artery/Lesion type: [place] artery [place] vs. transplanted heart: [place] heart Associated angina: angina presence unspecified Qualified Code(s): I25.10 - Atherosclerotic heart disease of [place] coronary artery without angina pectoris (11) Non-ST elevation (NSTEMI) myocardial infarction Code(s): I21.4 - NON-ST ELEVATION (NSTEMI) MYOCARDIAL INFARCTION (12) HTN (hypertension) Code(s): I10 - ESSENTIAL (PRIMARY) HYPERTENSION Qualifiers: Hypertension type: essential hypertension Qualified Code(s): I10 - Essential (primary) hypertension (13) Hyperlipidemia Code(s): E78.5 - HYPERLIPIDEMIA, UNSPECIFIED Qualifiers: Hyperlipidemia type: pure hypercholesterolemia Qualified Code(s): E78.00 - Pure hypercholesterolemia, unspecified; E78.0 - Pure hypercholesterolemia Assessment/Plan ASSESSMENT AND PLAN: Acute Hypoxic Respiratory Failure improved CAD/Acute NSTEMI/Asystolic Cardiac Arrest Acute on Chronic Systolic Heart Failure Cardiogenic Shock resolved Lactic Acidosis resolved Acute Kidney Injury HTN Hyperlipidemia h/o Colon Ca Suspected GI Bleed - O2 to maintain saturation - Normal transfusion thresholds - PO as tolerated - anti-tussives DR HARP
--- NOTE | 2016-10-17 12:24 | PN ---
Progress Note, Physician Chief Complaint: Mr Parker says he is doing well. Denies cp, sob, n/v. - Current Medication List Current Medications: Active Medications Acetaminophen (Tylenol -) 650 mg PO Q4H PRN PRN Reason: FEVER OR PAIN Ascorbic Acid (Vitamin C -) 500 mg PO DAILY [facility] Last Admin: 10/17/16 10:01 Dose: 500 mg Atorvastatin Calcium (Lipitor -) 40 mg PO HS [facility] Last Admin: 10/16/16 21:08 Dose: 40 mg Clopidogrel Bisulfate (Plavix -) 75 mg PO DAILY [facility] Last Admin: 10/17/16 10:01 Dose: 75 mg Ferrous Sulfate (Feosol -) 325 mg PO DAILY [facility] Last Admin: 10/17/16 10:01 Dose: 325 mg Guaifenesin (Robitussin Dm -) 10 ml PO Q6H PRN PRN Reason: COUGH Last Admin: 10/16/16 21:10 Dose: 10 ml Heparin Sodium (Porcine) (Heparin -) 5,000 unit SQ BID [facility] Last Admin: 10/17/16 10:01 Dose: 5,000 unit Losartan Potassium (Cozaar -) 25 mg PO DAILY [facility] Last Admin: 10/16/16 09:37 Dose: 25 mg Metoprolol Succinate (Toprol Xl -) 25 mg PO DAILY [facility] Last Admin: 10/16/16 09:38 Dose: 25 mg Ranitidine HCl (Zantac -) 150 mg PO BID [facility] Last Admin: 10/17/16 10:02 Dose: 150 mg Spironolactone (Aldactone -) 25 mg PO DAILY [facility] Last Admin: 10/16/16 09:38 Dose: 25 mg - Objective Vital Signs: Vital Signs Temperature 97.8 F 10/17/16 09:00 Pulse Rate 48 L 10/17/16 09:00 Respiratory Rate 22 10/17/16 09:00 Blood Pressure 100/39 10/17/16 09:00 O2 Sat by Pulse Oximetry (%) 98 10/16/16 22:00 Constitutional: Yes: Well Nourished, No Distress, Calm Cardiovascular: Yes: Regular Rate and Rhythm. No: Gallop, Murmur, Rub Respiratory: Yes: Regular, On Nasal O2, Rhonchi. No: Rales, Wheezes Gastrointestinal: Yes: Normal Bowel Sounds, Soft. No: Distention, Tenderness Extremities: Yes: WNL Edema: No Labs: CBC, BMP 10/17/16 05:35 10/17/16 05:35 INR, PTT INR 1.37 (0.82-1.09) H 10/09/16 04:00 Problem List - Problems (1) Acute respiratory failure with hypoxia Code(s): J96.01 - ACUTE RESPIRATORY FAILURE WITH HYPOXIA (2) Acute on chronic systolic (congestive) heart failure Code(s): I50.23 - ACUTE ON CHRONIC SYSTOLIC (CONGESTIVE) HEART FAILURE (3) Cardiogenic shock Code(s): R57.0 - CARDIOGENIC SHOCK (4) Anemia Code(s): D64.9 - ANEMIA, UNSPECIFIED Qualifiers: Other causes of anemia: acute posthemorrhagic (5) Occult GI bleeding Code(s): R19.5 - OTHER FECAL ABNORMALITIES (6) Chest pain Code(s): R07.9 - CHEST PAIN, UNSPECIFIED Qualifiers: Chest pain type: chest pain due to myocardial ischemia Ischemic chest pain type: unstable angina pectoris Qualified Code(s): I20.0 - Unstable angina (7) Non-ST elevation (NSTEMI) myocardial infarction Code(s): I21.4 - NON-ST ELEVATION (NSTEMI) MYOCARDIAL INFARCTION (8) HTN (hypertension) Code(s): I10 - ESSENTIAL (PRIMARY) HYPERTENSION Qualifiers: Hypertension type: essential hypertension Qualified Code(s): I10 - Essential (primary) hypertension (9) Hyperlipidemia Code(s): E78.5 - HYPERLIPIDEMIA, UNSPECIFIED Qualifiers: Hyperlipidemia type: pure hypercholesterolemia Qualified Code(s): E78.00 - Pure hypercholesterolemia, unspecified; E78.0 - Pure hypercholesterolemia Assessment/Plan (1) Acute hypoxic respiratory failure -secondary to NSTEMI/CHF/cardiogenic shock -resolved (2) CHF -cardiology following -continue aldactone -still with some ronchi on lung exam -wean oxygen (3) Cardiogenic shock -secondary to NSTEMI -resolved (4) Anemia Assessment/Plan: -s/p transfusion -monitor Code(s): D64.9 - ANEMIA, UNSPECIFIED Qualifiers: Other causes of anemia: acute posthemorrhagic (5) Occult GI bleeding Assessment/Plan: -appreciate GI assistance -off PPI -oncology consulted about recurrent colon cancer Code(s): R19.5 - OTHER FECAL ABNORMALITIES (7) Non-ST elevation (NSTEMI) myocardial infarction Assessment/Plan: -cardiology following -medical management Code(s): I21.4 - NON-ST ELEVATION (NSTEMI) MYOCARDIAL INFARCTION (8) HTN (hypertension) Assessment/Plan: -well controlled -continue current medications Code(s): I10 - ESSENTIAL (PRIMARY) HYPERTENSION (9) Hyperlipidemia Assessment/Plan: -continue lipitor Code(s): E78.5 - HYPERLIPIDEMIA, UNSPECIFIED Qualifiers:
--- NOTE | 2016-10-17 13:43 | PN ---
Progress Note, Physician History of Present Illness: Remains on 2 L NC saO2 100%. Denies chest tightness, dyspnea or recurrent hematochezia. - Current Medication List Current Medications: Active Medications Acetaminophen (Tylenol -) 650 mg PO Q4H PRN PRN Reason: FEVER OR PAIN Ascorbic Acid (Vitamin C -) 500 mg PO DAILY [facility] Last Admin: 10/17/16 10:01 Dose: 500 mg Atorvastatin Calcium (Lipitor -) 40 mg PO HS [facility] Last Admin: 10/16/16 21:08 Dose: 40 mg Clopidogrel Bisulfate (Plavix -) 75 mg PO DAILY [facility] Last Admin: 10/17/16 10:01 Dose: 75 mg Ferrous Sulfate (Feosol -) 325 mg PO DAILY [facility] Last Admin: 10/17/16 10:01 Dose: 325 mg Guaifenesin (Robitussin Dm -) 10 ml PO Q6H PRN PRN Reason: COUGH Last Admin: 10/16/16 21:10 Dose: 10 ml Heparin Sodium (Porcine) (Heparin -) 5,000 unit SQ BID [facility] Last Admin: 10/17/16 10:01 Dose: 5,000 unit Losartan Potassium (Cozaar -) 25 mg PO DAILY [facility] Last Admin: 10/16/16 09:37 Dose: 25 mg Metoprolol Succinate (Toprol Xl -) 25 mg PO DAILY [facility] Last Admin: 10/16/16 09:38 Dose: 25 mg Ranitidine HCl (Zantac -) 150 mg PO BID [facility] Last Admin: 10/17/16 10:02 Dose: 150 mg Spironolactone (Aldactone -) 25 mg PO DAILY [facility] Last Admin: 10/16/16 09:38 Dose: 25 mg - Objective Vital Signs: Vital Signs Temperature 97.8 F 10/17/16 09:00 Pulse Rate 48 L 10/17/16 09:00 Respiratory Rate 22 10/17/16 09:00 Blood Pressure 100/39 10/17/16 09:00 O2 Sat by Pulse Oximetry (%) 98 10/17/16 09:00 Constitutional: Yes: No Distress, Calm Neck: Yes: Supple Cardiovascular: Yes: Regular Rate and Rhythm, Murmur (2/6 SM) Respiratory: Yes: Regular, Diminished, On Nasal O2 Gastrointestinal: Yes: Normal Bowel Sounds, Soft Edema: No Labs: CBC, BMP 10/17/16 05:35 10/17/16 05:35 INR, PTT INR 1.37 (0.82-1.09) H 10/09/16 04:00 Problem List - Problems (1) Chest pain Code(s): R07.9 - CHEST PAIN, UNSPECIFIED Qualifiers: Chest pain type: chest pain due to myocardial ischemia Ischemic chest pain type: unstable angina pectoris Qualified Code(s): I20.0 - Unstable angina (2) Colon cancer Code(s): C18.9 - MALIGNANT NEOPLASM OF COLON, UNSPECIFIED Qualifiers: Colon location: unspecified part of colon Qualified Code(s): C18.9 - Malignant neoplasm of colon, unspecified (3) Coronary artery disease Code(s): I25.10 - ATHSCL HEART DISEASE OF [place] CORONARY ARTERY W/O ANG PCTRS Qualifiers: Coronary Disease-Associated Artery/Lesion type: [place] artery [place] vs. transplanted heart: [place] heart Associated angina: angina presence unspecified Qualified Code(s): I25.10 - Atherosclerotic heart disease of [place] coronary artery without angina pectoris (4) Non-ST elevation (NSTEMI) myocardial infarction Code(s): I21.4 - NON-ST ELEVATION (NSTEMI) MYOCARDIAL INFARCTION (5) Hyperlipidemia Code(s): E78.5 - HYPERLIPIDEMIA, UNSPECIFIED Qualifiers: Hyperlipidemia type: pure hypercholesterolemia Qualified Code(s): E78.00 - Pure hypercholesterolemia, unspecified; E78.0 - Pure hypercholesterolemia (6) Acute on chronic systolic (congestive) heart failure Code(s): I50.23 - ACUTE ON CHRONIC SYSTOLIC (CONGESTIVE) HEART FAILURE (7) Acute respiratory failure with hypoxia Code(s): J96.01 - ACUTE RESPIRATORY FAILURE WITH HYPOXIA (8) Hematochezia Code(s): K92.1 - MELENA (9) Anemia Code(s): D64.9 - ANEMIA, UNSPECIFIED Qualifiers: Other causes of anemia: acute posthemorrhagic (10) Local recurrence of malignant neoplasm of colon Code(s): C18.9 - MALIGNANT NEOPLASM OF COLON, UNSPECIFIED Assessment/Plan 10/09/2016 Normal LV size with mild-moderate decreased LV fxn, severe apical, moderate anterolateral and apicolateral, severe posterolateral, inferior wall HK , mod eccentric MR, mod TR, RVSP 50-60 mmHg 1. CAD post NSTEMI and Asystolic Cardiac Arrest in the context of significant anemia 2. Anemia with underlying colon CA s/p subtotal colectomy with recurrence at the anastomotic site - post transfusion 3. Acute on chronic systolic failure with cardiogenic shock and lactic acidosis resolved 4. Acute hypoxic respiratory failure and pulm edema resolved 5. HTN/HCVD 6. Hypercholesterolemia 7. Acute on CKD resolved PLAN: 1. Monitor CBC post-transfusion 2. Continue Lipitor 40 qhs, Toprol XL 25 qd, and losartan 25 qd with uptitration as hemodynamics tolerate 3. Wean FIO2 to maintain saO2, observe off abx, surveillance cx NGTD 4. Continue Aldactone 25 qd with monitor diuretic response, renal fxn and electrolytes 5. Continue Plavix 75 qd and sq Heparin given achievement of hemostasis, GI prophylaxis 6. OOB to chair, PT as tolerated
[2016-10-17] MEDS: METOPROLOL SUCCINATE 25 MG TAB.SR.24H (FP) PO SCH (16:32)
--- NOTE | 2016-10-17 21:24 | CONSULT ---
Consult - text type - Consultation Consultation Note: PAtient seen and examined 85 y/o man with hx of Colon CA s/p resection in last 18mon, CHF on BB/asa/dig who presents with exertional angina that did not resolve with rest. Found to be anemic with Hbg 6.8, received 2 prbc overnight. Denies current chest pain, sob, melena, falls, hematuria, hematochezia, edema, loss of appetite. - History Source History Provided By: Patient, Medical Record Limitations to Obtaining History: Poor Historian - Past Medical History Cardio/Vascular: Yes: CHF, HTN Gastrointestinal: Yes: Cancer Heme/Onc: Yes: Cancer - Past Surgical History Past Surgical History: Yes: Colectomy - Smoking History Smoking history: Former smoker - Social History Usual Living Arrangement: Other (with sister) ADL: Independent Home Medications - Allergies Allergies/Adverse Reactions: Allergies Allergy/AdvReac Type Severity Reaction Status Date / Time No Known Allergies Allergy Verified 07/01/15 13:45 - Home Medications Home Medications: Ambulatory Orders NK [No Known Home Medication] 07/01/15 Home Medications (free text): Metoprolol unk dose. digoxin unk dose. asa 81mg daily Physical Exam Vital Signs: Last Vital Signs Temp Pulse Resp BP Pulse Ox 98.5 F 65 18 108/60 100 10/19/16 14:38 10/19/16 14:38 10/19/16 14:38 10/19/16 14:38 10/19/16 09:00 Constitutional: Yes: Well Nourished, No Distress Neck: Yes: Supple. No: Lymphadenopathy Cardiovascular: Yes: Tachycardia, Pulse Irregular, JVD, S1, S2 Respiratory: Yes: CTA Bilaterally, On Nasal O2. No: Accessory Muscle Use Gastrointestinal: Yes: Normal Bowel Sounds, Soft, Other Renal/: Yes: WNL Musculoskeletal: Yes: WNL Extremities: Yes: WNL Assessment/Plan 85 y/o man with hx of CHF and colon CA s/p resection p/w exertional angina that did not improves as usual with rest, found to be anemic, syncopal episode with bradycardia + trop---NSTEMI in setting of anemia Recurrent colon cancer with anastomotic recurrence. PAtient very reluctant to undergo any further w/u / imaging or treatment. Willl request palliative care consult . he is very adamant that he does not want to pursue any further w/u or treatment for colon cancer. He tells me that he wants to be conservative and to be left alone ,
[2016-10-17] MEDS: ATORVASTATIN CA 40 MG TABLET (FP) PO SCH (21:56)
[2016-10-18 08:17] LABS: BASOPHIL 0.8 % (0-2.0); EOSINOPHIL 3.2 % (0-4.5); MCH 22.5 pg (25.7-33.7); MCHC 30.5 g/dl (32.0-35.9); MEAN CELL VOLUME 73.9 fl (80-96); MEAN PLT VOLUME 8.1 fl (7.5-11.1); NEUTROPHILS 66.5 % (42.8-82.8); PLATELET COUNT 295 K/MM3 (134-434); RDW 24.5 % (11.9-15.9); WHITE BLOOD COUNT 6.4 K/mm3 (4.0-10.0)
[2016-10-18 09:11] LABS: CALCIUM 8.1 mg/dL (8.5-10.1); COCKROFT - GAULT 49.39; CREATININE 0.9 mg/dL (0.7-1.3); MAGNESIUM 2.4 mg/dL (1.8-2.4); PHOSPHOROUS 3.5 mg/dL (2.5-4.9)
[2016-10-18] MEDS: HEPARIN NA (PORCINE) 5,000 UNITS/ML 1ML VIAL SQ SCH ×2 (10:02→22:31)
[2016-10-18] MEDS: ASCORBIC ACID 500 MG TABLET (FP) PO SCH (10:02)
[2016-10-18] MEDS: FERROUS SO4 325 MG TABLET (FP) PO SCH (10:02)
[2016-10-18] MEDS: CLOPIDOGREL BISULFATE 75 MG TABLET (FP) PO SCH (10:02)
[2016-10-18] MEDS: SPIRONOLACTONE 25 MG TABLET (FP) PO SCH (10:02)
[2016-10-18] MEDS: RANITIDINE HCL 150 MG TABLET (FP) PO SCH ×2 (10:02→22:31)
[2016-10-18] MEDS: METOPROLOL SUCCINATE 25 MG TAB.SR.24H (FP) PO SCH (10:02)
[2016-10-18] MEDS: LOSARTAN POTASSIUM 25 MG TABLET PO SCH (10:02)
--- NOTE | 2016-10-18 11:05 | PN ---
Progress Note, Physician History of Present Illness: Denies chest tightness, dyspnea or recurrent hematochezia. EKG shows slow aflutter. - Current Medication List Current Medications: Active Medications Acetaminophen (Tylenol -) 650 mg PO Q4H PRN PRN Reason: FEVER OR PAIN Ascorbic Acid (Vitamin C -) 500 mg PO DAILY [facility] Last Admin: 10/18/16 10:02 Dose: 500 mg Atorvastatin Calcium (Lipitor -) 40 mg PO HS [facility] Last Admin: 10/17/16 21:56 Dose: 40 mg Clopidogrel Bisulfate (Plavix -) 75 mg PO DAILY [facility] Last Admin: 10/18/16 10:02 Dose: 75 mg Ferrous Sulfate (Feosol -) 325 mg PO DAILY [facility] Last Admin: 10/18/16 10:02 Dose: 325 mg Guaifenesin (Robitussin Dm -) 10 ml PO Q6H PRN PRN Reason: COUGH Last Admin: 10/16/16 21:10 Dose: 10 ml Heparin Sodium (Porcine) (Heparin -) 5,000 unit SQ BID [facility] Last Admin: 10/18/16 10:02 Dose: 5,000 unit Losartan Potassium (Cozaar -) 25 mg PO DAILY [facility] Last Admin: 10/18/16 10:02 Dose: 25 mg Metoprolol Succinate (Toprol Xl -) 25 mg PO DAILY [facility] Last Admin: 10/18/16 10:02 Dose: 25 mg Ranitidine HCl (Zantac -) 150 mg PO BID [facility] Last Admin: 10/18/16 10:02 Dose: 150 mg Spironolactone (Aldactone -) 25 mg PO DAILY [facility] Last Admin: 10/18/16 10:02 Dose: 25 mg - Objective Vital Signs: Vital Signs Temperature 97.2 F L 10/18/16 05:00 Pulse Rate 45 L 10/18/16 05:00 Respiratory Rate 20 10/18/16 05:00 Blood Pressure 123/40 10/18/16 05:00 O2 Sat by Pulse Oximetry (%) 98 10/17/16 21:00 Constitutional: Yes: No Distress, Calm Neck: Yes: Supple Cardiovascular: Yes: Bradycardia Respiratory: Yes: Regular, Diminished Gastrointestinal: Yes: Normal Bowel Sounds, Soft Edema: No Labs: CBC, BMP 10/18/16 06:00 10/18/16 06:00 INR, PTT INR 1.37 (0.82-1.09) H 10/09/16 04:00 - ....Imaging EKG: Report Reviewed (Jodee @ 53 RBBB) Problem List - Problems (1) Chest pain Code(s): R07.9 - CHEST PAIN, UNSPECIFIED Qualifiers: Chest pain type: chest pain due to myocardial ischemia Ischemic chest pain type: unstable angina pectoris Qualified Code(s): I20.0 - Unstable angina (2) Colon cancer Code(s): C18.9 - MALIGNANT NEOPLASM OF COLON, UNSPECIFIED Qualifiers: Colon location: unspecified part of colon Qualified Code(s): C18.9 - Malignant neoplasm of colon, unspecified (3) Coronary artery disease Code(s): I25.10 - ATHSCL HEART DISEASE OF [place] CORONARY ARTERY W/O ANG PCTRS Qualifiers: Coronary Disease-Associated Artery/Lesion type: [place] artery [place] vs. transplanted heart: [place] heart Associated angina: angina presence unspecified Qualified Code(s): I25.10 - Atherosclerotic heart disease of [place] coronary artery without angina pectoris (4) Non-ST elevation (NSTEMI) myocardial infarction Code(s): I21.4 - NON-ST ELEVATION (NSTEMI) MYOCARDIAL INFARCTION (5) Hyperlipidemia Code(s): E78.5 - HYPERLIPIDEMIA, UNSPECIFIED Qualifiers: Hyperlipidemia type: pure hypercholesterolemia Qualified Code(s): E78.00 - Pure hypercholesterolemia, unspecified; E78.0 - Pure hypercholesterolemia (6) Acute on chronic systolic (congestive) heart failure Code(s): I50.23 - ACUTE ON CHRONIC SYSTOLIC (CONGESTIVE) HEART FAILURE (7) Acute respiratory failure with hypoxia Code(s): J96.01 - ACUTE RESPIRATORY FAILURE WITH HYPOXIA (8) Hematochezia Code(s): K92.1 - MELENA (9) Anemia Code(s): D64.9 - ANEMIA, UNSPECIFIED Qualifiers: Other causes of anemia: acute posthemorrhagic (10) Local recurrence of malignant neoplasm of colon Code(s): C18.9 - MALIGNANT NEOPLASM OF COLON, UNSPECIFIED (11) Atrial flutter Code(s): I48.92 - UNSPECIFIED ATRIAL FLUTTER Qualifiers: Atrial flutter type: atypical Qualified Code(s): I48.4 - Atypical atrial flutter Assessment/Plan 10/09/2016 Normal LV size with mild-moderate decreased LV fxn, severe apical, moderate anterolateral and apicolateral, severe posterolateral, inferior wall HK , mod eccentric MR, mod TR, RVSP 50-60 mmHg 1. CAD post NSTEMI and Asystolic Cardiac Arrest in the context of significant anemia 2. Anemia with underlying colon CA s/p subtotal colectomy with recurrence at the anastomotic site - post transfusion, hesitant for further treatment 3. Acute on chronic systolic failure with cardiogenic shock and lactic acidosis resolved 4. Acute hypoxic respiratory failure and pulm edema resolved 5. HTN/HCVD 6. Hypercholesterolemia 7. Acute on CKD resolved 8. Aflutter with slow ventricular response PLAN: 1. Monitor CBC post-transfusion 2. Continue Lipitor 40 qhs, decrease Toprol XL 12.5 qd, and losartan 25 qd with uptitration as hemodynamics tolerate 3. Wean FIO2 to maintain saO2, observe off abx, surveillance cx NGTD 4. Continue Aldactone 25 qd with monitor diuretic response, renal fxn and electrolytes 5. Continue Plavix 75 qd and sq Heparin given achievement of hemostasis, GI prophylaxis, not ideal a/c candidate given above history 6. OOB to chair, PT as tolerated
[2016-10-18 12:45] LABS: ANISOCYTOSIS 2+; HYPOCHROMIA 1+; MICROCYTOSIS 2+
--- NOTE | 2016-10-18 15:10 | PN ---
Progress Note, Physician Chief Complaint: Mr Parker says he is doing well. Denies cp, sob, n/v. - Current Medication List Current Medications: Active Medications Acetaminophen (Tylenol -) 650 mg PO Q4H PRN PRN Reason: FEVER OR PAIN Ascorbic Acid (Vitamin C -) 500 mg PO DAILY [facility] Last Admin: 10/18/16 10:02 Dose: 500 mg Atorvastatin Calcium (Lipitor -) 40 mg PO HS [facility] Last Admin: 10/17/16 21:56 Dose: 40 mg Clopidogrel Bisulfate (Plavix -) 75 mg PO DAILY [facility] Last Admin: 10/18/16 10:02 Dose: 75 mg Ferrous Sulfate (Feosol -) 325 mg PO DAILY [facility] Last Admin: 10/18/16 10:02 Dose: 325 mg Guaifenesin (Robitussin Dm -) 10 ml PO Q6H PRN PRN Reason: COUGH Last Admin: 10/16/16 21:10 Dose: 10 ml Heparin Sodium (Porcine) (Heparin -) 5,000 unit SQ BID [facility] Last Admin: 10/18/16 10:02 Dose: 5,000 unit Losartan Potassium (Cozaar -) 25 mg PO DAILY [facility] Last Admin: 10/18/16 10:02 Dose: 25 mg Metoprolol Succinate (Toprol Xl -) 12.5 mg PO DAILY [facility] Ranitidine HCl (Zantac -) 150 mg PO BID [facility] Last Admin: 10/18/16 10:02 Dose: 150 mg Spironolactone (Aldactone -) 25 mg PO DAILY [facility] Last Admin: 10/18/16 10:02 Dose: 25 mg - Objective Vital Signs: Vital Signs Temperature 97.2 F L 10/18/16 05:00 Pulse Rate 45 L 10/18/16 05:00 Respiratory Rate 20 10/18/16 05:00 Blood Pressure 123/40 10/18/16 05:00 O2 Sat by Pulse Oximetry (%) 98 10/17/16 21:00 Constitutional: Yes: Well Nourished, No Distress, Calm Cardiovascular: Yes: Regular Rate and Rhythm. No: Gallop, Murmur, Rub Respiratory: Yes: Regular, CTA Bilaterally, On Nasal O2. No: Rales, Rhonchi, Wheezes Gastrointestinal: Yes: Normal Bowel Sounds, Soft. No: Distention, Tenderness Extremities: Yes: WNL Edema: No Labs: CBC, BMP 06/01/17 06:00 10/18/16 06:00 INR, PTT INR 1.37 (0.82-1.09) H 10/09/16 04:00 Problem List - Problems (1) Acute respiratory failure with hypoxia Code(s): J96.01 - ACUTE RESPIRATORY FAILURE WITH HYPOXIA (2) Acute on chronic systolic (congestive) heart failure Code(s): I50.23 - ACUTE ON CHRONIC SYSTOLIC (CONGESTIVE) HEART FAILURE (3) Cardiogenic shock Code(s): R57.0 - CARDIOGENIC SHOCK (4) Anemia Code(s): D64.9 - ANEMIA, UNSPECIFIED Qualifiers: Other causes of anemia: acute posthemorrhagic (5) Occult GI bleeding Code(s): R19.5 - OTHER FECAL ABNORMALITIES (6) Chest pain Code(s): R07.9 - CHEST PAIN, UNSPECIFIED Qualifiers: Chest pain type: chest pain due to myocardial ischemia Ischemic chest pain type: unstable angina pectoris Qualified Code(s): I20.0 - Unstable angina (7) Non-ST elevation (NSTEMI) myocardial infarction Code(s): I21.4 - NON-ST ELEVATION (NSTEMI) MYOCARDIAL INFARCTION (8) HTN (hypertension) Code(s): I10 - ESSENTIAL (PRIMARY) HYPERTENSION Qualifiers: Hypertension type: essential hypertension Qualified Code(s): I10 - Essential (primary) hypertension (9) Hyperlipidemia Code(s): E78.5 - HYPERLIPIDEMIA, UNSPECIFIED Qualifiers: Hyperlipidemia type: pure hypercholesterolemia Qualified Code(s): E78.00 - Pure hypercholesterolemia, unspecified; E78.0 - Pure hypercholesterolemia Assessment/Plan (1) Acute hypoxic respiratory failure -secondary to NSTEMI/CHF/cardiogenic shock -resolved (2) CHF -cardiology following -continue aldactone -wean oxygen (3) Cardiogenic shock -secondary to NSTEMI -resolved (4) Anemia Assessment/Plan: -s/p transfusion -monitor Code(s): D64.9 - ANEMIA, UNSPECIFIED Qualifiers: Other causes of anemia: acute posthemorrhagic (5) Occult GI bleeding Assessment/Plan: -appreciate GI assistance -off PPI -appreciate oncology consult -also discussed with patient, does not want any intervention Code(s): R19.5 - OTHER FECAL ABNORMALITIES (7) Non-ST elevation (NSTEMI) myocardial infarction Assessment/Plan: -cardiology following -medical management Code(s): I21.4 - NON-ST ELEVATION (NSTEMI) MYOCARDIAL INFARCTION (8) HTN (hypertension) Assessment/Plan: -toprol decreased Code(s): I10 - ESSENTIAL (PRIMARY) HYPERTENSION (9) Hyperlipidemia Assessment/Plan: -continue lipitor Code(s): E78.5 - HYPERLIPIDEMIA, UNSPECIFIED Qualifiers:
--- NOTE | 2016-10-18 15:36 | EKG ---
Test Reason : Blood Pressure : / mmHG Vent. Rate : 053 BPM Atrial Rate : 286 BPM P-R Int : 000 ms QRS Dur : 144 ms QT Int : 458 ms P-R-T Axes : 001 -57 -67 degrees QTc Int : 429 ms ATRIAL FLUTTER WITH VARIABLE A-V BLOCK LEFT AXIS DEVIATION RIGHT BUNDLE BRANCH BLOCK VOLTAGE CRITERIA FOR LEFT VENTRICULAR HYPERTROPHY T WAVE ABNORMALITY, CONSIDER INFEROLATERAL ISCHEMIA ABNORMAL ECG WHEN COMPARED WITH ECG OF 12-OCT-2016 11:58, INVERTED T WAVES HAVE REPLACED NONSPECIFIC T WAVE ABNORMALITY IN INFERIOR LEADS Confirmed by MIS SAMUEL, SRUTHI ([id number]) on 10/18/2016 3:36:15 PM Referred By: LUIS EDGE Confirmed By:SRUTHI ABEBE MD
--- NOTE | 2016-10-18 17:52 | PN ---
Progress Note (short form) - Note Progress Note: PULMONARY AWAKE/ALERT NO CP/SOB CHART REVIEWED APPEARS COMFORTABLE NO OVERALL CHANGE IN CLINICAL EXAM LABS/MEDS/NOTES/IMAGING/MEDS REVIEWED Acute Hypoxic Respiratory resolved CAD/Acute NSTEMI/Asystolic Cardiac Arrest Acute on Chronic Systolic Heart Failure Cardiogenic Shock resolved Lactic Acidosis resolved Acute Kidney Injury HTN Hyperlipidemia h/o Colon Ca Suspected GI Bleed - O2 to maintain saturation - Beta-ying/statin/plavix - PO as tolerated Bee BORREGO MD
[2016-10-18] MEDS: ATORVASTATIN CA 40 MG TABLET (FP) PO SCH (22:31)
[2016-10-19 07:25] LABS: EOSINOPHIL 2.5 % (0-4.5); MCH 22.5 pg (25.7-33.7); MCHC 30.7 g/dl (32.0-35.9); MEAN CELL VOLUME 73.3 fl (80-96); MEAN PLT VOLUME 8.5 fl (7.5-11.1); NEUTROPHILS 68.5 % (42.8-82.8); PLATELET COUNT 282 K/MM3 (134-434); RDW 24.7 % (11.9-15.9); WHITE BLOOD COUNT 7.3 K/mm3 (4.0-10.0)
[2016-10-19 07:47] LABS: COCKROFT - GAULT 56.18; CREATININE 0.8 mg/dL (0.7-1.3); MAGNESIUM 2.3 mg/dL (1.8-2.4); PHOSPHOROUS 3.5 mg/dL (2.5-4.9)
[2016-10-19] MEDS: RANITIDINE HCL 150 MG TABLET (FP) PO SCH (09:14)
[2016-10-19] MEDS: HEPARIN NA (PORCINE) 5,000 UNITS/ML 1ML VIAL SQ SCH (09:14)
[2016-10-19] MEDS: SPIRONOLACTONE 25 MG TABLET (FP) PO SCH (09:15)
[2016-10-19] MEDS: LOSARTAN POTASSIUM 25 MG TABLET PO SCH (09:15)
[2016-10-19] MEDS: FERROUS SO4 325 MG TABLET (FP) PO SCH (09:15)
[2016-10-19] MEDS: CLOPIDOGREL BISULFATE 75 MG TABLET (FP) PO SCH (09:15)
[2016-10-19] MEDS: ASCORBIC ACID 500 MG TABLET (FP) PO SCH (09:15)
[2016-10-19] MEDS ORDERED: METOPROLOL SUCCINATE 25 MG TAB.SR.24H (FP) PO SCH (10:00)
--- NOTE | 2016-10-19 11:26 | PN ---
Progress Note, Physician History of Present Illness: pulmonary alert,oob-chair,nad,-cp,-sob - Current Medication List Current Medications: Active Medications Acetaminophen (Tylenol -) 650 mg PO Q4H PRN PRN Reason: FEVER OR PAIN Last Admin: 10/18/16 22:32 Dose: 650 mg Ascorbic Acid (Vitamin C -) 500 mg PO DAILY [facility] Last Admin: 10/19/16 09:15 Dose: 500 mg Atorvastatin Calcium (Lipitor -) 40 mg PO HS [facility] Last Admin: 10/18/16 22:31 Dose: 40 mg Clopidogrel Bisulfate (Plavix -) 75 mg PO DAILY [facility] Last Admin: 10/19/16 09:15 Dose: 75 mg Ferrous Sulfate (Feosol -) 325 mg PO DAILY [facility] Last Admin: 10/19/16 09:15 Dose: 325 mg Guaifenesin (Robitussin Dm -) 10 ml PO Q6H PRN PRN Reason: COUGH Last Admin: 10/16/16 21:10 Dose: 10 ml Heparin Sodium (Porcine) (Heparin -) 5,000 unit SQ BID [facility] Last Admin: 10/19/16 09:14 Dose: 5,000 unit Losartan Potassium (Cozaar -) 25 mg PO DAILY [facility] Last Admin: 10/19/16 09:15 Dose: 25 mg Metoprolol Succinate (Toprol Xl -) 12.5 mg PO DAILY [facility] Last Admin: 10/19/16 09:14 Dose: 12.5 mg Ranitidine HCl (Zantac -) 150 mg PO BID [facility] Last Admin: 10/19/16 09:14 Dose: 150 mg Spironolactone (Aldactone -) 25 mg PO DAILY [facility] Last Admin: 10/19/16 09:15 Dose: 25 mg - Objective Vital Signs: Vital Signs Temperature 98 F 10/19/16 10:00 Pulse Rate 50 L 10/19/16 10:00 Respiratory Rate 18 10/19/16 10:00 Blood Pressure 114/60 10/19/16 10:00 O2 Sat by Pulse Oximetry (%) 100 10/18/16 21:00 Constitutional: Yes: Well Nourished, Calm Eyes: Yes: WNL HENT: Yes: WNL Neck: Yes: WNL Cardiovascular: Yes: Regular Rate and Rhythm, S1, S2 Respiratory: Yes: Rales (robin crackles l>r) Gastrointestinal: Yes: Normal Bowel Sounds, Soft Edema: No Labs: CBC, BMP 10/19/16 05:35 10/19/16 05:35 INR, PTT INR 1.37 (0.82-1.09) H 10/09/16 04:00 Problem List - Problems (1) Acute on chronic systolic (congestive) heart failure Code(s): I50.23 - ACUTE ON CHRONIC SYSTOLIC (CONGESTIVE) HEART FAILURE (2) Acute respiratory failure with hypoxia Code(s): J96.01 - ACUTE RESPIRATORY FAILURE WITH HYPOXIA (3) Evmbc-lr-herygjw kidney injury Code(s): N17.9 - ACUTE KIDNEY FAILURE, UNSPECIFIED N18.9 - CHRONIC KIDNEY DISEASE, UNSPECIFIED Qualifiers: Acute renal failure type: with acute tubular necrosis Chronic kidney disease stage: stage 2 (mild) Qualified Code(s): N17.0 - Acute kidney failure with tubular necrosis; N18.1 - Chronic kidney disease, stage 1 (4) Anemia in chronic illness Code(s): D63.8 - ANEMIA IN OTHER CHRONIC DISEASES CLASSIFIED ELSEWHERE (5) Cardiogenic shock Code(s): R57.0 - CARDIOGENIC SHOCK (6) Chest pain Code(s): R07.9 - CHEST PAIN, UNSPECIFIED Qualifiers: Chest pain type: chest pain due to myocardial ischemia Ischemic chest pain type: unstable angina pectoris Qualified Code(s): I20.0 - Unstable angina (7) Pulmonary edema Code(s): J81.1 - CHRONIC PULMONARY EDEMA Qualifiers: Chronicity: acute Qualified Code(s): J81.0 - Acute pulmonary edema (8) Anemia Code(s): D64.9 - ANEMIA, UNSPECIFIED Qualifiers: Other causes of anemia: acute posthemorrhagic (9) Colon cancer Code(s): C18.9 - MALIGNANT NEOPLASM OF COLON, UNSPECIFIED Qualifiers: Colon location: unspecified part of colon Qualified Code(s): C18.9 - Malignant neoplasm of colon, unspecified (10) Coronary artery disease Code(s): I25.10 - ATHSCL HEART DISEASE OF [place] CORONARY ARTERY W/O ANG PCTRS Qualifiers: Coronary Disease-Associated Artery/Lesion type: [place] artery [place] vs. transplanted heart: [place] heart Associated angina: angina presence unspecified Qualified Code(s): I25.10 - Atherosclerotic heart disease of [place] coronary artery without angina pectoris (11) Non-ST elevation (NSTEMI) myocardial infarction Code(s): I21.4 - NON-ST ELEVATION (NSTEMI) MYOCARDIAL INFARCTION (12) HTN (hypertension) Code(s): I10 - ESSENTIAL (PRIMARY) HYPERTENSION Qualifiers: Hypertension type: essential hypertension Qualified Code(s): I10 - Essential (primary) hypertension (13) Hyperlipidemia Code(s): E78.5 - HYPERLIPIDEMIA, UNSPECIFIED Qualifiers: Hyperlipidemia type: pure hypercholesterolemia Qualified Code(s): E78.00 - Pure hypercholesterolemia, unspecified; E78.0 - Pure hypercholesterolemia Assessment/Plan ASSESSMENT AND PLAN: Acute Hypoxic Respiratory Failure improved CAD/Acute NSTEMI/Asystolic Cardiac Arrest Acute on Chronic Systolic Heart Failure Cardiogenic Shock resolved Lactic Acidosis resolved Acute Kidney Injury HTN Hyperlipidemia h/o Colon Ca Suspected GI Bleed - O2 to maintain saturation - PO as tolerated - diuretics - plavix - anti-tussives DR HARP
--- NOTE | 2016-10-19 12:17 | PN ---
Progress Note, Physician History of Present Illness: Remains in rate-controlled aflutter. - Current Medication List Current Medications: Active Medications Acetaminophen (Tylenol -) 650 mg PO Q4H PRN PRN Reason: FEVER OR PAIN Last Admin: 10/18/16 22:32 Dose: 650 mg Ascorbic Acid (Vitamin C -) 500 mg PO DAILY [facility] Last Admin: 10/19/16 09:15 Dose: 500 mg Atorvastatin Calcium (Lipitor -) 40 mg PO HS [facility] Last Admin: 10/18/16 22:31 Dose: 40 mg Clopidogrel Bisulfate (Plavix -) 75 mg PO DAILY [facility] Last Admin: 10/19/16 09:15 Dose: 75 mg Ferrous Sulfate (Feosol -) 325 mg PO DAILY [facility] Last Admin: 10/19/16 09:15 Dose: 325 mg Guaifenesin (Robitussin Dm -) 10 ml PO Q6H PRN PRN Reason: COUGH Last Admin: 10/16/16 21:10 Dose: 10 ml Heparin Sodium (Porcine) (Heparin -) 5,000 unit SQ BID [facility] Last Admin: 10/19/16 09:14 Dose: 5,000 unit Losartan Potassium (Cozaar -) 25 mg PO DAILY [facility] Last Admin: 10/19/16 09:15 Dose: 25 mg Metoprolol Succinate (Toprol Xl -) 12.5 mg PO DAILY [facility] Last Admin: 10/19/16 09:14 Dose: 12.5 mg Ranitidine HCl (Zantac -) 150 mg PO BID [facility] Last Admin: 10/19/16 09:14 Dose: 150 mg Spironolactone (Aldactone -) 25 mg PO DAILY [facility] Last Admin: 10/19/16 09:15 Dose: 25 mg - Objective Vital Signs: Vital Signs Temperature 98 F 10/19/16 10:00 Pulse Rate 50 L 10/19/16 10:00 Respiratory Rate 18 10/19/16 10:00 Blood Pressure 114/60 10/19/16 10:00 O2 Sat by Pulse Oximetry (%) 100 10/18/16 21:00 Constitutional: Yes: No Distress, Calm Neck: Yes: Supple Cardiovascular: Yes: Regular Rate and Rhythm Respiratory: Yes: Regular, Diminished Gastrointestinal: Yes: Normal Bowel Sounds, Soft Edema: No Labs: CBC, BMP 10/19/16 05:35 10/19/16 05:35 INR, PTT INR 1.37 (0.82-1.09) H 10/09/16 04:00 Problem List - Problems (1) Chest pain Code(s): R07.9 - CHEST PAIN, UNSPECIFIED Qualifiers: Chest pain type: chest pain due to myocardial ischemia Ischemic chest pain type: unstable angina pectoris Qualified Code(s): I20.0 - Unstable angina (2) Colon cancer Code(s): C18.9 - MALIGNANT NEOPLASM OF COLON, UNSPECIFIED Qualifiers: Colon location: unspecified part of colon Qualified Code(s): C18.9 - Malignant neoplasm of colon, unspecified (3) Coronary artery disease Code(s): I25.10 - ATHSCL HEART DISEASE OF [place] CORONARY ARTERY W/O ANG PCTRS Qualifiers: Coronary Disease-Associated Artery/Lesion type: [place] artery [place] vs. transplanted heart: [place] heart Associated angina: angina presence unspecified Qualified Code(s): I25.10 - Atherosclerotic heart disease of [place] coronary artery without angina pectoris (4) Non-ST elevation (NSTEMI) myocardial infarction Code(s): I21.4 - NON-ST ELEVATION (NSTEMI) MYOCARDIAL INFARCTION (5) Hyperlipidemia Code(s): E78.5 - HYPERLIPIDEMIA, UNSPECIFIED Qualifiers: Hyperlipidemia type: pure hypercholesterolemia Qualified Code(s): E78.00 - Pure hypercholesterolemia, unspecified; E78.0 - Pure hypercholesterolemia (6) Acute on chronic systolic (congestive) heart failure Code(s): I50.23 - ACUTE ON CHRONIC SYSTOLIC (CONGESTIVE) HEART FAILURE (7) Acute respiratory failure with hypoxia Code(s): J96.01 - ACUTE RESPIRATORY FAILURE WITH HYPOXIA (8) Hematochezia Code(s): K92.1 - [place] (9) Anemia Code(s): D64.9 - ANEMIA, UNSPECIFIED Qualifiers: Other causes of anemia: acute posthemorrhagic (10) Local recurrence of malignant neoplasm of colon Code(s): C18.9 - MALIGNANT NEOPLASM OF COLON, UNSPECIFIED (11) Atrial flutter Code(s): I48.92 - UNSPECIFIED ATRIAL FLUTTER Qualifiers: Atrial flutter type: atypical Qualified Code(s): I48.4 - Atypical atrial flutter Assessment/Plan 10/09/2016 Normal LV size with mild-moderate decreased LV fxn, severe apical, moderate anterolateral and apicolateral, severe posterolateral, inferior wall HK , mod eccentric MR, mod TR, RVSP 50-60 mmHg 1. CAD post NSTEMI and Asystolic Cardiac Arrest in the context of significant anemia 2. Anemia with underlying colon CA s/p subtotal colectomy with recurrence at the anastomotic site - post transfusion, hesitant for further treatment 3. Acute on chronic systolic failure with cardiogenic shock and lactic acidosis resolved 4. Acute hypoxic respiratory failure and pulm edema resolved 5. HTN/HCVD 6. Hypercholesterolemia 7. Acute on CKD resolved 8. Aflutter with slow ventricular response PLAN: 1. Monitor CBC post-transfusion 2. Continue Lipitor 40 qhs, Toprol XL 12.5 qd, and losartan 25 qd with uptitration as hemodynamics tolerate 3. Wean FIO2 to maintain saO2, observe off abx, surveillance cx NGTD 4. Continue Aldactone 25 qd with monitor diuretic response, renal fxn and electrolytes 5. Continue Plavix 75 qd and sq Heparin given achievement of hemostasis, GI prophylaxis, not ideal a/c candidate given above history 6. OOB to chair, PT as tolerated
--- NOTE | 2016-10-19 14:11 | DS ---
Physical Examination Vital Signs: Vital Signs Temperature 98 F 10/19/16 10:00 Pulse Rate 50 L 10/19/16 10:00 Respiratory Rate 18 10/19/16 10:00 Blood Pressure 114/60 10/19/16 10:00 O2 Sat by Pulse Oximetry (%) 100 10/18/16 21:00 Constitutional: Yes: Well Nourished, No Distress, Calm Cardiovascular: Yes: Regular Rate and Rhythm. No: Gallop, Murmur, Rub Respiratory: Yes: Regular, CTA Bilaterally. No: Rales, Rhonchi, Wheezes Gastrointestinal: Yes: Normal Bowel Sounds, Soft. No: Distention, Tenderness Extremities: Yes: WNL Edema: No Labs: CBC, BMP 10/19/16 05:35 10/19/16 05:35 Discharge Summary Reason For Visit: ANEMIA IN CHRONIC ILLNESS, CHEST PAIN Current Active Problems AV block (Acute) Acute on chronic systolic (congestive) heart failure (Acute) Acute respiratory failure with hypoxia (Acute) Xmoia-ng-jjhledv kidney injury (Acute) Anemia in chronic illness (Acute) Atrial flutter (Acute) Cardiogenic shock (Acute) Chest pain (Acute) Hematochezia (Acute) Leukemoid reaction (Acute) Pulmonary edema (Acute) Occult GI bleeding (Chronic) Hospital Course: (1) Acute respiratory failure with hypoxia Code(s): J96.01 - ACUTE RESPIRATORY FAILURE WITH HYPOXIA (2) Acute on chronic systolic (congestive) heart failure Code(s): I50.23 - ACUTE ON CHRONIC SYSTOLIC (CONGESTIVE) HEART FAILURE (3) Cardiogenic shock Code(s): R57.0 - CARDIOGENIC SHOCK (4) Anemia Code(s): D64.9 - ANEMIA, UNSPECIFIED Qualifiers: Other causes of anemia: acute posthemorrhagic (5) Occult GI bleeding Code(s): R19.5 - OTHER FECAL ABNORMALITIES (6) Chest pain Code(s): R07.9 - CHEST PAIN, UNSPECIFIED Qualifiers: Chest pain type: chest pain due to myocardial ischemia Ischemic chest pain type: unstable angina pectoris Qualified Code(s): I20.0 - Unstable angina (7) Non-ST elevation (NSTEMI) myocardial infarction Code(s): I21.4 - NON-ST ELEVATION (NSTEMI) MYOCARDIAL INFARCTION (8) HTN (hypertension) Code(s): I10 - ESSENTIAL (PRIMARY) HYPERTENSION Qualifiers: Hypertension type: essential hypertension Qualified Code(s): I10 - Essential (primary) hypertension (9) Hyperlipidemia Code(s): E78.5 - HYPERLIPIDEMIA, UNSPECIFIED Qualifiers: Hyperlipidemia type: pure hypercholesterolemia Qualified Code(s): E78.00 - Pure hypercholesterolemia, unspecified; E78.0 - Pure hypercholesterolemia Mr Parker is an 86 year old male who came in with GI bleed secondary to malignancy at [facility] site and had AMI with cardiogenic shock and acute respiratory failure requiring intubation. He was admitted to the hospital and transfused, however later that day had an AMI which caused cardiogenic shock and respiratory failure. He was successfully resuscitated and transferred to the ICU. He was supported on pressors and was able to be weaned off. He was also able to be extubated. He was seen by GI, bleeding was from anastamosis site. Oncology was consulted, patient does not want anything done. He cannot be anticoagulated secondary to bleeding but he was medically managed. Today he says he is feeling well. He is safe for discharge home. 42 minutes spent in preparation of discharge Condition: Good - Instructions Diet, Activity, Other Instructions: resume previous diet and activity Referrals: Evans Kowalski MD [Staff Physician] - Baldemar Messina MD [Staff Physician] - Omar Vargas MD [Primary Care Provider] - Disposition: HOME - Home Medications Comprehensive Discharge Medication List: Ambulatory Orders Aspirin [ASA -] 81 mg PO DAILY 07/03/16 Atorvastatin Ca [Lipitor] 40 mg PO HS #30 tablet 07/03/16 Ascorbic Acid [Vitamin C -] 500 mg PO DAILY tablet 10/19/16 Clopidogrel Bisulfate [Plavix -] 75 mg PO DAILY #30 tablet 10/19/16 Ferrous Sulfate [Feosol] 325 mg PO DAILY #30 tab 10/19/16 Losartan Potassium [Cozaar -] 25 mg PO DAILY #30 tablet 10/19/16 Metoprolol Succinate [Toprol XL -] 12.5 mg PO DAILY #30 tab.sr 10/19/16 Spironolactone [Aldactone -] 25 mg PO DAILY #30 tablet 10/19/16
[2016-10-19 15:40] VITALS: BP 108/60; PULSE 65; TEMP 98.5
== END 2016-10-19 16:25 | disposition home or self-care (01) | DRG 280 ==
LOC: JER 03:20 → JERBED 07:24 → J4S 08:18 → JICU 15:38 → J4W 10-16 00:42
PROVIDERS: ADMIT Internal Medicine; ATTEND Internal Medicine
PROC: 5A12012 Performance of Cardiac Output, Single, Manual (ICD-10-PCS; principal; 2016-10-09)
PROC: 0BH17EZ Insertion of Endotracheal Airway into Trachea, Via Natural or Artificial Opening (ICD-10-PCS; 2016-10-09)
PROC: 5A1935Z Respiratory Ventilation, Less than 24 Consecutive Hours (ICD-10-PCS; 2016-10-09)
PROC: 06HM33Z Insertion of Infusion Device into Right Femoral Vein, Percutaneous Approach (ICD-10-PCS; 2016-10-09)
PROC: 05HN33Z Insertion of Infusion Device into Left Internal Jugular Vein, Percutaneous Approach (ICD-10-PCS; 2016-10-09)
PROC: B544ZZA Ultrasonography of Left Jugular Veins, Guidance (ICD-10-PCS; 2016-10-09)
PROC: 30233N1 Transfusion of Nonautologous Red Blood Cells into Peripheral Vein, Percutaneous Approach (ICD-10-PCS; 2016-10-09)
DX: I21.4 Non-ST elevation (NSTEMI) myocardial infarction (principal); J96.01 Acute respiratory failure with hypoxia; R57.0 Cardiogenic shock; I50.23 Acute on chronic systolic (congestive) heart failure; J81.0 Acute pulmonary edema; N17.0 Acute kidney failure with tubular necrosis; C18.9 Malignant neoplasm of colon, unspecified; K92.2 Gastrointestinal hemorrhage, unspecified; I13.0 Hypertensive heart and chronic kidney disease with heart failure and stage 1 through stage 4 chronic kidney disease, or unspecified chronic kidney disease; I48.92 Unspecified atrial flutter; D62 Acute posthemorrhagic anemia; I25.110 Atherosclerotic heart disease of native coronary artery with unstable angina pectoris; E78.00 Pure hypercholesterolemia, unspecified; D63.8 Anemia in other chronic diseases classified elsewhere; Z66 Do not resuscitate; D72.823 Leukemoid reaction; N18.2 Chronic kidney disease, stage 2 (mild)
CPT/HCPCS: 36415; 36430; 36600; 71010-TC; 80048; 80053; 82272; 82550; 82553; 82803; 83605; 83735; 83880; 84100; 84484; 85025; 85027; 85610; 85730; 86850; 86900; 86901; 86922; 93005; 93010; 93306-TC; 94002; 97116-GP; 97161; 99285-25; J1644; J1756; P9038; P9058

== ENCOUNTER 2017-01-13 11:29 | Inpatient (IN) | payer MEDICARE, OTHER ==
[2017-01-13 12:28] LABS: BASOPHIL 0.7 % (0-2.0); EOSINOPHIL 2.1 % (0-4.5); MCH 26.4 pg (25.7-33.7); MCHC 30.4 g/dl (32.0-35.9); MEAN CELL VOLUME 86.7 fl (80-96); MEAN PLT VOLUME 7.8 fl (7.5-11.1); NEUTROPHILS 82.5 % (42.8-82.8); PLATELET COUNT 444 K/MM3 (134-434); RDW 14.4 % (11.9-15.9); WHITE BLOOD COUNT 11.3 K/mm3 (4.0-10.0)
--- NOTE | 2017-01-13 12:47 | PDOC ---
History of Present Illness - General Chief Complaint: Injury Stated Complaint: FALL/ LACERATION TO HEAD Time Seen by Provider: 01/13/17 11:42 History Source: Patient, Other (nephew) Exam Limitations: No Limitations - History of Present Illness Initial Comments: 01/13/17 13:06 86-year-old male presents to the ED status post questionable mechanical fall. Patient states was getting ready to meet a friend that was downstairs in his home when he believes he slipped on the slippery causing him to fall forward striking the dresser with his right forehead. Patient states unsure if he lost consciousness before the fall but does remember hitting the ground and immediately getting up. Patient states did not strike his head on the ground and states had no chest pain shortness of breath or dizziness following the incident. Patient states went to the bathroom when his nephew found him cleansing his face before activating EMS. Patient is currently on baby aspirin and has no complaints presently. Patient sure of his last tetanus. Occurred: reports: just prior to arrival Severity: reports: moderate Pain Location: reports: face Method of Injury: Yes: fall Modifying Factors: improves with: None Loss of Consciousness: unsure Associated Symptoms (Fall): denies symptoms Past History - Travel Traveled outside of the country in the last 30 days: No Close contact w/someone who was outside of country & ill: No - Past Medical History Allergies/Adverse Reactions: Allergies Allergy/AdvReac Type Severity Reaction Status Date / Time No Known Allergies Allergy Verified 01/13/17 11:34 Home Medications: Ambulatory Orders Aspirin [ASA -] 81 mg PO DAILY 07/03/16 Atorvastatin Ca [Lipitor] 40 mg PO HS #30 tablet 07/03/16 Ascorbic Acid [Vitamin C -] 500 mg PO DAILY tablet 10/19/16 Clopidogrel Bisulfate [Plavix -] 75 mg PO DAILY #30 tablet 10/19/16 Ferrous Sulfate [Feosol] 325 mg PO DAILY #30 tab 10/19/16 Losartan Potassium [Cozaar -] 25 mg PO DAILY #30 tablet 10/19/16 Metoprolol Succinate [Toprol XL -] 12.5 mg PO DAILY #30 tab.sr 10/19/16 Spironolactone [Aldactone -] 25 mg PO DAILY #30 tablet 10/19/16 Anemia: No Asthma: No 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) CVA: No COPD: No CHF: No Dementia: No Diabetes: No GI Disorders: Yes (small bowel obstruction) Disorders: No HTN: Yes Hypercholesterolemia: Yes Kidney Stones: No (renal failure) Liver Disease: No Seizures: No Thyroid Disease: No - Surgical History Abdominal Surgery: Yes (sbo) Appendectomy: No Cardiac Surgery: No Cholecystectomy: No Lung Surgery: No Neurologic Surgery: No Orthopedic Surgery: No - Immunization History Immunization Up to Date: Yes - Psycho/Social/Smoking Cessation Hx Anxiety: No Suicidal Ideation: No Smoking History: Never smoked Have you smoked in the past 12 months: No 'Breaking Loose' booklet given: 07/01/15 Hx Alcohol Use: No Drug/Substance Use Hx: No Substance Use Type: None Hx Substance Use Treatment: No Patient Lives Alone: No Lives with/in: nephew Review of Systems - Review of Systems Able to Perform ROS?: No Is the patient limited Macedonian proficient: No Constitutional: No: Symptoms Reported HEENTM: No: Symptoms Reported, Eye Pain, Blurred Vision Respiratory: No: Symptoms reported Cardiac (ROS): No: Symptoms Reported ABD/GI: No: Symptoms Reported : No: Symptoms Reported Musculoskeletal: No: Symptoms Reported Integumentary: Yes: Bruising, Lumps Neurological: No: Headache, Weakness, Dizziness Endocrine: No: Symptoms Reported Hematologic/Lymphatic: No: Symptoms Reported *Physical Exam - Vital Signs Last Vital Signs Temp Pulse Resp BP Pulse Ox 97.8 F 91 H 20 151/66 100 01/13/17 11:29 01/13/17 11:29 01/13/17 11:29 01/13/17 11:29 01/13/17 11:29 - Physical Exam General Appearance: Yes: Nourished, Appropriately Dressed. No: Apparent Distress HEENT: positive: EOMI, ANITA, TMs Normal, Pharynx Normal. negative: Pale Conjunctivae Neck: positive: Supple. negative: Tender, Decreased range of motion Respiratory/Chest: positive: Lungs Clear, Normal Breath Sounds. negative: Respiratory Distress, Accessory Muscle Use Cardiovascular: positive: Regular Rhythm, Regular Rate. negative: Murmur Extremity: positive: Normal Capillary Refill. negative: Pedal Edema Integumentary: positive: Warm, Ecchymosis (with hematoma over right eyebrow) Neurologic: positive: Normal Mood/Affect, Motor Strength 5/5 (ambulatory) Procedures - Laceration/Wound Repair Right Face Wound Length: to 2.5 cm Wound Explored: clean Wound's Depth, Shape: linear Irrigated w/ Saline: Yes Betadine Prep: Yes Anesthesia: 1% Lidocaine Amount of Anesthetic (ccs): 1 Wound Debrided: minimal Wound Repaired With: Sutures Suture Size/Type: 4:0 Number of Deep Layer Sutures: 5 Sterile Dressing Applied: Yes Heart Score/ECG Review - ECG Intrepretation Rhythm: Regular Rhythm (A flutter with right bundle branch block. Rate 69. Unchanged from previous 11/03) ED Treatment Course - LABORATORY CBC & Chemistry Diagram: 01/13/17 12:22 01/13/17 12:22 - RADIOLOGY Radiology Studies Ordered: Category Date Time Status CERVICAL SPINE CT W/O CONTR [CT] Stat CT Scan 01/13/17 12:[address] W/O CONTRAST [CT] Stat CT Scan 01/13/17 12:[address] WITHOUT CONTRAST [CT] Stat CT Scan 01/13/17 12:13 Ordered Medical Decision Making - Medical Decision Making 01/13/17 13:08 Patient status questionable post mechanical fall sustaining rt forehead laceration. Patient unsure if he lost consciousness prior to the fall but does state Coumadin for hitting the ground and getting up immediately. Due to patient 's history of incident patient will have cardiac workup including a head facial and neck CT. Patient also had additional labs including urinalysis, and tetanus. 01/13/17 13:19 Laboratory Tests 01/13/17 01/13/17 12:22 12:22 WBC 11.3 H D Hgb 8.3 L Hct 27.4 L Plt Count 444 H D Anion Gap 7 L Random Glucose 116 H Calcium 8.3 L AST 24 ALT 28 Creatine Kinase 40 Albumin 2.9 L D 01/13/17 14:31 Head, cervical and facial CT negative. Case discussed with hospitalist accepted to telemetry observation under Dr. Schaeffer. Sutures to the right forehead done without difficulty. *DC/Admit/Observation/Transfer Diagnosis at time of Disposition: Closed head injury Qualifiers: Encounter type: initial encounter Qualified Code(s): S09.90XA - Unspecified injury of head, initial encounter Syncope Qualifiers: Syncope type: unspecified Qualified Code(s): R55 - Syncope and collapse Forehead laceration Qualifiers: Encounter type: initial encounter Qualified Code(s): S01.81XA - Laceration without foreign body of other part of head, initial encounter - Discharge Dispostion Admit: Yes - Referrals
[2017-01-13 12:55] LABS: ALBUMIN 2.9 g/dl (3.4-5.0); ANION GAP 7 (8-16); BILIRUBIN,TOTAL 0.3 mg/dL (0.2-1.0); CALCIUM 8.3 mg/dL (8.5-10.1); CO2 24 mmol/L (21-32); CREATININE 1.2 mg/dL (0.7-1.3); GLUCOSE,RANDOM 116 mg/dL (74-106); SGOT/AST 24 U/L (15-37); SGPT/ALT 28 U/L (12-78); TOT PROT 6.6 g/dl (6.4-8.2)
[2017-01-13 12:58] LABS: ALK PHOS 111 U/L (45-117); CPK 40 IU/L (39-308); TROPONIN I 0.03 ng/ml (0.00-0.05)
--- NOTE | 2017-01-13 14:28 | PN ---
Teaching Attending Note ATTENDING PHYSICIAN STATEMENT I saw and evaluated the patient. I reviewed the resident's note and discussed the case with the resident. I agree with the resident's findings and plan as documented. SUBJECTIVE: OBJECTIVE: ASSESSMENT AND PLAN:
[2017-01-13 16:07] VITALS: BMI 24.3
[2017-01-13 16:23] LABS: INR 1.12 (0.82-1.09); PROTHROMBIN TIME (PATIENT) 12.4 SEC (9.98-11.88)
--- NOTE | 2017-01-13 16:52 | CON.CARD ---
Consult Consult Specialty:: Cardiology - History of Present Illness Chief Complaint: S/P Fall History of Present Illness: This is an 86 year old male who presents with facial trauma after a mechanical fall, hitting a dresser with his forehead on the way down. He stated to me that he did no had LOC. Currently he takes a baby aspirin. Presently he denies chest pain, palpitations and SOB. 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 Noted on EKG to be in atrial flutter, with RBBB, with variable AV conduction at a rate of 69 BPM. Last admitted and DC 10/19/16 where me had a GI bleed secondary to malignancy at a prior GI anastamosis site and was treated in the ICU for a PEA arrest and cardiogenic shock. He was noted to be in atrial flutter at that time. 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 Travel: No Home Medications - Allergies Allergies/Adverse Reactions: Allergies Allergy/AdvReac Type Severity Reaction Status Date / Time No Known Allergies Allergy Verified 01/13/17 11:34 - Home Medications Home Medications: Ambulatory Orders Aspirin [ASA -] 81 mg PO DAILY 07/03/16 Atorvastatin Ca [Lipitor] 40 mg PO HS #30 tablet 07/03/16 Ascorbic Acid [Vitamin C -] 500 mg PO DAILY tablet 10/19/16 Clopidogrel Bisulfate [Plavix -] 75 mg PO DAILY #30 tablet 10/19/16 Ferrous Sulfate [Feosol] 325 mg PO DAILY #30 tab 10/19/16 Losartan Potassium [Cozaar -] 25 mg PO DAILY #30 tablet 10/19/16 Metoprolol Succinate [Toprol XL -] 12.5 mg PO DAILY #30 tab.sr 10/19/16 Spironolactone [Aldactone -] 25 mg PO DAILY #30 tablet 10/19/16 Family Disease History - Family Disease History Family Disease History: Heart Disease: Brother (CABG,lung ca), CA: Father (lung ca), Mother (ca ? type), Brother Review of Systems Unable to obtain ROS, reason: As per HPI Vital Signs: Vital Signs Temperature 98 F 01/13/17 16:00 Pulse Rate 88 01/13/17 16:00 Respiratory Rate 20 01/13/17 16:00 Blood Pressure 152/60 01/13/17 16:00 O2 Sat by Pulse Oximetry (%) 100 01/13/17 16:35 Constitutional: Yes: No Distress HENT: Yes: Other (Large area of ecchymosis involving the right eye.) Respiratory: Yes: CTA Bilaterally Gastrointestinal: Yes: Soft Cardiovascular: Yes: Pulse Irregular Heart Sounds: Yes: S1, S2 (No MRHG) Edema: No Neurological: Yes: Alert, Oriented (Grossly non focal) Psychiatric: Yes: WNL - Other Data Labs, Other Data: INR, PTT INR 1.12 (0.82-1.09) 01/13/17 12:22 Assessment/Plan S/P Mechanical Fall No LOC Atrial Flutter - No AC at this time, continue metoprolol XL 12.5 mg daily Last Echocardiogram 10/09/16 EF 44.9% Continue CHF meds: Metoprolol Succinate [Toprol XL -] 12.5 mg PO DAILY. Spironolactone [Aldactone -] 25 mg PO DAILY Losartan Potassium [Cozaar -] 25 mg PO DAILY Will follow with you
--- NOTE | 2017-01-13 17:49 | HP ---
CHIEF COMPLAINT: Fall with facial trauma PCP: HISTORY OF PRESENT ILLNESS: Patient is a 86 year old male who presents to the ED today with facial trauma after a mechanical fall hitting his forehead. He denies any loss of consciousness, dizziness, chest pain, palpitations or shortness of breath. He has a past medical history of colon cancer diagnosed in 2014 s/p resection, GI bleed secondary to malignancy, systolic CHF, CAD, HTN, HLD and colon cancer s/p subtotal colectomy (2014) with anastomotic recurrence (2015). On September 2016 he was in the ICU for PEA arrest and cardiogenic shock. ER course was notable for: (1) EKG with atrial flutter, RBBB (2) WBC 11.3 (3) Hmg/Hct: 8.3/27.4 (4) Trop 0.03 (5) CPK 40 (6) Cervical spine CT w/o contrast: no fracture or dislocation seen. Facial bone CT: no evidence of fracture. Head CT: No acute pathology Recent Travel: na PAST MEDICAL/SURGICAL HISTORY: colon cancer diagnosed in 2014 s/p resection, GI bleed secondary to malignancy, systolic CHF, CAD, HTN, HLD and colon cancer s/p subtotal colectomy (2014) with anastomotic recurrence (2015). Social History: Smoking: n/a Alcohol: n/a Drugs: n/a Family History: Allergies No Known Allergies Allergy (Verified 01/13/17 11:34) HOME MEDICATIONS: Home Medications Medication Instructions Recorded Aspirin [ASA -] 81 mg PO DAILY 07/03/16 Atorvastatin Ca [Lipitor] 40 mg PO HS #30 tablet 07/03/16 Ascorbic Acid [Vitamin C -] 500 mg PO DAILY tablet 10/19/16 Clopidogrel Bisulfate [Plavix -] 75 mg PO DAILY #30 tablet 10/19/16 Ferrous Sulfate [Feosol] 325 mg PO DAILY #30 tab 10/19/16 Losartan Potassium [Cozaar -] 25 mg PO DAILY #30 tablet 10/19/16 Metoprolol Succinate [Toprol XL -] 12.5 mg PO DAILY #30 tab.sr 10/19/16 Spironolactone [Aldactone -] 25 mg PO DAILY #30 tablet 10/19/16 REVIEW OF SYSTEMS CONSTITUTIONAL: Absent: fever, chills, diaphoresis, generalized weakness, malaise, loss of appetite, weight change HEENT: Absent: rhinorrhea, nasal congestion, throat pain, throat swelling, difficulty swallowing, mouth swelling, ear pain, eye pain, visual changes CARDIOVASCULAR: Absent: chest pain, syncope, palpitations, irregular heart rate, lightheadedness , peripheral edema RESPIRATORY: Absent: cough, shortness of breath, dyspnea with exertion, orthopnea, wheezing, stridor, hemoptysis GASTROINTESTINAL: Absent: abdominal pain, abdominal distension, nausea, vomiting, diarrhea, constipation, melena, hematochezia GENITOURINARY: Absent: dysuria, frequency, urgency, hesitancy, hematuria, flank pain, genital pain MUSCULOSKELETAL: Absent: myalgia, arthralgia, joint swelling, back pain, neck pain HEMATOLOGIC/IMMUNOLOGIC: Absent: easy bleeding, easy bruising, lymphadenopathy, frequent infections ENDOCRINE: Absent: unexplained weight gain, unexplained weight loss, heat intolerance, cold intolerance PSYCHIATRIC: Absent: anxiety, depression, suicidal or homicidal ideation, hallucinations. PHYSICAL EXAMINATION Vital Signs - 24 hr 01/13/17 01/13/17 01/13/17 14:39 15:25 15:30 Temperature 98.1 F Pulse Rate 86 Pulse Rate [ 72 Apical] Pulse Rate [ 92 H Right side Standing] Pulse Rate [ 88 Right side Supine] Respiratory 18 18 Rate Blood Pressure 129/61 Blood Pressure 140/68 [Right Arm] Blood Pressure 146/66 [Right side Standing] Blood Pressure 150/71 [Right side Supine] O2 Sat by Pulse 100 Oximetry (%) 01/13/17 01/13/17 16:00 16:35 Temperature 98 F Pulse Rate 88 Pulse Rate [ Apical] Pulse Rate [ Right side Standing] Pulse Rate [ Right side Supine] Respiratory 20 Rate Blood Pressure 152/60 Blood Pressure [Right Arm] Blood Pressure [Right side Standing] Blood Pressure [Right side Supine] O2 Sat by Pulse 100 Oximetry (%) GENERAL: Awake, alert, and fully oriented, in no acute distress. HEAD: right forehead laceration above right eye, superficial soft tissue edema along the right forehead extending along superior orbital region. Patient denies any right eye visual defect EYES: No trauma noted to the right eye, denies eye pain, sclera clear: no drainage EARS, NOSE, THROAT: Ears normal, nares patent, oropharynx clear without exudates. Moist mucous membranes. NECK: Normal range of motion, supple without lymphadenopathy, JVD, or masses. LUNGS: +crackles on left lung base, right lung clear HEART: irregular heart rate, atrial flutter ABDOMEN: large surgical scar MUSCULOSKELETAL: Normal range of motion at all joints. No bony deformities or tenderness. No CVA tenderness. UPPER EXTREMITIES: 2+ pulses, warm, well-perfused. No cyanosis. No clubbing. No peripheral edema. LOWER EXTREMITIES: 2+ pulses, warm, well-perfused. No calf tenderness. No peripheral edema. NEUROLOGICAL: Normal speech PSYCHIATRIC: Cooperative. Appropriate mood and affect. ASSESSMENT/PLAN: Patient is a 86 year old male who presents to the ED today with facial trauma after a mechanical fall hitting his forehead. He denies any loss of consciousness, dizziness, chest pain, palpitations or shortness of breath. He has a past medical history of colon cancer diagnosed in 2014 s/p resection, GI bleed secondary to malignancy, systolic CHF, CAD, HTN, HLD and colon cancer s/p subtotal colectomy (2014) with anastomotic recurrence (2015). On September 2016 he was in the ICU for PEA arrest and cardiogenic shock. Muscular/Skeletal: Facial trauma with right forehead laceration above right eye - acute Superficial soft tissue edema along the right forehead>superior orbital region A/P: Cervical spine CT w/o contrast: no fracture or dislocation seen. Facial bone CT: no evidence of fracture. Head CT: No acute pathology Cool compresses to right facial trauma Does not appear to have any trauma to the eye, denies any vision problems, denies eye pain, sclera clear no redness or drainage Consider ophthalmology consult if eye symptoms occur Hematology: Leukocytosis - acute A/P: No signs of infection, remains afebrile Blood and urine cultures ordered, UA pending Monitor vitals/labs Anemia - chronic A/P: monitor hmg/hct with daily CBC transfuse if <7 Cardiology: Systolic CHF/Hypertension A/P On Metoprolol Succinate 12.5 mg, Spironolactone 25 mg daily, Losartan Potassium 25 mg PO daily Also on ASA and Plavix Monitor orthostatics Trend troponins 0.03>0.61> await 3rd trop Continue tele Atrial Flutter A/P: On no anticoags at this time secondary to recent GI bleed Cardiology following CAD - chronic A/P: On Plavix and ASA Last echo 10/09/2016 F.E.N. Fluids: tolerating PO Electrolytes: Monitor Nutrition: low sodium diet Prophylaxis: SCDs: no anticoag 2/2 to anemia and recent GI bleed GI: Protonix Disposition: Requires telemonitoring. Full code. Visit type - Emergency Visit Emergency Visit: Yes ED Registration Date: 01/13/17 Care time: The patient presented to the Emergency Department on the above date and was hospitalized for further evaluation of their emergent condition. - New Patient This patient is new to me today: Yes Date on this admission: 01/13/17 - Critical Care Critical Care patient: No
[2017-01-13 18:14] LABS: URINE APPEARANCE CLEAR; URINE BILIRUBIN NEGATIVE (NEGATIVE); URINE BLOOD NEGATIVE (NEGATIVE); URINE COLOR LTYELLOW; URINE GLUCOSE (UA) NEGATIVE (NEGATIVE); URINE KETONE NEGATIVE (NEGATIVE); URINE LEUK ESTERASE NEGATIVE (NEGATIVE); URINE NITRITE NEGATIVE (NEGATIVE); URINE PROTEIN NEGATIVE (NEGATIVE); URINE UROBILINOGEN NEGATIVE mg/dL (0.2-1.0)
[2017-01-13] MEDS: ATORVASTATIN CA 40 MG TABLET (FP) PO SCH (21:14)
[2017-01-14] MEDS: METOPROLOL SUCCINATE 25 MG TAB.SR.24H (FP) PO SCH (09:58)
[2017-01-14] MEDS: ASPIRIN 81 MG CHEWABLE TABLETS PO SCH (09:58)
[2017-01-14] MEDS: CLOPIDOGREL BISULFATE 75 MG TABLET (FP) PO SCH (09:58)
[2017-01-14] MEDS: FERROUS SO4 325 MG TABLET (FP) PO SCH (09:58)
[2017-01-14] MEDS: ASCORBIC ACID 500 MG TABLET (FP) PO SCH (09:58)
[2017-01-14] MEDS: SPIRONOLACTONE 25 MG TABLET (FP) PO SCH (11:58)
[2017-01-14] MEDS: LOSARTAN POTASSIUM 25 MG TABLET PO SCH (11:58)
--- NOTE | 2017-01-14 12:32 | PN ---
Progress Note, Physician Chief Complaint: Mr Parker is without complain. No cp, sob, n/v. Says pain around his eye is controlled. - Current Medication List Current Medications: Active Medications Ascorbic Acid (Vitamin C -) 500 mg PO DAILY [facility] Last Admin: 01/14/17 09:58 Dose: 500 mg Aspirin (Asa -) 81 mg PO DAILY [facility] Last Admin: 01/14/17 09:58 Dose: 81 mg Atorvastatin Calcium (Lipitor -) 40 mg PO HS [facility] Last Admin: 01/13/17 21:14 Dose: 40 mg Clopidogrel Bisulfate (Plavix -) 75 mg PO DAILY [facility] Last Admin: 01/14/17 09:58 Dose: 75 mg Ferrous Sulfate (Feosol -) 325 mg PO DAILY [facility] Last Admin: 01/14/17 09:58 Dose: 325 mg Losartan Potassium (Cozaar -) 25 mg PO DAILY [facility] Last Admin: 01/14/17 11:58 Dose: 25 mg Metoprolol Succinate (Toprol Xl -) 12.5 mg PO DAILY [facility] Last Admin: 01/14/17 09:58 Dose: 12.5 mg Spironolactone (Aldactone -) 25 mg PO DAILY [facility] Last Admin: 01/14/17 11:58 Dose: 25 mg - Objective Vital Signs: Vital Signs Temperature 36.6 C 01/14/17 09:00 Pulse Rate 84 01/14/17 11:56 Respiratory Rate 20 01/14/17 11:56 Blood Pressure 108/56 01/14/17 11:56 O2 Sat by Pulse Oximetry (%) 99 01/14/17 07:00 Constitutional: Yes: Well Nourished, No Distress, Calm Eyes: Yes: Other (R periorbital bruising without eye involvement) Cardiovascular: Yes: Regular Rate and Rhythm. No: Gallop, Murmur, Rub Respiratory: Yes: Regular, CTA Bilaterally. No: Rales, Rhonchi, Wheezes Gastrointestinal: Yes: Normal Bowel Sounds, Soft. No: Distention, Tenderness Extremities: Yes: WNL Edema: No Labs: INR, PTT INR 1.12 (0.82-1.09) 01/13/17 12:22 Problem List - Problems (1) Elevated troponin Assessment/Plan: -found to have elevated troponin on labs -asymptomatic -continue medical management -cardiology following Code(s): R74.8 - ABNORMAL LEVELS OF OTHER SERUM ENZYMES (2) Closed head injury Assessment/Plan: -secondary to fall -stable -PT consulted Code(s): S09.90XA - UNSPECIFIED INJURY OF HEAD, INITIAL ENCOUNTER Qualifiers: Encounter type: subsequent encounter Qualified Code(s): S09.90XD - Unspecified injury of head, subsequent encounter (3) Forehead laceration Assessment/Plan: -s/p repair Code(s): S01.81XA - LACERATION W/O FOREIGN BODY OF OTH PART OF HEAD, INIT ENCNTR Qualifiers: Encounter type: initial encounter Qualified Code(s): S01.81XA - Laceration without foreign body of other part of head, initial encounter (4) Anemia in chronic illness Assessment/Plan: -stable -at baseline Code(s): D63.8 - ANEMIA IN OTHER CHRONIC DISEASES CLASSIFIED ELSEWHERE (5) Atrial flutter Assessment/Plan: -continue current management -not able to anticoagulate secondary to GI bleed and now a fall Code(s): I48.92 - UNSPECIFIED ATRIAL FLUTTER Qualifiers: Atrial flutter type: atypical Qualified Code(s): I48.4 - Atypical atrial flutter (6) Coronary artery disease Assessment/Plan: -with elevated troponin -cardiology evaluating Code(s): I25.10 - ATHSCL HEART DISEASE OF [place] CORONARY ARTERY W/O ANG PCTRS Qualifiers: Coronary Disease-Associated Artery/Lesion type: [place] artery [place] vs. transplanted heart: [place] heart Associated angina: angina presence unspecified Qualified Code(s): I25.10 - Atherosclerotic heart disease of [place] coronary artery without angina pectoris (7) HTN (hypertension) Assessment/Plan: -well controlled -monitor -continue current management Code(s): I10 - ESSENTIAL (PRIMARY) HYPERTENSION Qualifiers: Hypertension type: essential hypertension Qualified Code(s): I10 - Essential (primary) hypertension (8) Hyperlipidemia Assessment/Plan: -continue statin Code(s): E78.5 - HYPERLIPIDEMIA, UNSPECIFIED Qualifiers: Hyperlipidemia type: pure hypercholesterolemia Qualified Code(s): E78.00 - Pure hypercholesterolemia, unspecified; E78.0 - Pure hypercholesterolemia
[2017-01-14 13:03] LABS: MCH 26.5 pg (25.7-33.7); MCHC 30.9 g/dl (32.0-35.9); MEAN CELL VOLUME 85.5 fl (80-96); MEAN PLT VOLUME 7.6 fl (7.5-11.1); PLATELET COUNT 367 K/MM3 (134-434); RDW 14.1 % (11.9-15.9); WHITE BLOOD COUNT 8.4 K/mm3 (4.0-10.0)
--- NOTE | 2017-01-14 15:01 | PN ---
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 He stated to me that he did no had LOC. Currently he takes a baby aspirin. Presently he denies chest pain, palpitations and SOB. 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 Noted on EKG to be in atrial flutter, with RBBB, with variable AV conduction at a rate of 69 BPM. Last admitted and DC 10/19/16 where me had a GI bleed secondary to malignancy at a prior GI anastamosis site and was treated in the ICU for a PEA arrest and cardiogenic shock. He was noted to be in atrial flutter at that time. - Current Medication List Current Medications: Active Medications Ascorbic Acid (Vitamin C -) 500 mg PO DAILY [facility] Last Admin: 01/14/17 09:58 Dose: 500 mg Aspirin (Asa -) 81 mg PO DAILY [facility] Last Admin: 01/14/17 09:58 Dose: 81 mg Atorvastatin Calcium (Lipitor -) 40 mg PO HS [facility] Last Admin: 01/13/17 21:14 Dose: 40 mg Clopidogrel Bisulfate (Plavix -) 75 mg PO DAILY [facility] Last Admin: 01/14/17 09:58 Dose: 75 mg Ferrous Sulfate (Feosol -) 325 mg PO DAILY [facility] Last Admin: 01/14/17 09:58 Dose: 325 mg Losartan Potassium (Cozaar -) 25 mg PO DAILY [facility] Last Admin: 01/14/17 11:58 Dose: 25 mg Metoprolol Succinate (Toprol Xl -) 12.5 mg PO DAILY [facility] Last Admin: 01/14/17 09:58 Dose: 12.5 mg Spironolactone (Aldactone -) 25 mg PO DAILY [facility] Last Admin: 01/14/17 11:58 Dose: 25 mg - Objective Vital Signs: Vital Signs Temperature 98.0 F 01/14/17 13:59 Pulse Rate 58 L 01/14/17 13:59 Respiratory Rate 20 01/14/17 11:56 Blood Pressure 112/48 01/14/17 13:59 O2 Sat by Pulse Oximetry (%) 99 01/14/17 07:00 Constitutional: Yes: No Distress Cardiovascular: Yes: Pulse Irregular, S1, S2. No: Regular Rate and Rhythm, JVD , Murmur Respiratory: Yes: Rales (left base) Edema: No Labs: CBC, BMP 01/14/17 12:50 INR, PTT INR 1.12 (0.82-1.09) 01/13/17 12:22 Problem List - Problems (1) Acute on chronic systolic (congestive) heart failure Code(s): I50.23 - ACUTE ON CHRONIC SYSTOLIC (CONGESTIVE) HEART FAILURE (2) Atrial flutter Code(s): I48.92 - UNSPECIFIED ATRIAL FLUTTER Qualifiers: Atrial flutter type: atypical Qualified Code(s): I48.4 - Atypical atrial flutter (3) Coronary artery disease Code(s): I25.10 - ATHSCL HEART DISEASE OF [place] CORONARY ARTERY W/O ANG PCTRS Qualifiers: Coronary Disease-Associated Artery/Lesion type: [place] artery [place] vs. transplanted heart: [place] heart Associated angina: angina presence unspecified Qualified Code(s): I25.10 - Atherosclerotic heart disease of [place] coronary artery without angina pectoris Assessment/Plan This is an 86 year old male who presents with facial trauma after a mechanical fall, hitting a dresser with his forehead on the way down. Denies any LOC. No chest pain or palpitations. 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 Noted on EKG to be in atrial flutter, with RBBB, with variable AV conduction at a rate of 69 BPM. Last admitted and DC 10/19/16 where me had a GI bleed secondary to malignancy at a prior GI anastamosis site and was treated in the ICU for a PEA arrest and cardiogenic shock. He was noted to be in atrial flutter at that time. 1) CAD/NSTEMI -No cardiac complaints at this time. Elevated troponins today. Would check CK and trend cardiac enzymes. check bnp level. Known systolic CHF with LVEF 44% and LV wall motion abnormalities. NST in 2016 with partially reversible ischemia. -H/H trending down. Would continue aspirin. If possible continue clopidogrel. On statin and low dose beta ying. 2) Chronic systolic CHF Continue current chf regimen 3) Aflutter VR 50-70 on tele with no significant pauses On low dose beta ying Not a candidate for AC in past guven GI bleed due to GI malignancy.
[2017-01-14] MEDS ORDERED: FUROSEMIDE 40 MG/4 ML INJECTABLE VIAL IVPUSH ONE ×2 (16:27→23:45)
--- NOTE | 2017-01-14 19:02 | EKG ---
Test Reason : Blood Pressure : / mmHG Vent. Rate : 069 BPM Atrial Rate : 276 BPM P-R Int : 000 ms QRS Dur : 140 ms QT Int : 408 ms P-R-T Axes : -14 -55 087 degrees QTc Int : 437 ms ATRIAL FLUTTER WITH VARIABLE A-V BLOCK RIGHT BUNDLE BRANCH BLOCK LEFT ANTERIOR FASCICULAR BLOCK BIFASCICULAR BLOCK LEFT VENTRICULAR HYPERTROPHY WITH REPOLARIZATION ABNORMALITY ABNORMAL ECG WHEN COMPARED WITH ECG OF 18-OCT-2016 11:35, T WAVE INVERSION NO LONGER EVIDENT IN INFERIOR LEADS T WAVE VARIATION Confirmed by YAIMA DENT MD ([id number]) on 01/14/2017 7:02:41 PM Referred By: Confirmed By:YAIMA DENT MD
[2017-01-14] MEDS: ATORVASTATIN CA 40 MG TABLET (FP) PO SCH (21:30)
[2017-01-15 08:17] LABS: BASOPHIL 0.9 % (0-2.0); EOSINOPHIL 3.4 % (0-4.5); MCH 27.9 pg (25.7-33.7); MCHC 32.7 g/dl (32.0-35.9); MEAN CELL VOLUME 85.5 fl (80-96); MEAN PLT VOLUME 8.3 fl (7.5-11.1); NEUTROPHILS 66.8 % (42.8-82.8); PLATELET COUNT 322 K/MM3 (134-434); RDW 14.3 % (11.9-15.9); WHITE BLOOD COUNT 9.6 K/mm3 (4.0-10.0)
[2017-01-15 09:32] LABS: ANION GAP 10 (8-16); CALCIUM 8.1 mg/dL (8.5-10.1); CO2 25 mmol/L (21-32); CREATININE 0.9 mg/dL (0.7-1.3); GLUCOSE,RANDOM 94 mg/dL (74-106); PHOSPHOROUS 3.9 mg/dL (2.5-4.9)
[2017-01-15] MEDS: FERROUS SO4 325 MG TABLET (FP) PO SCH (09:44)
[2017-01-15] MEDS: CLOPIDOGREL BISULFATE 75 MG TABLET (FP) PO SCH (09:44)
[2017-01-15] MEDS: ASPIRIN 81 MG CHEWABLE TABLETS PO SCH (09:44)
[2017-01-15] MEDS: LOSARTAN POTASSIUM 25 MG TABLET PO SCH (09:44)
[2017-01-15] MEDS: METOPROLOL SUCCINATE 25 MG TAB.SR.24H (FP) PO SCH (09:44)
[2017-01-15] MEDS: ASCORBIC ACID 500 MG TABLET (FP) PO SCH (09:44)
[2017-01-15] MEDS: SPIRONOLACTONE 25 MG TABLET (FP) PO SCH (09:44)
--- NOTE | 2017-01-15 12:51 | PN ---
Progress Note, Physician Chief Complaint: Mr Parker is without complain. No cp, sob, n/v. - Current Medication List Current Medications: Active Medications Ascorbic Acid (Vitamin C -) 500 mg PO DAILY [facility] Last Admin: 01/15/17 09:44 Dose: 500 mg Aspirin (Asa -) 81 mg PO DAILY [facility] Last Admin: 01/15/17 09:44 Dose: 81 mg Atorvastatin Calcium (Lipitor -) 40 mg PO HS [facility] Last Admin: 01/14/17 21:30 Dose: 40 mg Clopidogrel Bisulfate (Plavix -) 75 mg PO DAILY [facility] Last Admin: 01/15/17 09:44 Dose: 75 mg Ferrous Sulfate (Feosol -) 325 mg PO DAILY [facility] Last Admin: 01/15/17 09:44 Dose: 325 mg Losartan Potassium (Cozaar -) 25 mg PO DAILY [facility] Last Admin: 01/15/17 09:44 Dose: 25 mg Metoprolol Succinate (Toprol Xl -) 12.5 mg PO DAILY [facility] Last Admin: 01/15/17 09:44 Dose: 12.5 mg Spironolactone (Aldactone -) 25 mg PO DAILY [facility] Last Admin: 01/15/17 09:44 Dose: 25 mg - Objective Vital Signs: Vital Signs Temperature 37.0 C 01/15/17 09:45 Pulse Rate 60 01/15/17 09:45 Respiratory Rate 18 01/15/17 09:45 Blood Pressure 102/52 01/15/17 09:45 O2 Sat by Pulse Oximetry (%) 98 01/15/17 07:00 Constitutional: Yes: Well Nourished, No Distress, Calm Eyes: Yes: Other (periorbital bruising) Cardiovascular: Yes: Regular Rate and Rhythm. No: Gallop, Murmur, Rub Respiratory: Yes: Regular, CTA Bilaterally. No: Rales, Rhonchi, Wheezes Gastrointestinal: Yes: Normal Bowel Sounds, Soft. No: Distention, Tenderness Extremities: Yes: WNL Edema: No Labs: CBC, BMP 01/15/17 06:05 01/15/17 06:05 INR, PTT INR 1.12 (0.82-1.09) 01/13/17 12:22 Problem List - Problems (1) Elevated troponin Code(s): R74.8 - ABNORMAL LEVELS OF OTHER SERUM ENZYMES (2) Closed head injury Code(s): S09.90XA - UNSPECIFIED INJURY OF HEAD, INITIAL ENCOUNTER Qualifiers: Encounter type: subsequent encounter Qualified Code(s): S09.90XD - Unspecified injury of head, subsequent encounter (3) Forehead laceration Code(s): S01.81XA - LACERATION W/O FOREIGN BODY OF OTH PART OF HEAD, INIT ENCNTR Qualifiers: Encounter type: initial encounter Qualified Code(s): S01.81XA - Laceration without foreign body of other part of head, initial encounter (4) Anemia in chronic illness Code(s): D63.8 - ANEMIA IN OTHER CHRONIC DISEASES CLASSIFIED ELSEWHERE (5) Atrial flutter Code(s): I48.92 - UNSPECIFIED ATRIAL FLUTTER Qualifiers: Atrial flutter type: atypical Qualified Code(s): I48.4 - Atypical atrial flutter (6) Coronary artery disease Code(s): I25.10 - ATHSCL HEART DISEASE OF [place] CORONARY ARTERY W/O ANG PCTRS Qualifiers: Coronary Disease-Associated Artery/Lesion type: [place] artery [place] vs. transplanted heart: [place] heart Associated angina: angina presence unspecified Qualified Code(s): I25.10 - Atherosclerotic heart disease of [place] coronary artery without angina pectoris (7) HTN (hypertension) Code(s): I10 - ESSENTIAL (PRIMARY) HYPERTENSION Qualifiers: Hypertension type: essential hypertension Qualified Code(s): I10 - Essential (primary) hypertension (8) Hyperlipidemia Code(s): E78.5 - HYPERLIPIDEMIA, UNSPECIFIED Qualifiers: Hyperlipidemia type: pure hypercholesterolemia Qualified Code(s): E78.00 - Pure hypercholesterolemia, unspecified; E78.0 - Pure hypercholesterolemia Assessment/Plan (1) Elevated troponin Assessment/Plan: -cardiology following and note reviewed -agree that if has GI bleeding should stop antiplatelet therapy -however with fall and ecchymosis, possible anemia is not GI but from fall -continue medical management Code(s): R74.8 - ABNORMAL LEVELS OF OTHER SERUM ENZYMES (2) Closed head injury Assessment/Plan: -secondary to fall -stable -PT consulted Code(s): S09.90XA - UNSPECIFIED INJURY OF HEAD, INITIAL ENCOUNTER Qualifiers: Encounter type: subsequent encounter Qualified Code(s): S09.90XD - Unspecified injury of head, subsequent encounter (3) Forehead laceration Assessment/Plan: -s/p repair Code(s): S01.81XA - LACERATION W/O FOREIGN BODY OF OTH PART OF HEAD, INIT ENCNTR Qualifiers: Encounter type: initial encounter Qualified Code(s): S01.81XA - Laceration without foreign body of other part of head, initial encounter (4) Anemia in chronic illness Assessment/Plan: -had drop in H/H -suspect acute blood loss -transfused with proper response -recheck in am -if stable, secondary to fall and no further evaluation needed -if decreases, will evaluate for GI bleed Code(s): D63.8 - ANEMIA IN OTHER CHRONIC DISEASES CLASSIFIED ELSEWHERE (5) Atrial flutter Assessment/Plan: -continue current management -not able to anticoagulate secondary to GI bleed and now a fall Code(s): I48.92 - UNSPECIFIED ATRIAL FLUTTER Qualifiers: Atrial flutter type: atypical Qualified Code(s): I48.4 - Atypical atrial flutter (6) Coronary artery disease Assessment/Plan: -continue medical management Code(s): I25.10 - ATHSCL HEART DISEASE OF [place] CORONARY ARTERY W/O ANG PCTRS Qualifiers: Coronary Disease-Associated Artery/Lesion type: [place] artery [place] vs. transplanted heart: [place] heart Associated angina: angina presence unspecified Qualified Code(s): I25.10 - Atherosclerotic heart disease of [place] coronary artery without angina pectoris (7) HTN (hypertension) Assessment/Plan: -well controlled -monitor -continue current management Code(s): I10 - ESSENTIAL (PRIMARY) HYPERTENSION Qualifiers: Hypertension type: essential hypertension Qualified Code(s): I10 - Essential (primary) hypertension (8) Hyperlipidemia Assessment/Plan: -continue statin Code(s): E78.5 - HYPERLIPIDEMIA, UNSPECIFIED Qualifiers: Hyperlipidemia type: pure hypercholesterolemia Qualified Code(s): E78.00 - Pure hypercholesterolemia, unspecified; E78.0 - Pure
--- NOTE | 2017-01-15 14:00 | PN ---
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 He stated to me that he did no had LOC. Currently he takes a baby aspirin. Presently he denies chest pain, palpitations and SOB. 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 Noted on EKG to be in atrial flutter, with RBBB, with variable AV conduction at a rate of 69 BPM. Last admitted and DC 10/19/16 where me had a GI bleed secondary to malignancy at a prior GI anastamosis site and was treated in the ICU for a PEA arrest and cardiogenic shock. He was noted to be in atrial flutter at that time. - Current Medication List Current Medications: Active Medications Ascorbic Acid (Vitamin C -) 500 mg PO DAILY [facility] Last Admin: 01/15/17 09:44 Dose: 500 mg Aspirin (Asa -) 81 mg PO DAILY [facility] Last Admin: 01/15/17 09:44 Dose: 81 mg Atorvastatin Calcium (Lipitor -) 40 mg PO HS [facility] Last Admin: 01/14/17 21:30 Dose: 40 mg Clopidogrel Bisulfate (Plavix -) 75 mg PO DAILY [facility] Last Admin: 01/15/17 09:44 Dose: 75 mg Ferrous Sulfate (Feosol -) 325 mg PO DAILY [facility] Last Admin: 01/15/17 09:44 Dose: 325 mg Losartan Potassium (Cozaar -) 25 mg PO DAILY [facility] Last Admin: 01/15/17 09:44 Dose: 25 mg Metoprolol Succinate (Toprol Xl -) 12.5 mg PO DAILY [facility] Last Admin: 01/15/17 09:44 Dose: 12.5 mg Spironolactone (Aldactone -) 25 mg PO DAILY [facility] Last Admin: 01/15/17 09:44 Dose: 25 mg - Objective Vital Signs: Vital Signs Temperature 98.2 F 01/15/17 13:48 Pulse Rate 66 01/15/17 13:48 Respiratory Rate 20 01/15/17 13:48 Blood Pressure 126/60 01/15/17 13:48 O2 Sat by Pulse Oximetry (%) 98 01/15/17 07:00 Constitutional: Yes: No Distress Neck: Yes: WNL Cardiovascular: Yes: Regular Rate and Rhythm, S1, S2. No: JVD Respiratory: Yes: Rales (minimal rales at left base) Gastrointestinal: Yes: WNL Edema: No Labs: CBC, BMP 01/15/17 06:05 01/15/17 06:05 INR, PTT INR 1.12 (0.82-1.09) 01/13/17 12:22 Problem List - Problems (1) Acute on chronic systolic (congestive) heart failure Code(s): I50.23 - ACUTE ON CHRONIC SYSTOLIC (CONGESTIVE) HEART FAILURE (2) Atrial flutter Code(s): I48.92 - UNSPECIFIED ATRIAL FLUTTER Qualifiers: Atrial flutter type: atypical Qualified Code(s): I48.4 - Atypical atrial flutter (3) Coronary artery disease Code(s): I25.10 - ATHSCL HEART DISEASE OF [place] CORONARY ARTERY W/O ANG PCTRS Qualifiers: Coronary Disease-Associated Artery/Lesion type: [place] artery [place] vs. transplanted heart: [place] heart Associated angina: angina presence unspecified Qualified Code(s): I25.10 - Atherosclerotic heart disease of [place] coronary artery without angina pectoris Assessment/Plan This is an 86 year old male who presents with facial trauma after a mechanical fall, hitting a dresser with his forehead on the way down. Denies any LOC. No chest pain or palpitations. 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 Noted on EKG to be in atrial flutter, with RBBB, with variable AV conduction at a rate of 69 BPM. Last admitted and DC 10/19/16 where me had a GI bleed secondary to malignancy at a prior GI anastamosis site and was treated in the ICU for a PEA arrest and cardiogenic shock. He was noted to be in atrial flutter at that time. 1) CAD/NSTEMI -No cardiac complaints at this time. Elevated troponins. Patient with known CAD and systolic CHF. Medical management Last echo with LVEF 44% and LV wall motion abnormalities. NST in 2016 with partially reversible ischemia. On statin and low dose beta ying. No events on telemetry -Patient is currently on aspirin and plavix. Has required multiple transfusions. If reason for dual antiplatelet agents is due to CAD and NSTEMI would consider stopping plavix given recurrent GI bleeding. Continue aspirin if possible but if ultimately needs to stop aspirin from GI perspective due to recurrent bleeding than would. 2) Chronic systolic CHF Continue current chf regimen Volume status stable on exam. 3) Aflutter On low dose beta ying Not a candidate for AC in past given GI bleed due to GI malignancy.
[2017-01-15] MEDS: ATORVASTATIN CA 40 MG TABLET (FP) PO SCH (21:03)
[2017-01-16 07:39] LABS: MCHC 32.4 g/dl (32.0-35.9); MEAN CELL VOLUME 86.2 fl (80-96); PLATELET COUNT 298 K/MM3 (134-434); RDW 14.2 % (11.9-15.9)
[2017-01-16 08:05] LABS: ANION GAP 8 (8-16); CALCIUM 7.9 mg/dL (8.5-10.1); CO2 26 mmol/L (21-32); CREATININE 0.9 mg/dL (0.7-1.3); GLUCOSE,RANDOM 111 mg/dL (74-106); PHOSPHOROUS 3.6 mg/dL (2.5-4.9)
--- NOTE | 2017-01-16 10:51 | PN ---
Progress Note, Physician Chief Complaint: Mr Parker is without complain. No cp, sob, n/v. - Current Medication List Current Medications: Active Medications Ascorbic Acid (Vitamin C -) 500 mg PO DAILY [facility] Last Admin: 01/15/17 09:44 Dose: 500 mg Aspirin (Asa -) 81 mg PO DAILY [facility] Last Admin: 01/15/17 09:44 Dose: 81 mg Atorvastatin Calcium (Lipitor -) 40 mg PO HS [facility] Last Admin: 01/15/17 21:03 Dose: 40 mg Ferrous Sulfate (Feosol -) 325 mg PO DAILY [facility] Last Admin: 01/15/17 09:44 Dose: 325 mg Losartan Potassium (Cozaar -) 25 mg PO DAILY [facility] Last Admin: 01/15/17 09:44 Dose: 25 mg Metoprolol Succinate (Toprol Xl -) 12.5 mg PO DAILY [facility] Last Admin: 01/15/17 09:44 Dose: 12.5 mg Spironolactone (Aldactone -) 25 mg PO DAILY [facility] Last Admin: 01/15/17 09:44 Dose: 25 mg - Objective Vital Signs: Vital Signs Temperature 37.0 C 01/16/17 05:44 Pulse Rate 65 01/16/17 05:44 Respiratory Rate 18 01/16/17 05:44 Blood Pressure 108/40 01/16/17 05:44 O2 Sat by Pulse Oximetry (%) 100 01/15/17 20:46 Constitutional: Yes: Well Nourished, No Distress, Calm Eyes: Yes: Other (R periorbital bruising, improved) Cardiovascular: Yes: Regular Rate and Rhythm. No: Gallop, Murmur, Rub Respiratory: Yes: Regular, CTA Bilaterally. No: Rales, Rhonchi, Wheezes Gastrointestinal: Yes: Normal Bowel Sounds, Soft. No: Distention, Tenderness Extremities: Yes: WNL Edema: No Labs: CBC, BMP 01/16/17 05:50 01/16/17 05:50 INR, PTT INR 1.12 (0.82-1.09) 01/13/17 12:22 Problem List - Problems (1) Elevated troponin Code(s): R74.8 - ABNORMAL LEVELS OF OTHER SERUM ENZYMES (2) Closed head injury Code(s): S09.90XA - UNSPECIFIED INJURY OF HEAD, INITIAL ENCOUNTER Qualifiers: Encounter type: subsequent encounter Qualified Code(s): S09.90XD - Unspecified injury of head, subsequent encounter (3) Forehead laceration Code(s): S01.81XA - LACERATION W/O FOREIGN BODY OF OTH PART OF HEAD, INIT ENCNTR Qualifiers: Encounter type: initial encounter Qualified Code(s): S01.81XA - Laceration without foreign body of other part of head, initial encounter (4) Anemia in chronic illness Code(s): D63.8 - ANEMIA IN OTHER CHRONIC DISEASES CLASSIFIED ELSEWHERE (5) Atrial flutter Code(s): I48.92 - UNSPECIFIED ATRIAL FLUTTER Qualifiers: Atrial flutter type: atypical Qualified Code(s): I48.4 - Atypical atrial flutter (6) Coronary artery disease Code(s): I25.10 - ATHSCL HEART DISEASE OF [place] CORONARY ARTERY W/O ANG PCTRS Qualifiers: Coronary Disease-Associated Artery/Lesion type: [place] artery [place] vs. transplanted heart: [place] heart Associated angina: angina presence unspecified Qualified Code(s): I25.10 - Atherosclerotic heart disease of [place] coronary artery without angina pectoris (7) HTN (hypertension) Code(s): I10 - ESSENTIAL (PRIMARY) HYPERTENSION Qualifiers: Hypertension type: essential hypertension Qualified Code(s): I10 - Essential (primary) hypertension (8) Hyperlipidemia Code(s): E78.5 - HYPERLIPIDEMIA, UNSPECIFIED Qualifiers: Hyperlipidemia type: pure hypercholesterolemia Qualified Code(s): E78.00 - Pure hypercholesterolemia, unspecified; E78.0 - Pure hypercholesterolemia Assessment/Plan (1) Elevated troponin Assessment/Plan: -cardiology following and note reviewed -stop plavix today -continue medical management otherwise Code(s): R74.8 - ABNORMAL LEVELS OF OTHER SERUM ENZYMES (2) Closed head injury Assessment/Plan: -secondary to fall -stable -PT consulted and note reviewed Code(s): S09.90XA - UNSPECIFIED INJURY OF HEAD, INITIAL ENCOUNTER Qualifiers: Encounter type: subsequent encounter Qualified Code(s): S09.90XD - Unspecified injury of head, subsequent encounter (3) Forehead laceration Assessment/Plan: -s/p repair Code(s): S01.81XA - LACERATION W/O FOREIGN BODY OF OTH PART OF HEAD, INIT ENCNTR Qualifiers: Encounter type: initial encounter Qualified Code(s): S01.81XA - Laceration without foreign body of other part of head, initial encounter (4) Anemia in chronic illness Assessment/Plan: -H/H continues to decrease -may be stabilizing -however may be GI bleed -will stop plavix and check stool for occult blood Code(s): D63.8 - ANEMIA IN OTHER CHRONIC DISEASES CLASSIFIED ELSEWHERE (5) Atrial flutter Assessment/Plan: -continue current management -not able to anticoagulate secondary to GI bleed and now a fall Code(s): I48.92 - UNSPECIFIED ATRIAL FLUTTER Qualifiers: Atrial flutter type: atypical Qualified Code(s): I48.4 - Atypical atrial flutter (6) Coronary artery disease Assessment/Plan: -continue medical management Code(s): I25.10 - ATHSCL HEART DISEASE OF [place] CORONARY ARTERY W/O ANG PCTRS Qualifiers: Coronary Disease-Associated Artery/Lesion type: [place] artery [place] vs. transplanted heart: [place] Associated angina: angina presence unspecified Qualified Code(s): I25.10 - Atherosclerotic heart disease of [place] coronary artery without angina pectoris (7) HTN (hypertension) Assessment/Plan: -well controlled -monitor -continue current management Code(s): I10 - ESSENTIAL (PRIMARY) HYPERTENSION Qualifiers: Hypertension type: essential hypertension Qualified Code(s): I10 - Essential (primary) hypertension (8) Hyperlipidemia Assessment/Plan: -continue statin Code(s): E78.5 - HYPERLIPIDEMIA, UNSPECIFIED Qualifiers: Hyperlipidemia type: pure hypercholesterolemia Qualified Code(s): E78.00 - Pure hypercholesterolemia, unspecified; E78.0 - Pure
[2017-01-16] MEDS: ASPIRIN 81 MG CHEWABLE TABLETS PO SCH (11:01)
[2017-01-16] MEDS: LOSARTAN POTASSIUM 25 MG TABLET PO SCH (11:01)
[2017-01-16] MEDS: SPIRONOLACTONE 25 MG TABLET (FP) PO SCH (11:01)
[2017-01-16] MEDS: FERROUS SO4 325 MG TABLET (FP) PO SCH (11:01)
[2017-01-16] MEDS: METOPROLOL SUCCINATE 25 MG TAB.SR.24H (FP) PO SCH (11:02)
[2017-01-16] MEDS: ASCORBIC ACID 500 MG TABLET (FP) PO SCH (11:02)
--- NOTE | 2017-01-16 15:31 | PN ---
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 He stated to me that he did no had LOC. Currently he takes a baby aspirin. Presently he denies chest pain, palpitations and SOB. 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 Noted on EKG to be in atrial flutter, with RBBB, with variable AV conduction at a rate of 69 BPM. Last admitted and DC 10/19/16 where me had a GI bleed secondary to malignancy at a prior GI anastamosis site and was treated in the ICU for a PEA arrest and cardiogenic shock. He was noted to be in atrial flutter at that time. - Current Medication List Current Medications: Active Medications Ascorbic Acid (Vitamin C -) 500 mg PO DAILY [facility] Last Admin: 01/16/17 11:02 Dose: 500 mg Aspirin (Asa -) 81 mg PO DAILY [facility] Last Admin: 01/16/17 11:01 Dose: 81 mg Atorvastatin Calcium (Lipitor -) 40 mg PO HS [facility] Last Admin: 01/15/17 21:03 Dose: 40 mg Ferrous Sulfate (Feosol -) 325 mg PO DAILY [facility] Last Admin: 01/16/17 11:01 Dose: 325 mg Losartan Potassium (Cozaar -) 25 mg PO DAILY [facility] Last Admin: 01/16/17 11:01 Dose: 25 mg Metoprolol Succinate (Toprol Xl -) 12.5 mg PO DAILY [facility] Last Admin: 01/16/17 11:02 Dose: 12.5 mg Spironolactone (Aldactone -) 25 mg PO DAILY [facility] Last Admin: 01/16/17 11:01 Dose: 25 mg - Objective Vital Signs: Vital Signs Temperature 98.1 F 01/16/17 13:45 Pulse Rate 68 01/16/17 13:45 Respiratory Rate 18 01/16/17 13:45 Blood Pressure 113/58 01/16/17 13:45 O2 Sat by Pulse Oximetry (%) 99 01/16/17 09:00 Constitutional: Yes: No Distress Cardiovascular: Yes: Regular Rate and Rhythm, S1, S2. No: JVD Respiratory: Yes: CTA Bilaterally Gastrointestinal: Yes: WNL Edema: No Labs: CBC, BMP 01/16/17 05:50 01/16/17 05:50 INR, PTT INR 1.12 (0.82-1.09) 01/13/17 12:22 Problem List - Problems (1) Acute on chronic systolic (congestive) heart failure Code(s): I50.23 - ACUTE ON CHRONIC SYSTOLIC (CONGESTIVE) HEART FAILURE (2) Atrial flutter Code(s): I48.92 - UNSPECIFIED ATRIAL FLUTTER Qualifiers: Atrial flutter type: atypical Qualified Code(s): I48.4 - Atypical atrial flutter (3) Coronary artery disease Code(s): I25.10 - ATHSCL HEART DISEASE OF [place] CORONARY ARTERY W/O ANG PCTRS Qualifiers: Coronary Disease-Associated Artery/Lesion type: [place] artery [place] vs. transplanted heart: [place] heart Associated angina: angina presence unspecified Qualified Code(s): I25.10 - Atherosclerotic heart disease of [place] coronary artery without angina pectoris Assessment/Plan This is an 86 year old male who presents with facial trauma after a mechanical fall, hitting a dresser with his forehead on the way down. Denies any LOC. No chest pain or palpitations. 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 Noted on EKG to be in atrial flutter, with RBBB, with variable AV conduction at a rate of 69 BPM. Last admitted and DC 10/19/16 where me had a GI bleed secondary to malignancy at a prior GI anastamosis site and was treated in the ICU for a PEA arrest and cardiogenic shock. He was noted to be in atrial flutter at that time. 1) CAD/NSTEMI -No cardiac complaints at this time. Elevated troponins. Patient with known CAD and systolic CHF. Medical management Last echo with LVEF 44% and LV wall motion abnormalities. NST in 2016 with partially reversible ischemia. On statin and low dose beta ying. No events on telemetry -Continue aspirin if possible but if ultimately needs to stop aspirin from GI perspective due to recurrent bleeding than would. 2) Chronic systolic CHF Continue current chf regimen Volume status stable on exam. 3) Aflutter On low dose beta ying Not a candidate for AC in past given GI bleed due to GI malignancy.
--- NOTE | 2017-01-16 20:13 | CON.GI ---
Consult Consult Specialty:: GI Referred by:: Dr Glover Reason for Consultation:: Positive FOBT - History of Present Illness Chief Complaint: S/P fall at home with head trauma History of Present Illness: 86 M with h/o colon ca diagnosed in 2014 with colon resection, recurrence at anastomosis and refused further treatment at that time. The issue was re- visited by Dr Ferrara in , 2016 at which time he was still reluctant to pursue definitive treatment. He also has a h/o CHF, CAD, HTN, now s/p fall at home with head trauma. Currently with elevated troponin. I am called for guaiac (+) stool and anemia. 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 Travel: No Home Medications - Allergies Allergies/Adverse Reactions: Allergies Allergy/AdvReac Type Severity Reaction Status Date / Time No Known Allergies Allergy Verified 01/13/17 11:34 - Home Medications Home Medications: Ambulatory Orders Aspirin [ASA -] 81 mg PO DAILY 07/03/16 Atorvastatin Ca [Lipitor] 40 mg PO HS #30 tablet 07/03/16 Ascorbic Acid [Vitamin C -] 500 mg PO DAILY tablet 10/19/16 Clopidogrel Bisulfate [Plavix -] 75 mg PO DAILY #30 tablet 10/19/16 Ferrous Sulfate [Feosol] 325 mg PO DAILY #30 tab 10/19/16 Losartan Potassium [Cozaar -] 25 mg PO DAILY #30 tablet 10/19/16 Metoprolol Succinate [Toprol XL -] 12.5 mg PO DAILY #30 tab.sr 10/19/16 Spironolactone [Aldactone -] 25 mg PO DAILY #30 tablet 10/19/16 Family Disease History - Family Disease History Family Disease History: Heart Disease: Brother (CABG,lung ca), CA: Father (lung ca), Mother (ca ? type), Brother Physical Exam-GI Vital Signs: Vital Signs Temperature 98.1 F 01/16/17 13:45 Pulse Rate 68 01/16/17 13:45 Respiratory Rate 18 01/16/17 13:45 Blood Pressure 113/58 01/16/17 13:45 O2 Sat by Pulse Oximetry (%) 99 01/16/17 09:00 Constitutional: Yes: Calm Eyes: Yes: Other (R periorbital ecchymosis) Respiratory: Yes: CTA Bilaterally ...Auscultate: Yes: Normoactive Bowel Sounds Labs: CBC, BMP 01/16/17 05:50 01/16/17 05:50 INR, PTT INR 1.12 (0.82-1.09) 01/13/17 12:22 Assessment/Plan Anemia and guaiac (+) stool secondary to untreated recurrent colonic malignancy. Based on his wishes, he wants no aggressive management Rec: Transfuse as needed to Hgb 9 Re-check troponin Please call if I can be of further assistance
[2017-01-16 22:36] LABS: TROPONIN I 0.07 ng/ml (0.00-0.05)
[2017-01-16] MEDS: ATORVASTATIN CA 40 MG TABLET (FP) PO SCH (23:16)
[2017-01-17 08:09] LABS: MCH 27.7 pg (25.7-33.7); MCHC 31.9 g/dl (32.0-35.9); MEAN CELL VOLUME 86.7 fl (80-96); MEAN PLT VOLUME 7.9 fl (7.5-11.1); NEUTROPHILS 66.5 % (42.8-82.8); PLATELET COUNT 313 K/MM3 (134-434); RDW 14.1 % (11.9-15.9); WHITE BLOOD COUNT 8.5 K/mm3 (4.0-10.0)
[2017-01-17 09:16] LABS: ANION GAP 4 (8-16); CALCIUM 8.6 mg/dL (8.5-10.1); CO2 29 mmol/L (21-32); CREATININE 0.9 mg/dL (0.7-1.3); GLUCOSE,RANDOM 93 mg/dL (74-106); MAGNESIUM 2.2 mg/dL (1.8-2.4); PHOSPHOROUS 3.6 mg/dL (2.5-4.9)
[2017-01-17] MEDS ORDERED: FUROSEMIDE 40 MG/4 ML INJECTABLE VIAL IVPUSH ONE (09:31)
[2017-01-17] MEDS: ASCORBIC ACID 500 MG TABLET (FP) PO SCH (10:10)
[2017-01-17] MEDS: METOPROLOL SUCCINATE 25 MG TAB.SR.24H (FP) PO SCH (10:10)
[2017-01-17] MEDS: LOSARTAN POTASSIUM 25 MG TABLET PO SCH (10:10)
[2017-01-17] MEDS: SPIRONOLACTONE 25 MG TABLET (FP) PO SCH (10:10)
[2017-01-17] MEDS: FERROUS SO4 325 MG TABLET (FP) PO SCH (10:10)
--- NOTE | 2017-01-17 13:45 | PN ---
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 He stated to me that he did no had LOC. Currently he takes a baby aspirin. Presently he denies chest pain, palpitations and SOB. 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 Noted on EKG to be in atrial flutter, with RBBB, with variable AV conduction at a rate of 69 BPM. Last admitted and DC 10/19/16 where me had a GI bleed secondary to malignancy at a prior GI anastamosis site and was treated in the ICU for a PEA arrest and cardiogenic shock. He was noted to be in atrial flutter at that time. - Current Medication List Current Medications: Active Medications Ascorbic Acid (Vitamin C -) 500 mg PO DAILY [facility] Last Admin: 01/17/17 10:10 Dose: 500 mg Atorvastatin Calcium (Lipitor -) 40 mg PO HS [facility] Last Admin: 01/16/17 23:16 Dose: 40 mg Ferrous Sulfate (Feosol -) 325 mg PO DAILY [facility] Last Admin: 01/17/17 10:10 Dose: 325 mg Losartan Potassium (Cozaar -) 25 mg PO DAILY [facility] Last Admin: 01/17/17 10:10 Dose: 25 mg Metoprolol Succinate (Toprol Xl -) 12.5 mg PO DAILY [facility] Last Admin: 01/17/17 10:10 Dose: 12.5 mg Spironolactone (Aldactone -) 25 mg PO DAILY [facility] Last Admin: 01/17/17 10:10 Dose: 25 mg - Objective Vital Signs: Vital Signs Temperature 98.1 F 01/17/17 10:00 Pulse Rate 66 01/17/17 10:00 Respiratory Rate 20 01/17/17 10:00 Blood Pressure 102/40 01/17/17 10:00 O2 Sat by Pulse Oximetry (%) 97 01/17/17 10:00 Constitutional: Yes: No Distress Cardiovascular: Yes: Regular Rate and Rhythm, S1, S2 Respiratory: Yes: CTA Bilaterally Gastrointestinal: Yes: WNL Edema: No Labs: CBC, BMP 01/17/17 06:10 01/17/17 06:00 INR, PTT INR 1.12 (0.82-1.09) 01/13/17 12:22 Problem List - Problems (1) Acute on chronic systolic (congestive) heart failure Code(s): I50.23 - ACUTE ON CHRONIC SYSTOLIC (CONGESTIVE) HEART FAILURE (2) Atrial flutter Code(s): I48.92 - UNSPECIFIED ATRIAL FLUTTER Qualifiers: Atrial flutter type: atypical Qualified Code(s): I48.4 - Atypical atrial flutter (3) Coronary artery disease Code(s): I25.10 - ATHSCL HEART DISEASE OF [place] CORONARY ARTERY W/O ANG PCTRS Qualifiers: Coronary Disease-Associated Artery/Lesion type: [place] artery [place] vs. transplanted heart: [place] heart Associated angina: angina presence unspecified Qualified Code(s): I25.10 - Atherosclerotic heart disease of [place] coronary artery without angina pectoris Assessment/Plan This is an 86 year old male who presents with facial trauma after a mechanical fall, hitting a dresser with his forehead on the way down. Denies any LOC. No chest pain or palpitations. 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 Noted on EKG to be in atrial flutter, with RBBB, with variable AV conduction at a rate of 69 BPM. Last admitted and DC 10/19/16 where me had a GI bleed secondary to malignancy at a prior GI anastamosis site and was treated in the ICU for a PEA arrest and cardiogenic shock. He was noted to be in atrial flutter at that time. 1) CAD/NSTEMI -No cardiac complaints at this time. Elevated troponins trending down now to 0.07 Patient with known CAD and systolic CHF. Medical management Last echo with LVEF 44% and LV wall motion abnormalities. NST in 2016 with partially reversible ischemia. On statin and low dose beta ying. No events on telemetry -Continue aspirin if possible but if ultimately needs to stop aspirin from GI perspective due to recurrent bleeding than would stop the aspirin since patient is not pursuing any further GI work up and likely high chance of re-bleed than. 2) Chronic systolic CHF Continue current chf regimen Volume status stable on exam. Re-evaluate after transfusions to see if needs diuretic 3) Aflutter On low dose beta ying Not a candidate for AC in past given GI bleed due to GI malignancy. No further cardiac work up at this time. Will sign off Please call back with any questions.
[2017-01-17] MEDS ORDERED: SODIUM POLYSTYRENE SULFONATE 15 GM/60 ML BOTTLE PO ONE (15:05)
--- NOTE | 2017-01-17 15:07 | PN ---
Progress Note, Physician Chief Complaint: Mr Parker is without complain. No cp, sob, n/v. - Current Medication List Current Medications: Active Medications Ascorbic Acid (Vitamin C -) 500 mg PO DAILY [facility] Last Admin: 01/17/17 10:10 Dose: 500 mg Atorvastatin Calcium (Lipitor -) 40 mg PO HS [facility] Last Admin: 01/16/17 23:16 Dose: 40 mg Ferrous Sulfate (Feosol -) 325 mg PO DAILY [facility] Last Admin: 01/17/17 10:10 Dose: 325 mg Losartan Potassium (Cozaar -) 25 mg PO DAILY [facility] Last Admin: 01/17/17 10:10 Dose: 25 mg Metoprolol Succinate (Toprol Xl -) 12.5 mg PO DAILY [facility] Last Admin: 01/17/17 10:10 Dose: 12.5 mg Spironolactone (Aldactone -) 25 mg PO DAILY [facility] Last Admin: 01/17/17 10:10 Dose: 25 mg - Objective Vital Signs: Vital Signs Temperature 36.7 C 01/17/17 14:24 Pulse Rate 70 01/17/17 14:24 Respiratory Rate 18 01/17/17 14:24 Blood Pressure 105/48 01/17/17 14:24 O2 Sat by Pulse Oximetry (%) 97 01/17/17 10:00 Constitutional: Yes: Well Nourished, No Distress, Calm Eyes: Yes: Other (periorbital bruising) Cardiovascular: Yes: Regular Rate and Rhythm. No: Gallop, Murmur, Rub Respiratory: Yes: Regular, CTA Bilaterally. No: Rales, Rhonchi, Wheezes Gastrointestinal: Yes: Normal Bowel Sounds. No: Distention, Tenderness Extremities: Yes: WNL Edema: No Labs: CBC, BMP 01/17/17 06:10 01/17/17 06:00 INR, PTT INR 1.12 (0.82-1.09) 01/13/17 12:22 Problem List - Problems (1) Elevated troponin Code(s): R74.8 - ABNORMAL LEVELS OF OTHER SERUM ENZYMES (2) Closed head injury Code(s): S09.90XA - UNSPECIFIED INJURY OF HEAD, INITIAL ENCOUNTER Qualifiers: Encounter type: subsequent encounter Qualified Code(s): S09.90XD - Unspecified injury of head, subsequent encounter (3) Forehead laceration Code(s): S01.81XA - LACERATION W/O FOREIGN BODY OF OTH PART OF HEAD, INIT ENCNTR Qualifiers: Encounter type: initial encounter Qualified Code(s): S01.81XA - Laceration without foreign body of other part of head, initial encounter (4) Anemia in chronic illness Code(s): D63.8 - ANEMIA IN OTHER CHRONIC DISEASES CLASSIFIED ELSEWHERE (5) Atrial flutter Code(s): I48.92 - UNSPECIFIED ATRIAL FLUTTER Qualifiers: Atrial flutter type: atypical Qualified Code(s): I48.4 - Atypical atrial flutter (6) Coronary artery disease Code(s): I25.10 - ATHSCL HEART DISEASE OF [place] CORONARY ARTERY W/O ANG PCTRS Qualifiers: Coronary Disease-Associated Artery/Lesion type: [place] artery [place] vs. transplanted heart: [place] heart Associated angina: angina presence unspecified Qualified Code(s): I25.10 - Atherosclerotic heart disease of [place] coronary artery without angina pectoris (7) HTN (hypertension) Code(s): I10 - ESSENTIAL (PRIMARY) HYPERTENSION Qualifiers: Hypertension type: essential hypertension Qualified Code(s): I10 - Essential (primary) hypertension (8) Hyperlipidemia Code(s): E78.5 - HYPERLIPIDEMIA, UNSPECIFIED Qualifiers: Hyperlipidemia type: pure hypercholesterolemia Qualified Code(s): E78.00 - Pure hypercholesterolemia, unspecified; E78.0 - Pure hypercholesterolemia Assessment/Plan (1) Elevated troponin Assessment/Plan: -cardiology following and note reviewed -aspirin and plavix stopped -follow up as an outpatient to see if can restart aspirin Code(s): R74.8 - ABNORMAL LEVELS OF OTHER SERUM ENZYMES (2) Closed head injury Assessment/Plan: -secondary to fall -stable -PT consulted and note reviewed Code(s): S09.90XA - UNSPECIFIED INJURY OF HEAD, INITIAL ENCOUNTER Qualifiers: Encounter type: subsequent encounter Qualified Code(s): S09.90XD - Unspecified injury of head, subsequent encounter (3) Forehead laceration Assessment/Plan: -s/p repair Code(s): S01.81XA - LACERATION W/O FOREIGN BODY OF OTH PART OF HEAD, INIT ENCNTR Qualifiers: Encounter type: initial encounter Qualified Code(s): S01.81XA - Laceration without foreign body of other part of head, initial encounter (4) Anemia in chronic illness Assessment/Plan: -stool occult blood positive -seen by GI -no interventions -transfuse again today Code(s): D63.8 - ANEMIA IN OTHER CHRONIC DISEASES CLASSIFIED ELSEWHERE (5) Atrial flutter Assessment/Plan: -continue current management -not able to anticoagulate secondary to GI bleed and now a fall Code(s): I48.92 - UNSPECIFIED ATRIAL FLUTTER Qualifiers: Atrial flutter type: atypical Qualified Code(s): I48.4 - Atypical atrial flutter (6) Coronary artery disease Assessment/Plan: -continue medical management Code(s): I25.10 - ATHSCL HEART DISEASE OF [place] CORONARY ARTERY W/O ANG PCTRS Qualifiers: Coronary Disease-Associated Artery/Lesion type: [place] artery [place] vs. transplanted heart: [place] heart Associated angina: angina presence unspecified Qualified Code(s): I25.10 - Atherosclerotic heart disease of [place] coronary artery without angina pectoris (7) HTN (hypertension) Assessment/Plan: -well controlled -monitor -continue current management Code(s): I10 - ESSENTIAL (PRIMARY) HYPERTENSION Qualifiers: Hypertension type: essential hypertension Qualified Code(s): I10 - Essential (primary) hypertension (8) Hyperlipidemia Assessment/Plan: -continue statin Code(s): E78.5 - HYPERLIPIDEMIA, UNSPECIFIED Qualifiers: Hyperlipidemia type: pure hypercholesterolemia Qualified Code(s): E78.00 - Pure hypercholesterolemia, unspecified; E78.0 - Pure
[2017-01-17] MEDS ORDERED: FUROSEMIDE 40 MG/4 ML INJECTABLE VIAL ONE (16:32)
[2017-01-17] MEDS: ATORVASTATIN CA 40 MG TABLET (FP) PO SCH (21:14)
[2017-01-18] MEDS: METOPROLOL SUCCINATE 25 MG TAB.SR.24H (FP) PO SCH (09:12)
[2017-01-18] MEDS: ASCORBIC ACID 500 MG TABLET (FP) PO SCH (09:13)
[2017-01-18] MEDS: SPIRONOLACTONE 25 MG TABLET (FP) PO SCH (09:13)
[2017-01-18] MEDS: LOSARTAN POTASSIUM 25 MG TABLET PO SCH (09:13)
[2017-01-18] MEDS: FERROUS SO4 325 MG TABLET (FP) PO SCH (09:13)
--- NOTE | 2017-01-18 11:11 | DS ---
Physical Examination Vital Signs: Vital Signs Temperature 36.7 C 01/18/17 06:00 Pulse Rate 53 L 01/18/17 06:00 Respiratory Rate 18 01/18/17 06:00 Blood Pressure 120/45 01/18/17 06:00 O2 Sat by Pulse Oximetry (%) 99 01/17/17 21:00 Constitutional: Yes: Well Nourished, No Distress, Calm Cardiovascular: Yes: Regular Rate and Rhythm. No: Gallop, Murmur, Rub Respiratory: Yes: Regular, CTA Bilaterally. No: Rales, Rhonchi, Wheezes Gastrointestinal: Yes: Normal Bowel Sounds, Soft. No: Distention, Tenderness Extremities: Yes: WNL Edema: No Labs: CBC, BMP 01/17/17 06:10 01/17/17 06:00 Discharge Summary Reason For Visit: CLOSED HEAD INJURY, SYNCOPE Current Active Problems Closed head injury (Acute) Elevated troponin (Acute) Forehead laceration (Acute) Syncope (Acute) Hospital Course: (1) Elevated troponin Code(s): R74.8 - ABNORMAL LEVELS OF OTHER SERUM ENZYMES (2) Closed head injury Code(s): S09.90XA - UNSPECIFIED INJURY OF HEAD, INITIAL ENCOUNTER Qualifiers: Encounter type: subsequent encounter Qualified Code(s): S09.90XD - Unspecified injury of head, subsequent encounter (3) Forehead laceration Code(s): S01.81XA - LACERATION W/O FOREIGN BODY OF OTH PART OF HEAD, INIT ENCNTR Qualifiers: Encounter type: initial encounter Qualified Code(s): S01.81XA - Laceration without foreign body of other part of head, initial encounter (4) Anemia in chronic illness Code(s): D63.8 - ANEMIA IN OTHER CHRONIC DISEASES CLASSIFIED ELSEWHERE (5) Atrial flutter Code(s): I48.92 - UNSPECIFIED ATRIAL FLUTTER Qualifiers: Atrial flutter type: atypical Qualified Code(s): I48.4 - Atypical atrial flutter (6) Coronary artery disease Code(s): I25.10 - ATHSCL HEART DISEASE OF [place] CORONARY ARTERY W/O ANG PCTRS Qualifiers: Coronary Disease-Associated Artery/Lesion type: [place] artery [place] vs. transplanted heart: [place] heart Associated angina: angina presence unspecified Qualified Code(s): I25.10 - Atherosclerotic heart disease of [place] coronary artery without angina pectoris (7) HTN (hypertension) Code(s): I10 - ESSENTIAL (PRIMARY) HYPERTENSION Qualifiers: Hypertension type: essential hypertension Qualified Code(s): I10 - Essential (primary) hypertension (8) Hyperlipidemia Code(s): E78.5 - HYPERLIPIDEMIA, UNSPECIFIED Qualifiers: Hyperlipidemia type: pure hypercholesterolemia Qualified Code(s): E78.00 - Pure hypercholesterolemia, unspecified; E78.0 - Pure hypercholesterolemia Mr Parker is an 86 year old male who came in with fall and had elevation in his troponin. He was admitted to the hospital and seen by cardiology. He was medically managed without difficulty. However he developed an acute blood loss anemia. He was transfused with good response. He was seen by GI since his stool was positive for occult blood. He has a history of recurrent colonic malignancy that he does not desire treatment for. Because of this his aspirin and plavix was discontinued. 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 Currently he is safe for discharge home. 33 minutes spent in preparation of this discharge Condition: Good - Instructions Diet, Activity, Other Instructions: resume previous diet and activity Referrals: Tito Sevilla MD [Staff Physician] - Omar Vargas MD [Primary Care Provider] - Disposition: HOME - Home Medications Comprehensive Discharge Medication List: Ambulatory Orders Atorvastatin Ca [Lipitor] 40 mg PO HS #30 tablet 07/03/16 Ascorbic Acid [Vitamin C -] 500 mg PO DAILY tablet 10/19/16 Ferrous Sulfate [Feosol] 325 mg PO DAILY #30 tab 10/19/16 Losartan Potassium [Cozaar -] 25 mg PO DAILY #30 tablet 10/19/16 Metoprolol Succinate [Toprol XL -] 12.5 mg PO DAILY #30 tab.sr 10/19/16 Spironolactone [Aldactone -] 25 mg PO DAILY #30 tablet 10/19/16
[2017-01-18 11:27] VITALS: BP 120/54; PULSE 64; TEMP 98
== END 2017-01-18 13:10 | disposition home or self-care (01) | DRG 812 ==
LOC: JER 11:29 → JERBED 14:36 → INTOOBSV 14:36 → J4W 15:55 → OBSVTOIN 01-15 15:42 → JERBED 01-17 00:02 → J4W 01-17 02:03
PROVIDERS: ADMIT Internal Medicine; ATTEND Internal Medicine
PROC: 0HQ1XZZ Repair Face Skin, External Approach (ICD-10-PCS; principal; 2017-01-13)
PROC: 30233H1 Transfusion of Nonautologous Whole Blood into Peripheral Vein, Percutaneous Approach (ICD-10-PCS; 2017-01-14)
DX: D62 Acute posthemorrhagic anemia (principal); I50.22 Chronic systolic (congestive) heart failure; I48.92 Unspecified atrial flutter; I11.0 Hypertensive heart disease with heart failure; S01.01XA Laceration without foreign body of scalp, initial encounter; W01.190A Fall on same level from slipping, tripping and stumbling with subsequent striking against furniture, initial encounter; Y93.89 Activity, other specified; Y92.098 Other place in other non-institutional residence as the place of occurrence of the external cause; Y99.8 Other external cause status; R19.5 Other fecal abnormalities; Z85.028 Personal history of other malignant neoplasm of stomach; E78.00 Pure hypercholesterolemia, unspecified; I25.2 Old myocardial infarction; I25.10 Atherosclerotic heart disease of native coronary artery without angina pectoris; Z98.0 Intestinal bypass and anastomosis status; Z90.49 Acquired absence of other specified parts of digestive tract; D63.8 Anemia in other chronic diseases classified elsewhere
CPT/HCPCS: 36415; 36430; 70450-TC; 70486-TC; 71010-TC; 72125-TC; 80048; 80053; 81003; 82272; 83735; 84100; 84484; 85025; 85027; 85610; 86850; 86900; 86901; 86922; 87040; 87086; 93005; 93010; 97116-GP; 97161-GP; 99283-25; G0378; P9038; P9058

== ENCOUNTER 2017-02-24 17:45 | Emergency (ER) | payer MEDICARE, OTHER ==
--- NOTE | 2017-02-24 17:57 | PDOC ---
History of Present Illness - General History Source: Patient Exam Limitations: No Limitations - History of Present Illness Initial Comments: 02/24/17 18:50 Pt is an 86 yo male w/PMHx of HTN, CAD, colon cancer and previous bowel obstruction who presents via ambulance for a headache that onset around 1400 this afternoon. Patient describes pain to the back of his head. He reports his pain is similar to headaches he has had in the past. He states he did not try anything for the headache at home. He admits to blurry vision and nausea. He denies any vomiting, dizziness, syncope, numbness, tingling, focal weakness, neck pain, fevers or chills. He does not report any chest pain, shortness of breath, abdominal pain, urinary symptoms or bowel changes. <Ld Verdugo - Last Filed: 02/24/17 18:50> <Renetta Lock - Last Filed: 02/25/17 04:31> - General Stated Complaint: HEADACHE/BLURRED Time Seen by Provider: 02/24/17 17:55 Past History - Past Medical History Anemia: No Asthma: No 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) CVA: No COPD: No CHF: No Dementia: No Diabetes: No GI Disorders: Yes (small bowel obstruction) Disorders: No HTN: Yes Hypercholesterolemia: Yes Kidney Stones: No (renal failure) Liver Disease: No Seizures: No Thyroid Disease: No - Surgical History Abdominal Surgery: Yes (sbo) Appendectomy: No Cardiac Surgery: No Cholecystectomy: No Lung Surgery: No Neurologic Surgery: No Orthopedic Surgery: No - Immunization History Immunization Up to Date: Yes - Suicide/Smoking/Psychosocial Hx Smoking History: Never smoked Have you smoked in the past 12 months: No 'Breaking Loose' booklet given: 07/01/15 Hx Alcohol Use: No Drug/Substance Use Hx: No Substance Use Type: None Hx Substance Use Treatment: No <Ld Verdugo - Last Filed: 02/24/17 18:50> <Renetta Lock - Last Filed: 02/25/17 04:31> - Past Medical History Allergies/Adverse Reactions: Allergies Allergy/AdvReac Type Severity Reaction Status Date / Time No Known Allergies Allergy Verified 02/24/17 18:08 Home Medications: Ambulatory Orders Atorvastatin Ca [Lipitor] 40 mg PO HS #30 tablet 07/03/16 Ascorbic Acid [Vitamin C -] 500 mg PO DAILY tablet 10/19/16 Ferrous Sulfate [Feosol] 325 mg PO DAILY #30 tab 10/19/16 Losartan Potassium [Cozaar -] 25 mg PO DAILY #30 tablet 10/19/16 Metoprolol Succinate [Toprol XL -] 12.5 mg PO DAILY #30 tab.sr 10/19/16 Spironolactone [Aldactone -] 25 mg PO DAILY #30 tablet 10/19/16 Review of Systems - Review of Systems Able to Perform ROS?: Yes Is the patient limited Prydeinig proficient: No Constitutional: No: Chills, Fever HEENTM: Yes: Blurred Vision. No: Double Vision, Throat Pain Respiratory: No: Cough, Shortness of Breath Cardiac (ROS): No: Chest Pain, Lightheadedness, Palpitations ABD/GI: Yes: Nausea. No: Constipated, Diarrhea, Vomiting, Abdominal cramping : No: Dysuria, Frequency Musculoskeletal: No: Back Pain, Neck Pain Integumentary: No: Symptoms Reported Neurological: Yes: Headache. No: Numbness, Tingling, Weakness, Dizziness Psychiatric: No: Anxiety, Depression Endocrine: No: Symptoms Reported Hematologic/Lymphatic: No: Symptoms Reported All Other Systems: Reviewed and Negative <Ld Verdugo - Last Filed: 02/24/17 18:50> *Physical Exam - Physical Exam Comments: 02/24/17 18:55 Patient laying in bed, appears comfortable, no apparent distress HEENT: positive: EOMI, ANITA, Other (pain with palpation to the occipital region) . negative: Pharyngeal Erythema, Tonsillar Exudate, Tonsillar Erythema, Nasal Congestion, Rhinorrhea Neck: positive: Supple. negative: Tender Respiratory/Chest: positive: Lungs Clear, Normal Breath Sounds. negative: Respiratory Distress Cardiovascular: positive: Regular Rhythm, Regular Rate. negative: Murmur Gastrointestinal/Abdominal: positive: Normal Bowel Sounds, Soft. negative: Tender Musculoskeletal: positive: Normal Inspection Extremity: positive: Normal Range of Motion. negative: Swelling, Calf Tenderness Integumentary: positive: Warm. negative: Pale, Diaphoresis Neurologic: positive: sales team member II-XII NML intact, Fully Oriented, Alert, Motor Strength 5/5. negative: Facial Droop, Sensory Deficit, Finger to Nose <Gabrin,Ld - Last Filed: 02/24/17 18:50> - Vital Signs Last Vital Signs Temp Pulse Resp BP Pulse Ox 98 F 54 L 18 119/44 100 02/24/17 18:05 02/24/17 18:05 02/24/17 18:05 02/24/17 18:05 02/24/17 18:05 <Renetta Lock - Last Filed: 02/25/17 04:31> ED Treatment Course - LABORATORY CBC & Chemistry Diagram: 02/24/17 19:50 02/24/17 19:50 - ADDITIONAL ORDERS Additional order review: Laboratory Results 02/24/17 02/24/17 19:50 19:50 PT with INR 13.60 H INR 1.23 H Sodium 137 Potassium 4.9 Chloride 106 Carbon Dioxide 24 Anion Gap 7 L BUN 21 H Creatinine 1.4 H D Creat Clearance w eGFR 48.28 Random Glucose 107 H Calcium 8.1 L Total Bilirubin 0.5 D AST 8 L D ALT 10 L D Alkaline Phosphatase 86 D Creatine Kinase 22 L Troponin I 0.02 D Total Protein 5.9 L Albumin 2.6 L 02/24/17 19:50 RBC 2.94 L MCV 86.0 MCHC 31.5 L RDW 15.2 MPV 7.3 L Neutrophils % 75.0 Lymphocytes % 16.5 D Monocytes % 6.1 Eosinophils % 1.4 Basophils % 1.0 - Medications Given in the ED: ED Medications Discontinued Medications Generic Name Dose Route Start Last Admin Trade Name Elíasq PRN Reason Stop Dose Admin Acetaminophen 1,000 mg 02/24/17 18:46 02/24/17 21:29 Ofirmev Injection - IVPB 02/24/17 18:47 1,000 mg ONCE ONE Administration Diphenhydramine HCl 25 mg 02/24/17 18:46 02/24/17 20:11 Benadryl Injection - IVPUSH 02/24/17 18:47 25 mg ONCE ONE Administration Metoclopramide HCl 10 mg 02/24/17 18:46 02/24/17 20:11 Reglan Injection - IVPUSH 02/24/17 18:47 10 mg ONCE ONE Administration Ondansetron HCl 4 mg 02/24/17 18:46 02/24/17 20:11 Zofran Injection IVPUSH 02/24/17 18:47 4 mg ONCE ONE Administration <Renetta Lock - Last Filed: 02/25/17 04:31> Medical Decision Making - Medical Decision Making 02/24/17 18:58 pt is an 86 yo male w/PMHx of HTN, CAD and colon cancer who presents with headache that started this afternoon. He complains of blurry vision and nausea On exam patient appears comfortable and in no apparent distress Labs ordered CT head ordered given patient symptoms and cardiac history Patient given Zofran, Reglan, Tylenol and Benadryl <Ld Verdugo - Last Filed: 02/24/17 18:50> - Medical Decision Making 02/24/17 23:02 Patient Name: SHAWNA VASQUEZ THIS IS A PRELIMINARY REPORT FROM IMAGING DIRECTOR OF CONTENT AND PROGRAMMING DATE OF SERVICE: 2017-02-24 20:43:15 IMAGES: 142 EXAM: CT HEAD WITHOUT INTRAVENOUS CONTRAST. HISTORY:.. Headache. COMPARISON: None. FINDINGS: 1. 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 2. No intracranial bleed, extra-axial fluid collection, mass effect, midline shift or acute territorial infarct demonstrate . 3. Visualized portions of the paranasal sinuses are clear. 4. There is asymmetric increased density in the medial aspect of the right parotid gland, axial image 1 . Further evaluation with CT scan of the neck can be obtained to assess for possible mass. THIS DOCUMENT HAS BEEN ELECTRONICALLY SIGNED 02/24/17 23:25 Pt is feeling better, but is asking to leave in the AM when his nephew will be able to pick him up. In the mean time, pt will be hydrated as his BUN and CR are slightly elevated. <Renetta Lock - Last Filed: 02/25/17 04:31> *DC/Admit/Observation/Transfer - Attestations Physician Attestion: 02/24/17 17:57 I, Dr. Ld Verdugo, attest that this document has been prepared under my direction and personally reviewed by me in its entirety. I further attest, that it accurately reflects all work, treatment, procedures and medical decision -making performed by me. <Ld Verdugo - Last Filed: 02/24/17 18:50> - Discharge Dispostion Admit: No <Renetta Lock - Last Filed: 02/25/17 04:31> Diagnosis at time of Disposition: Headache - Discharge Dispostion Disposition: HOME Condition at time of disposition: Improved - Referrals Referrals: Omar Vargas MD [Primary Care Provider] - - Patient Instructions Printed Discharge Instructions: DI for Headache
[2017-02-24 18:23] VITALS: BMI 24.9
[2017-02-24] MEDS ORDERED: METOCLOPRAMIDE HCL INJECTION 10 MG/2 ML VIAL IVPUSH ONE (18:46)
[2017-02-24] MEDS ORDERED: ACETAMINOPHEN 1000 MG/100 ML VIAL (NON FORMULARY) IVPB ONE (18:46)
[2017-02-24] MEDS ORDERED: ONDANSETRON 4 MG/2 ML VIAL IVPUSH ONE (18:46)
[2017-02-24] MEDS ORDERED: ACETAMINOPHEN INJECTION 100 ML IVPB ONE (20:00)
[2017-02-24] MEDS ORDERED: METOCLOPRAMIDE HCL INJECTION 10 MG/2 ML VIAL ONE (20:00)
[2017-02-24] MEDS ORDERED: ONDANSETRON 4 MG/2 ML VIAL ONE (20:00)
[2017-02-24 20:01] LABS: EOSINOPHIL 1.4 % (0-4.5); MCH 27.1 pg (25.7-33.7); MCHC 31.5 g/dl (32.0-35.9); MEAN PLT VOLUME 7.3 fl (7.5-11.1); PLATELET COUNT 378 K/MM3 (134-434); RDW 15.2 % (11.9-15.9); WHITE BLOOD COUNT 7.4 K/mm3 (4.0-10.0)
[2017-02-24 20:22] LABS: INR 1.23 (0.82-1.09); PROTHROMBIN TIME (PATIENT) 13.6 SEC (9.98-11.88)
[2017-02-24 20:25] LABS: ALBUMIN 2.6 g/dl (3.4-5.0); ANION GAP 7 (8-16); BILIRUBIN,TOTAL 0.5 mg/dL (0.2-1.0); CALCIUM 8.1 mg/dL (8.5-10.1); CO2 24 mmol/L (21-32); CREATININE 1.4 mg/dL (0.7-1.3); GLUCOSE,RANDOM 107 mg/dL (74-106); SGOT/AST 8 U/L (15-37); SGPT/ALT 10 U/L (12-78); TOT PROT 5.9 g/dl (6.4-8.2)
[2017-02-24 20:28] LABS: ALK PHOS 86 U/L (45-117); CPK 22 IU/L (39-308); TROPONIN I 0.02 ng/ml (0.00-0.05)
[2017-02-24] MEDS ORDERED: SODIUM CHLORIDE 0.9% 1000 ML INFUS.BAG IV ONE (23:11)
[2017-02-24 23:14] VITALS: TEMP 98.2
[2017-02-24 23:15] VITALS: BP 109/54; PULSE 62
--- NOTE | 2017-02-25 12:42 | EKG ---
Test Reason : Blood Pressure : / mmHG Vent. Rate : 057 BPM Atrial Rate : 277 BPM P-R Int : 000 ms QRS Dur : 136 ms QT Int : 458 ms P-R-T Axes : 054 -54 044 degrees QTc Int : 445 ms ATRIAL FLUTTER WITH VARIABLE A-V BLOCK WITH PREMATURE VENTRICULAR OR ABERRANTLY CONDUCTED COMPLEXES RIGHT BUNDLE BRANCH BLOCK LEFT ANTERIOR FASCICULAR BLOCK BIFASCICULAR BLOCK MODERATE VOLTAGE CRITERIA FOR LVH, MAY BE NORMAL VARIANT ABNORMAL ECG WHEN COMPARED WITH ECG OF 13-JAN-2017 12:03, T WAVE VARIATION Confirmed by YAIMA DENT MD ([id number]) on 02/25/2017 12:42:16 PM Referred By: Confirmed By:YAIMA DENT MD
== END 2017-02-25 06:30 | disposition home or self-care (01) ==
LOC: JER 17:45
PROC: 3E033GC Introduction of Other Therapeutic Substance into Peripheral Vein, Percutaneous Approach (ICD-10-PCS; principal; 2017-02-24)
DX: R51 Headache (principal); I10 Essential (primary) hypertension; I25.10 Atherosclerotic heart disease of native coronary artery without angina pectoris; Z85.038 Personal history of other malignant neoplasm of large intestine; Z85.028 Personal history of other malignant neoplasm of stomach; E78.00 Pure hypercholesterolemia, unspecified
CPT/HCPCS: 36415; 70450-TC; 71020-TC; 80053; 84484; 85025; 85610; 93005; 93010; 99283-25

== ENCOUNTER 2017-03-02 10:59 | Emergency (ER) | payer MEDICARE, OTHER ==
[2017-03-02 11:09] VITALS: BMI 22.1
--- NOTE | 2017-03-02 12:03 | PDOC ---
History of Present Illness - General History Source: Patient Exam Limitations: No Limitations - History of Present Illness Initial Comments: 03/02/17 12:06 86 year old male, with significant past medical history of hemorrhoids, previous small bowel obstruction, colon cancer s/p resection, CAD, HTN, HLD, who presents to the emergency room complaining of 1 episode of bright red blood in his stool this morning. He states that his last bowel movement was soft and brown. Denies constipation. He states that this happened once before with hemorrhoids in the past. He denies nausea, vomiting, fever, chills. Denies abdominal pain. Denies weakness, lightheadedness, dizziness. Allergies: NKDA PCP: Dr. 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) CVA: No COPD: No CHF: No Dementia: No Diabetes: No GI Disorders: Yes (small bowel obstruction) Disorders: No HTN: Yes Hypercholesterolemia: Yes Kidney Stones: No (renal failure) Liver Disease: No Seizures: No Thyroid Disease: No - Surgical History Abdominal Surgery: Yes (sbo) Appendectomy: No Cardiac Surgery: No Cholecystectomy: No Lung Surgery: No Neurologic Surgery: No Orthopedic Surgery: No - Immunization History Immunization Up to Date: Yes - Suicide/Smoking/Psychosocial Hx Smoking History: Unknown if ever smoked Have you smoked in the past 12 months: No Information on smoking cessation initiated: No 'Breaking Loose' booklet given: 07/01/15 Hx Alcohol Use: No Drug/Substance Use Hx: No Substance Use Type: None Hx Substance Use Treatment: No <Winter Garcia - Last Filed: 03/02/17 16:39> - Past Medical History Allergies/Adverse Reactions: Allergies Allergy/AdvReac Type Severity Reaction Status Date / Time No Known Allergies Allergy Verified 03/02/17 11:09 Home Medications: Ambulatory Orders Atorvastatin Ca [Lipitor] 40 mg PO HS #30 tablet 07/03/16 Ascorbic Acid [Vitamin C -] 500 mg PO DAILY tablet 10/19/16 Ferrous Sulfate [Feosol] 325 mg PO DAILY #30 tab 10/19/16 Losartan Potassium [Cozaar -] 25 mg PO DAILY #30 tablet 10/19/16 Metoprolol Succinate [Toprol XL -] 12.5 mg PO DAILY #30 tab.sr 10/19/16 Spironolactone [Aldactone -] 25 mg PO DAILY #30 tablet 10/19/16 Hydrocortisone Acetate [Anusol Hc Suppository -] 25 mg RC DAILY #14 supp.rect Review of Systems - Review of Systems Able to Perform ROS?: Yes Comments:: 03/02/17 12:06 GENERAL/CONSTITUTIONAL: No fever or chills. No weakness. HEAD, EYES, EARS, NOSE AND THROAT: No change in vision. No ear pain or discharge. No sore throat. GASTROINTESTINAL: + 1 episode of bright red blood in the stool. No nausea, vomiting, constipation. GENITOURINARY: No dysuria, frequency, or change in urination. CARDIOVASCULAR: No chest pain or shortness of breath. RESPIRATORY: No cough, wheezing, or hemoptysis. MUSCULOSKELETAL: No joint or muscle swelling or pain. No neck or back pain. SKIN: No rash NEUROLOGIC: No headache, vertigo, loss of consciousness, or change in strength/ sensation. ENDOCRINE: No increased thirst. No abnormal weight change. HEMATOLOGIC/LYMPHATIC: No anemia, easy bleeding, or history of blood clots. ALLERGIC/IMMUNOLOGIC: No hives or skin allergy. <Azul العلي - Last Filed: 03/02/17 12:06> *Physical Exam - Vital Signs Last Vital Signs Temp Pulse Resp BP Pulse Ox 97.7 F 90 18 140/69 100 03/02/17 11:06 03/02/17 11:06 03/02/17 11:06 03/02/17 11:06 03/02/17 11:06 <Azul العلي - Last Filed: 03/02/17 12:06> - Vital Signs Last Vital Signs Temp Pulse Resp BP Pulse Ox 97.7 F 90 18 140/69 100 03/02/17 11:06 03/02/17 11:06 03/02/17 11:06 03/02/17 11:06 03/02/17 11:06 - Physical Exam Comments: GENERAL: Awake, alert, and fully oriented, in no acute distress HEAD: No signs of trauma EYES: PERRLA, EOMI, sclera anicteric, conjunctiva clear ENT: Auricles normal inspection, hearing grossly normal, nares patent, oropharynx clear without exudates. Moist mucosa NECK: Normal ROM, supple, no lymphadenopathy, JVD, or masses LUNGS: Breath sounds equal, clear to auscultation bilaterally. No wheezes, and no crackles HEART: Regular rate and rhythm, normal S1 and S2, no murmurs, rubs or gallops ABDOMEN: Soft, nontender, normoactive bowel sounds. No guarding, no rebound. No masses EXTREMITIES: Normal range of motion, no edema. No clubbing or cyanosis. No cords , erythema, or tenderness NEUROLOGICAL: Cranial nerves II through XII grossly intact. Normal speech, normal gait SKIN: Warm, Dry, normal turgor, no rashes or lesions noted. RECTAL: Brown stool. +Hemorrhoids (non-thrombosed) at 2 o'clock and 6 o'clock positions. Nontender. No masses. <Winter Garcia - Last Filed: 03/02/17 16:39> ED Treatment Course - LABORATORY CBC & Chemistry Diagram: 03/02/17 12:10 03/02/17 12:10 <Winter Garcia - Last Filed: 03/02/17 16:39> Medical Decision Making - Medical Decision Making Pt with two hemorrhoids visualized. No heavy bleeding, with brown stool. Guaiac was positive. H&H stable from prior admission. Stable for DC home with outpatient f/u. <Winter Garcia - Last Filed: 03/02/17 16:39> *DC/Admit/Observation/Transfer - Attestations Scribe Attestion: 03/02/17 12:07 Documentation prepared by ROHINI Strange, acting as medical center manager for Emergency Dept,PhysicianMD. <Azul العلي - Last Filed: 03/02/17 12:06> - Discharge Dispostion Admit: No <Winter Garcia - Last Filed: 03/02/17 16:39> Diagnosis at time of Disposition: Hemorrhoid Qualifiers: Hemorrhoid type: unspecified Qualified Code(s): K64.9 - Unspecified hemorrhoids - Discharge Dispostion Disposition: HOME Condition at time of disposition: Stable - Prescriptions Prescriptions: Hydrocortisone Acetate [Anusol Hc Suppository -] 25 mg RC DAILY #14 supp.rect - Referrals Referrals: Omar Vargas MD [Primary Care Provider] - - Patient Instructions Printed Discharge Instructions: DI for Hemorrhoids
[2017-03-02 12:24] LABS: BASOPHIL 1.2 % (0-2.0); EOSINOPHIL 2.2 % (0-4.5); MCH 26.6 pg (25.7-33.7); MCHC 30.9 g/dl (32.0-35.9); MEAN CELL VOLUME 85.9 fl (80-96); MEAN PLT VOLUME 7.3 fl (7.5-11.1); NEUTROPHILS 81.5 % (42.8-82.8); PLATELET COUNT 405 K/MM3 (134-434); WHITE BLOOD COUNT 8.7 K/mm3 (4.0-10.0)
[2017-03-02 12:55] LABS: ALBUMIN 2.8 g/dl (3.4-5.0); ALK PHOS 98 U/L (45-117); ANION GAP 9 (8-16); BILIRUBIN,TOTAL 0.4 mg/dL (0.2-1.0); CALCIUM 8.7 mg/dL (8.5-10.1); CO2 25 mmol/L (21-32); CREATININE 1.1 mg/dL (0.7-1.3); GLUCOSE,RANDOM 101 mg/dL (74-106); SGOT/AST 18 U/L (15-37); SGPT/ALT 23 U/L (12-78); TOT PROT 6.3 g/dl (6.4-8.2)
[2017-03-02 14:23] VITALS: BP 138/85; PULSE 78; TEMP 98
== END 2017-03-02 14:48 | disposition home or self-care (01) ==
LOC: JER 10:59
DX: K92.1 Melena (principal); K64.9 Unspecified hemorrhoids; I25.10 Atherosclerotic heart disease of native coronary artery without angina pectoris; I10 Essential (primary) hypertension; Z85.038 Personal history of other malignant neoplasm of large intestine
CPT/HCPCS: 36415; 80053; 82272; 85025; 86850; 86900; 86901; 99283-25

== ENCOUNTER 2017-05-10 08:26 | Inpatient (IN) | payer MEDICARE, OTHER ==
--- NOTE | 2017-05-10 08:56 | PDOC ---
Attending Attestation - Resident Resident Name: WilliejohnHarjit - ED Attending Attestation I have performed the following: I have examined & evaluated the patient, The case was reviewed & discussed with the resident, I agree w/resident's findings & plan, Exceptions are as noted - HPI HPI: 05/10/17 08:50 86 year old male with past medical history of hemorrhoids, previous small bowel obstruction, colon cancer status post resection, coronary disease, hypertension , hyperlipidemia presents to the emergency department for right-sided stroke like symptoms. Onset of time is unclear. According to EMS, the patient had fell from the bed and landed on his right side sustaining small skin tears. Patient' s son had called 911 and the patient was sent to the ER. Unclear when the exact onset of symptoms are like. Patient here is alert but nonverbal, neglecting his right side and with complete right upper extremity weakness concerning for a left-sided CVA. Patient does have prior history of atrial fibrillation is unclear if is on anticoagulants. We'll need to obtain more collateral formation from the son. Code yates was initiated though given unclear onset of symptoms, patient is not a candidate for TPA. - Physicial Exam PE: 05/10/17 08:50 GENERAL: Awake, alert, but nonverbal. HEAD: No signs of trauma EYES: PERRLA, EOMI, sclera anicteric, conjunctiva clear ENT: Auricles normal inspection NECK: Normal ROM, supple, LUNGS: Breath sounds equal, clear to auscultation bilaterally. No wheezes, and no crackles HEART: Regular rate and rhythm, normal S1 and S2, no murmurs, rubs or gallops ABDOMEN: Soft, nontender. No guarding, no rebound. No masses. Surgical scar noted. EXTREMITIES: Normal range of motion, no edema. No clubbing or cyanosis. No cords, erythema, or tenderness NEUROLOGICAL: Intermittently follows commands. Cranial nerves II through XII grossly intact. Nonverbal. R sided neglect noted. 0/5 strength and positive RUE drift. Able to hold lower extremities for 5 seconds. Unable to clarify decreased sensation. SKIN: Warm, Dry, normal turgor, no rashes or lesions noted. - Critical Care Time Total Critical Care Time: 45 Critical Care Statement: The care of this patient involved high complexity decision making to prevent further life threatening deterioration of the patient 's condition and/or to evaluate & treat vital organ system(s) failure or risk of failure. - Medical Decision Making 05/10/17 08:52 Pt's findings are concerning for a left MCA stroke. However, unclear onset of time of onset. Pt not eligible for TPA. Head CT demonstrates no acute hemorrhage or infarct. However, ECG is concerning with significant lateral ST depression with ST elevation in AVR Dr. Cayden Soto from cardiology had last evaluated patient. Will consult him emergently regarding the ECG and send troponins, chest xray concerning for STEMI. Consult neurology. 05/10/17 08:56 CBC, BMP 05/10/17 11:01 05/10/17 09:00 CMP Sodium 137 mmol/L (136-145) 05/10/17 09:00 Potassium 4.5 mmol/L (3.5-5.1) 05/10/17 09:00 Chloride 104 mmol/L (98-107) 05/10/17 09:00 Carbon Dioxide 17 mmol/L (21-32) L D 05/10/17 09:00 Anion Gap 16 (8-16) 05/10/17 09:00 BUN 22 mg/dL (7-18) H D 05/10/17 09:00 Creatinine 1.4 mg/dL (0.7-1.3) H D 05/10/17 09:00 Creat Clearance w eGFR 48.28 (>60) 05/10/17 09:00 Random Glucose 200 mg/dL (74-106) H D 05/10/17 09:00 Calcium 8.3 mg/dL (8.5-10.1) L 05/10/17 09:00 Total Bilirubin 1.6 mg/dL (0.2-1.0) H D 05/10/17 09:00 AST 4 U/L (15-37) L D 05/10/17 09:00 ALT 8 U/L (12-78) L D 05/10/17 09:00 Alkaline Phosphatase 93 U/L (45-117) 05/10/17 09:00 Creatine Kinase 46 IU/L (39-308) 05/10/17 09:00 Troponin I 0.16 ng/ml (0.00-0.05) H D 05/10/17 09:00 Total Protein 6.4 g/dl (6.4-8.2) 05/10/17 09:00 Albumin 2.8 g/dl (3.4-5.0) L 05/10/17 09:00 Triglycerides 80 mg/dL (35-160) D 05/10/17 09:00 Cholesterol 130 mg/dL (50-200) 05/10/17 09:00 Total LDL Cholesterol 73 mg/dL (5-100) D 05/10/17 09:00 HDL Cholesterol 51 mg/dL (40-60) D 05/10/17 09:00 Initial CAT scan the head done shows no acute infarct. However given that the patient may potentially have been endovascular therapy candidate. CT angiogram of the head was performed. The creatinine was 1.4 but the patient's nephew consents given the importance of the procedure. CTA of the head demonstrates an evolving left frontal cortical infarct but no proximal occlusion. Case was discussed and patient was seen by neurologist Dr. Fields. Repeat ECG demonstrates no acute changes and troponin 0.16. Case was discussed with . Patient is also noted to be anemic at 5.7. We'll need to consent the patient's nephew to give PRBCs. Given the complexity of the patient's case and severity of his illness, we'll admit the patient to the ICU. Heart Score/ECG Review #1 ECG reviewed & interpreted by me at: 08:00 05/10/17 08:54 NSR 99, significant ST depression V3-V6, NANCY aVR, RBBB, LVH, QTC 497 msec NIH Stroke Scale - Last Known Well Date/Time & Onset Date Last Known Well: 05/09/17 - Initial Evaluation Level of consciousness: Alert Ask patient the month and their age: Both incorrect Ask patient to open & close eyes; make fist and let go: Both incorrect Best gaze (horizontal eye movement): Normal Visual field testing: No visual field loss Facial paresis (Show teeth/raise eyebrows/close eyes tight): Normal symmetrical movement Motor Function: Left Arm: Normal Motor Function: Right Arm: No movement Motor Function: Left Leg: Normal (extends leg 30 degrees for 5 seconds without drift) Motor Function: Right Leg: Normal (extends leg 30 degrees for 5 seconds without drift) Limb Ataxia: No ataxia Sensory(Use pinprick test arms,legs,trunk,face/side to side): Severe to total sensory loss Best language (Describe picture, name items, read sentences): Mute Dysarthria (read several words): Near unintelligible or unable to speak Extinction and Inattention: Inattention or extinction bilaterally to one of the sensory modalities - Total Score NIH Stroke Scale Score: 16
[2017-05-10] MEDS: SODIUM CHLORIDE 1,000 ML IV SCH (09:00)
--- NOTE | 2017-05-10 09:13 | PDOC ---
NIH Stroke Scale - Last Known Well Date/Time & Onset Date Last Known Well: 05/09/17 Time Last Known Well: 20:00 - Initial Evaluation Level of consciousness: Alert Ask patient the month and their age: Both incorrect Ask patient to open & close eyes; make fist and let go: Both incorrect Best gaze (horizontal eye movement): Normal Visual field testing: Partial hemianopia Facial paresis (Show teeth/raise eyebrows/close eyes tight): Minor paralysis ( flattened nasolabial fold, asymmetry on smiling) Motor Function: Left Arm: Normal Motor Function: Right Arm: No movement Motor Function: Left Leg: Normal (extends leg 30 degrees for 5 seconds without drift) Motor Function: Right Leg: Normal (extends leg 30 degrees for 5 seconds without drift) Limb Ataxia: No ataxia Sensory(Use pinprick test arms,legs,trunk,face/side to side): Normal Best language (Describe picture, name items, read sentences): Mute Dysarthria (read several words): Near unintelligible or unable to speak Extinction and Inattention: Profound jaylen-inattention or extinction to more than one modality - Total Score NIH Stroke Scale Score: 17
--- NOTE | 2017-05-10 09:21 | PDOC ---
History of Present Illness - General Chief Complaint: Altered Mental Status Stated Complaint: CVA/TIA Time Seen by Provider: 05/10/17 08:27 History Source: EMS, Old Records - History of Present Illness Initial Comments: 05/10/17 09:18 Pt is an 86 M with history of GI bleed, fall with head trauma (brought to this facility in 01/2017 during which he was found to be in A-flutter), CAD, HTN, and HLD who was BIBEMS after being found unresponsive at home. Per EMS, pt was found around 7:30am after a thump was heard. Pt was found by EMS to be supine, awake, but somewhat unresponsive. Pt would inconsistently mumble unintelligibly to questions. Pt demonstrated RUE hemiparesis. Blood glucose in the field was 185. On arriving in ED, pt found to be awake, but similarly unresponsive. He inconsistently mumbles in response to questions, but often does not respond or appear to be aware of anyone asking him questions. However, he was able to hold LUE, and both LE elevated for 10s without drift on command. Past History - Past Medical History Allergies/Adverse Reactions: Allergies Allergy/AdvReac Type Severity Reaction Status Date / Time No Known Allergies Allergy Verified 03/02/17 11:09 Home Medications: Ambulatory Orders Atorvastatin Ca [Lipitor] 40 mg PO HS #30 tablet 07/03/16 Ascorbic Acid [Vitamin C -] 500 mg PO DAILY tablet 10/19/16 Ferrous Sulfate [Feosol] 325 mg PO DAILY #30 tab 10/19/16 Losartan Potassium [Cozaar -] 25 mg PO DAILY #30 tablet 10/19/16 Metoprolol Succinate [Toprol XL -] 12.5 mg PO DAILY #30 tab.sr 10/19/16 Spironolactone [Aldactone -] 25 mg PO DAILY #30 tablet 10/19/16 Hydrocortisone Acetate [Anusol Hc Suppository -] 25 mg RC DAILY #14 supp.rect Apixaban [Eliquis -] 2.5 mg PO BID 05/10/17 Isosorbide Mononitrate [Isosorbide Mononitrate ER] 60 mg PO DAILY 05/10/17 Pantoprazole Sodium [Protonix] 40 mg PO DAILY 05/10/17 Anemia: No Asthma: No 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) CVA: No COPD: No CHF: No Dementia: No Diabetes: No GI Disorders: Yes (small bowel obstruction) Disorders: No HTN: Yes Hypercholesterolemia: Yes Kidney Stones: No (renal failure) Liver Disease: No Seizures: No Thyroid Disease: No - Surgical History Abdominal Surgery: Yes (sbo) Appendectomy: No Cardiac Surgery: No Cholecystectomy: No Lung Surgery: No Neurologic Surgery: No Orthopedic Surgery: No - Immunization History Immunization Up to Date: Yes - Suicide/Smoking/Psychosocial Hx Smoking History: Unknown if ever smoked Have you smoked in the past 12 months: No 'Breaking Loose' booklet given: 07/01/15 Hx Alcohol Use: No Drug/Substance Use Hx: No Substance Use Type: None Hx Substance Use Treatment: No *Physical Exam - Vital Signs Last Vital Signs Temp Pulse Resp BP Pulse Ox 97.1 F L 91 H 16 135/43 100 05/10/17 08:40 05/10/17 08:40 05/10/17 08:40 05/10/17 08:40 05/10/17 08:40 - Physical Exam General Appearance: No: Apparent Distress HEENT: positive: ANITA Neck: positive: Supple Respiratory/Chest: positive: Lungs Clear, Normal Breath Sounds. negative: Respiratory Distress Cardiovascular: positive: Regular Rate, S1, S2 Vascular Pulses: Dorsalis-Pedis (R): 2+, Doralis-Pedis (L): 2+ Gastrointestinal/Abdominal: positive: Normal Bowel Sounds, Soft ED Treatment Course - LABORATORY CBC & Chemistry Diagram: 05/10/17 11:01 05/10/17 09:00 - RADIOLOGY Radiology Studies Ordered: Category Date Time Status HEAD CT (STROKE) [CT] Stat CT Scan 05/10/17 08:25 Taken CXRPORT [CHEST X-RAY PORTABLE*] [RAD] Stat Radiology 05/10/17 08:48 Ordered Medical Decision Making - Medical Decision Making 05/10/17 09:27 Pt is an 86 M w/ PMH HTN, CAD, GI bleed, fall with head trauma, a-flutter who was found down and unresponsive with RUE paresis. #CVA -RUE paresis. intermittent partial verbal responses -Stroke code called -Last known well UNCLEAR -Head CT neg for acute bleed/pathology -CBC, CMP, Lipids, coags, UA -ASA 300mg AL #NSTEMI -EKG showed NEW lat ST depression and ant T wave inversions in addition to RBBB and Afib (per Cardio Dr. Adam, ST changes may be rate related. Requested repeat EKG when rate is normal) -Cardiac profile -repeat EKG Spoke with Neuro (Dr. Fields) who recommended CTA with thought of possible transfer Spoke with Cardiology (Dr. Adam) who recommended repeat EKG for now. Will f/u Pt's Nephew Alvaro Martinez [phone] 05/10/17 10:46 CTA done 05/10/17 11:37 Pt will be admitted to ICU. ICU attending made aware. Per Neurology, pt NOT a candidate for TPA or cath intervention at this time. 05/10/17 12:06 Hb came back 5.7. 2 PRBCs ordered. Got consent from pt's Nephew (Alvaro Martinez [phone]) over the phone. Nephew also stated that pt is DNR and "would not want to be kept alive on machines". Was not able to get a clear answer from nephew regarding DNI status. 05/10/17 12:37 Spoke with Pt's nephew who states that patient has been to [facility] for chest pain 2 months ago. Per nephew, pt was discharged with only 3 meds, and all others were cancelled. Pt has been taking Elequis, Protonix, and Isosorbide since going to [facility]. *DC/Admit/Observation/Transfer Diagnosis at time of Disposition: CVA (cerebral vascular accident) Qualifiers: CVA mechanism: embolism Precerebral and cerebral artery: posterior cerebral artery Laterality of affected vessel: left Qualified Code(s): I63.432 - Cerebral infarction due to embolism of left posterior cerebral artery - Discharge Dispostion Disposition: TRANSFER ACUTE CARE/OTHER HOSP Condition at time of disposition: Guarded Admit: Yes - Referrals - Patient Instructions - Post Discharge Activity
[2017-05-10 09:26] LABS: INR 1.35 (0.82-1.09); PROTHROMBIN TIME (PATIENT) 15.3 SEC (9.98-11.88)
[2017-05-10 09:28] LABS: ALBUMIN 2.8 g/dl (3.4-5.0); ANION GAP 16 (8-16); BILIRUBIN,TOTAL 1.6 mg/dL (0.2-1.0); CALCIUM 8.3 mg/dL (8.5-10.1); CHOLESTEROL 130 mg/dL (50-200); CO2 17 mmol/L (21-32); CREATININE 1.4 mg/dL (0.7-1.3); GLUCOSE,RANDOM 200 mg/dL (74-106); SGPT/ALT 8 U/L (12-78); TOT PROT 6.4 g/dl (6.4-8.2)
[2017-05-10 09:29] LABS: ALK PHOS 93 U/L (45-117); CPK 46 IU/L (39-308); SGOT/AST 4 U/L (15-37); TROPONIN I 0.16 ng/ml (0.00-0.05)
[2017-05-10] MEDS ORDERED: ASPIRIN 300 MG SUPP.RECT PR ONE (09:43)
[2017-05-10] MEDS ORDERED: ASPIRIN 300 MG SUPP.RECT RC ONE (09:50)
[2017-05-10 11:18] LABS: BASO # 0.1 # (0.1-1); BASO % 0.6 % (0-2.0); LYMPH # 0.5 (8-40); MCH 19.4 pg (25.7-33.7); MCHC 28.4 g/dl (32.0-35.9); MEAN CELL VOLUME 68.4 fl (80-96); MEAN PLT VOLUME 7.3 fl (7.5-11.1); NEUT # 7.6 # (42.8-82.8); NEUT % 83.7 % (42.8-82.8); PLATELET COUNT 491 K/MM3 (134-434); RDW 25.1 % (11.9-15.9); WHITE BLOOD COUNT 9.1 K/mm3 (4.0-10.0)
[2017-05-10 11:27] LABS: BASO # 0.1 # (0.1-1); BASO % 1.3 % (0-2.0); LYMPH # 0.7 (8-40); MCH 19.7 pg (25.7-33.7); MCHC 28.8 g/dl (32.0-35.9); MEAN CELL VOLUME 68.5 fl (80-96); MEAN PLT VOLUME 7.4 fl (7.5-11.1); MONO # 0.6 # (3.8-10.2); NEUT # 8.1 # (42.8-82.8); PLATELET COUNT 647 K/MM3 (134-434); RDW 25.1 % (11.9-15.9); WHITE BLOOD COUNT 9.5 K/mm3 (4.0-10.0)
--- NOTE | 2017-05-10 11:49 | CON.NEURO ---
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 Travel: No Home Medications - Allergies Allergies/Adverse Reactions: Allergies Allergy/AdvReac Type Severity Reaction Status Date / Time No Known Allergies Allergy Verified 03/02/17 11:09 - Home Medications Home Medications: Ambulatory Orders Atorvastatin Ca [Lipitor] 40 mg PO HS #30 tablet 07/03/16 Ascorbic Acid [Vitamin C -] 500 mg PO DAILY tablet 10/19/16 Ferrous Sulfate [Feosol] 325 mg PO DAILY #30 tab 10/19/16 Losartan Potassium [Cozaar -] 25 mg PO DAILY #30 tablet 10/19/16 Metoprolol Succinate [Toprol XL -] 12.5 mg PO DAILY #30 tab.sr 10/19/16 Spironolactone [Aldactone -] 25 mg PO DAILY #30 tablet 10/19/16 Hydrocortisone Acetate [Anusol Hc Suppository -] 25 mg RC DAILY #14 supp.rect Family Disease History - Family Disease History Family Disease History: Heart Disease: Brother (CABG,lung ca), CA: Father (lung ca), Mother (ca ? type), Brother Physical Exam-Neuro Vital Signs: Vital Signs Temperature 97.1 F L 05/10/17 08:40 Pulse Rate 64 05/10/17 11:00 Respiratory Rate 16 05/10/17 11:00 Blood Pressure 113/65 05/10/17 11:00 O2 Sat by Pulse Oximetry (%) 100 05/10/17 11:00 Labs: CBC, BMP 05/10/17 11:01 05/10/17 09:00 INR, PTT INR 1.35 (0.82-1.09) H 05/10/17 09:00 Assessment/Plan cc Acute Stroke HPI 86 Year old male history of Past Medical History of small bowel obstruciton , colon cancer, CAD, HTN , HLD came with rightsided hemiparesis. He was found to be aphasic and neglect and initial ct head was normal. His NIH score is 17. It is not known what time symptoms started. He do have history of atrial fibrillation. It is not clear what anticoagulation he was taking. Patient was not a tpa candidate due to unknown time of onset. He did have cta done and did not show any large vessel occlusion and found to have frontal lobe ischemic lesion. His Hemoglobin was found to have 5.7 Spent 30 minute doing critical care Past Medical History as above. ROS, SH, FH, Medication reviewed in chart Neurological Examination Alert and track object and no spontaneous speech , he is laying with no acute distress He is able to understand and follow simple command. Mild right sided facial asymmetry, VF unable to determine Right sided hemiparesis, no movmenet was seen Right planter is extensor ct of head reviewed initially there was no acute stroke CTA report was told verbally at bed side by ED physician, there i sno proximal occlusion and there is evolving findings suggestive of right frontal lobe infarct Asseesment- Large Left MCA stroke, risk factor atrial fibrillation, htn, cad and HLD, at this time, He has large Neurological deficit (NIH SCORE OF 17)and there is no large occlusion of proximal vessel identified and time of onset of symptoms is not exactly known Plan-- He can be given aspirin and Lipitor 80 mg once a day - Icu admission - NOt a candidate for tpa or Catheter based procedure -PT,Speech and DVT prophylaxis - He may need mri of brain to assess extent of infarct - carotid ultrasound, echo and county manager consult - Refrain from heparin in first 5-7 days as there is high risk of bleed Feel free to call me if any concern.
[2017-05-10 12:30] LABS: TROPONIN I 0.95 ng/ml (0.00-0.05)
--- NOTE | 2017-05-10 13:22 | HP ---
Admitting History and Physical - Primary Care Physician PCP: Omar Vargas - Admission Chief Complaint: unable to obtain History of Present Illness: Pt presents to the ED with right sided weakness, slurred speech. Mild right sided weakness started yesterday but pt was able to ambulate and function without difficulty. Pt's nephew found pt on the floor aprox 7am, pt was unable to get up and also unable to speak and was brought into hospital by ems. Denies any chest pain, sob, n/v/d. Nephew reports pt did not c/o of any further symptoms. History obtained by nephew, however very unclear. History Source: Family Member Limitations to Obtaining History: Clinical Condition - Past Medical History Cardiovascular: Yes: CAD, CHF, HTN, [place] (NSTEMI) Gastrointestinal: Yes: Cancer (Colon CA) Heme/Onc: Yes: Anemia - Past Surgical History Past Surgical History: Yes: Colectomy, Hernia Repair - Advance Directives Advance Directives: Yes: DNR - Smoking History Smoking history: Unknown if ever smoked Have you smoked in the past 12 months: No - Alcohol/Substance Use Hx Alcohol Use: No Number of Drinks Daily: 1 History of Substance Use: reports: None - Social History Usual Living Arrangement: Yes: Other (sister) 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 Travel: No Home Medications - Allergies Allergies/Adverse Reactions: Allergies Allergy/AdvReac Type Severity Reaction Status Date / Time No Known Allergies Allergy Verified 03/02/17 11:09 - Home Medications Home Medications: Ambulatory Orders Atorvastatin Ca [Lipitor] 40 mg PO HS #30 tablet 07/03/16 Ascorbic Acid [Vitamin C -] 500 mg PO DAILY tablet 10/19/16 Ferrous Sulfate [Feosol] 325 mg PO DAILY #30 tab 10/19/16 Losartan Potassium [Cozaar -] 25 mg PO DAILY #30 tablet 10/19/16 Metoprolol Succinate [Toprol XL -] 12.5 mg PO DAILY #30 tab.sr 10/19/16 Spironolactone [Aldactone -] 25 mg PO DAILY #30 tablet 10/19/16 Hydrocortisone Acetate [Anusol Hc Suppository -] 25 mg RC DAILY #14 supp.rect Apixaban [Eliquis -] 2.5 mg PO BID 05/10/17 Isosorbide Mononitrate [Isosorbide Mononitrate ER] 60 mg PO DAILY 05/10/17 Pantoprazole Sodium [Protonix] 40 mg PO DAILY 05/10/17 Family Disease History - Family Disease History Family Disease History: Heart Disease: Brother (CABG,lung ca), CA: Father (lung ca), Mother (ca ? type), Brother Review of Systems Unable to obtain ROS, reason: pt aphsic, r/t clin cond Physical Examination Vital Signs: Vital Signs Temperature 36.2 C L 05/10/17 08:40 Pulse Rate 87 05/10/17 11:56 Respiratory Rate 16 05/10/17 11:56 Blood Pressure 126/57 05/10/17 11:56 O2 Sat by Pulse Oximetry (%) 100 05/10/17 11:56 Constitutional: Yes: Calm, Pallor Eyes: Yes: WNL Cardiovascular: Yes: WNL, S1, S2 (systolic murmmer at apex) Respiratory: Yes: Regular, Rales (b/l lower lobes crackles) Gastrointestinal: Yes: WNL, Normal Bowel Sounds, Soft Extremities: Yes: Pallor Edema: No Neurological: Yes: Aphasia, Other (right sided neglect) ...Motor Strength: RUE (0/5), RLE (0/5) Labs: CBC, BMP 05/10/17 11:01 05/10/17 09:00 Imaging - Results Chest X-ray: Report Reviewed Cat Scan: Report Reviewed EKG: Image Reviewed Problem List - Problems (1) CVA (cerebral vascular accident) Assessment/Plan: Pt presents with right sided neglect, aphasia, and acute anemia Neurology consulted Not a candidate for tPA r/t unknown onset of symptoms Continuous telemetry Withhold anticoagulants due to suspicion of bleed US carotids, Echocardiogram ordered Speech eval pending Continue neuro checks Adequate BP control Transfer to ICU for further management Code(s): I63.9 - CEREBRAL INFARCTION, UNSPECIFIED Qualifiers: CVA mechanism: embolism Precerebral and cerebral artery: posterior cerebral artery Laterality of affected vessel: left Qualified Code(s): I63.432 - Cerebral infarction due to embolism of left posterior cerebral artery (2) [id number] kidney injury Assessment/Plan: BUN- 22, CR- 1.4 , Acute Kidney Injury, possibly due to pre-renal causes( hypovolemia/anemia) 2units prbcs given, IVF maintained, monitor cbc Will continue to monitor Code(s): N17.9 - ACUTE KIDNEY FAILURE, UNSPECIFIED; N18.9 - CHRONIC KIDNEY DISEASE, UNSPECIFIED Qualifiers: Acute renal failure type: with acute tubular necrosis Chronic kidney disease stage: stage 2 (mild) Qualified Code(s): N17.0 - Acute kidney failure with tubular necrosis; N18.2 - Chronic kidney disease, stage 2 (mild); N18.2 - Chronic kidney disease, stage 2 (mild) (3) Anemia Assessment/Plan: Low hg/hct, Anemia possibly due to GI bleed 2 units prbcs given, monitor cbc as needed Hematology consulted Heme-occult ordered Code(s): D64.9 - ANEMIA, UNSPECIFIED Qualifiers: Other causes of anemia: acute posthemorrhagic (4) Colon cancer Assessment/Plan: Colon CA in which pt not pursuing treatment Monitor cbc, heme occult, and vital signs Transfuse as needed Code(s): C18.9 - MALIGNANT NEOPLASM OF COLON, UNSPECIFIED Qualifiers: Colon location: unspecified part of colon Qualified Code(s): C18.9 - Malignant neoplasm of colon, unspecified (5) Coronary artery disease Assessment/Plan: NSTEMI Trend Troponins, cardiac echo ordered Cardiology consulted Hold lipitor until speech eval clearance Hold Aspirin secondary to GI bleed Lipid panel ordered Code(s): I25.10 - ATHSCL HEART DISEASE OF [place] CORONARY ARTERY W/O ANG PCTRS Qualifiers: Coronary Disease-Associated Artery/Lesion type: [place] artery [place] vs. transplanted heart: [place] heart Associated angina: angina presence unspecified Qualified Code(s): I25.10 - Atherosclerotic heart disease of [place] coronary artery without angina pectoris (6) Non-ST elevation (NSTEMI) myocardial infarction Assessment/Plan: NSTEMI Trend Troponins, cardiac echo ordered Cardiology consulted Hold lipitor until speech eval clearance Hold Aspirin secondary to GI bleed Lipid panel ordered Code(s): I21.4 - NON-ST ELEVATION (NSTEMI) MYOCARDIAL INFARCTION (7) Syncope Code(s): R55 - SYNCOPE AND COLLAPSE Qualifiers: Syncope type: unspecified Qualified Code(s): R55 - Syncope and collapse (8) HTN (hypertension) Assessment/Plan: stable Code(s): I10 - ESSENTIAL (PRIMARY) HYPERTENSION Qualifiers: Hypertension type: essential hypertension Qualified Code(s): I10 - Essential (primary) hypertension (9) Hyperlipidemia Assessment/Plan: Lipid panel pending Will start Lipitor after speech eval clearance Code(s): E78.5 - HYPERLIPIDEMIA, UNSPECIFIED Qualifiers: Hyperlipidemia type: pure hypercholesterolemia Qualified Code(s): E78.00 - Pure hypercholesterolemia, unspecified Assessment/Plan 63 minutes spent in critical care time with this patient and code status discussion with nephew
--- NOTE | 2017-05-10 13:38 | CONSULT ---
Admitting History and Physical - Primary Care Physician PCP: Pradeep Glover - Admission History of Present Illness: 86 year old male with past medical history of hemorrhoids, previous small bowel obstruction, colon cancer status post resection, coronary disease, hypertension , hyperlipidemia admitted with right hemiparesis and Aphasia with Left MCA stroke. 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 Travel: No History - Admission Reason For Visit: CVA - Diagnostics X-ray: Report Reviewed CT Scan: Report Reviewed MRI: Pending - General Mental Status: Awake and Alert, Able to Follow Commands (simple) Attention: Distractible, Moderate Impairment Ability to Follow Directions: Fair Head/Neck Control: Good - Hearing Hearing: Functional (impaired?) Speech Evaluation - Communication Primary Language: SYRI[place] Communication: Yes: Aphasia Oral Expression Ability: Yes: Moderate Impairment, Severe Impairment - Speech Production Intelligibility: Yes: WNL - Speech Characteristics Voice Loudness: Normal Voice Pitch: Yes: Normal Voice Phonatory-based Quality: Yes: Normal Speech Clarity: < 100% Nasal Resonance: Normal Articulation: Yes: Precise - Language/Auditory Comprehension Follows: Yes: 1 Stage Simple Commands Observation: Able to respond to yes/no queries: No (rare response or very slow to respond) - Language/Verbal Expression Aphasia: Yes: Nonfluent Able to Respond to Simple Queries: Yes: Severely Impaired Able to Communicate Wants and Needs: Yes: Severely Impaired Functional Communication Status: Yes: Severely Impaired - Swallow Evaluation/Bedside Assessment Current Nutritional Intake: NPO Oral Secretions: Yes: WFL Dentition: Yes: Adequate Facial Symmetry at Rest: Symmetrical Facial Symmetry on Retraction: Symmetrical Against Resistance Opening: Normal Against Resistance Closing: Normal Pucker Lips: Normal Smile: Normal Lingual Movement: Normal, Symmetric Lingual Speed of Movement: Normal Lingual Movement Strgth Against Opposition: Normal Lingual Movement Characteristics: Normal Velopharyngeal Movement: Normal Laryngeal Elevation: WFL Laryngeal Movement: Able to Palpate Rate of Intake: WFL Bolus Size: WFL Chewing: WFL Oral Prep Time: WFL A-P Transit: WFL Pocketing: None Timing of Swallow: WFL Coughing/Throat Clear: No Change in Voice: No Recommendations - Speech Evaluation, Impression/Plan Impression: Nonfluent Aphasia. Follows simple whole body commands. Non verbal for staff. I was able to elicit pt's name, "water","sit up" upon repetition, with no propositional speech presently. No dysarthria. Swallowing is overtly functional. Distractible with fleeting attntion span .Flat affect. - Disposition [facility] to: [facility] - Dysphagia Impressions/Plan Dysphagia Impressions: Mild Impairment, Risk of Aspiration *Silent aspiration: cannot be R/O at bedside Dysphagia Treatment Plan: Small Bites, Chin Tuck/Down, 1/2 tsp. at a time, Elevate HOB during feed Recommendations: Modified Barium Swallow (if cough, congestion, fever) - Recommendations Diet Consistency: Dysphagia Pureed Medication Administration: Crushed with applesauce Liquids: Thin Liquids, Other (single sips.Monitor tolerance.)
--- NOTE | 2017-05-10 13:43 | EKG ---
Test Reason : Blood Pressure : / mmHG Vent. Rate : 090 BPM Atrial Rate : 090 BPM P-R Int : 154 ms QRS Dur : 114 ms QT Int : 394 ms P-R-T Axes : 061 -65 119 degrees QTc Int : 481 ms NORMAL SINUS RHYTHM WITH SINUS ARRHYTHMIA LEFT AXIS DEVIATION INCOMPLETE RIGHT BUNDLE BRANCH BLOCK MODERATE VOLTAGE CRITERIA FOR LVH, MAY BE NORMAL VARIANT MARKED ST ABNORMALITY, POSSIBLE INFERIOR SUBENDOCARDIAL INJURY MARKED ST ABNORMALITY, POSSIBLE ANTEROLATERAL SUBENDOCARDIAL INJURY PROLONGED QT ABNORMAL ECG Confirmed by SURJIT AMARO MD ([id number]) on 05/10/2017 1:43:01 PM Referred By: Confirmed By:SURJIT AMARO MD
--- NOTE | 2017-05-10 13:45 | EKG ---
Test Reason : Blood Pressure : / mmHG Vent. Rate : 099 BPM Atrial Rate : 099 BPM P-R Int : 150 ms QRS Dur : 124 ms QT Int : 388 ms P-R-T Axes : 058 -64 106 degrees QTc Int : 497 ms SINUS RHYTHM WITH PREMATURE SUPRAVENTRICULAR COMPLEXES LEFT AXIS DEVIATION RIGHT BUNDLE BRANCH BLOCK LEFT VENTRICULAR HYPERTROPHY WITH REPOLARIZATION ABNORMALITY ST depression, consider subendocardial injury Confirmed by SURJIT AMARO MD ([id number]) on 05/10/2017 1:45:29 PM Referred By: Confirmed By:SURJIT AMARO MD
[2017-05-10] MEDS ORDERED: PANTOPRAZOLE SODIUM 40 MG VIAL ONE (14:02)
[2017-05-10] MEDS: PANTOPRAZOLE SODIUM 80 MG in SODIUM CHLORIDE 100 ML IVPB SCH ×2 (14:10→23:51)
[2017-05-10 14:56] LABS: ANISOCYTOSIS 2+; HYPOCHROMIA 2+; MACROCYTOSIS 0; MICROCYTOSIS 3+; POIKILOCYTOSIS 1+; POLYCHROMASIA 0; TARGET CELLS 1+
--- NOTE | 2017-05-10 15:10 | CON.CARD ---
Consult Consult Specialty:: Cardiology Referred by:: Dr. Glover Reason for Consultation:: NSTEMI with marked ECG abnormalities. - History of Present Illness Chief Complaint: Acute stroke with NSTEMI with marked ECG abnormalities. History of Present Illness: 86 year old man with a PMHx of HTN, hyperlipidemia, CAD, paroxysmal atrial fibrillation, hemorrhoids, previous small bowel obstruction, colon cancer s/p section brought to ED 05/10/2017 for right-sided stroke like symptoms with aphasia. Onset of time is unclear. Seen by neurology for large left MCA stroke, not a candidate for tPA or acute intervention. The patient was found to have abnormal ECG with evidence of inferolateral ischemia. He was given IV Metoprolol for heart rate control. He is ruled in for NSTEMI. Severe anemia noted. Transfusion is prepared. 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 Travel: No Home Medications - Allergies Allergies/Adverse Reactions: Allergies Allergy/AdvReac Type Severity Reaction Status Date / Time No Known Allergies Allergy Verified 03/02/17 11:09 - Home Medications Home Medications: Ambulatory Orders Atorvastatin Ca [Lipitor] 40 mg PO HS #30 tablet 07/03/16 Ascorbic Acid [Vitamin C -] 500 mg PO DAILY tablet 10/19/16 Ferrous Sulfate [Feosol] 325 mg PO DAILY #30 tab 10/19/16 Losartan Potassium [Cozaar -] 25 mg PO DAILY #30 tablet 10/19/16 Metoprolol Succinate [Toprol XL -] 12.5 mg PO DAILY #30 tab.sr 10/19/16 Spironolactone [Aldactone -] 25 mg PO DAILY #30 tablet 10/19/16 Hydrocortisone Acetate [Anusol Hc Suppository -] 25 mg RC DAILY #14 supp.rect Apixaban [Eliquis -] 2.5 mg PO BID 05/10/17 Isosorbide Mononitrate [Isosorbide Mononitrate ER] 60 mg PO DAILY 05/10/17 Pantoprazole Sodium [Protonix] 40 mg PO DAILY 05/10/17 Family Disease History - Family Disease History Family Disease History: Heart Disease: Brother (CABG,lung ca), [place]: Father (lung ca), Mother (ca ? type), Brother Review of Systems - Review of Systems Constitutional: reports: Other (Acute CVA) Musculoskeletal: reports: Muscle Weakness Neurological: reports: Change in Speech, Confusion, Weakness, Other (Acute CVA) Psychiatric: reports: No Symptoms (Severe anemia) - Risk Factors Known Risk Factors: Yes: Hypercholesterolemia, Hypertension Vital Signs: Vital Signs Temperature 97.1 F L 05/10/17 08:40 Pulse Rate 87 05/10/17 11:56 Respiratory Rate 16 05/10/17 11:56 Blood Pressure 126/57 05/10/17 11:56 O2 Sat by Pulse Oximetry (%) 100 05/10/17 11:56 Constitutional: Yes: Well Nourished, [place], Pallor Eyes: Yes: Conjunctiva Clear HENT: Yes: Atraumatic, Normocephalic Neck: Yes: Supple, Trachea Midline Respiratory: Yes: Regular, CTA Bilaterally Gastrointestinal: Yes: Normal Bowel Sounds, Soft Cardiovascular: Yes: Regular Rate and Rhythm, Tachycardia JVD: No Carotid Bruit: No Heart Sounds: Yes: S1, S2 Murmur: Yes: Systolic Murmur, Grade 3 Musculoskeletal: Yes: Muscle Weakness Edema: No Peripheral Pulses WNL: Yes - Other Data Labs, Other Data: CBC, BMP 05/10/17 11:01 05/10/17 09:00 INR, PTT INR 1.35 (0.82-1.09) H 05/10/17 09:00 Troponin, BNP 05/10/17 05/10/17 09:00 11:55 Troponin I 0.16 H D 0.95 H* D Troponin, BNP 05/10/17 05/10/17 09:00 11:55 Troponin I 0.16 H D 0.95 H* D Sinus rhythm, sinus tachycardia. Marked inferolateral ST-T changes, c/w ischemia Imaging - Results EKG: Image Reviewed (Sinus rhythm, sinus tachycardia. Marked inferolateral ST-T changes, c/w ischemia) Assessment/Plan 86 year old man with a PMHx of HTN, hyperlipidemia, CAD, paroxysmal atrial fibrillation, hemorrhoids, previous small bowel obstruction, colon cancer s/p section brought to ED 05/10/2017 for right-sided stroke like symptoms with aphasia. Onset of time is unclear. Seen by neurology for large left MCA stroke, not a candidate for tPA or acute intervention. The patient was found to have abnormal ECG with evidence of inferolateral ischemia. He was given IV Metoprolol for heart rate control. He is ruled in for NSTEMI. Severe anemia noted. Transfusion is prepared. 1) NSTEMI: NSTEMI in the settings of severe anemia and acute large MCA stroke. It is possible type II HI with underline CAD. Conservative cardiac care. May use IV Metoprolol 5 mg q4-6 hours for heart rate control, titrate up as BP tolerated. Transfuse PRBCs for severe anemia. Obtain echo Start aspirin and atorvastatin. Need long-term AC for paroxysmal atrial fibrillation in 2 weeks as per neurology. 2) Paroxysmal atrial fibrillation: In sinus now. May use IV Metoprolol 5 mg q4-6 hours for heart rate control. Resume PO metoprolol when PO possible. Long-term AC for paroxysmal atrial fibrillation in 2 weeks as per neurology. We will follow the patient with you.
--- NOTE | 2017-05-10 17:07 | CONSULT ---
Consult Consult Specialty:: Hematology/oncology Referred by:: Reason for Consultation:: Acute cerebral infarct. Non STEMI. H/o recurrent colon ca - History Source History Provided By: Medical Record Limitations to Obtaining History: Clinical Condition - Past Medical History Cardio/Vascular: Yes: CAD, CHF, HTN, [place] (NSTEMI) Gastrointestinal: Yes: Cancer (Colon CA) Heme/Onc: Yes: Anemia, Other (Has required transfusion in past ) - Past Surgical History Past Surgical History: Yes: Colectomy, Hernia Repair - Alcohol/Substance Use Hx Alcohol Use: No Number of Drinks Daily: 1 History of Substance Use: reports: None - Smoking History Smoking history: Unknown if ever smoked Have you smoked in the past 12 months: No - Social History Usual Living Arrangement: Other (with sister) 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 Travel: No Home Medications - Allergies Allergies/Adverse Reactions: Allergies Allergy/AdvReac Type Severity Reaction Status Date / Time No Known Allergies Allergy Verified 03/02/17 11:09 - Home Medications Home Medications: Ambulatory Orders Atorvastatin Ca [Lipitor] 40 mg PO HS #30 tablet 07/03/16 Ascorbic Acid [Vitamin C -] 500 mg PO DAILY tablet 10/19/16 Ferrous Sulfate [Feosol] 325 mg PO DAILY #30 tab 10/19/16 Losartan Potassium [Cozaar -] 25 mg PO DAILY #30 tablet 10/19/16 Metoprolol Succinate [Toprol XL -] 12.5 mg PO DAILY #30 tab.sr 10/19/16 Spironolactone [Aldactone -] 25 mg PO DAILY #30 tablet 10/19/16 Hydrocortisone Acetate [Anusol Hc Suppository -] 25 mg RC DAILY #14 supp.rect Apixaban [Eliquis -] 2.5 mg PO BID 05/10/17 Isosorbide Mononitrate [Isosorbide Mononitrate ER] 60 mg PO DAILY 05/10/17 Pantoprazole Sodium [Protonix] 40 mg PO DAILY 05/10/17 Family Disease History - Family Disease History Family Disease History: Heart Disease: Brother (CABG,lung ca), [place]: Father (lung ca), Mother (ca ? type), Brother Physical Exam Vital Signs: Vital Signs Temperature 97.5 F L 05/10/17 16:05 Pulse Rate 84 05/10/17 16:05 Respiratory Rate 18 05/10/17 16:05 Blood Pressure 118/65 05/10/17 16:05 O2 Sat by Pulse Oximetry (%) 100 05/10/17 16:05 Constitutional: Yes: Other (Non communicative with right sided plegia and LMCA stroke) Eyes: No: Diplopia, Ptosis, Sclera Icterus HENT: No: Thrush, Tonsillar Exudate Neck: Yes: Supple. No: Lymphadenopathy Cardiovascular: Yes: Other (irregular rhythm) Respiratory: Yes: Other (diminished breath sounds bilaterally) Gastrointestinal: Yes: Soft. No: Ascites, Distention, Hepatomegaly, Palpable Mass, Splenomegaly, Tenderness Musculoskeletal: No: Joint Swelling Extremities: No: Cool, Cyanosis Edema: No Neurological: Yes: Other (left MCA stroke with right hemiplegia) Labs: CBC, BMP 05/10/17 11:01 05/10/17 09:00 Imaging - Results Chest X-ray: Report Reviewed Cat Scan: Report Reviewed Problem List - Problems (1) CVA (cerebral vascular accident) Assessment/Plan: Left MCA cerebral infarct Left posterior frontal infarct left posterior temporal infarct old left basilar infarct old cerebellar infarcts Previous on eliquis . Per neurology increased risk of beeding - to begin ASA therapy Code(s): I63.9 - CEREBRAL INFARCTION, UNSPECIFIED Qualifiers: CVA mechanism: embolism Precerebral and cerebral artery: posterior cerebral artery Laterality of affected vessel: left Qualified Code(s): I63.432 - Cerebral infarction due to embolism of left posterior cerebral artery (2) Anemia Assessment/Plan: Previous required transfusion therapy Hypo/ micro/ anemia. Likely Fe++ deficiency from blood loss. History of colon ca - s/p resection with anastomotic recurrence In view of recent stroke m NonSTEMI and previous patient wohes, no GI work up. Would transfuse. Code(s): D64.9 - ANEMIA, UNSPECIFIED Qualifiers: Other causes of anemia: acute posthemorrhagic (3) Colon cancer Assessment/Plan: History of colon ca , s/p resection. Had anastomotic recurrence and declined further intervention or investigation. In light of this, likely conservative approach without GI and with transfusion therapy prn. Code(s): C18.9 - MALIGNANT NEOPLASM OF COLON, UNSPECIFIED Qualifiers: Colon location: unspecified part of colon Qualified Code(s): C18.9 - Malignant neoplasm of colon, unspecified (4) Non-ST elevation (NSTEMI) myocardial infarction Assessment/Plan: Monitored setting ASA Code(s): I21.4 - NON-ST ELEVATION (NSTEMI) MYOCARDIAL INFARCTION (5) Atrial flutter Assessment/Plan: Flutter/ fib-- to be off a/c for a minimum of 5-7 days and then to decide about safety in face of GI bleeding and anastomotic recurrence. Code(s): I48.92 - UNSPECIFIED ATRIAL FLUTTER Qualifiers: Atrial flutter type: atypical Qualified Code(s): I48.4 - Atypical atrial flutter
[2017-05-10 17:52] VITALS: BMI 17.3
--- NOTE | 2017-05-10 20:29 | CONSULT ---
Consult Consult Specialty:: Pulm/CCM Reason for Consultation:: CVA - History of Present Illness History of Present Illness: 86yom with PMHx of HTN, HLD, CAD, A-flutter, SBO, Colon Ca s/p colectomy, GI bleed who was BIBEMS after a fall and change in mental status at home. Pt was found by EMS to be awake and with slurred speech and demonstrated RUE hemiparesis. In ED VS T 97.1, HR 99, BP 135/70, O2 sat 100% on room air. Exam notable for aphasia and right side hemiparesis. Labs notable for WBC 9.1, hgb 5.7, Trop 0.95 , BUN/Creat 22/1.4, HCO3 17. CTA of the head with acute left posterior cortical infarct and acute/subacute temporal/parietal cortical infarct. He was seen by neurology. Not a candidate for tPA re unknown d/t unclear downtime. Seen by cardiology for ST segment changes on ECG. he was transferred to ICU for further management. 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 Travel: No Home Medications - Allergies Allergies/Adverse Reactions: Allergies Allergy/AdvReac Type Severity Reaction Status Date / Time No Known Allergies Allergy Verified 03/02/17 11:09 - Home Medications Home Medications: Ambulatory Orders Atorvastatin Ca [Lipitor] 40 mg PO HS #30 tablet 07/03/16 Ascorbic Acid [Vitamin C -] 500 mg PO DAILY tablet 10/19/16 Ferrous Sulfate [Feosol] 325 mg PO DAILY #30 tab 10/19/16 Losartan Potassium [Cozaar -] 25 mg PO DAILY #30 tablet 10/19/16 Metoprolol Succinate [Toprol XL -] 12.5 mg PO DAILY #30 tab.sr 10/19/16 Spironolactone [Aldactone -] 25 mg PO DAILY #30 tablet 10/19/16 Hydrocortisone Acetate [Anusol Hc Suppository -] 25 mg RC DAILY #14 supp.rect Apixaban [Eliquis -] 2.5 mg PO BID 05/10/17 Isosorbide Mononitrate [Isosorbide Mononitrate ER] 60 mg PO DAILY 05/10/17 Pantoprazole Sodium [Protonix] 40 mg PO DAILY 05/10/17 Family Disease History - Family Disease History Family Disease History: Heart Disease: Brother (CABG,lung ca), CA: Father (lung ca), Mother (ca ? type), Brother Review of Systems Unable to obtain ROS, reason: Unable Physical Exam Vital Signs: Vital Signs Temperature 97.7 F 05/10/17 20:00 Pulse Rate 61 05/10/17 20:00 Respiratory Rate 21 05/10/17 20:00 Blood Pressure 130/59 05/10/17 20:00 O2 Sat by Pulse Oximetry (%) 98 05/10/17 17:40 Constitutional: Yes: Well Nourished, No Distress, Calm Eyes: Yes: Conjunctiva Clear, PERRL HENT: Yes: Atraumatic, Normocephalic Neck: Yes: Trachea Midline Cardiovascular: Yes: Regular Rate and Rhythm Respiratory: Yes: CTA Bilaterally Gastrointestinal: Yes: Normal Bowel Sounds, Soft Renal/: Yes: WNL, Incontinence Edema: No Peripheral Pulses WNL: Yes Integumentary: Yes: Bruising Neurological: Yes: Dysarthria, Other (Awake toverbal, unable to state name time or place. Speech mumbled) ...Motor Strength: RUE, RLE (RUE no movement; RLE able to wiggle toes but no gross movement) Labs: CBC, BMP 05/10/17 11:01 05/10/17 09:00 CBC,CMP WBC 9.1 K/mm3 (4.0-10.0) 05/10/17 11:01 RBC 2.92 M/mm3 (4.00-5.60) L 05/10/17 11:01 Hgb 5.7 GM/dL (11.7-16.9) L* 05/10/17 11:01 Hct 20.0 % (35.4-49) L 05/10/17 11:01 MCV 68.4 fl (80-96) L 05/10/17 11:01 MCH 19.4 pg (25.7-33.7) L 05/10/17 11:01 MCHC 28.4 g/dl (32.0-35.9) L 05/10/17 11:01 RDW 25.1 % (11.9-15.9) H 05/10/17 11:01 Plt Count 491 K/MM3 (134-434) H D 05/10/17 11:01 MPV 7.3 fl (7.5-11.1) L 05/10/17 11:01 Absolute Neuts (auto) 7.6 # (42.8-82.8) L 05/10/17 11:01 Absolute Lymphs (auto) 0.5 (8-40) L 05/10/17 11:01 Absolute Monos (auto) 1.0 # (3.8-10.2) L 05/10/17 11:01 Absolute Eos (auto) 0.0 # (0-4.5) 05/10/17 11:01 Absolute Basos (auto) 0.1 # (0.1-1) 05/10/17 11:01 Neutrophils % 83.7 % (42.8-82.8) H 05/10/17 11:01 Lymphocytes % 5.2 % (8-40) L D 05/10/17 11:01 Monocytes % 10.5 % (3.8-10.2) H 05/10/17 11:01 Eosinophils % 0.0 % (0-4.5) 05/10/17 11:01 Basophils % 0.6 % (0-2.0) 05/10/17 11:01 Hypochromia 2+ 05/10/17 11:01 Polychromasia 0 05/10/17 11:01 Poikilocytosis 1+ 05/10/17 11:01 Anisocytosis 2+ 05/10/17 11:01 Microcytosis 3+ 05/10/17 11:01 Macrocytosis 0 05/10/17 11:01 Target Cells 1+ 05/10/17 11:01 Sodium 137 mmol/L (136-145) 05/10/17 09:00 Potassium 4.5 mmol/L (3.5-5.1) 05/10/17 09:00 Chloride 104 mmol/L (98-107) 05/10/17 09:00 Carbon Dioxide 17 mmol/L (21-32) L D 05/10/17 09:00 Anion Gap 16 (8-16) 05/10/17 09:00 BUN 22 mg/dL (7-18) H D 05/10/17 09:00 Creatinine 1.4 mg/dL (0.7-1.3) H D 05/10/17 09:00 Creat Clearance w eGFR 48.28 (>60) 05/10/17 09:00 POC Glucometer 200.85162 UNITS (80-120) 05/10/17 08:40 Random Glucose 200 mg/dL (74-106) H D 05/10/17 09:00 Calcium 8.3 mg/dL (8.5-10.1) L 05/10/17 09:00 Total Bilirubin 1.6 mg/dL (0.2-1.0) H D 05/10/17 09:00 AST 4 U/L (15-37) L D 05/10/17 09:00 ALT 8 U/L (12-78) L D 05/10/17 09:00 Alkaline Phosphatase 93 U/L (45-117) 05/10/17 09:00 Creatine Kinase 115 IU/L (39-308) 05/10/17 11:55 Troponin I 0.95 ng/ml (0.00-0.05) H* D 05/10/17 11:55 Total Protein 6.4 g/dl (6.4-8.2) 05/10/17 09:00 Albumin 2.8 g/dl (3.4-5.0) L 05/10/17 09:00 Triglycerides 80 mg/dL (35-160) D 05/10/17 09:00 Cholesterol 130 mg/dL (50-200) 05/10/17 09:00 Total LDL Cholesterol 73 mg/dL (5-100) D 05/10/17 09:00 HDL Cholesterol 51 mg/dL (40-60) D 05/10/17 09:00 Active Medications Chlorhexidine Gluconate (Hibiclens For Decolonization -) 1 applic TP HS PITA Last Admin: 05/10/17 21:14 Dose: 1 applic Sodium Chloride (Normal Saline -) 1,000 mls @ 42 mls/hr IV ASDIR PITA Last Admin: 05/10/17 09:00 Dose: 42 mls/hr Pantoprazole Sodium 80 mg/ (Sodium Chloride) 100 mls @ 10 mls/hr IVPB Q10H PITA PRN Reason: 8 MG/HR Last Admin: 05/10/17 14:10 Dose: 10 mls/hr Mupirocin (Bactroban Ointment (For Decolonization) -) 1 applic NS BID PITA Stop: 05/15/17 21:59 Last Admin: 05/10/17 21:14 Dose: 1 applic Vital Signs Period Temp Pulse Resp BP Sys/Boo Pulse Ox Last 24 Hr 97.1 F-97.8 F 61-99 16-21 113-135/43-70 98-100 Imaging - Results Chest X-ray: Report Reviewed Cat Scan: Report Reviewed EKG: Report Reviewed Problem List - Problems (1) CVA (cerebral vascular accident) Code(s): I63.9 - CEREBRAL INFARCTION, UNSPECIFIED Qualifiers: CVA mechanism: embolism Precerebral and cerebral artery: posterior cerebral artery Laterality of affected vessel: left Qualified Code(s): I63.432 - Cerebral infarction due to embolism of left posterior cerebral artery (2) Acute on chronic systolic (congestive) heart failure Code(s): I50.23 - ACUTE ON CHRONIC SYSTOLIC (CONGESTIVE) HEART FAILURE (3) Anemia Code(s): D64.9 - ANEMIA, UNSPECIFIED Qualifiers: Other causes of anemia: acute posthemorrhagic (4) Colon cancer Code(s): C18.9 - MALIGNANT NEOPLASM OF COLON, UNSPECIFIED Qualifiers: Colon location: unspecified part of colon Qualified Code(s): C18.9 - Malignant neoplasm of colon, unspecified (5) Coronary artery disease Code(s): I25.10 - ATHSCL HEART DISEASE OF [place] CORONARY ARTERY W/O ANG PCTRS Qualifiers: Coronary Disease-Associated Artery/Lesion type: [place] artery [place] vs. transplanted heart: [place] heart Associated angina: angina presence unspecified Qualified Code(s): I25.10 - Atherosclerotic heart disease of [place] coronary artery without angina pectoris (6) Elevated troponin Code(s): R74.8 - ABNORMAL LEVELS OF OTHER SERUM ENZYMES Assessment/Plan 86yom with PMHx of HTN, HLD, CAD, A-flutter, SBO, Colon Ca s/p colectomy, GI bleed who was BIBEMS after a fall and change in mental status found to have Lt MCA stroke with rt sided hemiparesis, NSTEMI, severe anemia and TURNER. he is transferred to ICU for management. Plan: Neuro: CVA -Neuro following - not a candidate for acute intervention -dysphagia assessment -Aspiration precaution -PT/OT CV:NSTEMI; A-fib previously on Eliquis -Cardiology following -monitor trop and ECG -ASA as per cards for now -NC O2 as needed for O2 sat>92% Heme: Severe anemia,colon ca, GI bleed -monitor CBC and coags -Transfuse for hgb>8, no GI intervention -Iron supplement Proph: DVT and GI prophylaxis PJ Cristina CC time 35mins
[2017-05-10] MEDS: MUPIROCIN 2% TOPICAL OINTMENT FOR DECOLONIZATION NS SCH (21:14)
[2017-05-10] MEDS: CHLORHEXIDINE GLUCONATE 4% CLEANSER FOR DECOLONIZATION TP SCH (21:14)
[2017-05-10 22:43] LABS: BASO # 0.1 # (0.1-1); BASO % 1.2 % (0-2.0); EOS % 0.2 % (0-4.5); LYMPH # 1.2 (8-40); MCH 22.4 pg (25.7-33.7); MCHC 30.1 g/dl (32.0-35.9); MEAN CELL VOLUME 74.3 fl (80-96); MEAN PLT VOLUME 7.8 fl (7.5-11.1); MONO # 0.8 # (3.8-10.2); NEUT # 4.3 # (42.8-82.8); NEUT % 66.9 % (42.8-82.8); PLATELET COUNT 314 K/MM3 (134-434); RDW 23.7 % (11.9-15.9); WHITE BLOOD COUNT 6.5 K/mm3 (4.0-10.0)
[2017-05-10 23:13] LABS: TROPONIN I 15.6 ng/ml (0.00-0.05)
[2017-05-10] MEDS ORDERED: morphine SULFATE 4 MG/ML VIAL IVPUSH PRN (23:32)
[2017-05-11 06:34] LABS: BASO # 0.1 # (0.1-1); BASO % 1.4 % (0-2.0); EOS % 0.4 % (0-4.5); LYMPH # 1.2 (8-40); MCHC 29.9 g/dl (32.0-35.9); MEAN CELL VOLUME 73.6 fl (80-96); MEAN PLT VOLUME 7.8 fl (7.5-11.1); NEUT # 4.7 # (42.8-82.8); NEUT % 66.5 % (42.8-82.8); PLATELET COUNT 352 K/MM3 (134-434); RDW 23.6 % (11.9-15.9); WHITE BLOOD COUNT 7.1 K/mm3 (4.0-10.0)
[2017-05-11 06:58] LABS: ANION GAP 10 (8-16); CALCIUM 7.7 mg/dL (8.5-10.1); CO2 22 mmol/L (21-32); GLUCOSE,RANDOM 66 mg/dL (74-106); MAGNESIUM 2.1 mg/dL (1.8-2.4); PHOSPHOROUS 3.3 mg/dL (2.5-4.9)
[2017-05-11] MEDS: MUPIROCIN 2% TOPICAL OINTMENT FOR DECOLONIZATION NS SCH ×2 (09:12→21:21)
[2017-05-11] MEDS: PANTOPRAZOLE SODIUM 80 MG in SODIUM CHLORIDE 100 ML IVPB SCH ×2 (09:12→21:21)
[2017-05-11] MEDS: SODIUM CHLORIDE 1,000 ML IV SCH (09:13)
--- NOTE | 2017-05-11 10:15 | PN ---
Progress Note (short form) - Note Progress Note: 86 Year old male history of Past Medical History of small bowel obstruciton, colon cancer, CAD, HTN , HLD came with rightsided hemiparesis. He was found to be aphasic and neglect and initial ct head was normal. His NIH score is 17. It is not known what time symptoms started. He do have history of atrial fibrillation. It is not clear what anticoagulation he was taking. Patient was not a tpa candidate due to unknown time of onset. He did have cta done and did not show any large vessel occlusion and found to have frontal lobe ischemic lesion. His Hemoglobin was found to have 5.7 Spent 30 minute doing critical care Neurological Examination bp 100/86 Alert and track object and no spontaneous speech , he is laying with no acute distress He is able to understand and follow simple command. Mild right sided facial asymmetry, Right sided hemiparesis, no movmenet was seen Right planter is extensor ct of head reviewed initially there was no acute stroke CTA report was told verbally at bed side by ED physician, there i sno proximal occlusion and there is evolving findings suggestive of right frontal lobe infarct carotid ultrasound show there is stenosis bilaterally, Asseesment- Large Left MCA stroke, risk factor atrial fibrillation, htn, cad and HLD, at this time, He has large Neurological deficit (NIH SCORE OF 17)and there is no large occlusion of proximal vessel identified and time of onset of symptoms is not exactly known( was not a candidate for tpa or catheter based intervention) Plan--Aspirin is being held due to bleed start Lipitor 80 mg once a day -PT,Speech and DVT prophylaxis - would repeat ct head - cardiology consult appreciated, carotid ultrasound - carotid stenosis- assess with mra at a later time, would not be candidate for procedure in acute setting - Refrain from anticoagulation in first 5-7 days as there is high risk of bleed , Feel free to call me if any concern. Enzo Fields md
--- NOTE | 2017-05-11 10:35 | PN ---
Progress Note (short form) - Note Progress Note: PULMONARY/CCM Pt seen and examined in the ICU. Aphasic, right arm flaccid, some movement in right foot. Last Vital Signs Temp Pulse Resp BP Pulse Ox 98.4 F 74 18 98/44 98 05/11/17 10:00 05/11/17 10:00 05/11/17 10:00 05/11/17 10:00 05/11/17 09:00 Intake & Output 05/08/17 05/09/17 05/10/17 05/11/17 23:59 23:59 23:59 23:59 Intake Total 360 540 Balance 360 540 Weight 50.2 kg 51.71 kg Gen: aphasic, breathing nonlabored Heart: RRR Lung: decreased breath sounds at the bases Abd: soft, nontender Ext: right arm flaccid, no edema CBC, BMP 05/11/17 05:15 05/11/17 05:15 Active Medications Atorvastatin Calcium (Lipitor -) 80 mg PO HS PITA Chlorhexidine Gluconate (Hibiclens For Decolonization -) 1 applic TP HS PITA Last Admin: 05/10/17 21:14 Dose: 1 applic Sodium Chloride (Normal Saline -) 1,000 mls @ 42 mls/hr IV ASDIR PITA Last Admin: 05/11/17 09:13 Dose: 42 mls/hr Pantoprazole Sodium 80 mg/ (Sodium Chloride) 100 mls @ 10 mls/hr IVPB Q10H PITA PRN Reason: 8 MG/HR Last Admin: 05/11/17 09:12 Dose: 10 mls/hr Morphine Sulfate (Morphine Sulfate) 1 mg IVPUSH Q6H PRN PRN Reason: PAIN Last Admin: 05/10/17 23:50 Dose: 1 mg Mupirocin (Bactroban Ointment (For Decolonization) -) 1 applic NS BID PITA Stop: 05/15/17 21:59 Last Admin: 05/11/17 09:12 Dose: 1 applic A/P Acute L MCA Stroke Acute NSTEMI Atrial Fibrillation LV Systolic Dysfunction Mitral Regurgitation Severe Anemia s/p PRBC transfusions r/o GI Bleed HTN Hyperlipidemia - neuro checks - trend cardiac enzymes - holding ASA, anticoagulation due to extent of stroke - rate control - aspiration precautions - swallow eval - rehab/PT - DVT prophylaxis critical care time spent in reviewing chart, evaluating patient and formulating plan 35 min
[2017-05-11 11:38] LABS: URINE APPEARANCE SLCLOUDY; URINE BILIRUBIN NEGATIVE (NEGATIVE); URINE BLOOD NEGATIVE (NEGATIVE); URINE COLOR YELLOW; URINE GLUCOSE (UA) NEGATIVE (NEGATIVE); URINE KETONE 1+ (NEGATIVE); URINE LEUK ESTERASE NEGATIVE (NEGATIVE); URINE NITRITE NEGATIVE (NEGATIVE); URINE PROTEIN NEGATIVE (NEGATIVE); URINE UROBILINOGEN NEGATIVE mg/dL (0.2-1.0)
[2017-05-11 12:29] LABS: TROPONIN I 13.2 ng/ml (0.00-0.05)
[2017-05-11 13:02] LABS: URINE LEUK ESTERASE Negative (NEGATIVE)
--- NOTE | 2017-05-11 13:05 | PN ---
Progress Note, Physician Chief Complaint: lying in bed comfortable tele aflutter with controlled VR History of Present Illness: 86 year old man with a PMHx of HTN, hyperlipidemia, CAD, paroxysmal atrial fibrillation, hemorrhoids, previous small bowel obstruction, colon cancer s/p section brought to ED 05/10/2017 for right-sided stroke like symptoms with aphasia. Onset of time is unclear. Seen by neurology for large left MCA stroke, not a candidate for tPA or acute intervention. The patient was found to have abnormal ECG with evidence of inferolateral ischemia. He was given IV Metoprolol for heart rate control. He is ruled in for NSTEMI. Severe anemia noted. Given 2 units PRBC. Echo 05/10/17 inferior and inferolateral hypokinesis with normal EF, mod mr mild to mod tr - Current Medication List Current Medications: Active Medications Atorvastatin Calcium (Lipitor -) 80 mg PO HS PITA Chlorhexidine Gluconate (Hibiclens For Decolonization -) 1 applic TP HS [facility] Last Admin: 05/10/17 21:14 Dose: 1 applic Sodium Chloride (Normal Saline -) 1,000 mls @ 42 mls/hr IV ASDIR PITA Last Admin: 05/11/17 09:13 Dose: 42 mls/hr Pantoprazole Sodium 80 mg/ (Sodium Chloride) 100 mls @ 10 mls/hr IVPB Q10H PITA PRN Reason: 8 MG/HR Last Admin: 05/11/17 09:12 Dose: 10 mls/hr Morphine Sulfate (Morphine Sulfate) 1 mg IVPUSH Q6H PRN PRN Reason: PAIN Last Admin: 05/10/17 23:50 Dose: 1 mg Mupirocin (Bactroban Ointment (For Decolonization) -) 1 applic NS BID [facility] Stop: 05/15/17 21:59 Last Admin: 05/11/17 09:12 Dose: 1 applic - Objective Vital Signs: Vital Signs Temperature 98.4 F 05/11/17 10:00 Pulse Rate 74 05/11/17 10:00 Respiratory Rate 18 05/11/17 10:00 Blood Pressure 98/44 05/11/17 10:00 O2 Sat by Pulse Oximetry (%) 98 05/11/17 09:00 Constitutional: Yes: No Distress, Calm Eyes: Yes: Conjunctiva Clear, EOM Intact HENT: Yes: Atraumatic, Normocephalic Neck: Yes: Trachea Midline Cardiovascular: Yes: Pulse Irregular Respiratory: Yes: CTA Bilaterally Gastrointestinal: Yes: Normal Bowel Sounds, Soft Extremities: Yes: WNL Edema: No Peripheral Pulses WNL: Yes Labs: CBC, BMP 05/11/17 05:15 05/11/17 05:15 INR, PTT INR 1.35 (0.82-1.09) H 05/10/17 09:00 Problem List - Problems (1) Elevated troponin Assessment/Plan: There are limited to no further cardiac therapeutic options at this point except for beta blockers as tolerated by BP and HR. No asa or AC due to extent of CVA and GI bleeding with recurrence of colon CA. Echo with wall motion abnormality but normal EF. No further testing is needed. Goals of care should be addressed. Transfuse as needed to limit demand ischemia. Prognosis is poor. Code(s): R74.8 - ABNORMAL LEVELS OF OTHER SERUM ENZYMES (2) Atrial flutter Assessment/Plan: Rates are controlled. Not a candidate for AC due to extent of stroke and GI bleeding. Transfuse as needed. Will see prn. No further suggestions. Code(s): I48.92 - UNSPECIFIED ATRIAL FLUTTER Qualifiers: Atrial flutter type: atypical Qualified Code(s): I48.4 - Atypical atrial flutter
--- NOTE | 2017-05-11 14:01 | PN ---
Progress Note (short form) - Note Progress Note: Non verbal but awake and is able to respond to commands Denies any pain or discomfort O/E Heart regular Lungs few scattered rales+ Abd soft Ext no edema Vital Signs Period Temp Pulse Resp BP Sys/Boo Pulse Ox Last 24 Hr 97.5 F-98.4 F 56-84 15-26 97-130/34-70 98-100 Current Medications Atorvastatin Calcium (Lipitor -) 80 mg PO HS PITA Chlorhexidine Gluconate (Hibiclens For Decolonization -) 1 applic TP HS PITA Last Admin: 05/10/17 21:14 Dose: 1 applic Sodium Chloride (Normal Saline -) 1,000 mls @ 42 mls/hr IV ASDIR PITA Last Admin: 05/11/17 09:13 Dose: 42 mls/hr Pantoprazole Sodium 80 mg/ (Sodium Chloride) 100 mls @ 10 mls/hr IVPB Q10H PITA PRN Reason: 8 MG/HR Last Admin: 05/11/17 09:12 Dose: 10 mls/hr Morphine Sulfate (Morphine Sulfate) 1 mg IVPUSH Q6H PRN PRN Reason: PAIN Last Admin: 05/10/17 23:50 Dose: 1 mg Mupirocin (Bactroban Ointment (For Decolonization) -) 1 applic NS BID PITA Stop: 05/15/17 21:59 Last Admin: 05/11/17 09:12 Dose: 1 applic Vital Signs Period Temp Pulse Resp BP Sys/Boo Pulse Ox Last 24 Hr 97.5 F-98.4 F 56-84 15-26 97-130/34-70 98-100 Laboratory Results - last 24 hr 05/10/17 05/10/17 05/10/17 09:00 11:01 20:15 WBC RBC Hgb Hct MCV MCH MCHC RDW Plt Count MPV Neutrophils % Lymphocytes % Monocytes % Eosinophils % Basophils % Hypochromia 2+ Polychromasia 0 Poikilocytosis 1+ Anisocytosis 2+ Microcytosis 3+ Macrocytosis 0 Target Cells 1+ Sodium Potassium Chloride Carbon Dioxide Anion Gap BUN Creatinine Random Glucose Calcium Phosphorus Magnesium Creatine Kinase Cancelled Creatine Kinase Index CK-MB (CK-2) Troponin I Cancelled Triglycerides Cholesterol Total LDL Cholesterol HDL Cholesterol Urine Color Urine Appearance Urine pH Ur Specific [place] Urine Protein Urine Glucose (UA) Urine Ketones Urine Blood Urine Nitrite Urine Bilirubin Urine Urobilinogen Ur Leukocyte Esterase Blood Type O POSITIVE Antibody Screen Negative Crossmatch See Detail Spec Expiration Date 05/10/17 05/10/17 05/11/17 22:20 22:20 05:15 WBC 6.5 7.1 RBC 3.52 L D 3.24 L Hgb 7.9 L D 7.1 L D Hct 26.1 L D 23.9 L MCV 74.3 L D 73.6 L MCH 22.4 L 22.0 L MCHC 30.1 L 29.9 L RDW 23.7 H 23.6 H Plt Count 314 D 352 MPV 7.8 7.8 Neutrophils % 66.9 D 66.5 Lymphocytes % 18.6 D 17.3 Monocytes % 13.1 H 14.4 H Eosinophils % 0.2 D 0.4 D Basophils % 1.2 1.4 Hypochromia Polychromasia Poikilocytosis Anisocytosis Microcytosis Macrocytosis Target Cells Sodium Potassium Chloride Carbon Dioxide Anion Gap BUN Creatinine Random Glucose Calcium Phosphorus Magnesium Creatine Kinase 399 H Creatine Kinase Index 14.5 H* CK-MB (CK-2) 58.192 H Troponin I 15.60 H* D Triglycerides Cholesterol Total LDL Cholesterol HDL Cholesterol Urine Color Urine Appearance Urine pH Ur Specific [place] Urine Protein Urine Glucose (UA) Urine Ketones Urine Blood Urine Nitrite Urine Bilirubin Urine Urobilinogen Ur Leukocyte Esterase Blood Type Antibody Screen Crossmatch Spec Expiration Date 05/11/17 05/11/17 05/11/17 05:15 05:15 10:54 WBC RBC Hgb Hct MCV MCH MCHC RDW Plt Count MPV Neutrophils % Lymphocytes % Monocytes % Eosinophils % Basophils % Hypochromia Polychromasia Poikilocytosis Anisocytosis Microcytosis Macrocytosis Target Cells Sodium 142 Potassium 4.3 Chloride 110 H Carbon Dioxide 22 D Anion Gap 10 BUN 25 H Creatinine 1.0 D Random Glucose 66 L D Calcium 7.7 L Phosphorus 3.3 Magnesium 2.1 Creatine Kinase 265 Cancelled Creatine Kinase Index 15.3 H* CK-MB (CK-2) 40.567 H Troponin I 13.20 H* Cancelled Triglycerides 80 Cholesterol 95 D Total LDL Cholesterol 54 D HDL Cholesterol 39 L D Urine Color Urine Appearance Urine pH Ur Specific [place] Urine Protein Urine Glucose (UA) Urine Ketones Urine Blood Urine Nitrite Urine Bilirubin Urine Urobilinogen Ur Leukocyte Esterase Blood Type Antibody Screen Crossmatch Spec Expiration Date 05/11/17 11:00 WBC RBC Hgb Hct MCV MCH MCHC RDW Plt Count MPV Neutrophils % Lymphocytes % Monocytes % Eosinophils % Basophils % Hypochromia Polychromasia Poikilocytosis Anisocytosis Microcytosis Macrocytosis Target Cells Sodium Potassium Chloride Carbon Dioxide Anion Gap BUN Creatinine Random Glucose Calcium Phosphorus Magnesium Creatine Kinase Creatine Kinase Index CK-MB (CK-2) Troponin I Triglycerides Cholesterol Total LDL Cholesterol HDL Cholesterol Urine Color Yellow Urine Appearance Slcloudy Urine pH 5.0 Ur Specific [place] 1.034 Urine Protein Negative Urine Glucose (UA) Negative Urine Ketones 1+ H Urine Blood Negative Urine Nitrite Negative Urine Bilirubin Negative Urine Urobilinogen Negative Ur Leukocyte Esterase Negative Blood Type Antibody Screen Crossmatch Spec Expiration Date (1) CVA (cerebral vascular accident) Assessment/Plan: massive left MCA stroke Overall prognosis is grim especially given age and co morbidities Code(s): I63.9 - CEREBRAL INFARCTION, UNSPECIFIED (2) [place] kidney injury Assessment/Plan: resoolved could be due to possible GI bleed (3) Anemia Assessment/Plan: Anemia possibly due to GI bleed 2 units prbcs given Further investigations and treatmnet should be based on patients and family's wishesCode(s): D64.9 - ANEMIA, UNSPECIFIED Qualifiers: Other causes of anemia: acute posthemorrhagic (4) Colon cancer Assessment/Plan: Colon CA in which pt not pursuing treatment Code(s): C18.9 - MALIGNANT NEOPLASM OF COLON, UNSPECIFIED Qualifiers: Colon location: unspecified part of colon Qualified Code(s): C18.9 - Malignant neoplasm of colon, unspecified (5) Coronary artery disease Assessment/Plan: NSTEMI Trend Troponins, cardiac echo ordered Code(s): I25.10 - ATHSCL HEART DISEASE OF [place] CORONARY ARTERY W/O ANG PCTRS Qualifiers: Coronary Disease-Associated Artery/Lesion type: [place] artery [place] vs. transplanted heart: [place] heart Associated angina: angina presence unspecified Qualified Code(s): I25.10 - Atherosclerotic heart disease of [place] coronary artery without angina pectoris (6) Non-ST elevation (NSTEMI) myocardial infarction Assessment/Plan: NSTEMI Trend Troponins, cardiac echo ordered Cardiology consulted Hold lipitor until speech eval clearance Hold Aspirin secondary to GI bleed Lipid panel ordered Code(s): I21.4 - NON-ST ELEVATION (NSTEMI) MYOCARDIAL INFARCTION
--- NOTE | 2017-05-11 15:17 | PN ---
Progress Note (short form) - Note Progress Note: Events past 24 hours noted. Reported ongoing bleeding per rectum. Meds reviewed. Current Medications Generic Name Dose Route Start Last Admin Trade Name Freq PRN Reason Stop Dose Admin Atorvastatin Calcium 80 mg 05/11/17 22:00 Lipitor - PO HS PITA Chlorhexidine Gluconate 1 applic 05/10/17 22:00 05/10/17 21:14 Hibiclens For Decolonization - TP 1 applic HS PITA Administration Sodium Chloride 1,000 mls @ 42 mls/hr 05/10/17 08:30 05/11/17 09:13 Normal Saline - IV 42 mls/hr ASDIR PITA Administration Pantoprazole Sodium 80 mg/ 100 mls @ 10 mls/hr 05/10/17 13:15 05/11/17 09:12 Sodium Chloride IVPB 10 mls/hr Q10H PITA Administration 8 MG/HR Morphine Sulfate 1 mg 05/10/17 23:32 05/10/17 23:50 Morphine Sulfate IVPUSH 1 mg Q6H PRN Administration PAIN Mupirocin 1 applic 05/10/17 22:00 05/11/17 09:12 Bactroban Ointment (For Decolonization) - NS 05/15/17 21:59 1 applic BID PITA Administration On exam: Last Vital Signs Temp Pulse Resp BP Pulse Ox 98.4 F 72 18 98/44 98 05/11/17 10:00 05/11/17 14:00 05/11/17 10:00 05/11/17 14:00 05/11/17 09:00 Sleeping, looks comfortable. CBC, BMP 05/11/17 05:15 05/11/17 05:15 Assessment. Progressive, untreated colon cancer (local recurrence) - not being treated at patient's request, now with new CVA, and severe anemia secondary to ongoing GI bleed. AF but certainly not a candidate for anticoagulation. Prognosis is guarded. Is DNR. Comfort care only appropriate. Presently receiving red cell support0, presumably in hope that bleeding will stop spontaneously and patient will stabilize. If bleeding continues then at some point appropriate to withhold transfusion and stop all supportive measure, on grounds of futility.
[2017-05-11] MEDS: CHLORHEXIDINE GLUCONATE 4% CLEANSER FOR DECOLONIZATION TP SCH (21:21)
[2017-05-11] MEDS ORDERED: ATORVASTATIN CA 80 MG TABLET (FP) PO SCH (22:00)
[2017-05-12] MEDS: PANTOPRAZOLE SODIUM 80 MG in SODIUM CHLORIDE 100 ML IVPB SCH ×2 (06:16→15:32)
[2017-05-12 06:23] LABS: BASO # 0.1 # (0.1-1); BASO % 0.7 % (0-2.0); EOS % 0.5 % (0-4.5); LYMPH # 0.8 (8-40); MCH 25.1 pg (25.7-33.7); MCHC 31.9 g/dl (32.0-35.9); MEAN CELL VOLUME 78.7 fl (80-96); MEAN PLT VOLUME 7.9 fl (7.5-11.1); MONO # 0.7 # (3.8-10.2); NEUT # 6.3 # (42.8-82.8); NEUT % 80.1 % (42.8-82.8); PLATELET COUNT 318 K/MM3 (134-434); RDW 22.6 % (11.9-15.9); WHITE BLOOD COUNT 7.8 K/mm3 (4.0-10.0)
[2017-05-12 07:17] LABS: ALBUMIN 2.2 g/dl (3.4-5.0); ALK PHOS 67 U/L (45-117); BILIRUBIN,TOTAL 4.3 mg/dL (0.2-1.0); CALCIUM 7.7 mg/dL (8.5-10.1); CO2 19 mmol/L (21-32); CPK 57 IU/L (39-308); CREATININE 0.8 mg/dL (0.7-1.3); GLUCOSE,RANDOM 58 mg/dL (74-106); PHOSPHOROUS 2.6 mg/dL (2.5-4.9); SGOT/AST 21 U/L (15-37); SGPT/ALT 12 U/L (12-78); TOT PROT 4.9 g/dl (6.4-8.2)
[2017-05-12 07:19] LABS: ANION GAP 14 (8-16); TROPONIN I 3.97 ng/ml (0.00-0.05)
[2017-05-12] MEDS: SODIUM CHLORIDE 1,000 ML IV SCH ×2 (09:57→14:15)
--- NOTE | 2017-05-12 11:06 | PN ---
Progress Note (short form) - Note Progress Note: PULMONARY/CCM Pt seen and examined in the ICU. Aphasic, right arm flaccid, some movement in right foot. More somnolent today. Last Vital Signs Temp Pulse Resp BP Pulse Ox 97.7 F 68 19 104/43 99 05/12/17 06:00 05/12/17 08:00 05/12/17 08:00 05/12/17 08:00 05/12/17 08:00 Intake & Output 05/09/17 05/10/17 05/11/17 05/12/17 23:59 23:59 23:59 23:59 Intake Total 360 2100 322 Output Total 100 Balance 360 2000 322 Weight 50.2 kg 51.71 kg 51 kg Gen: aphasic, breathing nonlabored Heart: RRR Lung: decreased breath sounds at the bases Abd: soft, nontender Ext: right arm flaccid, no edema CBC, BMP 05/12/17 05:00 05/12/17 05:00 Active Medications Atorvastatin Calcium (Lipitor -) 80 mg PO HS PITA Last Admin: 05/11/17 21:21 Dose: Not Given Chlorhexidine Gluconate (Hibiclens For Decolonization -) 1 applic TP HS PITA Last Admin: 05/11/17 21:21 Dose: 1 applic Sodium Chloride (Normal Saline -) 1,000 mls @ 42 mls/hr IV ASDIR IPTA Last Admin: 05/12/17 09:57 Dose: 42 mls/hr Pantoprazole Sodium 80 mg/ (Sodium Chloride) 100 mls @ 10 mls/hr IVPB Q10H PITA PRN Reason: 8 MG/HR Last Admin: 05/12/17 06:16 Dose: 10 mls/hr Morphine Sulfate (Morphine Sulfate) 1 mg IVPUSH Q6H PRN PRN Reason: PAIN Last Admin: 05/10/17 23:50 Dose: 1 mg Mupirocin (Bactroban Ointment (For Decolonization) -) 1 applic NS BID PITA Stop: 05/15/17 21:59 Last Admin: 05/11/17 21:21 Dose: 1 applic A/P Acute L MCA Stroke Acute NSTEMI Atrial Fibrillation LV Systolic Dysfunction Mitral Regurgitation Severe Anemia s/p PRBC transfusions r/o GI Bleed HTN Hyperlipidemia - neuro checks - holding ASA, anticoagulation due to extent of stroke - rate control - aspiration precautions - swallow eval - rehab/PT - DVT prophylaxis - can monitor on floor, recommend palliative care critical care time spent in reviewing chart, evaluating patient and formulating plan 35 min
--- NOTE | 2017-05-12 12:37 | PN ---
Progress Note (short form) - Note Progress Note: No complaints O/E Allert and able to respond appropriately Denies any hunger or pain Heart regular Lungs clear Abd soft Ext no edema Vital Signs Period Temp Pulse Resp BP Sys/Boo Pulse Ox Last 24 Hr 97.7 F-98.3 F 65-87 16-22 89-130/36-60 98-99 Current Medications Atorvastatin Calcium (Lipitor -) 80 mg PO HS PITA Last Admin: 05/11/17 21:21 Dose: Not Given Chlorhexidine Gluconate (Hibiclens For Decolonization -) 1 applic TP HS PITA Last Admin: 05/11/17 21:21 Dose: 1 applic Sodium Chloride (Normal Saline -) 1,000 mls @ 42 mls/hr IV ASDIR PITA Last Admin: 05/12/17 09:57 Dose: 42 mls/hr Pantoprazole Sodium 80 mg/ (Sodium Chloride) 100 mls @ 10 mls/hr IVPB Q10H PITA PRN Reason: 8 MG/HR Last Admin: 05/12/17 06:16 Dose: 10 mls/hr Morphine Sulfate (Morphine Sulfate) 1 mg IVPUSH Q6H PRN PRN Reason: PAIN Last Admin: 05/10/17 23:50 Dose: 1 mg Mupirocin (Bactroban Ointment (For Decolonization) -) 1 applic NS BID PITA Stop: 05/15/17 21:59 Last Admin: 05/11/17 21:21 Dose: 1 applic Vital Signs Period Temp Pulse Resp BP Sys/Boo Pulse Ox Last 24 Hr 97.7 F-98.3 F 65-87 16-22 89-130/36-60 98-99 Laboratory Results - last 24 hr 05/10/17 05/11/17 05/11/17 09:00 05:15 11:00 WBC RBC Hgb Hct MCV MCH MCHC RDW Plt Count MPV Neutrophils % Lymphocytes % Monocytes % Eosinophils % Basophils % Sodium Potassium Chloride Carbon Dioxide Anion Gap BUN Creatinine Creat Clearance w eGFR Random Glucose Calcium Phosphorus Magnesium Total Bilirubin AST ALT Alkaline Phosphatase Creatine Kinase Creatine Kinase Index 15.3 H* CK-MB (CK-2) 40.567 H Troponin I Total Protein Albumin Ur Leukocyte Esterase Negative Blood Type O POSITIVE Antibody Screen Negative Crossmatch See Detail 05/12/17 05/12/17 05:00 05:00 WBC 7.8 RBC 3.97 L D Hgb 10.0 L D Hct 31.3 L D MCV 78.7 L D MCH 25.1 L D MCHC 31.9 L RDW 22.6 H Plt Count 318 MPV 7.9 Neutrophils % 80.1 D Lymphocytes % 10.3 D Monocytes % 8.4 Eosinophils % 0.5 Basophils % 0.7 Sodium 143 Potassium 4.1 Chloride 110 H Carbon Dioxide 19 L Anion Gap 14 BUN 25 H Creatinine 0.8 Creat Clearance w eGFR > 60 Random Glucose 58 L Calcium 7.7 L Phosphorus 2.6 D Magnesium 2.0 Total Bilirubin 4.3 H D AST 21 D ALT 12 D Alkaline Phosphatase 67 D Creatine Kinase 57 Creatine Kinase Index CK-MB (CK-2) Troponin I 3.97 H* D Total Protein 4.9 L D Albumin 2.2 L D Ur Leukocyte Esterase Blood Type Antibody Screen Crossmatch (1) CVA (cerebral vascular accident) Assessment/Plan: massive left MCA stroke Overall prognosis is grim especially given age and co morbidities Still awaitng to reach family memers to discuss. Left message with the other nephew at home and with [facility] Code(s): I63.9 - CEREBRAL INFARCTION, UNSPECIFIED (2) [id number] kidney injury Assessment/Plan: resoolved could be due to possible GI bleed (3) Anemia Assessment/Plan: Anemia possibly due to GI bleed 2 units prbcs given Further investigations and treatmnet should be based on patients and family's wishesCode(s): D64.9 - ANEMIA, UNSPECIFIED Qualifiers: Other causes of anemia: acute posthemorrhagic (4) Colon cancer Assessment/Plan: Colon CA in which pt not pursuing treatment Code(s): C18.9 - MALIGNANT NEOPLASM OF COLON, UNSPECIFIED Qualifiers: Colon location: unspecified part of colon Qualified Code(s): C18.9 - Malignant neoplasm of colon, unspecified (5) Coronary artery disease Assessment/Plan: NSTEMI Trend Troponins, cardiac echo ordered Code(s): I25.10 - ATHSCL HEART DISEASE OF [place] CORONARY ARTERY W/O ANG PCTRS Qualifiers: Coronary Disease-Associated Artery/Lesion type: [place] artery [place] vs. transplanted heart: [place] heart Associated angina: angina presence unspecified Qualified Code(s): I25.10 - Atherosclerotic heart disease of [place] coronary artery without angina pectoris (6) Non-ST elevation (NSTEMI) myocardial infarction Assessment/Plan: Cont presetn care Code(s): I21.4 - NON-ST ELEVATION (NSTEMI) MYOCARDIAL INFARCTION Treating this 86 year old patient who has Colon cancer and refused treatment now with a massive MCA stroke and aphasic has to be based on the patients overall wishes and beliefs. To further transfuse or do aggressive curative measures and the purpose of these have to be discussed with the family whom I have been truying to get in touch with. For now transfer out of ICU and will each out to family
[2017-05-12] MEDS ORDERED: morphine SULFATE 4 MG/ML VIAL IVPUSH PRN (12:43)
[2017-05-12 14:00] LABS: BASO # 0.1 # (0.1-1); BASO % 0.6 % (0-2.0); EOS % 0.2 % (0-4.5); LYMPH # 0.7 (8-40); MCH 24.7 pg (25.7-33.7); MCHC 31.2 g/dl (32.0-35.9); MEAN CELL VOLUME 79.2 fl (80-96); MEAN PLT VOLUME 7.3 fl (7.5-11.1); MONO # 0.8 # (3.8-10.2); NEUT # 6.8 # (42.8-82.8); NEUT % 80.9 % (42.8-82.8); PLATELET COUNT 322 K/MM3 (134-434); RDW 23.2 % (11.9-15.9); WHITE BLOOD COUNT 8.4 K/mm3 (4.0-10.0)
--- NOTE | 2017-05-12 15:42 | PN ---
Progress Note (short form) - Note Progress Note: 86 Year old male history of Past Medical History of small bowel obstruciton, colon cancer, CAD, HTN , HLD came with rightsided hemiparesis. He was found to be aphasic and neglect and initial ct head was normal. His NIH score is 17. It is not known what time symptoms started. He do have history of atrial fibrillation. It is not clear what anticoagulation he was taking. Patient was not a tpa candidate due to unknown time of onset. He did have cta done and did not show any large vessel occlusion and found to have frontal lobe ischemic lesion. His Hemoglobin was found to have 5.7 He wsa trasnferred from icu to regular floor Neurological Examination Alert and track object and no spontaneous speech , he is laying with no acute distress He is able to understand and follow simple command. Mild right sided facial asymmetry, Right sided hemiparesis, no movmenet was seen Right planter is extensor ct of head reviewed initially there was no acute stroke CTA report was told verbally at bed side by ED physician, there i sno proximal occlusion and there is evolving findings suggestive of right frontal lobe infarct carotid ultrasound show there is stenosis bilaterally, Asseesment- Large Left MCA stroke, risk factor atrial fibrillation, htn, cad and HLD, at this time, Currently he is DNR/DNI. Plan--Aspirin is being held due to bleed Continue Statin -PT,Speech and DVT prophylaxis - hold ct head, as it would not make treatment difference. - carotid stenosis- assess with mra at a later time, would not be candidate for procedure in acute setting - Refrain from anticoagulation in first 5-7 days as there is high risk of bleed , Feel free to call me if any concern. Thanking you so much Enzo Fields md
[2017-05-12] MEDS: MUPIROCIN 2% TOPICAL OINTMENT FOR DECOLONIZATION NS SCH (17:13)
[2017-05-12] MEDS: ATORVASTATIN CA 80 MG TABLET (FP) PO SCH (21:00)
[2017-05-12] MEDS ORDERED: CHLORHEXIDINE GLUCONATE 4% CLEANSER FOR DECOLONIZATION TP SCH (22:00)
[2017-05-12] MEDS ORDERED: MUPIROCIN 2% TOPICAL OINTMENT FOR DECOLONIZATION NS SCH (22:00)
[2017-05-13] MEDS: PANTOPRAZOLE SODIUM 80 MG in SODIUM CHLORIDE 100 ML IVPB SCH ×4 (02:23→23:08)
[2017-05-13 07:36] LABS: BASO % 0.4 % (0-2.0); LYMPH # 0.6 (8-40); MCH 24.1 pg (25.7-33.7); MCHC 30.2 g/dl (32.0-35.9); MEAN PLT VOLUME 7.7 fl (7.5-11.1); MONO # 0.9 # (3.8-10.2); NEUT # 12.2 # (42.8-82.8); NEUT % 88.2 % (42.8-82.8); PLATELET COUNT 314 K/MM3 (134-434); RDW 23.5 % (11.9-15.9); WHITE BLOOD COUNT 13.8 K/mm3 (4.0-10.0)
[2017-05-13 07:57] LABS: ALBUMIN 2.2 g/dl (3.4-5.0); ANION GAP 15 (8-16); CALCIUM 7.3 mg/dL (8.5-10.1); CO2 19 mmol/L (21-32); CREATININE 0.9 mg/dL (0.7-1.3); GLUCOSE,RANDOM 69 mg/dL (74-106); PHOSPHOROUS 2.7 mg/dL (2.5-4.9); SGOT/AST 11 U/L (15-37); SGPT/ALT 11 U/L (12-78)
[2017-05-13 07:59] LABS: ALK PHOS 63 U/L (45-117); BILIRUBIN,TOTAL 3.1 mg/dL (0.2-1.0); TOT PROT 4.9 g/dl (6.4-8.2)
[2017-05-13 08:54] LABS: ANISOCYTOSIS 2+; HYPOCHROMIA 1+; MICROCYTOSIS 1+
[2017-05-13 08:57] LABS: ACANTHOCYTES 1+
--- NOTE | 2017-05-13 12:03 | PN ---
Progress Note (short form) - Note Progress Note: 86 Year old male history of Past Medical History of small bowel obstruciton, colon cancer, CAD, HTN , HLD came with rightsided hemiparesis. He was found to be aphasic and neglect and initial ct head was normal. His NIH score is 17. It is not known what time symptoms started. He do have history of atrial fibrillation. It is not clear what anticoagulation he was taking. Patient was not a tpa candidate due to unknown time of onset. no acute distress Neurological Examination Alert and track object and no spontaneous speech , he is laying with no acute distress He is able to understand and follow simple command. Mild right sided facial asymmetry, Right sided hemiparesis, no movmenet was seen Right planter is extensor ct of head reviewed initially there was no acute stroke CTA report was told verbally at bed side by ED physician, there i sno proximal occlusion and there is evolving findings suggestive of right frontal lobe infarct carotid ultrasound show there is stenosis bilaterally, Asseesment- Large Left MCA stroke, risk factor atrial fibrillation, htn, cad and HLD, at this time, Currently he is DNR/DNI. Plan--aspirin on hold Continue Statin -continue supportive and comfort care - carotid stenosis- would not be candidate for procedure ( CEA or Stenting) , - anticoagulation can be started after five days of stroke, if clinically indicated and he is stable enough Feel free to call me if any concern. Thanking you so much Enzo Fields md
--- NOTE | 2017-05-13 12:26 | PN ---
Progress Note (short form) - Note Progress Note: PULMONARY/CCM Remains aphasic but more arousable today. Follows simple commands. Last Vital Signs Temp Pulse Resp BP Pulse Ox 97.6 F 94 H 20 108/49 95 05/13/17 09:29 05/13/17 09:29 05/13/17 09:29 05/13/17 09:29 05/12/17 21:00 Gen: aphasic, mildly tachypneic at rest Heart: RRR Lung: decreased breath sounds at the bases Abd: soft, nontender Ext: right arm flaccid, no edema CBC, BMP 05/13/17 06:00 05/13/17 06:00 Active Medications Atorvastatin Calcium (Lipitor -) 80 mg PO HS PITA Last Admin: 05/12/17 21:00 Dose: Not Given Pantoprazole Sodium 80 mg/ (Sodium Chloride) 100 mls @ 10 mls/hr IVPB Q10H PITA PRN Reason: 8 MG/HR Last Admin: 05/13/17 12:07 Dose: 10 mls/hr Sodium Chloride (Normal Saline -) 1,000 mls @ 42 mls/hr IV ASDIR PITA Last Admin: 05/12/17 14:15 Dose: 42 mls/hr Morphine Sulfate (Morphine Sulfate) 1 mg IVPUSH Q6H PRN PRN Reason: PAIN A/P Acute L MCA Stroke Acute NSTEMI Atrial Fibrillation LV Systolic Dysfunction Mitral Regurgitation Severe Anemia s/p PRBC transfusions r/o GI Bleed HTN Hyperlipidemia - neuro checks - holding ASA, anticoagulation due to extent of stroke - rate control - aspiration precautions - swallow eval - rehab/PT - DVT prophylaxis - can monitor on floor, recommend palliative care critical care time spent in reviewing chart, evaluating patient and formulating plan 35 min
--- NOTE | 2017-05-13 16:29 | PN ---
Progress Note (short form) - Note Progress Note: Sleeping comfortable O/E No change from yesterday Hert regular Lungs clear Abd soft Ext no edema Neuro no chnage Vital Signs Period Temp Pulse Resp BP Sys/Boo Pulse Ox Last 24 Hr 97.3 F-98.4 F 91-107 20-20 100-111/46-73 95-96 Laboratory Results - last 24 hr 05/10/17 05/13/17 05/13/17 09:00 06:00 06:00 WBC 13.8 H D RBC 3.79 L Hgb 9.1 L D Hct 30.3 L MCV 80.0 MCH 24.1 L MCHC 30.2 L RDW 23.5 H Plt Count 314 MPV 7.7 Neutrophils % 88.2 H Lymphocytes % 4.7 L D Monocytes % 6.7 Eosinophils % 0.0 D Basophils % 0.4 Hypochromia 1+ Anisocytosis 2+ Microcytosis 1+ Acanthocytes (Spur) 1+ Sodium 146 H Potassium 3.7 Chloride 112 H Carbon Dioxide 19 L Anion Gap 15 BUN 24 H Creatinine 0.9 Creat Clearance w eGFR > 60 Random Glucose 69 L Calcium 7.3 L Phosphorus 2.7 Magnesium 2.0 Total Bilirubin 3.1 H D AST 11 L D ALT 11 L Alkaline Phosphatase 63 Total Protein 4.9 L Albumin 2.2 L Blood Type O POSITIVE Antibody Screen Negative Crossmatch See Detail Current Medications Atorvastatin Calcium (Lipitor -) 80 mg PO HS PITA Last Admin: 05/12/17 21:00 Dose: Not Given Pantoprazole Sodium 80 mg/ (Sodium Chloride) 100 mls @ 10 mls/hr IVPB Q10H PITA PRN Reason: 8 MG/HR Last Admin: 05/13/17 12:07 Dose: 10 mls/hr Sodium Chloride (Normal Saline -) 1,000 mls @ 42 mls/hr IV ASDIR PITA Last Admin: 05/12/17 14:15 Dose: 42 mls/hr Morphine Sulfate (Morphine Sulfate) 1 mg IVPUSH Q6H PRN PRN Reason: PAIN A&P (1) CVA (cerebral vascular accident) Assessment/Plan: massive left MCA stroke Overall prognosis is grim especially given age and co morbidities Still awaitng to reach family memers to discuss care a nd placement issues Code(s): I63.9 - CEREBRAL INFARCTION, UNSPECIFIED (2) Gltyd-pg-[id number] kidney injury Assessment/Plan: resoolved could be due to possible GI bleed (3) Anemia Assessment/Plan: Anemia possibly due to GI bleed H/H is declining again but given his desires are best not addressed or even checked Further investigations and treatmnet should be based on patients and family's wishesCode(s): D64.9 - ANEMIA, UNSPECIFIED Qualifiers: Other causes of anemia: acute posthemorrhagic (4) Colon cancer Assessment/Plan: Colon CA in which pt not pursuing treatment Code(s): C18.9 - MALIGNANT NEOPLASM OF COLON, UNSPECIFIED Qualifiers: Colon location: unspecified part of colon Qualified Code(s): C18.9 - Malignant neoplasm of colon, unspecified (5) Coronary artery disease Assessment/Plan: NSTEMI Trend Troponins, cardiac echo ordered Code(s): I25.10 - ATHSCL HEART DISEASE OF [place] CORONARY ARTERY W/O ANG PCTRS Qualifiers: Coronary Disease-Associated Artery/Lesion type: [place] artery [place] vs. transplanted heart: [place] heart Associated angina: angina presence unspecified Qualified Code(s): I25.10 - Atherosclerotic heart disease of [place] coronary artery without angina pectoris (6) Non-ST elevation (NSTEMI) myocardial infarction Assessment/Plan: Cont presetn care Code(s): I21.4 - NON-ST ELEVATION (NSTEMI) MYOCARDIAL INFARCTION Treating this 86 year old patient who has Colon cancer and refused treatment now with a massive MCA stroke and aphasic has to be based on the patients overall wishes and beliefs. To further transfuse or do aggressive curative measures and the purpose of these have to be discussed with the family whom I have been truying to get in touch with. For now transfer out of ICU and will each out to family
[2017-05-13] MEDS: ATORVASTATIN CA 80 MG TABLET (FP) PO SCH (21:36)
[2017-05-13] MEDS: SODIUM CHLORIDE 1,000 ML IV SCH (22:21)
[2017-05-14] MEDS: PANTOPRAZOLE SODIUM 80 MG in SODIUM CHLORIDE 100 ML IVPB SCH ×2 (07:58→17:54)
--- NOTE | 2017-05-14 12:53 | PN ---
Progress Note, [employer] - Note Progress Note: Significant change since my last evaluation in the ER. Lethargic for staff. Opens eyes for me but does not follow commands or repeat words as previously demonstrated. He is unaware when tsp with applesauce placed on tongue with no motor response and no swallow reflex elicited. Continue strict npo including medication. TF vs comfort care/hospice/Palliative care regarding end of life decisions. Pt is DNR/DNI.
--- NOTE | 2017-05-14 13:37 | PN ---
Progress Note, Physician Chief Complaint: Unable to obtain - Current Medication List Current Medications: Active Medications Atorvastatin Calcium (Lipitor -) 80 mg PO HS PITA Last Admin: 05/13/17 21:36 Dose: Not Given Pantoprazole Sodium 80 mg/ (Sodium Chloride) 100 mls @ 10 mls/hr IVPB Q10H PITA PRN Reason: 8 MG/HR Last Admin: 05/14/17 07:58 Dose: 10 mls/hr Sodium Chloride (Normal Saline -) 1,000 mls @ 42 mls/hr IV ASDIR PITA Last Admin: 05/13/17 22:21 Dose: 42 mls/hr Morphine Sulfate (Morphine Sulfate) 1 mg IVPUSH Q6H PRN PRN Reason: PAIN - Objective Vital Signs: Vital Signs Temperature 36.2 C L 05/14/17 09:00 Pulse Rate 101 H 05/14/17 09:00 Respiratory Rate 20 05/14/17 09:00 Blood Pressure 123/56 05/14/17 09:00 O2 Sat by Pulse Oximetry (%) 95 05/14/17 09:00 Constitutional: Yes: Other (obtunded) Cardiovascular: Yes: Regular Rate and Rhythm. No: Gallop, Murmur, Rub Respiratory: Yes: Regular, On Nasal O2, Rales, Rhonchi. No: CTA Bilaterally Gastrointestinal: Yes: Normal Bowel Sounds, Soft. No: Distention, Tenderness Extremities: Yes: WNL Edema: No Labs: CBC, BMP 05/13/17 06:00 05/13/17 06:00 INR, PTT INR 1.35 (0.82-1.09) H 05/10/17 09:00 Problem List - Problems (1) CVA (cerebral vascular accident) Code(s): I63.9 - CEREBRAL INFARCTION, UNSPECIFIED Qualifiers: CVA mechanism: embolism Precerebral and cerebral artery: posterior cerebral artery Laterality of affected vessel: left Qualified Code(s): I63.432 - Cerebral infarction due to embolism of left posterior cerebral artery (2) [id number]-bjlvcbn kidney injury Code(s): N17.9 - ACUTE KIDNEY FAILURE, UNSPECIFIED; N18.9 - CHRONIC KIDNEY DISEASE, UNSPECIFIED Qualifiers: Acute renal failure type: with acute tubular necrosis Chronic kidney disease stage: stage 2 (mild) Qualified Code(s): N17.0 - Acute kidney failure with tubular necrosis; N18.2 - Chronic kidney disease, stage 2 (mild); N18.2 - Chronic kidney disease, stage 2 (mild) (3) Anemia Code(s): D64.9 - ANEMIA, UNSPECIFIED Qualifiers: Other causes of anemia: acute posthemorrhagic (4) Colon cancer Code(s): C18.9 - MALIGNANT NEOPLASM OF COLON, UNSPECIFIED Qualifiers: Colon location: unspecified part of colon Qualified Code(s): C18.9 - Malignant neoplasm of colon, unspecified (5) Coronary artery disease Code(s): I25.10 - ATHSCL HEART DISEASE OF [place] CORONARY ARTERY W/O ANG PCTRS Qualifiers: Coronary Disease-Associated Artery/Lesion type: [place] artery [place] vs. transplanted heart: [place] heart Associated angina: angina presence unspecified Qualified Code(s): I25.10 - Atherosclerotic heart disease of [place] coronary artery without angina pectoris (6) Non-ST elevation (NSTEMI) myocardial infarction Code(s): I21.4 - NON-ST ELEVATION (NSTEMI) MYOCARDIAL INFARCTION (7) Syncope Code(s): R55 - SYNCOPE AND COLLAPSE Qualifiers: Syncope type: unspecified Qualified Code(s): R55 - Syncope and collapse (8) HTN (hypertension) Code(s): I10 - ESSENTIAL (PRIMARY) HYPERTENSION Qualifiers: Hypertension type: essential hypertension Qualified Code(s): I10 - Essential (primary) hypertension (9) Hyperlipidemia Code(s): E78.5 - HYPERLIPIDEMIA, UNSPECIFIED Qualifiers: Hyperlipidemia type: pure hypercholesterolemia Qualified Code(s): E78.00 - Pure hypercholesterolemia, unspecified Assessment/Plan (1) CVA (cerebral vascular accident) Code(s): I63.9 - CEREBRAL INFARCTION, UNSPECIFIED Qualifiers: CVA mechanism: embolism Precerebral and cerebral artery: posterior cerebral artery Laterality of affected vessel: left Qualified Code(s): I63.432 - Cerebral infarction due to embolism of left posterior cerebral artery (2) Jeexf-bc-erguics kidney injury Code(s): N17.9 - ACUTE KIDNEY FAILURE, UNSPECIFIED; N18.9 - CHRONIC KIDNEY DISEASE, UNSPECIFIED Qualifiers: Acute renal failure type: with acute tubular necrosis Chronic kidney disease stage: stage 2 (mild) Qualified Code(s): N17.0 - Acute kidney failure with tubular necrosis; N18.2 - Chronic kidney disease, stage 2 (mild); N18.2 - Chronic kidney disease, stage 2 (mild) (3) Anemia Code(s): D64.9 - ANEMIA, UNSPECIFIED Qualifiers: Other causes of anemia: acute posthemorrhagic (4) Colon cancer Code(s): C18.9 - MALIGNANT NEOPLASM OF COLON, UNSPECIFIED Qualifiers: Colon location: unspecified part of colon Qualified Code(s): C18.9 - Malignant neoplasm of colon, unspecified (5) Coronary artery disease Code(s): I25.10 - ATHSCL HEART DISEASE OF [place] CORONARY ARTERY W/O ANG PCTRS Qualifiers: Coronary Disease-Associated Artery/Lesion type: [place] artery [place] vs. transplanted heart: [place] heart Associated angina: angina presence unspecified Qualified Code(s): I25.10 - Atherosclerotic heart disease of [place] coronary artery without angina pectoris (6) Non-ST elevation (NSTEMI) myocardial infarction Code(s): I21.4 - NON-ST ELEVATION (NSTEMI) MYOCARDIAL INFARCTION (7) Syncope Code(s): R55 - SYNCOPE AND COLLAPSE Qualifiers: Syncope type: unspecified Qualified Code(s): R55 - Syncope and collapse (8) HTN (hypertension) Code(s): I10 - ESSENTIAL (PRIMARY) HYPERTENSION Qualifiers: Hypertension type: essential hypertension Qualified Code(s): I10 - Essential (primary) hypertension (9) Hyperlipidemia Code(s): E78.5 - HYPERLIPIDEMIA, UNSPECIFIED Qualifiers: Hyperlipidemia type: pure hypercholesterolemia Qualified Code(s): E78.00 - Pure hypercholesterolemia, unspecified Plan -reviewed notes over the weekend -attempts to contact his family, appears pulmonary managed to speak but no other physician was successful -pulmonary note says comfort measures only -will need to clarify this with family -palliative care consult -will stop lipitor -agree to no further labs -continue PPI gtt -continue prn morphine -very poor prognosis
[2017-05-14] MEDS: SODIUM CHLORIDE 1,000 ML IV SCH (17:54)
[2017-05-15] MEDS: PANTOPRAZOLE SODIUM 80 MG in SODIUM CHLORIDE 100 ML IVPB SCH (03:15)
[2017-05-15] MEDS ORDERED: HALOPERIDOL LACTATE 5 MG/ML IM PRN (11:49)
[2017-05-15] MEDS ORDERED: morphine SULFATE 4 MG/ML VIAL IVPUSH PRN (11:52)
[2017-05-15] MEDS ORDERED: SCOPOLAMINE HYDROBROMIDE 1 PATCH PATCH.TD72 TD SCH (12:00)
--- NOTE | 2017-05-15 14:41 | PN ---
Progress Note, Physician Chief Complaint: Unable to obtain - Current Medication List Current Medications: Active Medications Haloperidol (Haldol Injection (Fast Acting) -) 2 mg IM Q4H PRN PRN Reason: AGITATION Lorazepam (Ativan Injection -) 1 mg IVPUSH Q4H PRN PRN Reason: ANXIETY Morphine Sulfate (Morphine Sulfate) 1 mg IVPUSH Q4H PRN PRN Reason: PAIN Pantoprazole Sodium (Protonix Iv) 40 mg IVPUSH DAILY PITA Scopolamine HBr (Transderm-Scop -) 1 patch TD Q72H PITA - Objective Vital Signs: Vital Signs Temperature 36.8 C 05/15/17 09:52 Pulse Rate 120 H 05/15/17 09:52 Respiratory Rate 22 05/15/17 09:52 Blood Pressure 124/70 05/15/17 09:52 O2 Sat by Pulse Oximetry (%) 96 05/14/17 21:00 Constitutional: Yes: No Distress, Other (lethargic) Labs: CBC, BMP 05/13/17 06:00 05/13/17 06:00 INR, PTT INR 1.35 (0.82-1.09) H 05/10/17 09:00 Problem List - Problems (1) CVA (cerebral vascular accident) Code(s): I63.9 - CEREBRAL INFARCTION, UNSPECIFIED Qualifiers: CVA mechanism: embolism Precerebral and cerebral artery: posterior cerebral artery Laterality of affected vessel: left Qualified Code(s): I63.432 - Cerebral infarction due to embolism of left posterior cerebral artery (2) Lrfkg-qt-anngyys kidney injury Code(s): N17.9 - ACUTE KIDNEY FAILURE, UNSPECIFIED; N18.9 - CHRONIC KIDNEY DISEASE, UNSPECIFIED Qualifiers: Acute renal failure type: with acute tubular necrosis Chronic kidney disease stage: stage 2 (mild) Qualified Code(s): N17.0 - Acute kidney failure with tubular necrosis; N18.2 - Chronic kidney disease, stage 2 (mild); N18.2 - Chronic kidney disease, stage 2 (mild) (3) Anemia Code(s): D64.9 - ANEMIA, UNSPECIFIED Qualifiers: Other causes of anemia: acute posthemorrhagic (4) Colon cancer Code(s): C18.9 - MALIGNANT NEOPLASM OF COLON, UNSPECIFIED Qualifiers: Colon location: unspecified part of colon Qualified Code(s): C18.9 - Malignant neoplasm of colon, unspecified (5) Coronary artery disease Code(s): I25.10 - ATHSCL HEART DISEASE OF [place] CORONARY ARTERY W/O ANG PCTRS Qualifiers: Coronary Disease-Associated Artery/Lesion type: [place] artery [place] vs. transplanted heart: [place] heart Associated angina: angina presence unspecified Qualified Code(s): I25.10 - Atherosclerotic heart disease of [place] coronary artery without angina pectoris (6) Non-ST elevation (NSTEMI) myocardial infarction Code(s): I21.4 - NON-ST ELEVATION (NSTEMI) MYOCARDIAL INFARCTION (7) Syncope Code(s): R55 - SYNCOPE AND COLLAPSE Qualifiers: Syncope type: unspecified Qualified Code(s): R55 - Syncope and collapse (8) HTN (hypertension) Code(s): I10 - ESSENTIAL (PRIMARY) HYPERTENSION Qualifiers: Hypertension type: essential hypertension Qualified Code(s): I10 - Essential (primary) hypertension (9) Hyperlipidemia Code(s): E78.5 - HYPERLIPIDEMIA, UNSPECIFIED Qualifiers: Hyperlipidemia type: pure hypercholesterolemia Qualified Code(s): E78.00 - Pure hypercholesterolemia, unspecified Assessment/Plan (1) CVA (cerebral vascular accident) Code(s): I63.9 - CEREBRAL INFARCTION, UNSPECIFIED Qualifiers: CVA mechanism: embolism Precerebral and cerebral artery: posterior cerebral artery Laterality of affected vessel: left Qualified Code(s): I63.432 - Cerebral infarction due to embolism of left posterior cerebral artery (2) Dhxgo-wk-mqwyxsz kidney injury Code(s): N17.9 - ACUTE KIDNEY FAILURE, UNSPECIFIED; N18.9 - CHRONIC KIDNEY DISEASE, UNSPECIFIED Qualifiers: Acute renal failure type: with acute tubular necrosis Chronic kidney disease stage: stage 2 (mild) Qualified Code(s): N17.0 - Acute kidney failure with tubular necrosis; N18.2 - Chronic kidney disease, stage 2 (mild); N18.2 - Chronic kidney disease, stage 2 (mild) (3) Anemia Code(s): D64.9 - ANEMIA, UNSPECIFIED Qualifiers: Other causes of anemia: acute posthemorrhagic (4) Colon cancer Code(s): C18.9 - MALIGNANT NEOPLASM OF COLON, UNSPECIFIED Qualifiers: Colon location: unspecified part of colon Qualified Code(s): C18.9 - Malignant neoplasm of colon, unspecified (5) Coronary artery disease Code(s): I25.10 - ATHSCL HEART DISEASE OF [place] CORONARY ARTERY W/O ANG PCTRS Qualifiers: Coronary Disease-Associated Artery/Lesion type: [place] artery [place] vs. transplanted heart: [place] heart Associated angina: angina presence unspecified Qualified Code(s): I25.10 - Atherosclerotic heart disease of [place] coronary artery without angina pectoris (6) Non-ST elevation (NSTEMI) myocardial infarction Code(s): I21.4 - NON-ST ELEVATION (NSTEMI) MYOCARDIAL INFARCTION (7) Syncope Code(s): R55 - SYNCOPE AND COLLAPSE Qualifiers: Syncope type: unspecified Qualified Code(s): R55 - Syncope and collapse (8) HTN (hypertension) Code(s): I10 - ESSENTIAL (PRIMARY) HYPERTENSION Qualifiers: Hypertension type: essential hypertension Qualified Code(s): I10 - Essential (primary) hypertension (9) Hyperlipidemia Code(s): E78.5 - HYPERLIPIDEMIA, UNSPECIFIED Qualifiers: Hyperlipidemia type: pure hypercholesterolemia Qualified Code(s): E78.00 - Pure hypercholesterolemia, unspecified Plan -palliative care discussed goals with family -comfort measures only -continue prn morphine for air hunger -prn ativan and haldol for agitation -change protonix gtt to 40mg IV daily -scopolamine patch -[place] for comfort -plan for transfer to [facility] when bed available
[2017-05-15 20:38] VITALS: BP 115/68; PULSE 122; TEMP 98.2
--- NOTE | 2017-05-16 00:02 | HOSP ---
Subjective - Review of Symptoms Events since last encounter: I was called to see patient for unresponsiveness. On exam the patient did not respond to verbal or physical stimuli, and no spontaneous movement was observed. Absent heart and breath sounds for more than 1 minute. Absent peripheral pulses. Pupils were fixed and dilated, corneal reflex was absent. Pt is DNR/DNI. Patient pronounced at 11:45PM on 05/15. PCP to be notified by primary team in AM. Next of kin, family members were notified by nurse. [facility] services to be offered Physical Examination Vital Signs: Vital Signs Temperature 98.2 F 05/15/17 20:32 Pulse Rate 122 H 05/15/17 20:32 Respiratory Rate 20 05/15/17 20:38 Blood Pressure 115/68 05/15/17 20:32 O2 Sat by Pulse Oximetry (%) 91 L 05/15/17 20:38 Labs: CBC, BMP 05/13/17 06:00 05/13/17 06:00 Visit type - Emergency Visit Emergency Visit: No - New Patient This patient is new to me today: Yes Date on this admission: 05/16/17 - Critical Care Critical Care patient: No
[2017-05-16] MEDS ORDERED: PANTOPRAZOLE SODIUM 40 MG VIAL IVPUSH SCH (10:00)
--- NOTE | 2017-05-16 12:42 | DS ---
Physical Examination Vital Signs: Vital Signs Temperature 36.8 C 05/15/17 20:32 Pulse Rate 122 H 05/15/17 20:32 Respiratory Rate 20 05/15/17 20:38 Blood Pressure 115/68 05/15/17 20:32 O2 Sat by Pulse Oximetry (%) 91 L 05/15/17 20:38 Labs: CBC, BMP 05/13/17 06:00 05/13/17 06:00 Discharge Summary Reason For Visit: CVA Hospital Course: (1) CVA (cerebral vascular accident) Code(s): I63.9 - CEREBRAL INFARCTION, UNSPECIFIED Qualifiers: CVA mechanism: embolism Precerebral and cerebral artery: posterior cerebral artery Laterality of affected vessel: left Qualified Code(s): I63.432 - Cerebral infarction due to embolism of left posterior cerebral artery (2) Cpwmu-dn-svqmyrh kidney injury Code(s): N17.9 - ACUTE KIDNEY FAILURE, UNSPECIFIED; N18.9 - CHRONIC KIDNEY DISEASE, UNSPECIFIED Qualifiers: Acute renal failure type: with acute tubular necrosis Chronic kidney disease stage: stage 2 (mild) Qualified Code(s): N17.0 - Acute kidney failure with tubular necrosis; N18.2 - Chronic kidney disease, stage 2 (mild); N18.2 - Chronic kidney disease, stage 2 (mild) (3) Anemia Code(s): D64.9 - ANEMIA, UNSPECIFIED Qualifiers: Other causes of anemia: acute posthemorrhagic (4) Colon cancer Code(s): C18.9 - MALIGNANT NEOPLASM OF COLON, UNSPECIFIED Qualifiers: Colon location: unspecified part of colon Qualified Code(s): C18.9 - Malignant neoplasm of colon, unspecified (5) Coronary artery disease Code(s): I25.10 - ATHSCL HEART DISEASE OF [place] CORONARY ARTERY W/O ANG PCTRS Qualifiers: Coronary Disease-Associated Artery/Lesion type: [place] artery [place] vs. transplanted heart: [place] heart Associated angina: angina presence unspecified Qualified Code(s): I25.10 - Atherosclerotic heart disease of [place] coronary artery without angina pectoris (6) Non-ST elevation (NSTEMI) myocardial infarction Code(s): I21.4 - NON-ST ELEVATION (NSTEMI) MYOCARDIAL INFARCTION (7) Syncope Code(s): R55 - SYNCOPE AND COLLAPSE Qualifiers: Syncope type: unspecified Qualified Code(s): R55 - Syncope and collapse (8) HTN (hypertension) Code(s): I10 - ESSENTIAL (PRIMARY) HYPERTENSION Qualifiers: Hypertension type: essential hypertension Qualified Code(s): I10 - Essential (primary) hypertension (9) Hyperlipidemia Code(s): E78.5 - HYPERLIPIDEMIA, UNSPECIFIED Qualifiers: Hyperlipidemia type: pure hypercholesterolemia Qualified Code(s): E78.00 - Pure hypercholesterolemia, unspecified Mr Parker was an 86 year old man who came in with an acute CVA and anemia, most likely from GI bleeding from an untreated colon cancer. He was seen by neurology in the ED, he did not qualify for TPA secondary to time and ABLA. He was transfused and discussion occurred with his family. On admission they stated he was DNR/DNI. Because of multiple co-morbidities and clinical status supportive care was provided. Further discussion with his HCP happened and he was placed on comfort measures only. He on 05/15 at 2345. Condition: - Instructions Referrals: Omar Vargas MD [Primary Care Provider] - Disposition: - Home Medications Comprehensive Discharge Medication List: Ambulatory Orders Atorvastatin Ca [Lipitor] 40 mg PO HS #30 tablet 07/03/16 Ascorbic Acid [Vitamin C -] 500 mg PO DAILY tablet 10/19/16 Ferrous Sulfate [Feosol] 325 mg PO DAILY #30 tab 10/19/16 Losartan Potassium [Cozaar -] 25 mg PO DAILY #30 tablet 10/19/16 Metoprolol Succinate [Toprol XL -] 12.5 mg PO DAILY #30 tab.sr 10/19/16 Spironolactone [Aldactone -] 25 mg PO DAILY #30 tablet 10/19/16 Hydrocortisone Acetate [Anusol Hc Suppository -] 25 mg RC DAILY #14 supp.rect Apixaban [Eliquis -] 2.5 mg PO BID 05/10/17 Isosorbide Mononitrate [Isosorbide Mononitrate ER] 60 mg PO DAILY 05/10/17 Pantoprazole Sodium [Protonix] 40 mg PO DAILY 05/10/17
--- NOTE | 2017-05-18 11:23 | EKG ---
Test Reason : Blood Pressure : / mmHG Vent. Rate : 061 BPM Atrial Rate : 267 BPM P-R Int : 000 ms QRS Dur : 126 ms QT Int : 474 ms P-R-T Axes : -61 -62 -69 degrees QTc Int : 477 ms ATRIAL FLUTTER WITH VARIABLE A-V BLOCK LEFT AXIS DEVIATION RIGHT BUNDLE BRANCH BLOCK MINIMAL VOLTAGE CRITERIA FOR LVH, MAY BE NORMAL VARIANT T WAVE ABNORMALITY, CONSIDER INFERIOR ISCHEMIA ABNORMAL ECG WHEN COMPARED WITH ECG OF 10-MAY-2017 09:26, ATRIAL FLUTTER HAS REPLACED SINUS RHYTHM ST LESS DEPRESSED IN LATERAL LEADS T WAVE INVERSION NOW EVIDENT IN INFERIOR LEADS T WAVE INVERSION NO LONGER EVIDENT IN ANTEROLATERAL LEADS CLINICAL CORRELATION IS RECOMMENDED Confirmed by JOAQUÍN SAMUEL, TO ([id number]) on 05/18/2017 11:22:51 AM Referred By: Confirmed By:TO YANES MD
== END 2017-05-16 02:30 | disposition expired | DRG 64 ==
LOC: JER 08:26 → JERBED 12:04 → JICU 17:15 → J7W 05-12 13:18
PROVIDERS: ADMIT Internal Medicine; ATTEND Internal Medicine
PROC: 30233N1 Transfusion of Nonautologous Red Blood Cells into Peripheral Vein, Percutaneous Approach (ICD-10-PCS; principal; 2017-05-11)
DX: I63.50 Cerebral infarction due to unspecified occlusion or stenosis of unspecified cerebral artery (principal); I21.A1 Myocardial infarction type 2; N17.0 Acute kidney failure with tubular necrosis; C18.9 Malignant neoplasm of colon, unspecified; K92.2 Gastrointestinal hemorrhage, unspecified; G81.91 Hemiplegia, unspecified affecting right dominant side; I48.92 Unspecified atrial flutter; D64.9 Anemia, unspecified; I25.10 Atherosclerotic heart disease of native coronary artery without angina pectoris; R55 Syncope and collapse; E78.5 Hyperlipidemia, unspecified; I12.9 Hypertensive chronic kidney disease with stage 1 through stage 4 chronic kidney disease, or unspecified chronic kidney disease; I48.0 Paroxysmal atrial fibrillation; N18.2 Chronic kidney disease, stage 2 (mild); I34.0 Nonrheumatic mitral (valve) insufficiency; R29.717 NIHSS score 17
CPT/HCPCS: 36415; 36430; 36511; 70450-TC; 70496-TC; 71010-TC; 80048; 80053; 80061; 81003; 82465; 82550; 82553; 83718; 83721; 83735; 84100; 84478; 84484; 85025; 85610; 86850; 86900; 86901; 86922; 87086; 93005; 93010; 93306-TC; 93880-TC; 99285-25; P9038; P9058